=== PATIENT | female | born 1930 | race Asian ===

== ENCOUNTER 2016-09-01 16:15 | Inpatient (IN) | payer OTHER ==
[~2016-09-01] VITALS: Ht 162.6 cm; Wt 52.6 kg
[~2016-09-01 16:15] MED LIST: ADALAT10 MG ORAL; CELEBREX200 MG ORAL; COLACE100 MG ORAL; GLIPIZIDE5 MG ORAL; GLUCOTROL5 MG ORAL; LOSARTAN POTASS25 MG ORAL; LOSARTAN POTASS50 MG ORAL; LOVENOX10 M4 SUBQ; METFORMIN HCL1000 M1 ORAL; METFORMIN HCL500 M1 ORAL; METFORMIN HCL850 M1 ORAL; NIFEDIPINE ER60 M2 ORAL; NORCO 5-325 TA1 EACH ORAL
--- NOTE | 2016-09-01 16:25 | Emergency Room Report ---
History of Present Illness General Chief Complaint: Generalized Weakness Source: Patient, EMS Present Illness HPI Patient is an 86-year-old female presented after increased generalized weakness. The patient reported having increased generalized weakness gradual onset. She denied any focal pain. The patient had prior history of diabetes. She reports having normal po intake as well as normal bowel and bladder habits. She denied any fever. She had not been having any vomiting or diarrhea. The patient reports only taking medications for blood pressure and for diabetes.Per family member she been having chills earlier in the day. Allergies: Coded Allergies: No Known Allergies (Unverified , 02/09/14) Patient History Past Medical History: see triage record Reviewed Nursing Documentation: PMH: Agreed, PSxH: Agreed Nursing Documentation-PMH Past Medical History: No History, Except For Hx Cardiac Problems: Yes Hx Hypertension: Yes Hx Diabetes: Yes Hx Cancer: No Hx Gastrointestinal Problems: No Hx Neurological Problems: Yes - DEMENTIA Review of Systems All Other Systems: negative except mentioned in HPI Physical Exam Vital Signs Date Time Temp Pulse Resp B/P Pulse Ox O2 Delivery O2 Flow Rate FiO2 09/01/16 16:07 97.3 99 20 117/64 95 Room Air Sp02 EP Interpretation: reviewed, normal General Appearance: normal inspection, alert, GCS 15, mild distress Head: normocephalic, atraumatic Eyes: bilateral eye PERRL ENT: normal ENT inspection, hearing grossly normal, normal voice, dry mucus membranes Neck: normal inspection, full range of motion, supple, no bony tend Respiratory: normal inspection, lungs clear, normal breath sounds, no respiratory distress, no retraction, no wheezing Cardiovascular #1: regular rate, rhythm, no edema Gastrointestinal: normal inspection, normal bowel sounds, non tender, soft, no guarding, no hernia Genitourinary: no CVA tenderness Musculoskeletal: normal inspection, back normal, normal range of motion Neurologic: normal inspection, alert, oriented x3, responsive, psychology fellow III-XII nml as tested, motor strength/tone normal, DTRs symmetric, speech normal Psychiatric: normal inspection, judgement/insight normal, mood/affect normal Skin: normal inspection, normal color, no rash Medical Decision Making Diagnostic Impression: Primary Impression: Weakness Additional Impressions: Lactic acid acidosis Diabetes Bifascicular block ER Course Patient presented for generalized weakness. Differential diagnosis included was not limited to anemia, urinary tract infection, electrolyte abnormality, hypothyroidism, myocardial infarction, myasthenia gravis, dehydration, among others. Because of complexity of patient's case laboratory testing and imaging studies were ordered. .The patient noted to have evidence of dehydration started on IV fluids. Lactic acid levels noted to be elevated on patient laboratory testing. The patient was also noted to have slight elevation of her white blood count. Patient was noted to have unremarkable chest x-ray which showed no infiltrate. The patient was given IV antibiotics as well as IV fluids. Lactic acid was noted be slightly improved on repeat testing. Dr. Jem Mancini was contacted for inpatient management Labs Test 09/01/16 16:40 09/01/16 17:19 White Blood Count 11.7 K/UL (4.8-10.8) Red Blood Count 4.88 M/UL (4.20-5.40) Hemoglobin 17.0 G/DL (12.0-16.0) Hematocrit 49.4 % (37.0-47.0) Mean Corpuscular Volume 101 FL (80-99) Mean Corpuscular Hemoglobin 34.9 PG (27.0-31.0) Mean Corpuscular Hemoglobin Concent 34.5 G/DL (32.0-36.0) Red Cell Distribution Width 11.2 % (11.6-14.8) Platelet Count 241 K/UL (150-450) Mean Platelet Volume 9.2 FL (6.5-10.1) Neutrophils (%) (Auto) 60.3 % (45.0-75.0) Lymphocytes (%) (Auto) 32.0 % (20.0-45.0) Monocytes (%) (Auto) 5.8 % (1.0-10.0) Eosinophils (%) (Auto) 0.9 % (0.0-3.0) Basophils (%) (Auto) 1.0 % (0.0-2.0) Sodium Level 142 mEQ/L (135-145) Potassium Level 4.1 mEQ/L (3.4-4.9) Chloride Level 100 mEQ/L (98-107) Carbon Dioxide Level 23 mEQ/L (20-30) Anion Gap 19 (5-15) Blood Urea Nitrogen 15 mg/dL (7-23) Creatinine 0.7 mg/dL (0.5-0.9) Estimat Glomerular Filtration Rate mL/min (>60) Glucose Level 211 mg/dL (74-106) Calcium Level 10.3 mg/dL (8.6-10.2) Phosphorus Level 2.5 mg/dL (2.5-4.8) Magnesium Level 2.0 mg/dL (1.7-2.5) Total Bilirubin 0.3 mg/dL (0.0-1.2) Aspartate Amino Transf (AST/SGOT) 17 U/L (5-40) Alanine Aminotransferase (ALT/SGPT) 19 U/L (3-33) Alkaline Phosphatase 83 U/L (35-104) Total Creatine Kinase 22 U/L (26-140) Creatine Kinase MB < 1.5 ng/mL (< 3.8) Creatine Kinase MB Relative Index Troponin I < 0.30 ng/mL (<=0.30) Pro-B-Type Natriuretic Peptide 111 pg/mL (0-450) Total Protein 8.2 g/dL (6.6-8.7) Albumin 4.6 g/dL (3.5-5.2) Globulin 3.6 g/dL Albumin/Globulin Ratio 1.2 (1.0-2.7) Lipase 29 U/L (< 60) Urine Color Pale yellow Urine Appearance Clear Urine pH 6.5 (4.5-8.0) Urine Specific [place] 1.010 (1.005-1.035) Urine Protein Negative (NEGATIVE) Urine Glucose (UA) 3+ (NEGATIVE) Urine Ketones 1+ (NEGATIVE) Urine Occult Blood Negative (NEGATIVE) Urine Nitrite Negative (NEGATIVE) Urine Bilirubin Negative (NEGATIVE) Urine Urobilinogen Normal MG/DL (0.0-1.0) Urine Leukocyte Esterase Negative (NEGATIVE) Lactic Acid Level 4.10 mmol/L (0.66-2.22) EKG Diagnostic Results Rate: normal - 98 Rhythm: NSR ST Segments: other - bifascicular block Rhythm Strip Diag. Results EP Interpretation: yes Rhythm: NSR, no PVC's, no ectopy Last Vital Signs Date Time Temp Pulse Resp B/P Pulse Ox O2 Delivery O2 Flow Rate FiO2 09/01/16 16:07 97.3 99 20 117/64 95 Room Air Status: unchanged Disposition: XFER SHT-TRM HOSP Condition: Serious Clark Linda Sep 01, 2016 16:25
[2016-09-01 16:40] VITALS: BP 117/64
[2016-09-01 16:56] LABS: EOSINOPHILS % (AUTO) 0.9 % (0.0-3.0); MEAN CORPUSCULAR HEMOGLOBIN 34.9 PG (27.0-31.0); MEAN CORPUSCULAR HGB CONC 34.5 G/DL (32.0-36.0); MEAN CORPUSCULAR VOLUME 101 FL (80-99); MEAN PLATELET VOLUME 9.2 FL (6.5-10.1); MONOCYTES % (AUTO) 5.8 % (1.0-10.0); NEUTROPHILS % (AUTO) 60.3 % (45.0-75.0); PLATELET COUNT 241 K/UL (150-450); RED BLOOD COUNT 4.88 M/UL (4.20-5.40); RED CELL DISTRIBUTION WIDTH 11.2 % (11.6-14.8); WHITE BLOOD COUNT 11.7 K/UL (4.8-10.8)
[2016-09-01 17:02] LABS: TROPONIN I < 0.30 ng/mL (<=0.30)
[2016-09-01 17:03] LABS: ALANINE AMINOTRANSFERASE 19 U/L (3-33); ALBUMIN/GLOBULIN RATIO 1.2 (1.0-2.7); ANION GAP 19 (5-15); ASPARTATE AMINO TRANSFERASE 17 U/L (5-40); CALCIUM 10.3 mg/dL (8.6-10.2); CARBON DIOXIDE 23 mEQ/L (20-30); CHLORIDE 100 mEQ/L (98-107); CREATININE 0.7 mg/dL (0.5-0.9); HEMOLYSIS 13; LIPASE 29 U/L (< 60); PHOSPHORUS 2.5 mg/dL (2.5-4.8); POTASSIUM 4.1 mEQ/L (3.4-4.9); SODIUM 142 mEQ/L (135-145); TOTAL PROTEIN 8.2 g/dL (6.6-8.7)
[2016-09-01 17:04] LABS: REFLEX LACTIC ACID YES OR NO YES
[2016-09-01 17:14] LABS: CKMB < 1.5 ng/mL (< 3.8)
[2016-09-01] MEDS ORDERED: Ampicillin/Sulbactam Sod 3 GM in NS 110 ML IVPB ONE (17:30)
[2016-09-01 17:40] LABS: APPEARANCE,URINE CLEAR; KETONES,URINE 1+ (NEGATIVE); LEUKOCYTE ESTERASE ,URINE NEGATIVE (NEGATIVE); NITRITE,URINE NEGATIVE (NEGATIVE); PH,URINE 6.5 (4.5-8.0); PROTEIN,URINE NEGATIVE (NEGATIVE); UROBILINOGEN,URINE NORMAL MG/DL (0.0-1.0)
[2016-09-01] MEDS ORDERED: Unasyn 3gm Inj ONE (18:19)
[2016-09-01 18:27] VITALS: BP 143/64
[2016-09-01 19:26] VITALS: BP 132/69
[2016-09-01 21:05] LABS: REFLEX LACTIC ACID YES OR NO YES
[2016-09-01] MEDS ORDERED: NIFEdipine 10mg cap ORAL PRN (21:15)
[2016-09-01 21:30] VITALS: BP 142/91
[2016-09-01] MEDS ORDERED: NIFEdipine 10mg cap ORAL SCH (22:00)
[2016-09-01 22:30] VITALS: BP 135/88
[2016-09-01 22:33] VITALS: BP 138/74
[2016-09-01] MEDS: NIFEdipine 10mg cap ORAL SCH (23:21)
[2016-09-01] MEDS: Unasyn 3gm/NS 110ml IVPB SCH ×2 (23:21)
[2016-09-02] MEDS ORDERED: Unasyn 3gm Inj IV SCH
[2016-09-02 04:02] VITALS: BP 133/74
[2016-09-02] MEDS: Unasyn 3gm/NS 110ml IVPB SCH ×6 (05:28→18:07)
[2016-09-02] MEDS: NIFEdipine 10mg cap ORAL SCH ×3 (05:28→21:27)
[2016-09-02 08:07] VITALS: BP 132/71
--- NOTE | 2016-09-02 09:12 | Diagnostic Imaging Report ---
Indications: Shortness of breath Technique: Portable AP chest Findings: Comparison: 10/16/14 Inspiratory effort has improved. Despite this, elevation of the right hemidiaphragm persists. Linear densities are present in the left upper lobe, probably present previously but better demonstrated currently. Visualized portions of lungs and pleura remain otherwise clear. Heart size and pulmonary vasculature remain within normal limits. Aortic arch calcification, mild elongation unchanged. IMPRESSION: Elevation of right hemidiaphragm, nonspecific, acuity indeterminate Left upper lobe parenchymal scarring Aortosclerosis and probable chronic hypertensive change
[2016-09-02 10:16] LABS: ALANINE AMINOTRANSFERASE 14 U/L (3-33); ALBUMIN/GLOBULIN RATIO 1.3 (1.0-2.7); ANION GAP 15 (5-15); ASPARTATE AMINO TRANSFERASE 13 U/L (5-40); CALCIUM 8.6 mg/dL (8.6-10.2); CARBON DIOXIDE 22 mEQ/L (20-30); CHLORIDE 105 mEQ/L (98-107); CREATININE 0.5 mg/dL (0.5-0.9); HEMOLYSIS 6; POTASSIUM 3.5 mEQ/L (3.4-4.9); SODIUM 142 mEQ/L (135-145); TOTAL PROTEIN 6.6 g/dL (6.6-8.7)
[2016-09-02 11:23] VITALS: BP 137/72
--- NOTE | 2016-09-02 13:00 | History & Physical ---
History and Physical History & Physicial dict DM - BS 500 at home Acidosis - poss due to metformin HTN possible sepsis MAEGAN ROJAS Sep 02, 2016 13:00
[2016-09-02 13:13] LABS: BASOPHILS % (AUTO) 0.5 % (0.0-2.0); EOSINOPHILS % (AUTO) 1.2 % (0.0-3.0); LYMPHOCYTES % (AUTO) 33.4 % (20.0-45.0); MEAN CORPUSCULAR HEMOGLOBIN 34.7 PG (27.0-31.0); MEAN CORPUSCULAR HGB CONC 33.6 G/DL (32.0-36.0); MEAN CORPUSCULAR VOLUME 103 FL (80-99); MEAN PLATELET VOLUME 8.1 FL (6.5-10.1); MONOCYTES % (AUTO) 6.5 % (1.0-10.0); NEUTROPHILS % (AUTO) 58.4 % (45.0-75.0); PLATELET COUNT 204 K/UL (150-450); RED BLOOD COUNT 4.32 M/UL (4.20-5.40); RED CELL DISTRIBUTION WIDTH 11.3 % (11.6-14.8); WHITE BLOOD COUNT 10.6 K/UL (4.8-10.8)
[2016-09-02 15:30] VITALS: BP 123/63
--- NOTE | 2016-09-02 17:01 | History and Physical Report ---
DATE OF ADMISSION: 09/01/2016 HISTORY OF PRESENT ILLNESS: The patient is an 86-year-old woman, who comes to the hospital from home because of weakness. She states that her blood sugar was 500, she does not know exactly why. She does not take insulin at home, but takes oral diabetic medication. She was eating well. She had no fever, but she did have some chills. There was no cough or shortness of breath and no dysuria. She had no nausea, vomiting, or diarrhea. PAST MEDICAL HISTORY: Diabetes, hypertension, and possibly some dementia, although she seems coherent to me. MEDICATIONS: Glipizide, metformin, losartan, and nifedipine. ALLERGIES: None. REVIEW OF SYSTEMS: Otherwise unremarkable. She has had a poor appetite today. PHYSICAL EXAMINATION: GENERAL: The patient is alert and responds appropriately at this time. There is no fever. She is well-developed and well-nourished. VITAL SIGNS: The blood pressure is 137/72. Other vital signs are normal. Saturation is 93% to 99% on room air. SKIN: Warm and dry. HEENT: The head is normocephalic. NECK: No jugular venous distention. CHEST: Clear. CARDIAC: Rhythm is regular. ABDOMEN: Soft and nontender. EXTREMITIES: No clubbing, cyanosis, or edema. LABORATORY DATA: Laboratory studies show the white count was mildly elevated at 11,700. Chemistry shows blood sugar 232. Lactic acid was elevated. Creatinine 0.5. Urine, she had 1+ ketones and 3+ sugar. IMPRESSION: 1. Generalized weakness. 2. Hyperglycemia. 3. Lactic acidosis, possibly due to metformin or early sepsis. 4. Hypertension, controlled on medication. PLAN: The patient will be given empiric antibiotics until cultures return. Endocrinology consultation was requested. We will discontinue metformin as it may cause acidosis. Jem Mancini M.D. DR: COSMO JOB#: [id number] CC:
[2016-09-02] MEDS: NovoLOG Insulin Flexpen SUBQ SCH ×2 (17:14→21:00)
[2016-09-02 21:03] VITALS: BP 140/72
[2016-09-03 00:07] VITALS: BP 148/67
[2016-09-03] MEDS: Unasyn 3gm/NS 110ml IVPB SCH ×8 (00:14→18:17)
[2016-09-03 04:11] VITALS: BP 146/57
[2016-09-03] MEDS: NIFEdipine 10mg cap ORAL SCH (06:00)
[2016-09-03] MEDS: NovoLOG Insulin Flexpen SUBQ SCH ×4 (06:39→22:11)
[2016-09-03] MEDS: sitaGLIPtin 50mg tab ORAL SCH (08:23)
[2016-09-03 09:45] LABS: REFLEX LACTIC ACID YES OR NO YES
[2016-09-03] MEDS: Nateglinide 60mg tab ORAL SCH ×2 (11:10→16:18)
--- NOTE | 2016-09-03 13:44 | General Progress Note ---
Assessment/Plan Assessment/Plan 1. Generalized weakness. 2. Hyperglycemia. 3. Lactic acidosis, possibly due to metformin or early sepsis. 4. Hypertension, controlled on medication. still very weak endo called, meds adjusted still elevated lactic acid monitor labs OT/PT Subjective Constitutional: Reports: malaise, weakness Allergies: Coded Allergies: No Known Allergies (Unverified , 02/09/14) Objective Last 24 Hour Vital Signs Date Time Temp Pulse Resp B/P Pulse Ox O2 Delivery O2 Flow Rate FiO2 09/03/16 12:00 50 09/03/16 08:00 52 09/03/16 06:00 40 156/70 09/03/16 04:11 98.5 44 146/57 93 Room Air 09/03/16 04:00 42 09/03/16 00:07 98.3 49 18 148/67 94 Room Air 09/03/16 00:00 48 09/02/16 21:27 50 140/72 09/02/16 21:03 98.4 50 17 140/72 93 Room Air 09/02/16 20:00 65 09/02/16 16:00 60 09/02/16 15:30 97.9 61 18 123/63 93 Room Air Intake and Output 09/02/16 09/03/16 19:00 07:00 Intake Total 910 ml 110 ml Balance 910 ml 110 ml Intake Oral 800 ml IV Total 110 ml 110 ml # Voids 4 3 Laboratory Tests 09/03/16 09:05: Hemoglobin A1c 7.4H, Lactic Acid Level 3.90H Height (Feet): 5 Height (Inches): 4.00 Weight (Pounds): 116 General Appearance: no apparent distress, alert Cardiovascular: normal rate MAEGAN ROJAS Sep 03, 2016 13:44
--- NOTE | 2016-09-03 13:46 | Consultation ---
DATE OF CONSULTATION: 09/03/2016 REASON FOR CONSULTATION: Diabetes management. HISTORY OF PRESENT ILLNESS: The patient is an 86-year-old female with history of diabetes and hypertension, on combination of metformin and glipizide as an outpatient presented to the hospital with generalized weakness. The patient whose is known to have a lactic acidosis, metformin was discontinued, started on IV fluid and also glipizide has been held. The patient stated sthat she has been diagnosed with diabetes about a year ago, she has been compliant with medication, but the glucose at home was running very high. PAST MEDICAL HISTORY: 1. Diabetes. 2. Hypertension. 3. Questionable dementia. MEDICATIONS AN OUTPATIENT: 1. Glipizide. 2. Metformin. ALLERGIES TO MEDICATIONS: None. REVIEW OF SYSTEMS: as per HPI PHYSICAL EXAMINATION: GENERAL: She is awake and alert. VITAL SIGNS: Blood pressure is 130/80, heart rate 80, temperature 98.2 degrees, and respiratory rate of 18. HEENT: Pupils are reactive to light and accommodation. Sclerae are anicteric. NECK: No JVD. No thyromegaly. No bruit. LUNGS: Clear. HEART: Regular rate and rhythm. ABDOMEN: Positive bowel sounds. Soft. EXTREMITIES: No clubbing, cyanosis, or edema. LABORATORY DATA: Lactic acidosis up to 4.8. Sodium 142, potassium 4.1, chloride 100, bicarbonate 22, BUN 15, and creatinine 0.5, anion gap of 19, and lactic acid 4.8. Glucose 211, calcium 10.3. Lipase 29. DIAGNOSES: 1. Lactic acidosis, anion gap acidosis. 2. Diabetes, under control. 3. Hypertension. PLAN: 1. Metformin and glipizide have been discontinued which I concur with 2. Continue IV fluid. 3. Continue sliding scale with NovoLog. 4. Add Januvia 50 mg daily. 5. Add Starlix 60 mg a.c. t.i.d. 6. Check hemoglobin A1c. 7. After discharge, the patient should now go back on metformin. Thank you, Dr. Mancini for the courtesy of this consultation. Dewayne Lange M.D. DR: BREA/PM JOB#: [id number] CC: SUZAN
[2016-09-03] MEDS ORDERED: NIFEdipine 10mg cap ORAL PRN (14:00)
[2016-09-03 18:21] VITALS: BP 124/65
[2016-09-03 20:00] VITALS: BP 152/74
[2016-09-04] VITALS: BP 148/71
[2016-09-04] MEDS: Unasyn 3gm/NS 110ml IVPB SCH ×4 (00:58→05:38)
[2016-09-04 04:00] VITALS: BP 157/78
[2016-09-04] MEDS: sitaGLIPtin 50mg tab ORAL SCH (05:41)
[2016-09-04] MEDS: Nateglinide 60mg tab ORAL SCH ×3 (05:41→17:51)
[2016-09-04] MEDS: NovoLOG Insulin Flexpen SUBQ SCH ×4 (05:42→21:38)
[2016-09-04 07:41] LABS: BASOPHILS % (AUTO) 1.1 % (0.0-2.0); EOSINOPHILS % (AUTO) 4.4 % (0.0-3.0); LYMPHOCYTES % (AUTO) 42.3 % (20.0-45.0); MEAN CORPUSCULAR HEMOGLOBIN 35.2 PG (27.0-31.0); MEAN CORPUSCULAR HGB CONC 33.9 G/DL (32.0-36.0); MEAN CORPUSCULAR VOLUME 104 FL (80-99); MEAN PLATELET VOLUME 9.3 FL (6.5-10.1); NEUTROPHILS % (AUTO) 44.3 % (45.0-75.0); PLATELET COUNT 202 K/UL (150-450); RED BLOOD COUNT 4.16 M/UL (4.20-5.40); RED CELL DISTRIBUTION WIDTH 11.3 % (11.6-14.8); WHITE BLOOD COUNT 8.3 K/UL (4.8-10.8)
--- NOTE | 2016-09-04 07:47 | General Progress Note ---
Assessment/Plan Problem List: (1) Lactic acid acidosis ICD Codes: E87.2 - Acidosis SNOMED: 93219479 (2) Diabetes ICD Codes: E11.9 - Type 2 diabetes mellitus without complications SNOMED: 15746611 (3) Dizziness ICD Codes: R42 - Dizziness and giddiness SNOMED: 860405345 (4) Weakness ICD Codes: R53.1 - Weakness SNOMED: 46179267 Assessment/Plan BG values well controlled on current regimen continue Starlix 60 mg ac tid + Januvia 50 mg daily continue SSI only during stay - no need for insulin after DC do not resume Metformin or Glipizide after DC Subjective Allergies: Coded Allergies: No Known Allergies (Unverified , 02/09/14) All Systems: reviewed and negative except above Subjective events noted Objective Last 24 Hour Vital Signs Date Time Temp Pulse Resp B/P Pulse Ox O2 Delivery O2 Flow Rate FiO2 09/04/16 04:00 45 09/04/16 04:00 97.5 44 16 157/78 93 Room Air 09/04/16 00:00 46 09/04/16 00:00 97.6 48 16 148/71 94 Room Air 09/03/16 20:00 53 09/03/16 20:00 97.3 59 18 152/74 95 Room Air 09/03/16 18:21 96.8 53 17 124/65 95 58 09/03/16 16:00 47 09/03/16 12:00 50 09/03/16 08:00 52 Intake and Output 09/03/16 09/04/16 19:00 07:00 Intake Total 570 ml 290 ml Balance 570 ml 290 ml Intake Oral 350 ml 70 ml IV Total 220 ml 220 ml # Voids 3 2 Laboratory Tests 09/03/16 09:05: Hemoglobin A1c 7.4H, Lactic Acid Level 3.90H 09/04/16 06:15: Lactic Acid Level 1.30, White Blood Count [Pending], Red Blood Count [Pending], Hemoglobin [Pending], Hematocrit [Pending], Mean Corpuscular Volume [Pending], Mean Corpuscular Hemoglobin [Pending], Mean Corpuscular Hemoglobin Concent [ Pending], Red Cell Distribution Width [Pending], Platelet Count [Pending], Mean Platelet Volume [Pending], Neutrophils (%) (Auto) [Pending], Lymphocytes (%) ( Auto) [Pending], Monocytes (%) (Auto) [Pending], Eosinophils (%) (Auto) [Pending ], Basophils (%) (Auto) [Pending], Sodium Level [Pending], Potassium Level [ Pending], Chloride Level [Pending], Carbon Dioxide Level [Pending], Blood Urea Nitrogen [Pending], Creatinine [Pending], Estimat Glomerular Filtration Rate [ Pending], Glucose Level [Pending], Calcium Level [Pending], Total Bilirubin [ Pending], Aspartate Amino Transf (AST/SGOT) [Pending], Alanine Aminotransferase (ALT/SGPT) [Pending], Alkaline Phosphatase [Pending], Total Protein [Pending], Albumin [Pending], Globulin [Pending] Height (Feet): 5 Height (Inches): 4.00 Weight (Pounds): 116 General Appearance: no apparent distress Neck: normal alignment Cardiovascular: regular rhythm Respiratory/Chest: lungs clear Abdomen: normal bowel sounds Pelvis: normal external exam Edema: no edema noted Arm (L), no edema noted Arm (R), no edema noted Leg (L), no edema noted Leg (R), no edema noted Pedal (L), no edema noted Pedal (R), no edema noted Generalized Objective Current Medications Medications (Trade) Dose Ordered Sig/Sushila Route PRN Reason Start Time Stop Time Status Last Admin Dose Admin Ampicillin Sodium/ Sulbactam Sodium/ Sodium Chloride (Unasyn/Sodium Chloride) 110 ml @ 220 mls/hr Q6HR IVPB 09/02/16 00:00 09/09/16 00:00 09/04/16 05:38 Dextrose (Dextrose 50%) STAT PRN IV Hypoglycemia 09/02/16 13:00 10/02/16 12:59 Insulin Aspart (NovoLOG) BEFORE MEALS AND HS SUBQ 09/02/16 16:30 10/02/16 16:29 09/04/16 05:42 Nateglinide (Starlix) 60 mg TIAC ORAL 09/03/16 11:30 10/03/16 11:29 09/04/16 05:41 Nifedipine (Adalat) 10 mg Q8HR PRN ORAL SBP >160 09/03/16 14:00 10/03/16 13:59 Sitagliptin Phosphate (Januvia) 50 mg ACBREAKFAST ORAL 09/03/16 08:00 10/03/16 07:59 09/04/16 05:41 Item Value Date Time Bedside Blood Glucose 137 mg/dl H 09/04/16 0630 Bedside Blood Glucose 123 mg/dl H 09/03/16 2211 Bedside Blood Glucose 166 mg/dl H 09/03/16 1619 Bedside Blood Glucose 114 mg/dl 09/03/16 1109 Bedside Blood Glucose 175 mg/dl H 09/03/16 0639 REINA LEE Sep 04, 2016 07:47
[2016-09-04 07:54] LABS: ALANINE AMINOTRANSFERASE 13 U/L (3-33); ALBUMIN/GLOBULIN RATIO 1.4 (1.0-2.7); ANION GAP 13 (5-15); ASPARTATE AMINO TRANSFERASE 13 U/L (5-40); CARBON DIOXIDE 26 mEQ/L (20-30); CHLORIDE 106 mEQ/L (98-107); CREATININE 0.6 mg/dL (0.5-0.9); HEMOLYSIS 6; POTASSIUM 3.7 mEQ/L (3.4-4.9); SODIUM 145 mEQ/L (135-145); TOTAL PROTEIN 6.5 g/dL (6.6-8.7)
[2016-09-04 08:20] VITALS: BP 185/72
--- NOTE | 2016-09-04 09:15 | General Progress Note ---
Assessment/Plan Assessment/Plan 1. Generalized weakness. 2. Hyperglycemia. 3. Lactic acidosis, due to metformin. 4. Hypertension, not controlled on medication. better, lactate cleared endo notes reviewed, meds adjusted resume losartan OT/PT prob dc today no metformin or glipizide Subjective Constitutional: Reports: weakness - stronger today Respiratory: Denies: shortness of breath Gastrointestinal/Abdominal: Denies: abdominal pain Allergies: Coded Allergies: No Known Allergies (Unverified , 02/09/14) Objective Last 24 Hour Vital Signs Date Time Temp Pulse Resp B/P Pulse Ox O2 Delivery O2 Flow Rate FiO2 09/04/16 08:20 97.3 60 18 185/72 95 Room Air 09/04/16 04:00 45 09/04/16 04:00 97.5 44 16 157/78 93 Room Air 09/04/16 00:00 46 09/04/16 00:00 97.6 48 16 148/71 94 Room Air 09/03/16 20:00 53 09/03/16 20:00 97.3 59 18 152/74 95 Room Air 09/03/16 18:21 96.8 53 17 124/65 95 58 09/03/16 16:00 47 09/03/16 12:00 50 Intake and Output 09/03/16 09/04/16 19:00 07:00 Intake Total 570 ml 400 ml Balance 570 ml 400 ml Intake Oral 350 ml 70 ml IV Total 220 ml 330 ml # Voids 3 2 Laboratory Tests 09/04/16 06:15: White Blood Count 8.3, Red Blood Count 4.16L, Hemoglobin 14.7, Hematocrit 43.3, Mean Corpuscular Volume 104H, Mean Corpuscular Hemoglobin 35.2H, Mean Corpuscular Hemoglobin Concent 33.9, Red Cell Distribution Width 11.3L, Platelet Count 202, Mean Platelet Volume 9.3, Neutrophils (%) (Auto) 44.3L, Lymphocytes (%) (Auto) 42.3, Monocytes (%) (Auto) 8.0, Eosinophils (%) (Auto) 4.4H, Basophils (%) (Auto) 1.1, Sodium Level 145, Potassium Level 3.7, Chloride Level 106, Carbon Dioxide Level 26, Anion Gap 13, Blood Urea Nitrogen 12, Creatinine 0.6, Estimat Glomerular Filtration Rate , Glucose Level 149H, Lactic Acid Level 1.30, Calcium Level 9.0, Total Bilirubin 0.5, Aspartate Amino Transf (AST/SGOT) 13, Alanine Aminotransferase (ALT/SGPT) 13, Alkaline Phosphatase 67, Total Protein 6.5L, Albumin 3.8, Globulin 2.7, Albumin/Globulin Ratio 1.4 Height (Feet): 5 Height (Inches): 4.00 Weight (Pounds): 116 General Appearance: no apparent distress Cardiovascular: normal rate Respiratory/Chest: lungs clear MAEGAN ROJAS Sep 04, 2016 09:15
[2016-09-04] MEDS: Losartan 50mg tab ORAL SCH (09:57)
[2016-09-04 11:42] VITALS: BP 155/74
[2016-09-04 15:52] VITALS: BP 160/92
[2016-09-04 20:00] VITALS: BP 146/89
[2016-09-05] VITALS: BP 158/75
[2016-09-05 04:00] VITALS: BP 158/75
[2016-09-05] MEDS: NovoLOG Insulin Flexpen SUBQ SCH ×4 (06:44→21:14)
[2016-09-05] MEDS: sitaGLIPtin 50mg tab ORAL SCH (06:44)
[2016-09-05] MEDS: Nateglinide 60mg tab ORAL SCH ×3 (06:44→18:48)
[2016-09-05 08:00] VITALS: BP 156/70
[2016-09-05] MEDS: Losartan 50mg tab ORAL SCH (10:10)
[2016-09-05 12:00] VITALS: BP 141/77
--- NOTE | 2016-09-05 13:08 | General Progress Note ---
Assessment/Plan Problem List: (1) Lactic acid acidosis ICD Codes: E87.2 - Acidosis SNOMED: 53914951 (2) Diabetes ICD Codes: E11.9 - Type 2 diabetes mellitus without complications SNOMED: 77057609 (3) Dizziness ICD Codes: R42 - Dizziness and giddiness SNOMED: 888289553 (4) Weakness ICD Codes: R53.1 - Weakness SNOMED: 63969738 Assessment/Plan continue Starlix 60 mg ac tid + Januvia 50 mg daily no need for insulin after DC Subjective Allergies: Coded Allergies: No Known Allergies (Unverified , 02/09/14) All Systems: reviewed and negative except above Subjective events noted Objective Last 24 Hour Vital Signs Date Time Temp Pulse Resp B/P Pulse Ox O2 Delivery O2 Flow Rate FiO2 09/05/16 12:00 97.8 71 20 141/77 96 Room Air 09/05/16 10:10 158/82 09/05/16 08:00 97.8 46 20 156/70 95 Room Air 09/05/16 04:00 97.5 47 18 158/75 96 Room Air 09/05/16 04:00 43 09/05/16 00:00 43 09/05/16 00:00 97.5 54 18 158/75 96 Room Air 09/04/16 20:00 80 09/04/16 20:00 97.5 76 18 146/89 96 Room Air 09/04/16 16:00 60 09/04/16 15:52 97.2 70 18 160/92 96 Room Air Intake and Output 09/04/16 09/05/16 19:00 07:00 Intake Total 360 ml Output Total 350 ml Balance 10 ml Intake Oral 360 ml Output Urine Total 350 ml # Voids 2 2 Height (Feet): 5 Height (Inches): 4.00 Weight (Pounds): 116 General Appearance: no apparent distress Neck: normal alignment Cardiovascular: normal rate Pelvis: normal external exam Objective Current Medications Medications (Trade) Dose Ordered Sig/Sushila Route PRN Reason Start Time Stop Time Status Last Admin Dose Admin Dextrose (Dextrose 50%) STAT PRN IV Hypoglycemia 09/02/16 13:00 10/02/16 12:59 Insulin Aspart (NovoLOG) BEFORE MEALS AND HS SUBQ 09/02/16 16:30 10/02/16 16:29 09/05/16 12:56 Losartan Potassium (Cozaar) 100 mg DAILY ORAL 09/04/16 10:00 10/04/16 09:59 09/05/16 10:10 Nateglinide (Starlix) 60 mg TIAC ORAL 09/03/16 11:30 10/03/16 11:29 09/05/16 12:55 Nifedipine (Adalat) 10 mg Q8HR PRN ORAL SBP >160 09/03/16 14:00 10/03/16 13:59 Sitagliptin Phosphate (Januvia) 50 mg ACBREAKFAST ORAL 09/03/16 08:00 10/03/16 07:59 09/05/16 06:44 Item Value Date Time Bedside Blood Glucose 192 mg/dl H 09/05/16 1256 Bedside Blood Glucose 133 mg/dl H 09/05/16 0644 Bedside Blood Glucose 163 mg/dl H 09/04/16 2138 Bedside Blood Glucose 163 mg/dl H 09/04/16 1752 Bedside Blood Glucose 131 mg/dl H 09/04/16 1252 REINA LEE Sep 05, 2016 13:08
[2016-09-05 16:00] VITALS: BP 134/69
[2016-09-05 19:57] VITALS: BP 144/75
--- NOTE | 2016-09-05 23:40 | Consultation ---
History of Present Illness General Date patient seen: Sep 05, 2016 Chief Complaint: Generalized Weakness Present Illness HPI 86-year-old female with history of diabetes and hypertension, on combination of metformin and glipizide as an outpatient presented to the hospital with generalized weakness. The pt is a poor historian and has anxiety Allergies: Coded Allergies: No Known Allergies (Unverified , 02/09/14) Medication History Scheduled Glipizide* (Glucotrol*), 5 MG ORAL DAILY, (Reported) Losartan Potassium* (Losartan Potassium*), 50 MG ORAL QHS, (Reported) Metformin Hcl* (Metformin Hcl*), 850 MG ORAL DAILY, (Reported) Metformin Hcl* (Metformin Hcl*), Unknown Dose ORAL TWICE A DAY, (Reported) Nifedipine (Nifedipine*), Unknown Dose ORAL EVERY 6 HOURS, (Reported) Nifedipine* (Nifedipine Er*), 60 MG ORAL DAILY, (Reported) Discontinued Medications Celecoxib* (Celebrex*), 200 MG ORAL DAILY Discontinued Reason: Therapy completed Docusate Sodium* (Colace*), 100 MG ORAL THREE TIMES A DAY Discontinued Reason: Therapy completed Enoxaparin* (Lovenox*), 40 MG SUBQ DAILY Discontinued Reason: Therapy completed Hydrocodone Bit/Acetaminophen 5-325* ([place] 5-325*), 2 TAB ORAL Q6H PRN for Severe Pain (Pain Scale 7-10) Discontinued Reason: Therapy completed Patient History Limited by: medical condition History Provided By: Patient, Medical Record, PMD Healthcare decision maker N Resuscitation status Full Code Advanced Directive on File No Past Medical/Surgical History Past Medical/Surgical History: (1) Vertigo (2) Dizziness (3) Head, face & neck injury (4) Head, face & neck injury (5) Dizziness (6) Weakness Review of Systems Constitutional: Reports: weakness Psychiatric: Reports: anxiety, depressed feelings, emotional problems, prior hx Physical Exam General Appearance: alert, mild distress Neurologic: alert, responsive, disoriented, depressed affect Last 24 Hour Vital Signs Date Time Temp Pulse Resp B/P Pulse Ox O2 Delivery O2 Flow Rate FiO2 09/05/16 19:57 98.7 71 17 144/75 91 Room Air 09/05/16 16:00 97.4 51 19 134/69 94 Room Air 09/05/16 12:00 97.8 71 20 141/77 96 Room Air 09/05/16 12:00 63 7/6/17 10:10 158/82 09/05/16 08:00 97.8 46 20 156/70 95 Room Air 09/05/16 08:00 45 09/05/16 04:00 97.5 47 18 158/75 96 Room Air 09/05/16 04:00 43 09/05/16 00:00 43 09/05/16 00:00 97.5 54 18 158/75 96 Room Air Intake and Output 09/04/16 09/05/16 19:00 07:00 Intake Total 360 ml Output Total 350 ml Balance 10 ml Intake Oral 360 ml Output Urine Total 350 ml # Voids 2 2 Height (Feet): 5 Height (Inches): 4.00 Weight (Pounds): 116 Assessment/Plan Status: doing well, stable, progressing Marilee Castro M.D. Sep 05, 2016 23:40
--- NOTE | 2016-09-06 14:48 | General Progress Note ---
Assessment/Plan Status: doing well, stable, tolerating diet Subjective Date patient seen: Sep 05, 2016 Constitutional: Reports: weakness Neurologic/Psychiatric: Reports: anxiety, depressed, emotional problems Allergies: Coded Allergies: No Known Allergies (Unverified , 02/09/14) All Systems: reviewed and negative except above Objective Last 24 Hour Vital Signs Date Time Temp Pulse Resp B/P Pulse Ox O2 Delivery O2 Flow Rate FiO2 09/05/16 19:57 98.7 71 17 144/75 91 Room Air 09/05/16 16:00 97.4 51 19 134/69 94 Room Air Intake and Output 09/05/16 09/06/16 19:00 07:00 Intake Total 400 ml Balance 400 ml Intake Oral 400 ml # Voids 2 Height (Feet): 5 Height (Inches): 4.00 Weight (Pounds): 116 General Appearance: no apparent distress, alert Neurologic: alert, responsive, depressed affect Marilee Castro M.D. Sep 06, 2016 14:48
--- NOTE | 2016-09-07 12:30 | Discharge Summary 2 SIG ---
DATE OF ADMISSION: 09/01/2016 DATE OF DISCHARGE: 09/05/2016 CONSULTANTS: 1. Marilee Castro M.D. 2. Dewayne Lange M.D. BRIEF HOSPITAL COURSE: The patient is an 86-year-old female, who came to the hospital from home because of weakness and stated that her blood sugar has been high evaluation at ED, lactic acid levels were noted to be elevated and had a slight elevation on WBC. Chest x-ray showed no infiltrate. She was given IV hydration and was started on empiric antibiotics. Dr. Lange was consulted. Glipizide and metformin have been discontinued and was given Januvia and Starlix. Hemoglobin A1c was 7.4. Lactic acidosis improved. Advised not to continue metformin or glipizide. She underwent physical therapy and occupational therapy evaluation. Dr. Castro was consulted as the patient has anxiety for her. The patient was eventually discharged to [facility]. Advised to continue losartan 100 mg p.o. daily Januvia 50 milligram by mouth before breakfast. Continue with Accu-Cheks before meals and HS but no insulin, no metformin, and no glipizide. FINAL DIAGNOSES: 1. Lactic acidosis due to metformin. 2. Hypertension not controlled on medication. 3. Hyperglycemia diabetes mellitus out of control. 4. Generalized weakness starting in place takeout diabetes mellitus out of control. Just protein hyperglycemia. 5. Generalized weakness. Jem Mancini M.D. I have been assigned to dictate discharge summary on this account and I was not involved in the patient's management. Krysta Barker N.P. DR: BRENT JOB#: [id number] CC:
== END 2016-09-05 21:39 | DRG 641 ==
LOC: EDBD 16:15 → EMR 16:33 → 2E 19:45 → EDBEDREQ 20:33 → 2E 21:40
DX: E87.2 Acidosis (principal); E86.0 Dehydration; E11.65 Type 2 diabetes mellitus with hyperglycemia; I45.2 Bifascicular block; I10 Essential (primary) hypertension; Z79.84 Long term (current) use of oral hypoglycemic drugs; T38.3X5A Adverse effect of insulin and oral hypoglycemic [antidiabetic] drugs, initial encounter; Y92.89 Other specified places as the place of occurrence of the external cause
CPT/HCPCS: 36415; 71010; 80053; 81003; 82550; 82553; 82962; 83036; 83605; 83690; 83735; 83880; 84100; 84484; 85025; 87040; 93005; J1815

== ENCOUNTER 2016-12-06 14:17 | Inpatient (IN) | payer MEDICARE, OTHER ==
[~2016-12-06] VITALS: Ht 157.5 cm; Wt 63.5 kg
--- NOTE | 2016-12-06 14:34 | Emergency Room Report ---
History of Present Illness General Chief Complaint: Altered Level of Consciousness Present Illness HPI 86YOF BIBEMS from SNF with alleged "more altered than usual." EMS could not quantify what family meant by this. Patient herself has no complaints. Feels "weak." Denies chest pain, SOB, abd pain, headache, fever/chills. Glucose was >400 at home. Patient allegedly only takes Januvia at home now. On recent admission, metformin and glipizide were DCed. HbA1C was 7.4 Daughter arrived significantly after patient's arrival, states patient got ONE dose of Keflex 4 days ago at outside [facility] for UTI. Was NOT given Abx She is concerned mother is weak and "not herself." Allergies: Coded Allergies: No Known Allergies (Unverified , 02/09/14) Patient History Past Medical History: DM, dementia Past Surgical History: none Pertinent Family History: none Social History: Denies: smoking, alcohol use, drug use Now: No Immunizations: UTD Reviewed Nursing Documentation: PMH: Agreed, PSxH: Agreed Nursing Documentation-PMH Hx Cardiac Problems: Yes - HYPERLIPIDEMIA Hx Hypertension: Yes Hx Diabetes: Yes Hx Cancer: No Hx Gastrointestinal Problems: No Hx Neurological Problems: Yes Hx Cerebrovascular Accident: No Hx Transient Ischemic Attacks: No Hx Dementia: Yes Review of Systems All Other Systems: negative except mentioned in HPI Physical Exam Vital Signs Date Time Temp Pulse Resp B/P (MAP) Pulse Ox O2 Delivery O2 Flow Rate FiO2 12/06/16 14:28 98.2 86 16 165/77 95 Room Air Sp02 EP Interpretation: reviewed, normal General Appearance: normal inspection, well appearing, no apparent distress, alert, GCS 15, non-toxic Head: normocephalic, atraumatic Eyes: bilateral eye PERRL, bilateral eye EOMI ENT: normal ENT inspection, hearing grossly normal, normal voice Neck: normal inspection, full range of motion, supple, no bony tend Respiratory: normal inspection, lungs clear, normal breath sounds, no respiratory distress, no retraction, no accessory muscle use, no wheezing, speaking full sentences Cardiovascular #1: regular rate, rhythm, no edema Gastrointestinal: normal inspection, normal bowel sounds, non tender, soft, no guarding, no hernia Genitourinary: no CVA tenderness Musculoskeletal: normal inspection, back normal, normal range of motion, Farzana' s Sign negative Neurologic: normal inspection, alert, responsive, legislative advocate III-XII nml as tested, motor strength/tone normal, speech normal, other - Patien oriented to herself, location, but thinks date is June 2015 Psychiatric: normal inspection, judgement/insight normal, mood/affect normal Skin: normal inspection, normal color, no rash Medical Decision Making Diagnostic Impression: Primary Impression: Altered level of consciousness Additional Impressions: UTI (urinary tract infection) Qualified Codes: N30.00 - Acute cystitis without hematuria Hyperglycemia ER Course VSS. Afebrile No focal neuro deficits - doubt CVA No leuks. UA actually negative for infection CXR negative for infection Elevated sugar resovled with IVF NS ALONE. ABG: No acidosis. NO AG. K normal. NOT in DKA Was given IV dose of Ceftriaxone in ED Family strongly advocating for admission Dr Castrejon is PMD Endorsed for med/surg admisstion at 6pm Dr Rosario EKG Diagnostic Results Rate: normal Rhythm: NSR, other - RBBB ST Segments: no acute changes ASA given to the pt in ED: No Rhythm Strip Diag. Results EP Interpretation: yes Rate: 57 Rhythm: NSR, no PVC's, no ectopy Chest X-Ray Diagnostic Results Chest X-Ray Diagnostic Results : Chest X-Ray Ordered: Yes # of Views/Limited/Complete: 1 View Indication: Other - AMS EP Interpretation: Yes Interpretation: no consolidation, no effusion, no pneumothorax, no acute cardiopulmonary disease Impression: No acute disease Electronically Signed by: Dr Maegan Santana MD Last Vital Signs Date Time Temp Pulse Resp B/P (MAP) Pulse Ox O2 Delivery O2 Flow Rate FiO2 12/06/16 14:28 98.2 86 16 165/77 95 Room Air Status: improved Disposition: ADMITTED INPATIENT Condition: Serious MAEGAN SANTANA M.D. Dec 06, 2016 14:34
[2016-12-06 15:35] VITALS: BP 159/88
[2016-12-06 16:15] LABS: BASOPHILS % (AUTO) 1.1 % (0.0-2.0); EOSINOPHILS % (AUTO) 2.1 % (0.0-3.0); LYMPHOCYTES % (AUTO) 35.8 % (20.0-45.0); MEAN CORPUSCULAR HEMOGLOBIN 33.5 PG (27.0-31.0); MEAN CORPUSCULAR HGB CONC 31.9 G/DL (32.0-36.0); MEAN CORPUSCULAR VOLUME 105 FL (80-99); MEAN PLATELET VOLUME 9.9 FL (6.5-10.1); MONOCYTES % (AUTO) 8.7 % (1.0-10.0); NEUTROPHILS % (AUTO) 52.4 % (45.0-75.0); PLATELET COUNT 185 K/UL (150-450); RED BLOOD COUNT 4.37 M/UL (4.20-5.40); RED CELL DISTRIBUTION WIDTH 11.6 % (11.6-14.8); WHITE BLOOD COUNT 8.2 K/UL (4.8-10.8)
[2016-12-06 16:30] VITALS: BP 185/95
[2016-12-06 16:39] LABS: APPEARANCE,URINE CLEAR; KETONES,URINE NEGATIVE (NEGATIVE); LEUKOCYTE ESTERASE ,URINE NEGATIVE (NEGATIVE); NITRITE,URINE NEGATIVE (NEGATIVE); PH,URINE 6 (4.5-8.0); PROTEIN,URINE NEGATIVE (NEGATIVE); UROBILINOGEN,URINE NORMAL MG/DL (0.0-1.0)
[2016-12-06 16:39] LABS: ABG BASE EXCESS -1.1; ABG PCO2 36.2 mmHg (35.0-45.0)
[2016-12-06 16:40] LABS: ABG ALLEN TEST POSITIVE
[2016-12-06 16:51] LABS: ALANINE AMINOTRANSFERASE 16 U/L (3-33); ALBUMIN/GLOBULIN RATIO 1.1 (1.0-2.7); ANION GAP 11 (5-15); ASPARTATE AMINO TRANSFERASE 14 U/L (5-40); CALCIUM 8.8 mg/dL (8.6-10.2); CARBON DIOXIDE 27 mEQ/L (20-30); CHLORIDE 103 mEQ/L (98-107); CREATININE 0.7 mg/dL (0.5-0.9); HEMOLYSIS 11; MAGNESIUM 1.9 mg/dL (1.7-2.5); POTASSIUM 4.1 mEQ/L (3.4-4.9); SODIUM 141 mEQ/L (135-145)
[2016-12-06] MEDS ORDERED: cefTRIAXone 1 GM in NS 55 ML IVPB ONE (17:30)
[2016-12-06 17:32] VITALS: BP 168/88
[2016-12-06 18:40] VITALS: BP 174/63
[2016-12-06] MEDS ORDERED: NAMENDA5 MG ORAL (18:51)
[2016-12-06] MEDS ORDERED: PROCARDIA XL30 MG ORAL (18:51)
[2016-12-06] MEDS ORDERED: JANUVIA100 MG ORAL (18:51)
[2016-12-06] MEDS ORDERED: LIPITOR80 MG ORAL (18:51)
[2016-12-06 20:00] VITALS: BP 174/75
[2016-12-06] MEDS ORDERED: HydrALAZINE 25mg tab ORAL PRN (20:45)
[2016-12-06] MEDS: Atorvastatin 80mg tab ORAL SCH (22:14)
[2016-12-06] MEDS: NovoLOG Insulin Flexpen SUBQ SCH (22:14)
[2016-12-06] MEDS: Losartan 50mg tab ORAL SCH (22:15)
[2016-12-07] VITALS (7 sets, daily range): BP systolic 105–158; BP diastolic 63–92
--- NOTE | 2016-12-07 05:45 | Consultation ---
DATE OF CONSULTATION: 12/06/2016 CARDIOLOGY CONSULTATION REQUESTING PHYSICIAN: Vince Rosario M.D. REASON FOR CONSULTATION: Hypertensive urgency. History Of Present Illness: This is an 86-year-old [place] female. She was brought to the emergency room by family members because of altered mentation. She apparently has been increasingly withdrawn and confused and has had labile glucose levels up above 400. She recently had changes in her medication regimen according to some records and her glucose has increased. She also was seen at an outside emergency room last week and given 1 dose of Keflex for her urinary tract infection, but no subsequent therapy. She was admitted to the hospital for further evaluation and treatment and concern was also raised regarding her labile blood pressure readings up to almost 200 systolic. The patient has not complained of chest pain or shortness of breath and no witnessed episodes of loss of consciousness noted by family members. Past Medical History: Type 2 diabetes mellitus, hypertension, cerebrovascular disease with dementia, and hyperlipidemia. ALLERGIES: None. MEDICATIONS: Prior to admission, reviewed and reconciled. SOCIAL HISTORY: No record of smoking, alcohol, or substance abuse. FAMILY HISTORY: Noncontributory. Review Of Systems: From family members, no fevers or chills. No cough. No leg swelling. She recently received a single dose antibiotic treatment for urinary infection. No change in bowel habits. No history of myocardial infarction. No history of leg swelling or heart failure. PHYSICAL EXAMINATION: GENERAL: Awake, alert, and withdrawn, in no acute distress. Vital Signs: Blood pressure in the emergency room 165/77, presently up to 197/99, heart rate 88, and respiratory rate 16. HEENT: Conjunctivae pink. Arcus senilis. Oropharynx clear. Mucous membranes dry. NECK: Supple. Jugular venous pressure normal. LUNGS: Clear. Cardiac: Regular rhythm and rate. Point of maximum impulse sustained. Normal S1 and S2 with a fourth heart sound and a soft 1/6 systolic murmur at the apex. ABDOMEN: Soft and nontender with no bruits. EXTREMITIES: Good pulses. No edema. NEUROLOGIC: Reveals mild cognitive impairment and no edema. Diagnostic Data: Chest x-ray with no acute process. Ketones are negative. EKG, sinus rhythm with right bundle-branch block. IMPRESSION: 1. Toxic and metabolic encephalopathy. 2. Type 2 diabetes with uncontrolled blood glucose. 3. Hypertensive urgency. 4. Mild hypovolemia and dehydration, likely due to osmotic diuresis. 5. Macrocytic anemia. PLAN: 1. Insulin titration. 2. Optimize antihypertensive regimen. 3. Metabolic profile. 4. DVT and stress ulcer prophylaxis. 5. Check B12 and folate levels. 6. Further recommendations to follow. Benjie Quiñones M.D. DR: LYUBOV JOB#: [id number] CC:
[2016-12-07] MEDS: NovoLOG Insulin Flexpen SUBQ SCH ×4 (06:15→21:55)
[2016-12-07 07:34] LABS: HEMOGLOBIN A1C 9.1 % (< 6.0)
[2016-12-07 07:43] LABS: THYROID STIMULATING HORMONE 1.97 uIU/mL (0.300-4.500)
[2016-12-07] MEDS: GlipiZIDE 5mg tab ORAL SCH (08:46)
[2016-12-07] MEDS: Memantine 10mg tab ORAL SCH (08:47)
[2016-12-07] MEDS: cefTRIAXone 1 GM in D5W 55 ML IVPB SCH (08:48)
[2016-12-07] MEDS: Heparin 5000 units/ml inj SUBQ SCH ×2 (10:58→22:05)
--- NOTE | 2016-12-07 11:09 | Diagnostic Imaging Report ---
Indication: Chest pain Technique: XRAY CHEST 1 V Comparison: 09/22/14 Findings: The cardiomediastinal silhouette is within normal limits. There is no focal consolidation, pneumothorax or pleural effusion. Osseous structures demonstrate no acute abnormality. Impression: No acute cardiopulmonary disease.
[2016-12-07] MEDS ORDERED: NS 275ml ONE (15:47)
[2016-12-07] MEDS ORDERED: Tubing IV Secondary IV ONE (15:47)
--- NOTE | 2016-12-07 16:30 | History and Physical Report ---
DATE OF ADMISSION: 12/06/2016 Chief Complaint: Toxic metabolic encephalopathy, UTI, and diabetes out of control. History of Present Illness: The patient is a pleasant female with history of hypertension and diabetes brought in by family members with complaints of altered mental status. According to family, she had been more confused on the day of admission. She was recently diagnosed with urinary tract infection. She received a dose of antibiotics, but none since then. She also is noted to have high sugars. On evaluation in the emergency room, the blood sugar was nearly 400. CT scan of the head, rest of the laboratories were unremarkable. She was still markedly hypertensive with systolic blood pressure in the 190s. The patient has been started on antibiotic therapy and IV hydration. She is now admitted for further evaluation and care. PAST MEDICAL HISTORY: As above. PAST SURGICAL HISTORY: Includes right leg surgery. CURRENT MEDICATIONS: Reconciled and reviewed. ALLERGIES: None. FAMILY HISTORY: None. SOCIAL HISTORY: Negative for tobacco, ethanol, or drugs. Review Of Systems: General: No fever or chills. HEENT: No headaches or visual changes. Cardiopulmonary: No chest pain or shortness of breath. Gastrointestinal: No nausea or vomiting. Genitourinary: No urgency or frequency. Positive history of recurrent urine tract infection. Musculoskeletal: No joint pain or swelling. Neurologic: No evidence of seizures. PHYSICAL EXAMINATION: Vital Signs: Temperature 98, initial blood pressure 191/74, pulse of 55, and respirations 20. General: The patient is well-developed female, in no apparent distress. HEART: Regular rate and rhythm. LUNGS: Clear. ABDOMEN: Soft, nontender, and nondistended. EXTREMITIES: Without clubbing, cyanosis, or edema. Laboratory Data: Labs, ABG was normal. White count 8, hemoglobin 14. Sodium 141. Glucose of 342. Urine was clear. Assessment: This is a pleasant female admitted with complaints of toxic metabolic encephalopathy likely multifactorial secondary to urine tract infection and diabetes out of control. PLAN: 1. IV hydration. 2. We will titrate diabetic regimen. 3. Followup p.r.n. culture results. 4. Empiric antibiotic therapy. 5. Cardiology consultation (blood pressure management). Vince Rosario M.D. DR: DALLAS JOB#: [id number] CC:
[2016-12-07] MEDS: Losartan 50mg tab ORAL SCH (21:00)
[2016-12-07] MEDS: Atorvastatin 80mg tab ORAL SCH (21:54)
[2016-12-08 00:08] VITALS: BP 128/67
[2016-12-08 03:45] VITALS: BP 121/60
[2016-12-08] MEDS: NovoLOG Insulin Flexpen SUBQ SCH ×4 (06:24→20:46)
[2016-12-08 08:00] VITALS: BP 143/56
[2016-12-08] MEDS: GlipiZIDE 5mg tab ORAL SCH (08:11)
[2016-12-08] MEDS: cefTRIAXone 1 GM in D5W 55 ML IVPB SCH (08:11)
[2016-12-08] MEDS: Memantine 10mg tab ORAL SCH (08:12)
[2016-12-08] MEDS: Heparin 5000 units/ml inj SUBQ SCH ×2 (08:48→20:45)
--- NOTE | 2016-12-08 08:48 | General Progress Note ---
Assessment/Plan Problem List: (1) Hypertensive urgency ICD Codes: I16.0 - Hypertensive urgency SNOMED: 886893128 (2) Toxic metabolic encephalopathy ICD Codes: G92 - Toxic encephalopathy SNOMED: 058389891 (3) Dizziness ICD Codes: R42 - Dizziness and giddiness SNOMED: 634139326 (4) Dizziness ICD Codes: R42 - Dizziness and giddiness SNOMED: 416046604 (5) Vertigo ICD Codes: R42 - Dizziness and giddiness SNOMED: 896962413 (6) Hyperglycemia ICD Codes: R73.9 - Hyperglycemia, unspecified SNOMED: 09165527 (7) UTI (urinary tract infection) ICD Codes: N39.0 - Urinary tract infection, site not specified SNOMED: 85976359 Qualifiers: Qualified Codes: N30.00 - Acute cystitis without hematuria (8) Altered level of consciousness ICD Codes: R40.4 - Transient alteration of awareness SNOMED: 6347128 Status: stable, progressing Assessment/Plan cont current rx abx pt/ot bp rx monitor bs Subjective ROS Limited/Unobtainable: No Constitutional: Reports: malaise, weakness HEENT: Reports: no symptoms Cardiovascular: Reports: no symptoms Respiratory: Reports: no symptoms Gastrointestinal/Abdominal: Reports: no symptoms Genitourinary: Reports: no symptoms Neurologic/Psychiatric: Reports: pre-existing deficit Endocrine: Reports: no symptoms Hematologic/Lymphatic: Reports: no symptoms Allergies: Coded Allergies: No Known Allergies (Unverified , 02/09/14) All Systems: reviewed and negative except above Subjective no complaints. no fever or chills. alert. follows simple commands. BP well controlled. Objective Last 24 Hour Vital Signs Date Time Temp Pulse Resp B/P (MAP) Pulse Ox O2 Delivery O2 Flow Rate FiO2 12/08/16 08:13 89 121/60 12/08/16 08:00 97.9 61 20 143/56 94 Room Air 12/08/16 03:45 97.7 89 20 121/60 Room Air 12/08/16 00:08 97.6 88 20 128/67 96 Room Air 12/07/16 21:00 101/62 12/07/16 19:02 97.3 103 20 105/65 94 Room Air 12/07/16 16:00 97.5 98 20 137/80 93 Room Air 12/07/16 14:00 97.5 98 20 137/80 93 Room Air 12/07/16 12:00 98.2 68 20 151/71 96 Room Air 12/07/16 08:47 66 143/92 Height (Feet): 5 Height (Inches): 2.00 Weight (Pounds): 140 General Appearance: WD/WN, alert Neck: supple Cardiovascular: regular rhythm Respiratory/Chest: chest wall non-tender, lungs clear, normal breath sounds, no respiratory distress, no accessory muscle use Abdomen: normal bowel sounds, non tender, soft, no organomegaly Edema: no edema noted Arm (L), no edema noted Arm (R), no edema noted Leg (L), no edema noted Leg (R), no edema noted Pedal (L), no edema noted Pedal (R), no edema noted Generalized SUSSY BALDERAS Dec 08, 2016 08:48
[2016-12-08 11:39] LABS: EOSINOPHILS % (AUTO) 1.1 % (0.0-3.0); LYMPHOCYTES % (AUTO) 39.4 % (20.0-45.0); MEAN CORPUSCULAR HEMOGLOBIN 33.7 PG (27.0-31.0); MEAN CORPUSCULAR HGB CONC 33.1 G/DL (32.0-36.0); MEAN CORPUSCULAR VOLUME 102 FL (80-99); MEAN PLATELET VOLUME 10.2 FL (6.5-10.1); MONOCYTES % (AUTO) 6.3 % (1.0-10.0); NEUTROPHILS % (AUTO) 52.2 % (45.0-75.0); PLATELET COUNT 201 K/UL (150-450); RED BLOOD COUNT 4.67 M/UL (4.20-5.40); RED CELL DISTRIBUTION WIDTH 11.2 % (11.6-14.8); WHITE BLOOD COUNT 8.1 K/UL (4.8-10.8)
[2016-12-08 12:00] VITALS: BP 141/76
[2016-12-08 12:07] LABS: ALANINE AMINOTRANSFERASE 18 U/L (12-78); ALBUMIN/GLOBULIN RATIO 0.8 (1.0-2.7); ANION GAP 9 (5-15); ASPARTATE AMINO TRANSFERASE 15 U/L (15-37); CALCIUM 9.2 MG/DL (8.5-10.1); CARBON DIOXIDE 26 MMOL/L (21-32); CHLORIDE 105 MMOL/L (98-107); CREATININE 0.7 MG/DL (0.55-1.00); SODIUM 140 MMOL/L (136-145); TOTAL PROTEIN 7.5 G/DL (6.4-8.2)
[2016-12-08 16:00] VITALS: BP 132/68
[2016-12-08 20:00] VITALS: BP 131/72
[2016-12-08] MEDS: Atorvastatin 80mg tab ORAL SCH (20:43)
[2016-12-08] MEDS: Losartan 50mg tab ORAL SCH (20:44)
[2016-12-09] VITALS: BP 116/59
[2016-12-09 04:00] VITALS: BP 116/67
[2016-12-09] MEDS: NovoLOG Insulin Flexpen SUBQ SCH ×4 (06:16→20:28)
--- NOTE | 2016-12-09 07:00 | Progress Note ---
DATE: 12/08/2016 CARDIOLOGY PROGRESS NOTE SUBJECTIVE: The patient's blood pressure control has improved. She is more alert. Blood glucose levels are improving as well. OBJECTIVE: VITAL SIGNS: Blood pressure was 121/60 earlier and now 141/76, heart rate 74, respiratory rate 20, and afebrile. NECK: Supple. LUNGS: Clear. CARDIAC: Regular rhythm and rate. Normal S1 and S2 with a fourth heart sound. ABDOMEN: Soft and nontender. EXTREMITIES: No edema. LABORATORY AND DIAGNOSTIC DATA: Echocardiogram reveals normal ejection fraction with concentric hypertrophy and no hemodynamically significant valve disease. Glucose 219, sodium 140, potassium 4, bicarbonate 26, BUN 13, and creatinine 0.7. White count is 8.1 and hemoglobin 15.7. IMPRESSION: 1. Hypertensive urgency, resolved. 2. Hypertensive heart disease now with improved blood pressure control. 3. Toxic and metabolic encephalopathies due to sepsis and acute infection, recovering. 4. Urinary tract infection with possible sepsis, improved. 5. Insulin-requiring diabetes mellitus with hyperglycemia, improving. 6. Hypovolemia and dehydration, corrected. PLAN: 1. Encourage oral intake. 2. Titrate antihypertensives. 3. Continue anti-lipid therapy and add anti-platelet therapy. 4. Titrate oral hypoglycemics. 5. Mobilize empiric antibiotics. 6. Follow up culture results. 7. Maintain adequate oral hydration. Benjie Quiñones M.D. DR: Ruben JOB#: [id number] CC:
--- NOTE | 2016-12-09 07:00 | Progress Note ---
DATE: 12/07/2016 CARDIOLOGY PROGRESS NOTE SUBJECTIVE: The patient is more alert. Still confused at night. Blood pressure remains quite labile. The patient is on IV fluids and antimicrobials. OBJECTIVE: VITAL SIGNS: Blood pressure last night 191/76, presently 151/71, heart rate 68, respiratory rate 20, afebrile, and room air oxygen saturation 96%. NECK: Supple. LUNGS: Clear. CARDIAC: Regular. Normal S1 and S2. ABDOMEN: Soft. EXTREMITIES: No edema. LABORATORY DATA: Vitamin B12 level is normal. Hemoglobin A1c 9.1. TSH is 1.9. IMPRESSION: 1. Hypertensive urgency, improving. 2. Toxic and metabolic encephalopathy. 3. Urinary tract infection with possible sepsis. 4. Insulin-requiring diabetes mellitus, out of control. 5. Hypovolemia and dehydration. PLAN: 1. Titrate antihypertensives. 2. Hydrate with IV fluids and monitor cardiorenal parameters and volume status closely. 3. Insulin titration. 4. Empiric antibiotics. Benjie Quiñones M.D. DR: Ruben JOB#: [id number] CC:
[2016-12-09 08:00] VITALS: BP 130/71
[2016-12-09] MEDS: Memantine 10mg tab ORAL SCH (08:07)
[2016-12-09] MEDS: GlipiZIDE 5mg tab ORAL SCH (08:08)
[2016-12-09] MEDS: Aspirin Baby 81mg ORAL SCH (08:08)
--- NOTE | 2016-12-09 08:08 | Cardiology Report ---
APPROVED REPORT EXAM: Two-dimensional and M-mode echocardiogram with Doppler and color Doppler. INDICATION Hypertensive Heart disease M-Mode DIMENSIONS Left Atrium (MM)3.7 (1.6-4.0cm) Aortic Root2.8 (2.0-3.7cm) Aortic Cusp Exc.1.7 (1.5-2.0cm) Normal left ventricular chamber size, systolic function and wall motion. M-mode measurements not obtainable due to cardiac structure. Left ventricular ejection fraction estimated to be 60-65%. No evidence of left ventricular hypertrophy. No evidence of pericardial or pleural effusion. All other cardiac chamber sizes are within normal limits. Focal aortic valve sclerosis with adequate cusp excursion. Normal mitral valve leaflets with normal excursion. Normal mitral annulus and aortic root. Pulmonic valve not well visualized. Normal tricuspid valve structure. IVC is not obtainable. A color flow and spectral Doppler study was performed and revealed: No aortic regurgitation. No mitral regurgitation. Mitral diastolic velocities suggest reduced left ventricular relaxation c/w diastolic dysfunction grade 1. No tricuspid regurgitation.
[2016-12-09] MEDS: Heparin 5000 units/ml inj SUBQ SCH ×2 (08:10→20:29)
[2016-12-09 09:21] LABS: ALANINE AMINOTRANSFERASE 19 U/L (12-78); ALBUMIN/GLOBULIN RATIO 0.8 (1.0-2.7); ANION GAP 11 (5-15); ASPARTATE AMINO TRANSFERASE 19 U/L (15-37); CALCIUM 9.1 MG/DL (8.5-10.1); CARBON DIOXIDE 24 MMOL/L (21-32); CHLORIDE 103 MMOL/L (98-107); CHOLESTEROL 201 MG/DL (< 200); CHOLESTEROL/HDL RATIO 4.7 (3.3-4.4); CREATININE 0.6 MG/DL (0.55-1.30); POTASSIUM 3.4 MMOL/L (3.5-5.1); SODIUM 138 MMOL/L (136-145); TOTAL PROTEIN 6.8 G/DL (6.4-8.2)
[2016-12-09 09:29] LABS: LDL CHOLESTEROL CALC 151 mg/dL (< 100)
[2016-12-09] MEDS: cefTRIAXone 1 GM in D5W 55 ML IVPB SCH (10:06)
[2016-12-09 12:00] VITALS: BP 127/69
[2016-12-09 16:15] VITALS: BP 124/83
[2016-12-09 20:00] VITALS: BP 109/65
[2016-12-09] MEDS: Atorvastatin 80mg tab ORAL SCH (20:26)
[2016-12-09] MEDS ORDERED: Losartan 50mg tab ORAL SCH (21:00)
[2016-12-10] VITALS: BP 114/63
--- NOTE | 2016-12-10 02:45 | Discharge Summary ---
DATE OF ADMISSION: 12/06/2016 DATE OF DISCHARGE: 12/09/2016 ADMISSION DIAGNOSES: 1. Generalized weakness. 2. Dehydration. 3. Syncope. 4. Hypertensive urgency. 5. Urinary tract infection. 6. Toxic metabolic encephalopathy. DISCHARGE DIAGNOSES: 1. Generalized weakness. 2. Dehydration. 3. Syncope. 4. Hypertensive urgency. 5. Urinary tract infection. 6. Toxic metabolic encephalopathy. HOSPITAL COURSE: The patient is a pleasant female, who presented with complaints of generalized weakness and multiple falls versus syncope. She was admitted. She was diagnosed with a possible urinary tract infection. She was treated with antibiotics. She had previously received antibiotics while also at home. She was continued on her current cardiac regimen and was adjusted for her out of control blood pressure. The remainder of the patient's workup was unremarkable. On discharge, she was stable. Family requested that she go to a jail facility. DISCHARGE MEDICATIONS: Please see discharge medications list for discharge medications. DIET: Cardiac diabetic diet. ACTIVITY: Ad-jarrell. FOLLOWUP: The patient will be followed by a different PMD at the jail facility. Vince Rosario M.D. DR: ADLLAS JOB#: [id number] CC:
[2016-12-10 04:00] VITALS: BP 121/62
[2016-12-10] MEDS: NovoLOG Insulin Flexpen SUBQ SCH ×2 (06:01→12:32)
--- NOTE | 2016-12-10 07:00 | Progress Note ---
DATE: 12/09/2016 CARDIOLOGY PROGRESS NOTE SUBJECTIVE: No chest pain or shortness of breath. Blood pressure parameters continue to stabilize. OBJECTIVE: VITAL SIGNS: Blood pressure 109/65, pulse 81, and respirations 20. LUNGS: Clear. CARDIAC: Regular. ABDOMEN: Soft. EXTREMITIES: No edema. LABORATORY DATA: Potassium 3.4, BUN 16, and creatinine 0.6. LDL cholesterol 151. IMPRESSION: 1. Hypertensive urgency, resolved. 2. Toxic and metabolic encephalopathies, improved. 3. Urinary tract infection, on antibiotics. 4. Sepsis, resolved. 5. Mild hypokalemia. PLAN: 1. Potassium replacement. 2. Continue current antihypertensives. 3. Continue antimicrobials. 4. Mobilize discharge plan. Benjie Quiñones M.D. DR: CHRISTAL JOB#: [id number] CC:
[2016-12-10 07:28] LABS: ANION GAP 10 (5-15); CALCIUM 9.1 MG/DL (8.5-10.1); CARBON DIOXIDE 24 MMOL/L (21-32); CHLORIDE 107 MMOL/L (98-107); CREATININE 0.6 MG/DL (0.55-1.30); MAGNESIUM 1.8 MG/DL (1.8-2.4); POTASSIUM 4.7 MMOL/L (3.5-5.1); SODIUM 141 MMOL/L (136-145)
[2016-12-10 08:00] VITALS: BP 117/67
[2016-12-10] MEDS: cefTRIAXone 1 GM in D5W 55 ML IVPB SCH (08:53)
[2016-12-10] MEDS: GlipiZIDE 5mg tab ORAL SCH (08:54)
[2016-12-10] MEDS: Aspirin Baby 81mg ORAL SCH (08:54)
[2016-12-10] MEDS: Memantine 10mg tab ORAL SCH (08:55)
[2016-12-10] MEDS: Heparin 5000 units/ml inj SUBQ SCH (08:59)
--- NOTE | 2016-12-10 09:13 | General Progress Note ---
Assessment/Plan Problem List: (1) Hypertensive urgency ICD Codes: I16.0 - Hypertensive urgency SNOMED: 313569751 (2) Toxic metabolic encephalopathy ICD Codes: G92 - Toxic encephalopathy SNOMED: 800668354 (3) Dizziness ICD Codes: R42 - Dizziness and giddiness SNOMED: 137670746 (4) Dizziness ICD Codes: R42 - Dizziness and giddiness SNOMED: 234175747 (5) Vertigo ICD Codes: R42 - Dizziness and giddiness SNOMED: 094641080 (6) Hyperglycemia ICD Codes: R73.9 - Hyperglycemia, unspecified SNOMED: 60193573 (7) UTI (urinary tract infection) ICD Codes: N39.0 - Urinary tract infection, site not specified SNOMED: 35962734 Qualifiers: Qualified Codes: N30.00 - Acute cystitis without hematuria (8) Altered level of consciousness ICD Codes: R40.4 - Transient alteration of awareness SNOMED: 0458569 Status: stable, progressing Assessment/Plan dc to snf Subjective ROS Limited/Unobtainable: No Constitutional: Reports: malaise, weakness HEENT: Reports: no symptoms Cardiovascular: Reports: no symptoms Respiratory: Reports: no symptoms Gastrointestinal/Abdominal: Reports: no symptoms Genitourinary: Reports: no symptoms Neurologic/Psychiatric: Reports: no symptoms Endocrine: Reports: no symptoms Hematologic/Lymphatic: Reports: no symptoms Allergies: Coded Allergies: No Known Allergies (Unverified , 02/09/14) All Systems: reviewed and negative except above Subjective no complaints. no fever or chills. alert. follows simple commands. BP well controlled. no bed at [facility] yesterday but bed now secured at [facility] Objective Last 24 Hour Vital Signs Date Time Temp Pulse Resp B/P (MAP) Pulse Ox O2 Delivery O2 Flow Rate FiO2 12/10/16 08:55 67 124/76 12/10/16 04:00 97.7 73 20 121/62 93 Room Air 12/10/16 00:00 97.5 69 20 114/63 92 Room Air 12/09/16 20:32 124/83 12/09/16 20:00 97.5 81 20 109/65 93 Room Air 81 12/09/16 16:15 97.3 88 21 124/83 97 Room Air 12/09/16 12:00 73 18 127/69 96 Room Air Laboratory Tests 12/10/16 06:30: Sodium Level 141, Potassium Level 4.7, Chloride Level 107, Carbon Dioxide Level 24, Anion Gap 10, Blood Urea Nitrogen 15, Creatinine 0.6, Estimat Glomerular Filtration Rate , Glucose Level 165H, Calcium Level 9.1, Magnesium Level 1.8 Height (Feet): 5 Height (Inches): 2.00 Weight (Pounds): 140 SUSSY BALDERAS Dec 10, 2016 09:13
[2016-12-10 12:00] VITALS: BP 108/72
--- NOTE | 2016-12-12 01:46 | Progress Note ---
DATE: 12/10/2016 CARDIOLOGY PROGRESS NOTE Late entry for 12/10/2016 SUBJECTIVE: The patient was seen and evaluated. Case was reviewed with Dr. Rosario. Discharge plan was discussed and discharge medication regimen reviewed. OBJECTIVE: VITAL SIGNS: Blood pressure 124/76, pulse 67, respiratory rate 20, and afebrile. NECK: Supple. LUNGS: Clear. CARDIAC: Regular. Normal S1 and S2 with a fourth heart sound. ABDOMEN: Soft. No edema. IMPRESSION: 1. Hypertensive urgency, now resolved with good blood pressure control. 2. Toxic encephalopathy, recovered. Risk of orthostasis noted, we will hold parameters antihypertensive. 3. Kkx-nidikzo-tqvniflus diabetes with hyperglycemia, improving. 4. Urinary tract infection with recovered sepsis, now completing antibiotic regimen. 5. Diastolic dysfunction with no signs of acute congestive heart failure. PLAN: Plan of care in place for discharge to [facility] facility and medication regimen reviewed and updated. Benjie Quiñones M.D. DR: MICHELLE JOB#: [id number] CC:
--- NOTE | 2016-12-12 23:12 | Cardiology Report ---
APPROVED REPORT EKG Measurement Heart [id number] WI 180P33 [id number] [id number] Normal sinus rhythm Right bundle branch block Inferior infarct, age undetermined Abnormal ECG
== END 2016-12-10 15:59 | DRG 637 ==
LOC: EDBD 14:17 → EMR 15:01 → 4E 17:28 → EDBEDREQ 18:43 → 4E 12-09 14:47
DX: E11.65 Type 2 diabetes mellitus with hyperglycemia (principal); G92 Toxic encephalopathy; N39.0 Urinary tract infection, site not specified; I11.9 Hypertensive heart disease without heart failure; F01.50 Vascular dementia, unspecified severity, without behavioral disturbance, psychotic disturbance, mood disturbance, and anxiety; E86.0 Dehydration; I16.0 Hypertensive urgency; E86.1 Hypovolemia; R53.1 Weakness; R55 Syncope and collapse; E78.5 Hyperlipidemia, unspecified; D53.9 Nutritional anemia, unspecified; R42 Dizziness and giddiness; Z79.4 Long term (current) use of insulin
CPT/HCPCS: 36415; 36600; 71010; 80048; 80053; 80061; 81003; 82009; 82607; 82746; 82803; 82962; 83036; 83735; 83880; 84443; 85025; 93005; 93306; 99285; J1815; J2405; J8499

== ENCOUNTER 2017-01-02 14:10 | Inpatient (IN) | payer MEDICARE ==
[~2017-01-02] VITALS: Ht 165.1 cm; Wt 45.4 kg
[~2017-01-02 14:10] MED LIST changes: +JANUVIA100 MG ORAL; +LIPITOR80 MG ORAL; +NAMENDA5 MG ORAL; +PROCARDIA XL30 MG ORAL
[2017-01-02 14:56] VITALS: BP 116/47
[2017-01-02 14:59] LABS: BASOPHILS % (AUTO) 0.7 % (0.0-2.0); EOSINOPHILS % (AUTO) 1.5 % (0.0-3.0); LYMPHOCYTES % (AUTO) 22.8 % (20.0-45.0); MEAN CORPUSCULAR HEMOGLOBIN 33.5 PG (27.0-31.0); MEAN CORPUSCULAR VOLUME 102 FL (80-99); MEAN PLATELET VOLUME 7.7 FL (6.5-10.1); MONOCYTES % (AUTO) 7.6 % (1.0-10.0); NEUTROPHILS % (AUTO) 67.5 % (45.0-75.0); PLATELET COUNT 285 K/UL (150-450); RED BLOOD COUNT 4.72 M/UL (4.20-5.40); RED CELL DISTRIBUTION WIDTH 11.6 % (11.6-14.8); WHITE BLOOD COUNT 13.4 K/UL (4.8-10.8)
[2017-01-02 15:08] LABS: PROTHROMBIN TIME 10.2 SEC (9.30-11.50)
[2017-01-02 15:14] LABS: ANION GAP 5 mmol/L (5-15); CALCIUM 8.3 MG/DL (8.5-10.1); CARBON DIOXIDE 30 MMOL/L (21-32); CHLORIDE 106 MMOL/L (98-107); CREATININE 0.8 MG/DL (0.55-1.30); POTASSIUM 3.4 MMOL/L (3.5-5.1); SODIUM 140 MMOL/L (136-145)
[2017-01-02 15:27] LABS: ALANINE AMINOTRANSFERASE 19 U/L (12-78); ALBUMIN/GLOBULIN RATIO 0.8 (1.0-2.7); ASPARTATE AMINO TRANSFERASE 15 U/L (15-37); CKMB 79.2 NG/ML (0.0-3.6); LIPASE 253 U/L (73-393); TOTAL PROTEIN 5.4 G/DL (6.4-8.2)
[2017-01-02] MEDS ORDERED: LISINOPRIL10 MG ORAL (15:31)
[2017-01-02] MEDS ORDERED: ASPIR 8181 MG ORAL (15:31)
[2017-01-02] MEDS ORDERED: VITAMIN D250000 UNI1 ORAL (15:32)
[2017-01-02] MEDS ORDERED: MILK OF MA400 MG/51 ORAL (15:34)
[2017-01-02] MEDS ORDERED: FLEET ENEMA133 ML RECTAL (15:34)
[2017-01-02] MEDS ORDERED: ACETAMINOPHEN325 M1 ORAL (15:34)
[2017-01-02] MEDS ORDERED: BISACODYL5 MG ORAL (15:34)
--- NOTE | 2017-01-02 16:15 | Emergency Room Report ---
History of Present Illness General Chief Complaint: Gastrointestinal Bleed Source: Medical Record, EMS Present Illness HPI Patient was recently admitted for UTI and discharged from rehabilitation. Patient develop acute onset abdominal pain associate with nausea and diarrhea today. The diarrhea is described as dark tarry. No history of blood. Patient is here with her daughter. Patient does have fever. Patient has decreased oral intake. Symptoms noted to be moderate to severe.No other modifying factors. No other associated signs and symptoms. No other complaints were noted. Allergies: Coded Allergies: No Known Allergies (Unverified , 02/09/14) Patient History Past Medical History: DM, HTN, CAD, dementia Past Surgical History: none Pertinent Family History: none Social History: Denies: smoking, alcohol use, drug use Social History Narrative patient's daughter is involved in health care Last Menstrual Period: na Reviewed Nursing Documentation: PMH: Agreed, PSxH: Agreed Nursing Documentation-PMH Past Medical History: No History, Except For Hx Cardiac Problems: Yes - HYPERLIPIDEMIA Hx Hypertension: Yes Hx Diabetes: Yes Hx Cancer: No Hx Gastrointestinal Problems: No Hx Neurological Problems: Yes Hx Cerebrovascular Accident: No Hx Transient Ischemic Attacks: No Hx Dementia: Yes Review of Systems All Other Systems: limited - patient appears weak and not very cooperative with history Physical Exam Vital Signs Date Time Temp Pulse Resp B/P (MAP) Pulse Ox O2 Delivery O2 Flow Rate FiO2 01/02/17 14:00 70 18 131/57 98 Room Air Sp02 EP Interpretation: reviewed, normal General Appearance: alert, moderate distress, thin, Chronically Ill Head: normocephalic, atraumatic Eyes: bilateral eye normal inspection ENT: normal ENT inspection, hearing grossly normal, normal voice Neck: normal inspection, full range of motion, supple, no bony tend Respiratory: normal inspection, lungs clear, normal breath sounds, no respiratory distress, no retraction, no wheezing Cardiovascular #1: regular rate, rhythm, no edema Gastrointestinal: normal inspection, no guarding, other - diffusely tender to palpation Genitourinary: no CVA tenderness Musculoskeletal: normal inspection, back normal, normal range of motion Neurologic: normal inspection, alert, responsive Psychiatric: normal inspection, depressed affect Skin: normal inspection, normal color, no rash Procedures Critical Care Time Critical Care Time Patient had a critical medical condition which untreated could potentially result in life or limb threatening injury. Total critical care time excluding procedures was approximately 45 minutes. Medical Decision Making Diagnostic Impression: Primary Impression: Abdominal pain Additional Impressions: Hypotension Colitis ER Course Patient presents to the emergency department today complaining of abdominal pain. Differential considerations include acute pancreatitis, cholecystitis, gastritis, hepatitis, appendicitis just to name a few. Given the severity of the patient's presentation I felt this is a highly complex patient. This patient required extensive workup. Patient laboratory workup shows elevated white blood cell count. Patient was initially hypotensive require fluid boluses. Because of the abnormal vital signs I felt was a critical patient. Patient was given IV antibiotics because patient CAT scan shows evidence of colitis. Patient was given Flagyl and Levaquin. Case was discussed with Dr. Vince Rosario knows patient well. Patient will be admitted to his service for further treatment. Labs Test 01/02/17 14:30 01/02/17 16:20 White Blood Count 13.4 K/UL (4.8-10.8) Red Blood Count 4.72 M/UL (4.20-5.40) Hemoglobin 15.8 G/DL (12.0-16.0) Hematocrit 48.0 % (37.0-47.0) Mean Corpuscular Volume 102 FL (80-99) Mean Corpuscular Hemoglobin 33.5 PG (27.0-31.0) Mean Corpuscular Hemoglobin Concent 33.0 G/DL (32.0-36.0) Red Cell Distribution Width 11.6 % (11.6-14.8) Platelet Count 285 K/UL (150-450) Mean Platelet Volume 7.7 FL (6.5-10.1) Neutrophils (%) (Auto) 67.5 % (45.0-75.0) Lymphocytes (%) (Auto) 22.8 % (20.0-45.0) Monocytes (%) (Auto) 7.6 % (1.0-10.0) Eosinophils (%) (Auto) 1.5 % (0.0-3.0) Basophils (%) (Auto) 0.7 % (0.0-2.0) Prothrombin Time 10.2 SEC (9.30-11.50) Prothromb Time International Ratio 1.0 (0.9-1.1) Activated Partial Thromboplast Time 25 SEC (23-33) Sodium Level 140 MMOL/L (136-145) Potassium Level 3.4 MMOL/L (3.5-5.1) Chloride Level 106 MMOL/L (98-107) Carbon Dioxide Level 30 MMOL/L (21-32) Anion Gap 5 mmol/L (5-15) Blood Urea Nitrogen 12 mg/dL (7-18) Creatinine 0.8 MG/DL (0.55-1.30) Estimat Glomerular Filtration Rate mL/min (>60) Glucose Level 163 MG/DL (74-106) Calcium Level 8.3 MG/DL (8.5-10.1) Total Bilirubin 0.4 MG/DL (0.2-1.0) Aspartate Amino Transf (AST/SGOT) 15 U/L (15-37) Alanine Aminotransferase (ALT/SGPT) 19 U/L (12-78) Alkaline Phosphatase 56 U/L (46-116) Total Creatine Kinase 20 U/L (26-308) Creatine Kinase MB 79.2 NG/ML (0.0-3.6) Creatine Kinase MB Relative Index 396.0 Troponin I 0.009 ng/mL (0.000-0.056) Total Protein 5.4 G/DL (6.4-8.2) Albumin 2.4 G/DL (3.4-5.0) Globulin 3.0 g/dL Albumin/Globulin Ratio 0.8 (1.0-2.7) Lipase 253 U/L (73-393) Urine Color Yellow Urine Appearance Clear Urine pH 6.5 (4.5-8.0) Urine Specific Erwin 1.010 (1.005-1.035) Urine Protein Negative (NEGATIVE) Urine Glucose (UA) Negative (NEGATIVE) Urine Ketones Negative (NEGATIVE) Urine Occult Blood Negative (NEGATIVE) Urine Nitrite Negative (NEGATIVE) Urine Bilirubin Negative (NEGATIVE) Urine Urobilinogen Normal MG/DL (0.0-1.0) Urine Leukocyte Esterase 2+ (NEGATIVE) Urine RBC 0-2 /HPF (0 - 2) Urine WBC 2-4 /HPF (0 - 2) Urine Squamous Epithelial Cells Few /LPF (NONE/OCC) Urine Calcium Oxalate Crystals Few /LPF (NONE) Urine Amorphous Sediment Few /LPF (NONE) Urine Bacteria Few /HPF (NONE) EKG Diagnostic Results Rate: normal Rhythm: NSR ST Segments: no acute changes Other Impression rbbb Rhythm Strip Diag. Results EP Interpretation: yes Rate: 70s Rhythm: NSR, no PVC's, no ectopy CT/MRI/US Diagnostic Results CT/MRI/US Diagnostic Results : Imaging Test Ordered: ct abd/pel + colitis Last Vital Signs Date Time Temp Pulse Resp B/P (MAP) Pulse Ox O2 Delivery O2 Flow Rate FiO2 01/02/17 14:56 96 19 116/47 96 Room Air Status: improved Disposition: ADMITTED INPATIENT Condition: Serious Referrals: NOT CHOSEN IPA/,REFERRING (PCP) ROSAURA DAY M.D. Jan 02, 2017 16:15
--- NOTE | 2017-01-02 16:30 | Diagnostic Imaging Report ---
Clinical Indication: PAIN Technique: No oral contrast utilized, per emergency room physician request IV administration nonionic contrast. Venous phase spiral acquisition obtained through the abdomen and pelvis. Multiplanar reconstructions were generated. Total dose length product 585 mGycm. CTDIvol(s) 11 mGy. Dose reduction achieved using automated exposure control Comparison: None Findings: The appendix is normal. There is wall thickening/edema of the ascending and proximal transverse colon, equivocally segmental wall thickening of the midtransverse colon. Is also suggestion of wall thickening of the distal sigmoid and rectum. There is considerable infiltration of the perirectal fat. No definite evidence of diverticulosis. No evidence of diverticulitis. No small bowel distention. No free or loculated intraperitoneal air or fluid is evident. A small amount of ingested contrast is seen in the distal ileum and proximal ascending colon, although the technical note states no contrast was ingested for this exam. There is equivocal mild wall thickening of the distal esophagus. Stomach and duodenum are unremarkable. The liver is diffusely mildly hypoattenuating, consistent with diffuse fatty change. There is a calcification in the tip of the right hepatic lobe. Subcentimeter low-attenuation foci are seen scattered throughout the liver. The gallbladder, bile ducts, are unremarkable. A 10 mm cyst is seen projecting off of the uncinate process of the pancreas. The pancreas is otherwise unremarkable. The spleen, adrenals, kidneys are unremarkable. No retroperitoneal or mesenteric mass or adenopathy. No pelvic mass or adenopathy. Calcifications are seen in the uterus, which is somewhat prominent The heart is mildly enlarged. Groundglass opacities are seen at both lung bases, as well as mild interstitial septal thickening. The bones demonstrate degenerative spondylosis changes and right hip surgical hardware. Impression: Wall thickening and edema of the distal sigmoid and rectum, with considerable inflammation of the perirectal fat. Wall thickening of the ascending and proximal transverse colon as well. Findings are consistent with proctitis/colitis, nonspecific as regards etiology Equivocal mild wall thickening of the distal esophagus, could indicate esophagitis Fatty liver Subcentimeter low-attenuation liver lesions, too small to characterize, most likely benign simple cysts or bile hamartomas. No further followup necessary 10 mm cyst in the uncinate process of the pancreas. Differential considerations include pseudocyst, cystic neoplasm. Consider pancreatic protocol MRI for further I. ration if clinically indicated Cardiomegaly Bilateral basilar groundglass opacities and interstitial septal thickening may indicate pulmonary edema Other findings as noted, including degenerative spondylosis, evidence of prior right femoral neck fracture repair, calcified old degenerated uterine fibroids, granulomatous calcific and within the liver The CT scanner at [facility] is accredited by the [employer] and the scans are performed using protocols designed to limit radiation exposure to as low as reasonably achievable to attain images of sufficient resolution adequate for diagnostic evaluation.
[2017-01-02 16:35] LABS: APPEARANCE,URINE CLEAR; KETONES,URINE NEGATIVE (NEGATIVE); LEUKOCYTE ESTERASE ,URINE 2+ (NEGATIVE); NITRITE,URINE NEGATIVE (NEGATIVE); PH,URINE 6.5 (4.5-8.0); PROTEIN,URINE NEGATIVE (NEGATIVE); UROBILINOGEN,URINE NORMAL MG/DL (0.0-1.0)
[2017-01-02 16:47] LABS: AMORPHOUS SEDIMENT,UR FEW /LPF; BACTERIA,URINE FEW /HPF; CALCIUM OXALATE CRYSTALS,UR FEW /LPF; RBC,URINE 0-2 /HPF (0 - 2); SQUAMOUS EPITHELIAL CELL,UR FEW /LPF (NONE/OCC)
[2017-01-02 17:13] VITALS: BP 109/49
[2017-01-02 18:24] VITALS: BP 137/61
[2017-01-02] MEDS ORDERED: Bisacodyl EC 5mg tab ORAL PRN (18:30)
[2017-01-02] MEDS ORDERED: metroNIDAZOLE 500mg tab ORAL SCH (19:30)
[2017-01-02] MEDS ORDERED: Vitamin D 50,000 units cap ORAL SCH (19:30)
[2017-01-02 20:00] VITALS: BP 134/60
[2017-01-02] MEDS: Atorvastatin 80mg tab ORAL SCH (20:40)
[2017-01-02] MEDS ORDERED: Heparin 5000 units/ml inj SUBQ SCH (21:00)
[2017-01-03] VITALS: BP 155/80
[2017-01-03 04:00] VITALS: BP 140/60
[2017-01-03] MEDS: metroNIDAZOLE 500mg tab ORAL SCH ×4 (06:00→21:21)
[2017-01-03 08:00] VITALS: BP 144/63
[2017-01-03 08:30] LABS: BASOPHILS % (AUTO) 0.9 % (0.0-2.0); EOSINOPHILS % (AUTO) 1.2 % (0.0-3.0); LYMPHOCYTES % (AUTO) 25.8 % (20.0-45.0); MEAN CORPUSCULAR HEMOGLOBIN 34.2 PG (27.0-31.0); MEAN CORPUSCULAR HGB CONC 33.5 G/DL (32.0-36.0); MEAN CORPUSCULAR VOLUME 102 FL (80-99); MEAN PLATELET VOLUME 8.4 FL (6.5-10.1); MONOCYTES % (AUTO) 8.7 % (1.0-10.0); NEUTROPHILS % (AUTO) 63.4 % (45.0-75.0); PLATELET COUNT 234 K/UL (150-450); RED BLOOD COUNT 4.23 M/UL (4.20-5.40); RED CELL DISTRIBUTION WIDTH 11.5 % (11.6-14.8); WHITE BLOOD COUNT 12.4 K/UL (4.8-10.8)
[2017-01-03 08:39] LABS: ANION GAP 5 mmol/L (5-15); CALCIUM 7.9 MG/DL (8.5-10.1); CARBON DIOXIDE 28 MMOL/L (21-32); CHLORIDE 109 MMOL/L (98-107); CREATININE 0.5 MG/DL (0.55-1.30); POTASSIUM 3.4 MMOL/L (3.5-5.1); SODIUM 142 MMOL/L (136-145)
[2017-01-03 08:44] LABS: ALANINE AMINOTRANSFERASE 17 U/L (12-78); ALBUMIN/GLOBULIN RATIO 0.8 (1.0-2.7); ASPARTATE AMINO TRANSFERASE 16 U/L (15-37); TOTAL PROTEIN 5.3 G/DL (6.4-8.2)
[2017-01-03] MEDS ORDERED: KCl 10% 40mEq/30ml liquid NG ONE (09:00)
[2017-01-03] MEDS ORDERED: Aspirin EC 81mg tab ORAL SCH (09:00)
[2017-01-03] MEDS: Memantine 10mg tab ORAL SCH (09:29)
[2017-01-03] MEDS: Aspirin Baby 81mg ORAL SCH (09:33)
[2017-01-03 11:49] VITALS: BP 106/49
--- NOTE | 2017-01-03 12:26 | Diagnostic Imaging Report ---
APPROVED REPORT CPT Code: 08695 Present Symptoms Lower Extremity Pain: Bilateral BILATERAL: Imaging reveals a patent deep venous system bilaterally. There is no evidence of thrombus within the femoral, popliteal or tibial segments. The greater saphenous veins are also within normal limits. Doppler indicates normal spontaneous flow within these segments.
[2017-01-03 16:00] VITALS: BP 127/69
[2017-01-03 20:00] VITALS: BP 120/63
--- NOTE | 2017-01-03 21:00 | History and Physical Report ---
DATE OF ADMISSION: 01/02/2017 CHIEF COMPLAINT: Diarrhea, nausea and vomiting, and abdominal pain. HISTORY OF PRESENT ILLNESS: The patient is an 86-year-old female, well known to me. She has a history of diabetes, hypertension, and dementia. She has a history of recurrent urinary tract infection. She was admitted a month ago with complaints of UTI and altered mental status and was discharged to a shelter facility. Apparently there, she was doing well, but on the day of admission, developed acute abdominal pain and tarry stool. On evaluation in the emergency room, the patient's hemoglobin was stable. A CT scan of the abdomen though showed diffuse colitis involving the distal sigmoid and rectum. The patient is now admitted for further evaluation and care. No reports of any hematemesis. PAST MEDICAL HISTORY: As above. PAST SURGICAL HISTORY: None. CURRENT MEDICATIONS: Reconciled and reviewed. ALLERGIES: None. FAMILY HISTORY: None. SOCIAL HISTORY: Negative for tobacco, ethanol, or drugs. REVIEW OF SYSTEMS: Unobtainable as the patient is confused. PHYSICAL EXAMINATION: GENERAL: The patient is well-developed female in apparent distress. She is awake and alert. VITAL SIGNS: Temperature is 97 degrees, blood pressure 134/60, pulse 59, and respirations 20. HEENT: Pupils are equal, round, and reactive to light. Sclerae anicteric. Oropharynx clear. NECK: Supple. HEART: Regular rate and rhythm. LUNGS: Lungs are clear. ABDOMEN: Soft, nontender and nondistended. There is no rebound or guarding. EXTREMITIES: No clubbing, cyanosis, or edema. LABORATORY DATA: White count 13,000, hemoglobin 15, and platelet count 285. Sodium 140, potassium 3.4, chloride 106, BUN 12, and creatinine was 0.8. LFTs were unremarkable. Troponin was negative. ASSESSMENT: This is a pleasant female admitted with complaints of abdominal pain and colitis: 1. Colitis, rule out Clostridium difficile. 2. Hypertension. 3. History of diabetes. PLAN: Check stool for C. difficile. Hold antiplatelet therapy. Check stool cultures. Antibiotics. Continue diabetes treatment. Gentle hydration. Continue current blood pressure regimen. Cardiology and Gastrointestinal consultation will be obtained. Vince Rosario M.D. DR: MARY JOB#: [id number] CC:
[2017-01-03] MEDS: Atorvastatin 80mg tab ORAL SCH (21:21)
[2017-01-04] VITALS: BP 126/65
--- NOTE | 2017-01-04 03:45 | Progress Note ---
DATE: 01/03/2017 CARDIOLOGY PROGRESS NOTE SUBJECTIVE: The patient patient has less abdominal pain. No vomiting. She still has nausea and a poor appetite. The patient is on IV antibiotics and is being hydrated. OBJECTIVE: VITAL SIGNS: Blood pressure of 120/63, pulse 62, respirations 20, and afebrile. NECK: Supple. LUNGS: Clear. CARDIAC: Regular. Normal S1, S2. ABDOMEN: Soft. No focal tenderness, guarding, or rebound. EXTREMITIES: Without edema. LABORATORY DATA: Potassium is 3.4. Bicarbonate and lactic acid are normal. IMPRESSION: 1. Acute recurring colitis. 2. Hypertensive heart disease with controlled blood pressure. 3. Type 2 diabetes mellitus. 4. Hypovolemia and dehydration. 5. Hypokalemia. PLAN: 1. Continue antibiotics. 2. Continue hydration. 3. Potassium replacement. 4. Follow up cultures. 5. Additional antihypertensive therapy as needed only as adequate control is presently achieved. Benjie Quiñones M.D. DR: BRIJESH JOB#: [id number] CC:
[2017-01-04 04:00] VITALS: BP 124/62
[2017-01-04] MEDS: metroNIDAZOLE 500mg tab ORAL SCH ×3 (06:21→21:59)
[2017-01-04 07:30] VITALS: BP 121/51
[2017-01-04 07:48] LABS: EOSINOPHILS % (AUTO) 2.4 % (0.0-3.0); LYMPHOCYTES % (AUTO) 28.4 % (20.0-45.0); MEAN CORPUSCULAR HEMOGLOBIN 34.9 PG (27.0-31.0); MEAN CORPUSCULAR HGB CONC 34.2 G/DL (32.0-36.0); MEAN CORPUSCULAR VOLUME 102 FL (80-99); MEAN PLATELET VOLUME 8.5 FL (6.5-10.1); MONOCYTES % (AUTO) 7.8 % (1.0-10.0); NEUTROPHILS % (AUTO) 60.4 % (45.0-75.0); PLATELET COUNT 253 K/UL (150-450); RED BLOOD COUNT 4.18 M/UL (4.20-5.40); RED CELL DISTRIBUTION WIDTH 11.5 % (11.6-14.8); WHITE BLOOD COUNT 10.8 K/UL (4.8-10.8)
[2017-01-04 07:51] LABS: ALANINE AMINOTRANSFERASE 14 U/L (12-78); ALBUMIN/GLOBULIN RATIO 0.7 (1.0-2.7); ANION GAP 7 mmol/L (5-15); ASPARTATE AMINO TRANSFERASE 17 U/L (15-37); CALCIUM 8.2 MG/DL (8.5-10.1); CARBON DIOXIDE 24 MMOL/L (21-32); CHLORIDE 108 MMOL/L (98-107); CREATININE 0.5 MG/DL (0.55-1.30); POTASSIUM 3.7 MMOL/L (3.5-5.1); SODIUM 139 MMOL/L (136-145); TOTAL PROTEIN 5.6 G/DL (6.4-8.2)
[2017-01-04] MEDS: Memantine 10mg tab ORAL SCH (09:50)
[2017-01-04] MEDS: Aspirin Baby 81mg ORAL SCH (09:50)
[2017-01-04 11:56] VITALS: BP 141/59
--- NOTE | 2017-01-04 12:17 | General Progress Note ---
Assessment/Plan Problem List: (1) Hypertensive urgency ICD Codes: I16.0 - Hypertensive urgency SNOMED: 890288477 (2) Toxic metabolic encephalopathy ICD Codes: G92 - Toxic encephalopathy SNOMED: 177958128 (3) Colitis ICD Codes: K52.9 - Noninfective gastroenteritis and colitis, unspecified SNOMED: 74415126 (4) Hypotension ICD Codes: I95.9 - Hypotension, unspecified SNOMED: 55830233 (5) Abdominal pain ICD Codes: R10.9 - Unspecified abdominal pain SNOMED: 85320322 Status: stable, progressing Assessment/Plan await cdiff monitor for diarrhea gi eval abx ivf Subjective ROS Limited/Unobtainable: Yes Constitutional: Reports: malaise, weakness HEENT: Reports: no symptoms Cardiovascular: Reports: no symptoms Respiratory: Reports: no symptoms Gastrointestinal/Abdominal: Reports: diarrhea Genitourinary: Reports: no symptoms Neurologic/Psychiatric: Reports: emotional problems Endocrine: Reports: no symptoms Hematologic/Lymphatic: Reports: no symptoms Allergies: Coded Allergies: No Known Allergies (Unverified , 02/09/14) All Systems: reviewed and negative except above Subjective no melena or diarrhea noted. w/o complaints. denies chest pain or sob. no fever or chills. Objective Last 24 Hour Vital Signs Date Time Temp Pulse Resp B/P (MAP) Pulse Ox O2 Delivery O2 Flow Rate FiO2 01/04/17 11:56 97.2 51 18 141/59 94 Room Air 01/04/17 07:30 97.2 52 18 121/51 94 Room Air 01/04/17 04:00 97.7 61 20 124/62 91 Room Air 01/04/17 04:00 73 01/04/17 00:00 97.2 63 20 126/65 90 Room Air 01/04/17 00:00 55 01/03/17 20:00 97.3 62 20 120/63 92 Room Air 01/03/17 20:00 48 01/03/17 16:00 73 01/03/17 16:00 97.9 76 18 127/69 92 Room Air Intake and Output 01/04/17 01/05/17 19:00 07:00 Intake Total 120 ml Balance 120 ml Intake Oral 120 ml # Voids 1 # Bowel Movements 1 Laboratory Tests 01/04/17 05:40: White Blood Count 10.8, Red Blood Count 4.18L, Hemoglobin 14.6, Hematocrit 42.6 , Mean Corpuscular Volume 102H, Mean Corpuscular Hemoglobin 34.9H, Mean Corpuscular Hemoglobin Concent 34.2, Red Cell Distribution Width 11.5L, Platelet Count 253, Mean Platelet Volume 8.5, Neutrophils (%) (Auto) 60.4, Lymphocytes (%) (Auto) 28.4, Monocytes (%) (Auto) 7.8, Eosinophils (%) (Auto) 2.4, Basophils (%) (Auto) 1.0, Sodium Level 139, Potassium Level 3.7, Chloride Level 108H, Carbon Dioxide Level 24, Anion Gap 7, Blood Urea Nitrogen 2L, Creatinine 0.5L, Estimat Glomerular Filtration Rate , Glucose Level 144H, Calcium Level 8.2L, Total Bilirubin 0.5, Aspartate Amino Transf (AST/SGOT) 17, Alanine Aminotransferase (ALT/SGPT) 14, Alkaline Phosphatase 56, Total Protein 5.6L, Albumin 2.3L, Globulin 3.3, Albumin/Globulin Ratio 0.7L Height (Feet): 5 Height (Inches): 2.00 Weight (Pounds): 100 General Appearance: WD/WN, alert, confused Neck: supple Cardiovascular: normal peripheral pulses, normal rate, regular rhythm Respiratory/Chest: chest wall non-tender, lungs clear, normal breath sounds Abdomen: normal bowel sounds, non tender, soft, no organomegaly Extremities: normal range of motion Neurologic: multimedia artist II-XII grossly normal, alert, responsive Skin: normal pigmentation SUSSY BALDERAS Jan 04, 2017 12:17
--- NOTE | 2017-01-04 14:49 | Cardiology Report ---
APPROVED REPORT EKG Measurement Heart [id number] Normal sinus rhythm Right bundle branch block Inferior infarct, age undetermined Anterolateral infarct, age undetermined Abnormal ECG
--- NOTE | 2017-01-04 15:33 | General Progress Note ---
Assessment/Plan Assessment/Plan Assessment - abdominal pain, improved - Distal colitis, r/o C Diff - DM - HTN - OBS Recommendations - Agree with Flagyl - Await C Diff - If C Diff negative, will need endoscopic evaluation - IVF Subjective Allergies: Coded Allergies: No Known Allergies (Unverified , 02/09/14) Objective Last 24 Hour Vital Signs Date Time Temp Pulse Resp B/P (MAP) Pulse Ox O2 Delivery O2 Flow Rate FiO2 01/04/17 12:00 47 01/04/17 11:56 97.2 51 18 141/59 94 Room Air 01/04/17 09:44 40 01/04/17 08:00 50 01/04/17 07:30 97.2 52 18 121/51 94 Room Air 01/04/17 04:00 97.7 61 20 124/62 91 Room Air 01/04/17 04:00 73 01/04/17 00:00 97.2 63 20 126/65 90 Room Air 01/04/17 00:00 55 01/03/17 20:00 97.3 62 20 120/63 92 Room Air 01/03/17 20:00 48 01/03/17 16:00 73 01/03/17 16:00 97.9 76 18 127/69 92 Room Air Intake and Output 01/04/17 01/05/17 19:00 07:00 Intake Total 240 ml Balance 240 ml Intake Oral 240 ml # Voids 1 # Bowel Movements 1 Laboratory Tests 01/04/17 05:40: White Blood Count 10.8, Red Blood Count 4.18L, Hemoglobin 14.6, Hematocrit 42.6 , Mean Corpuscular Volume 102H, Mean Corpuscular Hemoglobin 34.9H, Mean Corpuscular Hemoglobin Concent 34.2, Red Cell Distribution Width 11.5L, Platelet Count 253, Mean Platelet Volume 8.5, Neutrophils (%) (Auto) 60.4, Lymphocytes (%) (Auto) 28.4, Monocytes (%) (Auto) 7.8, Eosinophils (%) (Auto) 2.4, Basophils (%) (Auto) 1.0, Sodium Level 139, Potassium Level 3.7, Chloride Level 108H, Carbon Dioxide Level 24, Anion Gap 7, Blood Urea Nitrogen 2L, Creatinine 0.5L, Estimat Glomerular Filtration Rate , Glucose Level 144H, Calcium Level 8.2L, Magnesium Level 1.9, Total Bilirubin 0.5, Aspartate Amino Transf (AST/SGOT) 17, Alanine Aminotransferase (ALT/SGPT) 14, Alkaline Phosphatase 56, Total Protein 5.6L, Albumin 2.3L, Globulin 3.3, Albumin/ Globulin Ratio 0.7L Height (Feet): 5 Height (Inches): 2.00 Weight (Pounds): 100 KATIE CASTILLO Jan 04, 2017 15:33
[2017-01-04 16:00] VITALS: BP 141/76
[2017-01-04 20:00] VITALS: BP 120/72
[2017-01-04] MEDS: Atorvastatin 80mg tab ORAL SCH (22:00)
--- NOTE | 2017-01-04 22:15 | Consultation ---
DATE OF CONSULTATION: 01/04/2017 GASTROLOGY CONSULTATION CHIEF COMPLAINT: I was asked to see this patient by Dr. Vince Rosario and Dr. Benjie Quiñones for evaluation of some abdominal issues. HISTORY OF PRESENT ILLNESS: The patient is an 86-year-old [place] woman, who is not a good historian, who was brought into the hospital after having nausea. At the time of my evaluation, the patient is weak, but does not converse much complaints. She does not have much to offer in terms of history. The patient was admitted and underwent a CT scan of the abdomen and pelvis showing distal sigmoid and rectum inflammatory changes and thickening consistent with distal colitis. The patient will therefore be admitted for further evaluation and care. She has been placed on Flagyl and stools for Clostridium difficile are pending. PAST MEDICAL HISTORY: History of diabetes, history of hypertension, dementia, and recurrent urinary tract infection. ALLERGIES: None. SOCIAL HISTORY: The patient does not smoke or drink alcohol. She resides in a [facility]. FAMILY HISTORY: Noncontributory. REVIEW OF SYSTEMS: Otherwise negative. PHYSICAL EXAMINATION: GENERAL: The patient is a debilitated woman, seen in her room. HEENT: Normocephalic and atraumatic. Sclerae anicteric. Oropharynx clear. NECK: Supple. CHEST: Clear to auscultation. CARDIOVASCULAR: Regular rhythm and rate. ABDOMEN: Soft. Flat. Good bowel sounds. There is a mild degree of left lower quadrant abdominal tenderness without guarding or rebound. EXTREMITIES: Revealed no edema. LABORATORY AND DIAGNOSTIC DATA: Laboratory data was noted. CBC was noted. ASSESSMENT: This patient presents with vague abdominal complaints consistent with abdominal pain, which may be resolved. There was also a report of a dark stool, but this has not been reported. A CT scan shows some evidence of distal colitis which will have to be further investigated. The white count has declined showing improvement with the treatment. I would wait for the Clostridium difficile, and if negative, then further evaluation with respect to colonoscopy can be considered. In the meantime, an oral diet can be encouraged and the patient should be hydrated as needed. RECOMMENDATIONS: Per above discussion and per orders written in the chart. Thank you for asking me to participate in the care of this patient. Leanne Gomes M.D. DR: KIMMIE JOB#: [id number] CC:
[2017-01-05] VITALS (7 sets, daily range): BP systolic 134–154; BP diastolic 52–83
--- NOTE | 2017-01-05 03:31 | Consultation ---
DATE OF CONSULTATION: 01/02/2017 CARDIOLOGY CONSULTATION CONSULTING PHYSICIAN: Benjie Quiñones M.D. REQUESTING PHYSICIAN: Vince Rosario M.D. REASON FOR CONSULTATION: Bradycardia. HISTORY OF PRESENT ILLNESS: This elderly female, residing at a half-way facility, developed abdominal pain, nausea, and diarrhea today. She was sent to the emergency room. The patient has also been febrile with lethargy and decreased oral intake. She was admitted to the hospital for further diagnostic workup and is on IV fluids as well as empiric antibiotics. Consent has been raised over a low range heart rates prompting this consultation. The patient has not had any loss of consciousness noted or complaints of palpitation, chest pain, or dizziness. PAST MEDICAL HISTORY: Notable for hypertension, coronary atherosclerosis, cerebrovascular disease with dementia, type 2 diabetes mellitus, and osteoarthritis. MEDICATIONS: Prior to admission are reviewed and reconciled. ALLERGIES: None. SOCIAL HISTORY: Negative for smoking, alcohol, or substance abuse. FAMILY HISTORY: Noncontributory. REVIEW OF SYSTEMS: Limited and not obtainable from the patient due to her underlying dementia and current lethargy. Records from prior hospitalization here about a month ago are reviewed in detail as is her [facility] chart. Pertinent details of data had been outlined above. PHYSICAL EXAMINATION: VITAL SIGNS: Afebrile, blood pressure 137/61, pulse 49, respirations 18, and oxygen saturation on room air 96%. HEENT: Temporal wasting. Pale conjunctivae. Dry mucous membranes. NECK: Supple. No adenopathy. LUNGS: Clear. No breast masses. No chest wall tenderness. CARDIAC: Regular rhythm. Slow rate. Normal S1 and S2 with a fourth heart sound. ABDOMEN: Soft and tender in the lower quadrants. No guarding or rebound. EXTREMITIES: Without edema. Decreased capillary refill. NEUROLOGIC: Reveals lethargy and moderate cognitive impairments. LABORATORY DATA: Troponin is 0.009. Albumin 3.4. Glucose 163, potassium 3.4, BUN 12, and creatinine 0.8, and sodium 140. White count 13.4 and hemoglobin 15.8. EKG reveals sinus rhythm, 76 beats per minute, right bundle-branch block, poor R-wave progression, and possible inferior infarction of indeterminate age. IMPRESSION: 1. Severe sepsis. 2. Abdominal pain. 3. Dehydration. 4. Hypovolemia. 5. Conduction system disease of the heart. 6. Bradyarrhythmia. 7. Increased vagal tone due to abdominal pain possibly aggravating bradyarrhythmias. 8. Ischemic cardiomyopathy with stable angina. 9. Hypertensive heart disease with controlled blood pressure. 10. Type 2 diabetes mellitus with mild hyperglycemia. PLAN: 1. Cardiac monitoring. 2. IV fluid hydration. 3. Empiric antibiotics. 4. Hold parameters for antihypertensives. 5. Insulin titration by sliding scale. 6. Avoid beta-blockers and diltiazem at this time as well as clonidine. 7. We will follow with you during this hospital course. Benjie Quiñones M.D. DR: DALE JOB#: [id number] CC:
[2017-01-05] MEDS: metroNIDAZOLE 500mg tab ORAL SCH ×3 (06:00→21:56)
[2017-01-05] MEDS: NovoLOG Insulin Flexpen SUBQ SCH ×4 (06:30→21:00)
--- NOTE | 2017-01-05 08:55 | General Progress Note ---
Assessment/Plan Problem List: (1) Hypertensive urgency ICD Codes: I16.0 - Hypertensive urgency SNOMED: 875154482 (2) Toxic metabolic encephalopathy ICD Codes: G92 - Toxic encephalopathy SNOMED: 814095348 (3) Colitis ICD Codes: K52.9 - Noninfective gastroenteritis and colitis, unspecified SNOMED: 69590621 (4) Hypotension ICD Codes: I95.9 - Hypotension, unspecified SNOMED: 75104551 (5) Abdominal pain ICD Codes: R10.9 - Unspecified abdominal pain SNOMED: 30363718 Status: stable, progressing Assessment/Plan await cdiff on laxatives now monitor for diarrhea gi eval appreciated abx ivf message left to family to call me for update Subjective ROS Limited/Unobtainable: No Constitutional: Reports: malaise, weakness HEENT: Reports: no symptoms Cardiovascular: Reports: no symptoms Respiratory: Reports: no symptoms Gastrointestinal/Abdominal: Reports: constipated, diarrhea Genitourinary: Reports: no symptoms Neurologic/Psychiatric: Reports: no symptoms Endocrine: Reports: no symptoms Hematologic/Lymphatic: Reports: no symptoms Allergies: Coded Allergies: No Known Allergies (Unverified , 02/09/14) All Systems: reviewed and negative except above Subjective no melena or diarrhea noted. w/o complaints. denies chest pain or sob. no fever or chills. still unable to collect cdiff- no bms since admit Objective Last 24 Hour Vital Signs Date Time Temp Pulse Resp B/P (MAP) Pulse Ox O2 Delivery O2 Flow Rate FiO2 01/05/17 08:45 97.3 50 20 136/66 95 Room Air 01/05/17 05:00 97.0 52 16 134/60 94 Room Air 01/05/17 04:00 51 01/05/17 04:00 97.0 47 16 154/58 93 Room Air 01/05/17 00:00 55 01/05/17 00:00 97.3 58 16 145/52 93 Room Air 01/04/17 20:00 97.2 56 16 120/72 93 Room Air 01/04/17 20:00 53 01/04/17 16:00 97.0 58 20 141/76 95 Room Air 01/04/17 16:00 85 01/04/17 12:00 47 01/04/17 11:56 97.2 51 18 141/59 94 Room Air 01/04/17 09:44 40 Height (Feet): 5 Height (Inches): 2.00 Weight (Pounds): 100 Objective General Appearance: WD/WN, alert, confused Neck: supple Cardiovascular: normal peripheral pulses, normal rate, regular rhythm Respiratory/Chest: chest wall non-tender, lungs clear, normal breath sounds Abdomen: normal bowel sounds, non tender, soft, no organomegaly Extremities: normal range of motion 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
[2017-01-05] MEDS: Docusate 250mg cap ORAL SCH ×2 (09:06→17:41)
[2017-01-05] MEDS: Memantine 10mg tab ORAL SCH (09:06)
[2017-01-05] MEDS: Aspirin Baby 81mg ORAL SCH (09:06)
--- NOTE | 2017-01-05 10:30 | Progress Note ---
DATE: 01/04/2017 CARDIOLOGY PROGRESS NOTE SUBJECTIVE: The patient's abdominal pain has decreased. She is on empiric antibiotics. OBJECTIVE: VITAL SIGNS: Blood pressure 121/51 to 141/59, heart rate 40 to 73, respiratory rate 18, and afebrile. NECK: Supple. LUNGS: Clear. CARDIAC: Regular. Slow S1 and S2. No murmur. ABDOMEN: Soft and slightly tender in the lower quadrant. No guarding or rebound. EXTREMITIES: Without edema. LABORATORY DATA: Albumin 2.3. BUN 2, creatinine 0.5, and potassium 3.7. Monitor sinus bradycardia. No pauses. Oxygen saturation 93% to 95%. IMPRESSION: 1. Colitis. 2. Hypertension. 3. Bradycardia with increased vagal tone due to abdominal discomfort, likely exacerbating sinus node disease and bradycardia. PLAN: 1. Empiric antibiotics. 2. Follow up stool studies. 3. Continue cardiac monitoring. 4. No role for pacemaker. 5. Check thyroid function if not recently done. 6. Avoid tight blood pressure control in this clinical setting. 7. Insulin coverage by sliding scale. 8. Hold oral hypoglycemics until dietary intake normalizes. Benjie Quiñones M.D. DR: DALE JOB#: [id number] CC:
--- NOTE | 2017-01-05 16:40 | General Progress Note ---
Assessment/Plan Assessment/Plan Assessment - abdominal pain, improved - Distal colitis, r/o C Diff - DM - HTN - OBS Recommendations - Agree with Flagyl - Await C Diff - still pending - If C Diff negative, will need endoscopic evaluation - IVF Subjective Allergies: Coded Allergies: No Known Allergies (Unverified , 02/09/14) Subjective Above noted resting comfortably no complaints Objective Last 24 Hour Vital Signs Date Time Temp Pulse Resp B/P (MAP) Pulse Ox O2 Delivery O2 Flow Rate FiO2 01/05/17 15:33 97.7 80 18 148/83 96 Room Air 01/05/17 12:00 42 01/05/17 11:45 97.5 46 20 154/67 95 Room Air 01/05/17 09:08 50 136/66 01/05/17 08:45 97.3 50 20 136/66 95 Room Air 01/05/17 08:00 47 01/05/17 05:00 97.0 52 16 134/60 94 Room Air 01/05/17 04:00 51 01/05/17 04:00 97.0 47 16 154/58 93 Room Air 01/05/17 00:00 55 01/05/17 00:00 97.3 58 16 145/52 93 Room Air 01/04/17 20:00 97.2 56 16 120/72 93 Room Air 01/04/17 20:00 53 Intake and Output 01/05/17 01/06/17 19:00 07:00 Intake Total 240 ml Balance 240 ml Intake Oral 240 ml # Voids 2 # Bowel Movements 1 Height (Feet): 5 Height (Inches): 2.00 Weight (Pounds): 100 Objective WDWN NCAT supple CTA RR abd soft ND NT no edema KATIE CASTILLO Jan 05, 2017 16:40
[2017-01-05] MEDS ORDERED: Miralax 17gm pkt ORAL SCH (21:00)
[2017-01-05] MEDS: Atorvastatin 80mg tab ORAL SCH (21:00)
--- NOTE | 2017-01-05 22:15 | Progress Note ---
DATE: 01/05/2017 CARDIOLOGY PROGRESS NOTE SUBJECTIVE: The patient is without GI symptoms at this time. No chest pain or shortness of breath. C. difficile is pending since no bowel movement recently. OBJECTIVE: VITAL SIGNS: Blood pressure 136/66, pulse 50, and respirations 20, and afebrile. NECK: Supple. LUNGS: Clear. CARDIAC: Regular rhythm. Slow rate. Normal S1 and S2. ABDOMEN: Soft. EXTREMITIES: No edema. IMPRESSION: 1. Colitis, improving. 2. Abdominal pain, resolved. 3. Diabetes mellitus, controlled. 4. Hypertension, controlled. 5. Sinus bradycardia persists but asymptomatic. PLAN: 1. Continue hydration. 2. Protein supplement. 3. Empiric antibiotics. 4. No current indication for pacemaker. 5. Avoid all drugs with negative chronotropic potential. Benjie Quiñones M.D. DR: LYUBOV JOB#: [id number] CC:
[2017-01-06] VITALS (7 sets, daily range): BP systolic 131–156; BP diastolic 70–85
[2017-01-06] MEDS: metroNIDAZOLE 500mg tab ORAL SCH ×3 (06:28→21:26)
[2017-01-06] MEDS: NovoLOG Insulin Flexpen SUBQ SCH ×4 (06:29→21:00)
--- NOTE | 2017-01-06 07:53 | General Progress Note ---
Assessment/Plan Problem List: (1) Hypertensive urgency ICD Codes: I16.0 - Hypertensive urgency SNOMED: 176751430 (2) Toxic metabolic encephalopathy ICD Codes: G92 - Toxic encephalopathy SNOMED: 530592693 (3) Colitis ICD Codes: K52.9 - Noninfective gastroenteritis and colitis, unspecified SNOMED: 69382345 (4) Hypotension ICD Codes: I95.9 - Hypotension, unspecified SNOMED: 46347537 (5) Abdominal pain ICD Codes: R10.9 - Unspecified abdominal pain SNOMED: 08291627 Status: stable, progressing Assessment/Plan await cdiff amd stool ob on laxatives now monitor for diarrhea gi eval appreciated abx ivf family updated may need endoscopy Subjective ROS Limited/Unobtainable: No Constitutional: Reports: malaise, weakness HEENT: Reports: no symptoms Cardiovascular: Reports: no symptoms Respiratory: Reports: no symptoms Gastrointestinal/Abdominal: Reports: constipated, diarrhea, rectal bleeding Genitourinary: Reports: no symptoms Neurologic/Psychiatric: Reports: pre-existing deficit Endocrine: Reports: no symptoms Hematologic/Lymphatic: Reports: anemia Allergies: Coded Allergies: No Known Allergies (Unverified , 02/09/14) All Systems: reviewed and negative except above Subjective no melena or diarrhea noted. w/o complaints. denies chest pain or sob. no fever or chills. had large BM- nonbloody. per family pt had bloody mucous stool. Objective Last 24 Hour Vital Signs Date Time Temp Pulse Resp B/P (MAP) Pulse Ox O2 Delivery O2 Flow Rate FiO2 01/06/17 04:00 97.7 67 19 156/85 92 Room Air 01/06/17 04:00 69 01/06/17 00:54 97.9 60 19 140/80 94 Room Air 01/06/17 00:00 60 01/05/17 20:43 98.0 55 18 147/65 93 Room Air 01/05/17 20:34 72 01/05/17 16:00 74 01/05/17 15:33 97.7 80 18 148/83 96 Room Air 01/05/17 12:00 42 01/05/17 11:45 97.5 46 20 154/67 95 Room Air 01/05/17 09:08 50 136/66 01/05/17 08:45 97.3 50 20 136/66 95 Room Air 01/05/17 08:00 47 Height (Feet): 5 Height (Inches): 2.00 Weight (Pounds): 100 Objective General Appearance: WD/WN, alert, confused Neck: supple Cardiovascular: normal peripheral pulses, normal rate, regular rhythm Respiratory/Chest: chest wall non-tender, lungs clear, normal breath sounds Abdomen: normal bowel sounds, non tender, soft, no organomegaly Extremities: normal range of motion 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
[2017-01-06] MEDS: Docusate 250mg cap ORAL SCH ×2 (09:24→18:00)
[2017-01-06] MEDS: Aspirin Baby 81mg ORAL SCH (09:24)
[2017-01-06] MEDS: Memantine 10mg tab ORAL SCH (09:24)
[2017-01-06 10:11] LABS: BASOPHILS % (AUTO) 0.8 % (0.0-2.0); EOSINOPHILS % (AUTO) 1.5 % (0.0-3.0); MEAN CORPUSCULAR HEMOGLOBIN 33.8 PG (27.0-31.0); MEAN CORPUSCULAR HGB CONC 32.8 G/DL (32.0-36.0); MEAN CORPUSCULAR VOLUME 103 FL (80-99); MONOCYTES % (AUTO) 7.4 % (1.0-10.0); NEUTROPHILS % (AUTO) 52.3 % (45.0-75.0); PLATELET COUNT 275 K/UL (150-450); RED BLOOD COUNT 4.31 M/UL (4.20-5.40); RED CELL DISTRIBUTION WIDTH 12.1 % (11.6-14.8); WHITE BLOOD COUNT 9.1 K/UL (4.8-10.8)
--- NOTE | 2017-01-06 10:23 | General Progress Note ---
Assessment/Plan Assessment/Plan Assessment - abdominal pain, improved - Distal colitis, r/o C Diff - DM - HTN - OBS Recommendations - Agree with Flagyl - Await C Diff - still pending - If C Diff negative, will need endoscopic evaluation - IVF Subjective Allergies: Coded Allergies: No Known Allergies (Unverified , 02/09/14) Subjective Above noted resting comfortably no complaints (+) Loose BM x 2 today so far - sent to lab Objective Last 24 Hour Vital Signs Date Time Temp Pulse Resp B/P (MAP) Pulse Ox O2 Delivery O2 Flow Rate FiO2 01/06/17 09:27 60 144/73 01/06/17 08:21 98.6 60 19 144/73 Room Air 01/06/17 04:00 97.7 67 19 156/85 92 Room Air 01/06/17 04:00 69 01/06/17 00:54 97.9 60 19 140/80 94 Room Air 01/06/17 00:00 60 01/05/17 20:43 98.0 55 18 147/65 93 Room Air 01/05/17 20:34 72 01/05/17 16:00 74 01/05/17 15:33 97.7 80 18 148/83 96 Room Air 01/05/17 12:00 42 01/05/17 11:45 97.5 46 20 154/67 95 Room Air Laboratory Tests 01/06/17 09:45: White Blood Count 9.1, Red Blood Count 4.31, Hemoglobin 14.6, Hematocrit 44.5, Mean Corpuscular Volume 103H, Mean Corpuscular Hemoglobin 33.8H, Mean Corpuscular Hemoglobin Concent 32.8, Red Cell Distribution Width 12.1, Platelet Count 275, Mean Platelet Volume 8.0, Neutrophils (%) (Auto) 52.3, Lymphocytes (% ) (Auto) 38.0, Monocytes (%) (Auto) 7.4, Eosinophils (%) (Auto) 1.5, Basophils ( %) (Auto) 0.8, Sodium Level [Pending], Potassium Level [Pending], Chloride Level [Pending], Carbon Dioxide Level [Pending], Blood Urea Nitrogen [Pending], Creatinine [Pending], Estimat Glomerular Filtration Rate [Pending], Glucose Level [Pending], Calcium Level [Pending], Total Bilirubin [Pending], Aspartate Amino Transf (AST/SGOT) [Pending], Alanine Aminotransferase (ALT/SGPT) [Pending] , Alkaline Phosphatase [Pending], Total Protein [Pending], Albumin [Pending], Globulin [Pending] Height (Feet): 5 Height (Inches): 2.00 Weight (Pounds): 100 Objective WDWN NCAT supple CTA RR abd soft ND NT no edema KATIE CASTILLO Jan 06, 2017 10:23
[2017-01-06 10:52] LABS: ALANINE AMINOTRANSFERASE 17 U/L (12-78); ALBUMIN/GLOBULIN RATIO 0.8 (1.0-2.7); ANION GAP 9 mmol/L (5-15); ASPARTATE AMINO TRANSFERASE 21 U/L (15-37); CALCIUM 8.1 MG/DL (8.5-10.1); CARBON DIOXIDE 26 MMOL/L (21-32); CHLORIDE 109 MMOL/L (98-107); CREATININE 0.6 MG/DL (0.55-1.30); SODIUM 144 MMOL/L (136-145); TOTAL PROTEIN 5.8 G/DL (6.4-8.2)
[2017-01-06] MEDS: Miralax 17gm pkt ORAL SCH (21:00)
[2017-01-06] MEDS: Atorvastatin 80mg tab ORAL SCH (21:26)
[2017-01-07 04:13] VITALS: BP 145/73
[2017-01-07] MEDS: metroNIDAZOLE 500mg tab ORAL SCH ×3 (06:12→21:09)
[2017-01-07] MEDS: NovoLOG Insulin Flexpen SUBQ SCH ×4 (06:13→21:00)
[2017-01-07] MEDS: Memantine 10mg tab ORAL SCH (08:17)
[2017-01-07] MEDS: Docusate 250mg cap ORAL SCH ×2 (08:18→17:21)
[2017-01-07] MEDS: Aspirin Baby 81mg ORAL SCH (08:18)
[2017-01-07 08:31] VITALS: BP 136/71
[2017-01-07] MEDS ORDERED: Bisacodyl EC 5mg tab ORAL PRN (09:00)
--- NOTE | 2017-01-07 09:53 | General Progress Note ---
Assessment/Plan Problem List: (1) Hypertensive urgency ICD Codes: I16.0 - Hypertensive urgency SNOMED: 247389349 (2) Toxic metabolic encephalopathy ICD Codes: G92 - Toxic encephalopathy SNOMED: 238326101 (3) Colitis ICD Codes: K52.9 - Noninfective gastroenteritis and colitis, unspecified SNOMED: 79597368 (4) Hypotension ICD Codes: I95.9 - Hypotension, unspecified SNOMED: 12028257 (5) Abdominal pain ICD Codes: R10.9 - Unspecified abdominal pain SNOMED: 75475095 Status: stable, progressing Assessment/Plan await cdiff and stool ob monitor for diarrhea gi eval appreciated abx ivf family updated may need endoscopy poc per GI Subjective ROS Limited/Unobtainable: No Constitutional: Reports: malaise, weakness HEENT: Reports: no symptoms Cardiovascular: Reports: no symptoms Respiratory: Reports: no symptoms Gastrointestinal/Abdominal: Reports: diarrhea Genitourinary: Reports: no symptoms Neurologic/Psychiatric: Reports: pre-existing deficit Endocrine: Reports: no symptoms Hematologic/Lymphatic: Reports: anemia Allergies: Coded Allergies: No Known Allergies (Unverified , 02/09/14) All Systems: reviewed and negative except above Subjective having diarrhea again. nonbloody. denies abd pain. no fever or chills. cdiff sent. no results back yet Objective Last 24 Hour Vital Signs Date Time Temp Pulse Resp B/P (MAP) Pulse Ox O2 Delivery O2 Flow Rate FiO2 01/07/17 08:31 97.9 61 19 136/71 94 Room Air 01/07/17 08:17 61 137/71 01/07/17 04:13 97.6 58 19 145/73 93 Room Air 01/06/17 23:48 97.4 69 18 131/70 94 Room Air 01/06/17 20:00 97.5 74 18 137/74 93 Room Air 01/06/17 16:00 96.6 81 19 135/79 Room Air 01/06/17 12:35 97.7 49 19 154/75 Room Air Intake and Output 01/07/17 01/08/17 19:00 07:00 Intake Total 240 ml Balance 240 ml Intake Oral 240 ml # Voids 1 Height (Feet): 5 Height (Inches): 2.00 Weight (Pounds): 100 Objective General Appearance: WD/WN, alert, confused Neck: supple Cardiovascular: normal peripheral pulses, normal rate, regular rhythm Respiratory/Chest: chest wall non-tender, lungs clear, normal breath sounds Abdomen: normal bowel sounds, non tender, soft, no organomegaly Extremities: normal range of motion 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
[2017-01-07 11:50] VITALS: BP 131/72
[2017-01-07] MEDS ORDERED: Magnesium Citrate Liq Btl ORAL ONE (12:00)
--- NOTE | 2017-01-07 12:10 | General Progress Note ---
Assessment/Plan Assessment/Plan Assessment - abdominal pain, improved - Distal colitis - culture and C Diff (-) - DM - HTN - OBS Recommendations - GI preparation today - Colonoscopy in am - IVF - check and replace lytes Subjective Allergies: Coded Allergies: No Known Allergies (Unverified , 02/09/14) Subjective Above noted resting comfortably no complaints d/w RN - still mucoid stools Stool culture and C Diff negative above all d/w DTR --> Agreed to colonoscopy Objective Last 24 Hour Vital Signs Date Time Temp Pulse Resp B/P (MAP) Pulse Ox O2 Delivery O2 Flow Rate FiO2 01/07/17 11:50 97.6 68 18 131/72 94 Room Air 01/07/17 08:31 97.9 61 19 136/71 94 Room Air 01/07/17 08:17 61 137/71 01/07/17 04:13 97.6 58 19 145/73 93 Room Air 01/06/17 23:48 97.4 69 18 131/70 94 Room Air 01/06/17 20:00 97.5 74 18 137/74 93 Room Air 01/06/17 16:00 96.6 81 19 135/79 Room Air 01/06/17 12:35 97.7 49 19 154/75 Room Air Intake and Output 01/07/17 01/08/17 19:00 07:00 Intake Total 240 ml Balance 240 ml Intake Oral 240 ml # Voids 1 Height (Feet): 5 Height (Inches): 2.00 Weight (Pounds): 100 Objective WDWN NCAT supple CTA RR abd soft ND NT no edema KATIE CASTILLO Jan 07, 2017 12:10
[2017-01-07 12:47] LABS: ANION GAP 7 mmol/L (5-15); CALCIUM 8.9 MG/DL (8.5-10.1); CARBON DIOXIDE 28 MMOL/L (21-32); CHLORIDE 109 MMOL/L (98-107); CREATININE 0.6 MG/DL (0.55-1.30); MAGNESIUM 1.8 MG/DL (1.8-2.4); POTASSIUM 3.2 MMOL/L (3.5-5.1); SODIUM 144 MMOL/L (136-145)
[2017-01-07 16:01] VITALS: BP 138/77
[2017-01-07 20:00] VITALS: BP 122/68
[2017-01-07] MEDS: Atorvastatin 80mg tab ORAL SCH (21:09)
[2017-01-07] MEDS: Miralax 17gm pkt ORAL SCH (21:10)
[2017-01-08] VITALS (10 sets, daily range): BP systolic 97–151; BP diastolic 59–84
[2017-01-08] MEDS: D5NS 1,000 ML IV SCH ×2 (00:54→12:50)
--- NOTE | 2017-01-08 04:45 | Progress Note ---
DATE: 01/06/2017 CARDIOLOGY PROGRESS NOTE Late entry for 01/06/2017. SUBJECTIVE: The patient's blood pressure trend has increased again. She continues to deny chest pain or shortness of breath. She had a bowel movement with no signs of bleeding. In the past, she has had bloody stool noted by family members. OBJECTIVE: VITAL SIGNS: Blood pressure 156/85, pulse 67, respirations 19, and afebrile. NECK: Supple. LUNGS: Clear. CARDIAC: Regular. Normal S1 and S2 with a fourth heart sound. ABDOMEN: Soft. No focal tenderness. EXTREMITIES: Without edema. LABORATORY DATA: White count 9.1 and hemoglobin 14.6. Potassium 3, BUN 4, and creatinine 0.6. Albumin 2.5. IMPRESSION: 1. Hypokalemia. 2. Possible gastrointestinal bleeding. 3. Malignant hypertension, now resolved with hypertensive heart disease. 4. Macrocytosis. PLAN: 1. Check B12 level. 2. Await stool occult blood test. 3. Replace potassium. 4. Check magnesium. 5. Titrate antihypertensives with close observation for orthostatic symptoms. Benjie Quiñones M.D. DR: DALE JOB#: [id number] CC:
--- NOTE | 2017-01-08 04:45 | Progress Note ---
DATE: 01/07/2017 CARDIOLOGY PROGRESS NOTE SUBJECTIVE: Abdominal pain has improved. Mucoid stools persist. Hemoglobin remained stable. Colonoscopy is planned tomorrow. OBJECTIVE: VITAL SIGNS: Blood pressure 131/70, pulse 68, respirations 18. Overall blood pressure control remains adequate. NECK: Supple. LUNGS: Clear. CARDIAC: Regular. Normal S1, S2 with a fourth heart sound. ABDOMEN: Soft. No focal tenderness. EXTREMITIES: Without edema. LABORATORY DATA: Sodium 144, potassium 3.2, BUN 6, and creatinine 0.6. Albumin 2.5 yesterday. Magnesium 1.8. IMPRESSION: 1. Gastrointestinal bleeding. 2. Colitis. 3. Hypokalemia. 4. Hypertensive urgency, resolved. 5. Hypertensive heart disease with controlled blood pressure. 6. Dehydration and hypovolemia, recovered. PLAN: 1. NPO for colonoscopy. 2. Stable from cardiovascular standpoint without anticipated increased risk. 3. Continue IV fluids. 4. Replace potassium. 5. Further recommendations following diagnostic studies. 6. While NPO clonidine sublingual can be given for blood pressure spikes. Benjie Quiñones M.D. DR: BRIJESH JOB#: [id number] CC:
[2017-01-08] MEDS: metroNIDAZOLE 500mg tab ORAL SCH ×3 (06:22→21:00)
[2017-01-08] MEDS: NovoLOG Insulin Flexpen SUBQ SCH ×4 (06:30→21:04)
[2017-01-08] MEDS ORDERED: NS 500ML IV ONE (06:50)
[2017-01-08 06:53] LABS: ALANINE AMINOTRANSFERASE 24 U/L (12-78); ALBUMIN/GLOBULIN RATIO 0.8 (1.0-2.7); ANION GAP 11 mmol/L (5-15); ASPARTATE AMINO TRANSFERASE 35 U/L (15-37); CALCIUM 8.8 MG/DL (8.5-10.1); CARBON DIOXIDE 26 MMOL/L (21-32); CHLORIDE 107 MMOL/L (98-107); CREATININE 0.6 MG/DL (0.55-1.30); POTASSIUM 3.3 MMOL/L (3.5-5.1); SODIUM 144 MMOL/L (136-145); TOTAL PROTEIN 6.5 G/DL (6.4-8.2)
[2017-01-08] MEDS ORDERED: fentaNYL 100 mcg/2 mL IV ONE (06:57)
[2017-01-08] MEDS ORDERED: Propofol 200mg/20ml IV ONE (06:57)
[2017-01-08] MEDS ORDERED: Midazolam 2mg/2ml Inj ONE (06:57)
--- NOTE | 2017-01-08 07:00 | Pre-Procedure Note/Attestation ---
Pre-Procedure Note/Attestation Complete Prior to Procedure Planned Procedure: not applicable Procedure Narrative: colonosopy Indications for Procedure Pre-Operative Diagnosis: colitis Attestation I attest that I discussed the nature of the procedure; its benefits; risks and complications; and alternatives (and the risks and benefits of such alternatives ), prior to the procedure, with the patient (or the patient's legal bottling equipment sales representative). I attest that, if there was a reasonable possibility of needing a blood transfusion, the patient (or the patient's legal bottling equipment sales representative) was given the [facility] standardized written summary, pursuant to the Lawrence Lilibeth Blood Safety Act ([place] Health and Safety Code # 1645, as amended). I attest that I re-evaluated the patient just prior to the surgery and that there has been no change in the patient's H&P, except as documented below: KATIE CASTILLO Jan 08, 2017 07:00
--- NOTE | 2017-01-08 07:17 | Anethesia Preoperative Eval ---
Anesthesia Pre-op PMH/ROS General Date of Evaluation: Jan 08, 2017 Time of Evaluation: 06:58 Anesthesiologist: Alberto ASA Score: ASA 3 Mallampati Score Class I : Soft palate, uvula, fauces, pillars visible Class II: Soft palate, uvula, fauces visible Class III: Soft palate, base of uvula visible Class IV: Only hard plate visible Mallampati Classification: Class II Surgeon: Chioma Diagnosis: Abdominal pain Surgical Procedure: Colonoscopy Anesthesia History: none Family History: no anesthesia problems Allergies: Coded Allergies: No Known Allergies (Unverified , 02/09/14) Medications: see eMAR Past Medical History Cardiovascular: Reports: HTN, Denies: CAD, LA, valve dz, arrhythmia, other Pulmonary: Denies: asthma, COPD, TYLER, other Gastrointestinal/Genitourinary: Reports: GERD, Denies: CRI, ESRD, other Neurologic/Psychiatric: Reports: dementia, Denies: CVA, depression/anxiety, TIA, other Endocrine: Reports: DM, Denies: hypothyroidism, steroids, other HEENT: Denies: cataract (L), cataract (R), glaucoma, MODOC (L), MODOC (R), other Hematology/Immune: Denies: anemia, DVT, bleeding disorder, other Musculoskeletal/Integumentary: Reports: DJD Other: other PMH Narrative: admitted with acute abdominal pain PSxH Narrative: see H&P Anesthesia Pre-op Phys. Exam Physician Exam Last Vital Signs Date Time Temp Pulse Resp B/P (MAP) Pulse Ox O2 Delivery O2 Flow Rate FiO2 01/08/17 04:00 98.6 76 16 130/75 96 Room Air Constitutional: NAD Neurologic: other - unable to obtaine Cardiovascular: RRR, no M/R/G Respiratory: CTA Gastrointestinal: other - slightly tender on palpation Airway Exam Mallampati Score: Class II MO: limited Neck: stiff ROM: limited Teeth: missing Dentures: no upper, no lower Anesthesia Pre-op A/P Labs Chemistry Test 01/07/17 12:00 01/08/17 05:20 Sodium Level 144 MMOL/L (136-145) 144 MMOL/L (136-145) Potassium Level 3.2 MMOL/L (3.5-5.1) L 3.3 MMOL/L (3.5-5.1) L Chloride Level 109 MMOL/L (98-107) H 107 MMOL/L (98-107) Carbon Dioxide Level 28 MMOL/L (21-32) 26 MMOL/L (21-32) Anion Gap 7 mmol/L (5-15) 11 mmol/L (5-15) Blood Urea Nitrogen 6 mg/dL (7-18) L 6 mg/dL (7-18) L Creatinine 0.6 MG/DL (0.55-1.30) 0.6 MG/DL (0.55-1.30) Estimat Glomerular Filtration Rate mL/min (>60) mL/min (>60) Glucose Level 122 MG/DL (74-106) H 155 MG/DL (74-106) H Calcium Level 8.9 MG/DL (8.5-10.1) 8.8 MG/DL (8.5-10.1) Magnesium Level 1.8 MG/DL (1.8-2.4) Total Bilirubin 0.7 MG/DL (0.2-1.0) Aspartate Amino Transf (AST/SGOT) 35 U/L (15-37) Alanine Aminotransferase (ALT/SGPT) 24 U/L (12-78) Alkaline Phosphatase 55 U/L (46-116) Total Protein 6.5 G/DL (6.4-8.2) Albumin 2.9 G/DL (3.4-5.0) L Globulin 3.6 g/dL Albumin/Globulin Ratio 0.8 (1.0-2.7) L Vitamin B12 Level Pending Studies Pre-op Studies: EKG - SR Risk Assessment & Plan Assessment: ASA 3 Plan: MAC Status Change Before Surgery: No Pre-Antibiotics Drug: none COLLEEN GUERIN M.D. Jan 08, 2017 07:17
--- NOTE | 2017-01-08 08:03 | General Progress Note ---
Assessment/Plan Assessment/Plan Assessment - abdominal pain, improved - Distal colitis - culture and C Diff (-) - elevated MCV - DM - HTN - hypokalemia - OBS Recommendations -check B 12 and folate - Colonoscopy - IVF - check and replace lytes Subjective Allergies: Coded Allergies: No Known Allergies (Unverified , 02/09/14) Subjective Above noted resting comfortably NPO for colonoscopy Elevated MCV noted Objective Last 24 Hour Vital Signs Date Time Temp Pulse Resp B/P (MAP) Pulse Ox O2 Delivery O2 Flow Rate FiO2 01/08/17 04:00 98.6 76 16 130/75 96 Room Air 01/08/17 00:19 98.1 72 16 151/84 94 Room Air 01/07/17 20:00 97.4 63 18 122/68 94 Room Air 01/07/17 16:01 98.3 67 19 138/77 96 Room Air 01/07/17 11:50 97.6 68 18 131/72 94 Room Air 01/07/17 08:31 97.9 61 19 136/71 94 Room Air 01/07/17 08:17 61 137/71 Laboratory Tests 01/07/17 12:00: Sodium Level 144, Potassium Level 3.2L, Chloride Level 109H, Carbon Dioxide Level 28, Anion Gap 7, Blood Urea Nitrogen 6L, Creatinine 0.6, Estimat Glomerular Filtration Rate , Glucose Level 122H, Calcium Level 8.9, Magnesium Level 1.8 01/08/17 05:20: Sodium Level 144, Potassium Level 3.3L, Chloride Level 107, Carbon Dioxide Level 26, Anion Gap 11, Blood Urea Nitrogen 6L, Creatinine 0.6, Estimat Glomerular Filtration Rate , Glucose Level 155H, Calcium Level 8.8, Total Bilirubin 0.7, Aspartate Amino Transf (AST/SGOT) 35, Alanine Aminotransferase ( ALT/SGPT) 24, Alkaline Phosphatase 55, Total Protein 6.5, Albumin 2.9L, Globulin 3.6, Albumin/Globulin Ratio 0.8L, Vitamin B12 Level 1361H 01/08/17 06:50: Folate [Pending] Height (Feet): 5 Height (Inches): 5.00 Weight (Pounds): 100 Objective WDWN NCAT supple CTA RR abd soft ND NT no edema KATIE CASTILLO Jan 08, 2017 08:03
--- NOTE | 2017-01-08 08:06 | Endoscopy Procedure Note ---
Endoscopy Procedure Note Indication for Procedure: colitis Procedures Performed: colonoscopy Operative Findings/Diagnosis: distal colitis, multiple polyps Specimen: yes Pt Tolerated Procedure Well: Yes Estimated Blood Loss: none Anesthesiologist: see report Anesthesia: MAC Medication Given: see anesthesia record Implant(s) used?: No 50 yrs or older w/o bx or poly: Not Applicable 10yrs. F/U not recommended: Not Applicable If not recommended, why?: KATIE CASTILLO Jan 08, 2017 08:06
--- NOTE | 2017-01-08 08:08 | Brief Operative Note ---
Immediate Post Operative Note Operative Note Chief Complaint: distal colitis Pre-op Diagnosis: colitis Procedure: colon , bx , polypectomy Post-op Diagnosis: distal colitis, multiple polyps Surgeon: dajuan Anesthesiologist: see report Anesthesia: moderate sedation Specimen: yes Complications: none Condition: stable Fluids: see report Estimated Blood Loss: none Drains: none Implant(s) used?: No KATIE CASTILLO Jan 08, 2017 08:08
--- NOTE | 2017-01-08 08:09 | Immediate Post-Op Evaluation ---
Immediate Post-Op Evalulation Immediate Post-Op Evalulation Procedure: Colonoscopy polipectomy Date of Evaluation: Jan 08, 2017 Time of Evaluation: 08:07 IV Fluids: 500 Blood Products: none Estimated Blood Loss: min Urinary Output: none Blood Pressure Systolic: 108 Blood Pressure Diastolic: 64 Pulse Rate: 72 Respiratory Rate: 20 O2 Sat by Pulse Oximetry: 99 Temperature (Fahrenheit): 97.6 Pain Score (1-10): 1 Nausea: No Vomiting: No Complications none Patient Status: awake, patent, none Hydration Status: adequate COLLEEN GUERIN M.D. Jan 08, 2017 08:09
[2017-01-08] MEDS ORDERED: KCl 10% 40mEq/30ml liquid NG ONE (08:15)
--- NOTE | 2017-01-08 08:47 | General Progress Note ---
Assessment/Plan Problem List: (1) Hypertensive urgency ICD Codes: I16.0 - Hypertensive urgency SNOMED: 902542646 (2) Toxic metabolic encephalopathy ICD Codes: G92 - Toxic encephalopathy SNOMED: 919486525 (3) Colitis ICD Codes: K52.9 - Noninfective gastroenteritis and colitis, unspecified SNOMED: 45861138 (4) Hypotension ICD Codes: I95.9 - Hypotension, unspecified SNOMED: 47396884 (5) Abdominal pain ICD Codes: R10.9 - Unspecified abdominal pain SNOMED: 00270102 Status: stable Assessment/Plan await biopsy results monitor for diarrhea gi eval appreciated abx ivf pain rx monitor for bleeding Subjective ROS Limited/Unobtainable: No Constitutional: Reports: malaise, weakness HEENT: Reports: no symptoms Cardiovascular: Reports: no symptoms Respiratory: Reports: no symptoms Gastrointestinal/Abdominal: Reports: diarrhea, rectal bleeding Genitourinary: Reports: no symptoms Neurologic/Psychiatric: Reports: no symptoms Endocrine: Reports: no symptoms Hematologic/Lymphatic: Reports: anemia Allergies: Coded Allergies: No Known Allergies (Unverified , 02/09/14) All Systems: reviewed and negative except above Subjective s/p colonoscopy. multiple polyps and colitis noted. no active bleeding. Objective Last 24 Hour Vital Signs Date Time Temp Pulse Resp B/P (MAP) Pulse Ox O2 Delivery O2 Flow Rate FiO2 01/08/17 08:25 98.8 60 16 117/62 98 Nasal Cannula 3.0 01/08/17 08:09 66 14 115/61 98 Nasal Cannula 3.0 01/08/17 08:09 72 20 99 01/08/17 08:04 72 17 108/64 98 Nasal Cannula 3.0 01/08/17 07:59 98.7 75 16 109/59 98 Nasal Cannula 3.0 01/08/17 04:00 98.6 76 16 130/75 96 Room Air 01/08/17 00:19 98.1 72 16 151/84 94 Room Air 01/07/17 20:00 97.4 63 18 122/68 94 Room Air 01/07/17 16:01 98.3 67 19 138/77 96 Room Air 01/07/17 11:50 97.6 68 18 131/72 94 Room Air Intake and Output 01/08/17 01/09/17 19:00 07:00 Intake Total 500 ml Balance 500 ml IV Total 500 ml Laboratory Tests 01/07/17 12:00: Sodium Level 144, Potassium Level 3.2L, Chloride Level 109H, Carbon Dioxide Level 28, Anion Gap 7, Blood Urea Nitrogen 6L, Creatinine 0.6, Estimat Glomerular Filtration Rate , Glucose Level 122H, Calcium Level 8.9, Magnesium Level 1.8 01/08/17 05:20: Sodium Level 144, Potassium Level 3.3L, Chloride Level 107, Carbon Dioxide Level 26, Anion Gap 11, Blood Urea Nitrogen 6L, Creatinine 0.6, Estimat Glomerular Filtration Rate , Glucose Level 155H, Calcium Level 8.8, Total Bilirubin 0.7, Aspartate Amino Transf (AST/SGOT) 35, Alanine Aminotransferase ( ALT/SGPT) 24, Alkaline Phosphatase 55, Total Protein 6.5, Albumin 2.9L, Globulin 3.6, Albumin/Globulin Ratio 0.8L, Vitamin B12 Level 1361H 01/08/17 06:50: Folate [Pending] Height (Feet): 5 Height (Inches): 5.00 Weight (Pounds): 100 Objective General Appearance: WD/WN, alert, confused Neck: supple Cardiovascular: normal peripheral pulses, normal rate, regular rhythm Respiratory/Chest: chest wall non-tender, lungs clear, normal breath sounds Abdomen: normal bowel sounds, non tender, soft, no organomegaly Extremities: normal range of motion 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
--- NOTE | 2017-01-08 09:15 | 48 Hour Post Anesthesia Eval ---
Post Anesthesia Evaluation Procedure: Colonoscopy polipectomy Date of Evaluation: Jan 08, 2017 Time of Evaluation: 09:13 Blood Pressure Systolic: 136 0: 72 Pulse Rate: 74 Respiratory Rate: 20 Temperature (Fahrenheit): 97.6 O2 Sat by Pulse Oximetry: 98 Airway: patent Nausea: No Vomiting: No Pain Intensity: 1 Hydration Status: adequate Cardiopulmonary Status: stable Mental Status/LOC: patient returned to baseline Follow-up Care/Observations: n/a Post-Anesthesia Complications: none Follow-up care needed: N/A COLLEEN GUERIN M.D. Jan 08, 2017 09:15
[2017-01-08] MEDS: Aspirin Baby 81mg ORAL SCH (09:26)
[2017-01-08] MEDS: Memantine 10mg tab ORAL SCH (09:26)
[2017-01-08] MEDS: Docusate 250mg cap ORAL SCH ×2 (09:26→18:00)
[2017-01-08] MEDS ORDERED: D5NS 1000ml IV ONE (10:56)
--- NOTE | 2017-01-08 16:30 | Procedure Note ---
DATE OF PROCEDURE: 01/08/2017 GASTROENTEROLOGY PROCEDURE REPORT SURGEON: Leanne Gomes M.D. PROCEDURE: Colonoscopy with biopsy and polypectomy. ANESTHESIA: Please see the separate anesthesiologist notes for details. PRE-ENDOSCOPIC DIAGNOSES: Distal colitis and diarrhea. POST-ENDOSCOPIC DIAGNOSES: 1. Normal terminal ileum. 2. No evidence of colitis by visual inspection of the right colon. 3. Patchy colitis in the descending and sigmoid colon as well as the rectosigmoid area. 4. Status post random biopsy of the right colon, left colon, sigmoid colon, and rectum. 5. Multiple polyps were found throughout the colon, some of which were removed by snare polypectomy and multiple removed by biopsy forceps. The number of polyps totaled approximately 10. Two of the polyps were approximately 1 cm and pedunculated and removed with hot snare polypectomy and one was removed with a cold snare polypectomy. The retroflexed view of the rectum revealed a thickened fold in the mid to distal rectum, which was biopsied as well. 6. Thickened fold in the mid rectum, status post biopsy. DESCRIPTION OF PROCEDURE: The procedure, its risks, indications, alternatives, and possible complications including, but not limited to, bleeding, infection, perforation, , and anesthesia complications were explained to the patient's family and informed consent was obtained. The patient was then sedated in the left lateral decubitus position and a diagnostic colonoscope was introduced into the rectum and advanced to the terminal ileum without difficulty. The colonoscope was then gradually withdrawn and mucosa examined carefully. Examination of colonic mucosa as well as procedures performed were outlined above. The colonoscope was removed. The patient was sent to recovery in good condition. COMPLICATIONS: None. ASSESSMENT: This examination was notable for distal colitis starting perhaps in the mid to distal descending colon and extending down to the rectal area. The colitis was seen as erythematous changes with loss of colon mucosal vasculature markings. The biopsy will be evaluated to rule out inflammatory bowel disease or other forms of colitis. In addition, multiple polyps were identified and removed throughout this examination. Given the number and the size, I would suggest repeating colonoscopy in two years to re-evaluate for colonic polyps. RECOMMENDATIONS: 1. Resume oral diet. 2. Follow up biopsy results. 3. Repeat colonoscopy in two years. Thank you for asking me to participate in the care of this patient. Leanne Gomes M.D. DR: KYLEE JOB#: [id number] CC:
[2017-01-08] MEDS: Miralax 17gm pkt ORAL SCH (20:58)
[2017-01-08] MEDS: Atorvastatin 80mg tab ORAL SCH (20:58)
--- NOTE | 2017-01-08 23:15 | Progress Note ---
DATE: 01/08/2017 CARDIOLOGY PROGRESS NOTE SUBJECTIVE: The patient had an endoscopy today. Distal colitis and multiple polyps were noted. OBJECTIVE: VITAL SIGNS: The blood pressure control has been quite adequate and stable during the procedure. The patient is afebrile. Monitored rhythm sinus. Blood pressure 117/62, pulse 60, respiratory rate 16. NECK: Supple. LUNGS: Clear. CARDIAC: Regular. Normal S1 and S2 with a fourth heart sound. ABDOMEN: Soft. No focal tenderness. Mildly distended. No edema. LABORATORY AND DIAGNOSTIC DATA: B12 and folate levels were normal. Potassium 3.3. Albumin 2.9. IMPRESSION: 1. Colitis. 2. Hypertensive urgency, resolved. 3. Hypertensive heart disease. 4. Hypokalemia. 5. Moderate protein calorie malnutrition. PLAN: 1. Antibiotics. 2. Replace potassium. 3. Recheck magnesium. 4. Protein supplements. 5. Maintain current antihypertensive. 6. DVT prophylaxis while immobilized. Benjie Quiñones M.D. DR: MICHELLE JOB#: [id number] CC:
[2017-01-09] VITALS: BP 169/74
[2017-01-09] MEDS: D5NS 1,000 ML IV SCH ×2 (02:28→13:48)
[2017-01-09 04:00] VITALS: BP 150/68
[2017-01-09] MEDS: metroNIDAZOLE 500mg tab ORAL SCH ×3 (06:20→22:24)
[2017-01-09] MEDS: NovoLOG Insulin Flexpen SUBQ SCH ×4 (06:25→20:28)
[2017-01-09 07:13] LABS: BASOPHILS % (AUTO) 0.9 % (0.0-2.0); EOSINOPHILS % (AUTO) 0.9 % (0.0-3.0); LYMPHOCYTES % (AUTO) 37.2 % (20.0-45.0); MEAN CORPUSCULAR HEMOGLOBIN 32.1 PG (27.0-31.0); MEAN CORPUSCULAR HGB CONC 30.1 G/DL (32.0-36.0); MEAN CORPUSCULAR VOLUME 107 FL (80-99); MEAN PLATELET VOLUME 7.6 FL (6.5-10.1); MONOCYTES % (AUTO) 7.5 % (1.0-10.0); NEUTROPHILS % (AUTO) 53.5 % (45.0-75.0); PLATELET COUNT 239 K/UL (150-450); RED BLOOD COUNT 4.58 M/UL (4.20-5.40); RED CELL DISTRIBUTION WIDTH 12.8 % (11.6-14.8); WHITE BLOOD COUNT 8.8 K/UL (4.8-10.8)
[2017-01-09 07:50] LABS: ALANINE AMINOTRANSFERASE 23 U/L (12-78); ALBUMIN/GLOBULIN RATIO 0.8 (1.0-2.7); ANION GAP 10 mmol/L (5-15); ASPARTATE AMINO TRANSFERASE 31 U/L (15-37); CARBON DIOXIDE 25 MMOL/L (21-32); CHLORIDE 110 MMOL/L (98-107); CREATININE 0.7 MG/DL (0.55-1.30); POTASSIUM 4.4 MMOL/L (3.5-5.1); SODIUM 145 MMOL/L (136-145); TOTAL PROTEIN 6.5 G/DL (6.4-8.2)
[2017-01-09 08:00] VITALS: BP 141/94
[2017-01-09] MEDS: Docusate 250mg cap ORAL SCH ×2 (09:29→17:27)
[2017-01-09] MEDS: Aspirin Baby 81mg ORAL SCH (09:30)
[2017-01-09] MEDS: Memantine 10mg tab ORAL SCH (09:30)
--- NOTE | 2017-01-09 11:45 | General Progress Note ---
Assessment/Plan Assessment/Plan Assessment - abdominal pain, resolved - Distal colitis - culture and C Diff (-), also pathology negative - multiple adenomatous polyps - elevated MCV with normal B12 and folate --> ? MDS - DM - HTN - hypokalemia - OBS Recommendations - po diet - follow symptoms - IVF - d/c planning per PMD Subjective Allergies: Coded Allergies: No Known Allergies (Unverified , 02/09/14) Subjective Above noted resting comfortably d/w pathology re prelim results no evidence of colitis, some polyps noted Objective Last 24 Hour Vital Signs Date Time Temp Pulse Resp B/P (MAP) Pulse Ox O2 Delivery O2 Flow Rate FiO2 01/09/17 09:30 53 141/94 01/09/17 08:00 97.0 53 16 141/94 95 Room Air 01/09/17 04:00 97.7 50 17 150/68 94 Room Air 01/09/17 00:00 97.6 53 18 169/74 96 Room Air 01/08/17 20:00 97.3 66 18 127/75 95 Room Air 01/08/17 16:00 98.2 85 18 119/64 93 Room Air 01/08/17 12:00 97.0 68 20 149/84 95 Room Air Intake and Output 01/09/17 01/10/17 19:00 07:00 Intake Total 250 ml Balance 250 ml Intake Oral 250 ml # Voids 1 Laboratory Tests 01/09/17 06:05: White Blood Count 8.8, Red Blood Count 4.58, Hemoglobin 14.7, Hematocrit 49.0H, Mean Corpuscular Volume 107H, Mean Corpuscular Hemoglobin 32.1H, Mean Corpuscular Hemoglobin Concent 30.1L, Red Cell Distribution Width 12.8, Platelet Count 239, Mean Platelet Volume 7.6, Neutrophils (%) (Auto) 53.5, Lymphocytes (%) (Auto) 37.2, Monocytes (%) (Auto) 7.5, Eosinophils (%) (Auto) 0.9, Basophils (%) (Auto) 0.9, Sodium Level 145, Potassium Level 4.4, Chloride Level 110H, Carbon Dioxide Level 25, Anion Gap 10, Blood Urea Nitrogen 11, Creatinine 0.7, Estimat Glomerular Filtration Rate , Glucose Level 153H, Calcium Level 9.0, Magnesium Level 2.2, Total Bilirubin 0.6, Aspartate Amino Transf (AST/SGOT) 31, Alanine Aminotransferase (ALT/SGPT) 23, Alkaline Phosphatase 55, Total Protein 6.5, Albumin 2.9L, Globulin 3.6, Albumin/Globulin Ratio 0.8L Height (Feet): 5 Height (Inches): 5.00 Weight (Pounds): 100 Objective WDWN NCAT supple CTA RR abd soft ND NT no edema KATIE CASTILLO Jan 09, 2017 11:45
[2017-01-09 12:00] VITALS: BP 153/81
--- NOTE | 2017-01-09 12:46 | General Progress Note ---
Assessment/Plan Problem List: (1) Hypertensive urgency ICD Codes: I16.0 - Hypertensive urgency SNOMED: 982871110 (2) Toxic metabolic encephalopathy ICD Codes: G92 - Toxic encephalopathy SNOMED: 695698847 (3) Colitis ICD Codes: K52.9 - Noninfective gastroenteritis and colitis, unspecified SNOMED: 29016085 (4) Hypotension ICD Codes: I95.9 - Hypotension, unspecified SNOMED: 97034624 (5) Abdominal pain ICD Codes: R10.9 - Unspecified abdominal pain SNOMED: 46832706 Status: stable, progressing Assessment/Plan await biopsy results monitor for diarrhea gi eval appreciated abx ivf pain rx monitor for bleeding family requesting snf dc planning tomorrow Subjective ROS Limited/Unobtainable: No Constitutional: Reports: weakness HEENT: Reports: no symptoms Cardiovascular: Reports: no symptoms Respiratory: Reports: no symptoms Gastrointestinal/Abdominal: Reports: black stools, blood in stool, diarrhea Genitourinary: Reports: no symptoms Neurologic/Psychiatric: Reports: no symptoms Endocrine: Reports: no symptoms Hematologic/Lymphatic: Reports: no symptoms Allergies: Coded Allergies: No Known Allergies (Unverified , 02/09/14) All Systems: reviewed and negative except above Subjective s/p colonoscopy. multiple polyps and colitis noted. no active bleeding. fair pos. Objective Last 24 Hour Vital Signs Date Time Temp Pulse Resp B/P (MAP) Pulse Ox O2 Delivery O2 Flow Rate FiO2 01/09/17 12:00 98.0 50 20 153/81 95 Room Air 01/09/17 09:30 53 141/94 01/09/17 08:00 97.0 53 16 141/94 95 Room Air 01/09/17 04:00 97.7 50 17 150/68 94 Room Air 01/09/17 00:00 97.6 53 18 169/74 96 Room Air 01/08/17 20:00 97.3 66 18 127/75 95 Room Air 01/08/17 16:00 98.2 85 18 119/64 93 Room Air Intake and Output 01/09/17 01/10/17 19:00 07:00 Intake Total 250 ml Balance 250 ml Intake Oral 250 ml # Voids 1 Laboratory Tests 01/09/17 06:05: White Blood Count 8.8, Red Blood Count 4.58, Hemoglobin 14.7, Hematocrit 49.0H, Mean Corpuscular Volume 107H, Mean Corpuscular Hemoglobin 32.1H, Mean Corpuscular Hemoglobin Concent 30.1L, Red Cell Distribution Width 12.8, Platelet Count 239, Mean Platelet Volume 7.6, Neutrophils (%) (Auto) 53.5, Lymphocytes (%) (Auto) 37.2, Monocytes (%) (Auto) 7.5, Eosinophils (%) (Auto) 0.9, Basophils (%) (Auto) 0.9, Sodium Level 145, Potassium Level 4.4, Chloride Level 110H, Carbon Dioxide Level 25, Anion Gap 10, Blood Urea Nitrogen 11, Creatinine 0.7, Estimat Glomerular Filtration Rate , Glucose Level 153H, Calcium Level 9.0, Magnesium Level 2.2, Total Bilirubin 0.6, Aspartate Amino Transf (AST/SGOT) 31, Alanine Aminotransferase (ALT/SGPT) 23, Alkaline Phosphatase 55, Total Protein 6.5, Albumin 2.9L, Globulin 3.6, Albumin/Globulin Ratio 0.8L Height (Feet): 5 Height (Inches): 5.00 Weight (Pounds): 100 Objective General Appearance: WD/WN, alert, confused Neck: supple Cardiovascular: normal peripheral pulses, normal rate, regular rhythm Respiratory/Chest: chest wall non-tender, lungs clear, normal breath sounds Abdomen: normal bowel sounds, non tender, soft, no organomegaly Extremities: normal range of motion 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
[2017-01-09 16:00] VITALS: BP 143/64
[2017-01-09] MEDS ORDERED: Vitamin D 50,000 units cap ORAL SCH (18:00)
[2017-01-09 20:09] VITALS: BP 163/76
[2017-01-09] MEDS: Miralax 17gm pkt ORAL SCH (20:23)
[2017-01-09] MEDS: Atorvastatin 80mg tab ORAL SCH (20:23)
[2017-01-10] VITALS: BP 190/83
--- NOTE | 2017-01-10 | Progress Note ---
DATE: 01/09/2017 CARDIOLOGY PROGRESS NOTE SUBJECTIVE: The patient is status post colonoscopy. Results are noted. The patient is tolerating a diet. OBJECTIVE: VITAL SIGNS: Blood pressure is 153/81, pulse 60, respiratory rate 20, and afebrile. LUNGS: Clear. CARDIAC: Regular, slow S1 and S2. ABDOMEN: Slightly distended, but soft. EXTREMITIES: No edema. LABORATORY DATA: White count is 8.8 and hemoglobin 14.7. Magnesium 2.2, potassium 4.4, and albumin 2.9. IMPRESSION: 1. Duodenitis. 2. Polyposis. 3. Hypertensive urgency, resolved. 4. Hypertensive heart disease with controlled blood pressure. 5. Hyperlipidemia, on statin therapy. 6. Sinus bradycardia, asymptomatic. PLAN: 1. Medications reviewed. 2. Discontinue IV fluids. 3. Check electrocardiogram to confirm stable cardiac rhythm. 4. Discharge planning in progress. Benjie Quiñones M.D. DR: TIMBO/shyla JOB#: [id number] CC:
[2017-01-10 04:39] VITALS: BP 167/90
[2017-01-10] MEDS: NovoLOG Insulin Flexpen SUBQ SCH ×2 (06:30→12:27)
[2017-01-10 07:53] VITALS: BP 153/89
--- NOTE | 2017-01-10 08:50 | General Progress Note ---
Assessment/Plan Assessment/Plan Assessment - abdominal pain, resolved - Distal colitis - culture and C Diff (-), also pathology negative - multiple adenomatous polyps - elevated MCV with normal B12 and folate --> ? MDS - DM - HTN - hypokalemia - OBS Recommendations - po diet - follow symptoms - IVF - d/c planning per PMD Subjective Allergies: Coded Allergies: No Known Allergies (Unverified , 02/09/14) Subjective Above noted resting comfortably tolerating TF d/c planning in progress Objective Last 24 Hour Vital Signs Date Time Temp Pulse Resp B/P (MAP) Pulse Ox O2 Delivery O2 Flow Rate FiO2 01/10/17 07:53 97.3 74 18 153/89 96 Room Air 01/10/17 04:39 97.4 60 18 167/90 96 Room Air 01/10/17 00:00 97.3 53 17 190/83 96 Room Air 01/09/17 20:09 97.6 50 18 163/76 94 Room Air 01/09/17 16:00 97.4 54 19 143/64 96 Room Air 01/09/17 12:00 98.0 50 20 153/81 95 Room Air 01/09/17 09:30 53 141/94 Laboratory Tests 01/10/17 07:40: Sodium Level [Pending], Potassium Level [Pending], Chloride Level [Pending], Carbon Dioxide Level [Pending], Blood Urea Nitrogen [Pending], Creatinine [ Pending], Estimat Glomerular Filtration Rate [Pending], Glucose Level [Pending] , Calcium Level [Pending] Height (Feet): 5 Height (Inches): 5.00 Weight (Pounds): 100 Objective WDWN NCAT supple CTA RR abd soft ND NT no edema DARRYLTOÑOMAXKATIE Jan 10, 2017 08:50
[2017-01-10] MEDS ORDERED: VITAMIN D250000 UNI1 ORAL (08:59)
[2017-01-10] MEDS ORDERED: NORVASC5 MG ORAL (08:59)
[2017-01-10] MEDS ORDERED: LIPITOR80 MG ORAL (08:59)
[2017-01-10] MEDS ORDERED: ASPIRIN81 MG ORAL (08:59)
[2017-01-10] MEDS ORDERED: NOVOLOG100 UNITS1 SUBQ (08:59)
[2017-01-10] MEDS ORDERED: NAMENDA10 MG ORAL (08:59)
[2017-01-10 09:17] LABS: ANION GAP 10 mmol/L (5-15); CALCIUM 8.5 MG/DL (8.5-10.1); CARBON DIOXIDE 22 MMOL/L (21-32); CHLORIDE 108 MMOL/L (98-107); CREATININE 0.5 MG/DL (0.55-1.30); POTASSIUM 3.7 MMOL/L (3.5-5.1); SODIUM 140 MMOL/L (136-145)
[2017-01-10] MEDS: Docusate 250mg cap ORAL SCH (10:01)
[2017-01-10] MEDS: Memantine 10mg tab ORAL SCH (10:01)
[2017-01-10] MEDS: Aspirin Baby 81mg ORAL SCH (10:01)
[2017-01-10] MEDS ORDERED: D5NS 1000ml IV ONE (11:15)
[2017-01-10 12:32] VITALS: BP 124/84
--- NOTE | 2017-01-10 15:11 | Diagnostic Imaging Report ---
Indication:Abdominal and flank pain Technique: Grayscale and duplex Doppler imaging of the kidneys performed. Comparison: None Findings: The size, contour, and echogenicity of both kidneys are within normal limits. There is no hydronephrosis. The IVC and urinary bladder are unremarkable. The liver is echogenic consistent with fatty infiltration. The kidneys measure about 11 cm in length. Impression: Negative ultrasound of the kidneys Fatty liver
[2017-01-10 16:00] VITALS: BP 126/74
--- NOTE | 2017-01-10 23:15 | Progress Note ---
DATE: 01/10/2017 SUBJECTIVE: The patient without distress. Blood pressure parameters are still labile but overall trend is better. OBJECTIVE: VITAL SIGNS: Blood pressure 153/89, pulse 74, respiratory rate 18, and afebrile. NECK: Supple. LUNGS: Clear. CARDIAC: Regular. Normal S1, S2. ABDOMEN: Soft. EXTREMITIES: No edema. IMPRESSION: 1. Colitis. 2. Hypertensive urgency, improved. 3. Hypokalemia, resolved. 4. Type 2 diabetes mellitus. 5. Hypertensive heart disease with labile blood pressure. PLAN: Continue current GI regimen. Discharge to fdc facility for completion of recovery. Cardiovascular regimen reviewed. Can up-titrate medications at the fdc facility if persistent upward trend in blood pressure parameters. There are no signs of acute congestive heart failure or ischemia. Benjie Quiñones M.D. DR: Ruben JOB#: [id number] CC:
--- NOTE | 2017-01-11 02:45 | Discharge Summary ---
DATE OF ADMISSION: 01/02/2017 DATE OF DISCHARGE: 01/10/2017 ADMISSION DIAGNOSES: 1. Altered mental status. 2. Sepsis. 3. Diarrhea. 4. Possible gastrointestinal bleed. 5. Possible colitis. 6. History of hypertension. DISCHARGE DIAGNOSES: 1. Altered mental status. 2. Sepsis. 3. Diarrhea. 4. Possible gastrointestinal bleed. 5. Possible colitis. 6. History of hypertension. HOSPITAL COURSE: The patient is a pleasant female, admitted with complaints of diarrhea, generalized weakness, malaise, and altered mentation. She was diagnosed with possible GI bleed as well as possible urinary tract infection. She received IV antibiotic therapy. She had serial CBCs every eight hours. Stool C. difficile returned negative after several days. The patient underwent an endoscopy because of CT findings of diffuse colitis. Biopsies were still pending upon discharge. The patient will be discharged to senior care facility. DISCHARGE MEDICATIONS: Please see discharge medication list for discharge medications. DIET: Diabetic diet. ACTIVITY: Ad-jarrell. FOLLOWUP: The patient will follow up in one to two days in the senior care facility. Vince Rosario M.D. DR: Yoly JOB#: [id number] CC:
--- NOTE | 2017-01-19 16:13 | Cardiology Report ---
APPROVED REPORT EKG Measurement Heart [id number] MI [id number] Sinus bradycardia Otherwise normal ECG
== END 2017-01-10 17:45 | DRG 871 ==
LOC: EDBD 14:10 → EMR 14:35 → 2E 14:42 → EDBEDREQSVC 16:11 → EDBEDREQ 16:15 → 3E 01-06 09:50
PROC: 0DBN8ZX Excision of Sigmoid Colon, Via Natural or Artificial Opening Endoscopic, Diagnostic (ICD-10-PCS; principal; 2017-01-08 07:04)
PROC: 0DBF8ZX Excision of Right Large Intestine, Via Natural or Artificial Opening Endoscopic, Diagnostic (ICD-10-PCS; principal; 2017-01-08 07:04)
PROC: 0DBP8ZX Excision of Rectum, Via Natural or Artificial Opening Endoscopic, Diagnostic (ICD-10-PCS; principal; 2017-01-08 07:04)
PROC: 0DBE8ZZ Excision of Large Intestine, Via Natural or Artificial Opening Endoscopic (ICD-10-PCS; principal; 2017-01-08 07:04)
PROC: 0DBG8ZX Excision of Left Large Intestine, Via Natural or Artificial Opening Endoscopic, Diagnostic (ICD-10-PCS; principal; 2017-01-08 07:04)
DX: A41.9 Sepsis, unspecified organism (principal); G92 Toxic encephalopathy; E44.0 Moderate protein-calorie malnutrition; E11.65 Type 2 diabetes mellitus with hyperglycemia; I11.9 Hypertensive heart disease without heart failure; K92.2 Gastrointestinal hemorrhage, unspecified; N39.0 Urinary tract infection, site not specified; R00.1 Bradycardia, unspecified; K52.9 Noninfective gastroenteritis and colitis, unspecified; R10.9 Unspecified abdominal pain; F01.50 Vascular dementia, unspecified severity, without behavioral disturbance, psychotic disturbance, mood disturbance, and anxiety; M19.90 Unspecified osteoarthritis, unspecified site; R65.20 Severe sepsis without septic shock; I25.118 Atherosclerotic heart disease of native coronary artery with other forms of angina pectoris; E86.0 Dehydration; E87.6 Hypokalemia; I16.0 Hypertensive urgency; D75.89 Other specified diseases of blood and blood-forming organs; K29.80 Duodenitis without bleeding; D12.6 Benign neoplasm of colon, unspecified; E78.5 Hyperlipidemia, unspecified
CPT/HCPCS: 36415; 74177; 76775; 80048; 80053; 81003; 82550; 82553; 82607; 82746; 82962; 83690; 83735; 84443; 84484; 85025; 85610; 85730; 87045; 87324; 93005; 93970; 94003; 94150; J1815; J2250; J2405; J8499

== ENCOUNTER 2017-07-23 11:01 | Inpatient (IN) | payer MEDICARE ==
[~2017-07-23] VITALS: Ht 162.6 cm; Wt 55.9 kg
[~2017-07-23 11:01] MED LIST changes: +ACETAMINOPHEN325 M1 ORAL; +ASPIR 8181 MG ORAL; +ASPIRIN81 MG ORAL; +BISACODYL5 MG ORAL; +FLEET ENEMA133 ML RECTAL; +LISINOPRIL10 MG ORAL; +MILK OF MA400 MG/51 ORAL; +NAMENDA10 MG ORAL; +NORVASC5 MG ORAL; +NOVOLOG100 UNITS1 SUBQ; +VITAMIN D250000 UNI1 ORAL
[2017-07-23] MEDS ORDERED: METFORMIN HCL500 M1 ORAL (11:04)
[2017-07-23 11:16] VITALS: BP 140/90
--- NOTE | 2017-07-23 11:59 | Diagnostic Imaging Report ---
Indication: Dyspnea Comparison: 12/06/2016 A single view chest radiograph was obtained. Findings: Aorta is enlarged. The heart is enlarged. There is a questionable infiltrate in the right upper lobe. Lung volumes are low. Bones are osteopenic. IMPRESSION: Suspected infiltrate in the right upper lobe. Correlate clinically for pneumonia
[2017-07-23 12:00] LABS: BASOPHILS % (AUTO) 0.9 % (0.0-2.0); EOSINOPHILS % (AUTO) 0.9 % (0.0-3.0); HEMATOCRIT 48.3 % (37.0-47.0); LYMPHOCYTES % (AUTO) 43.4 % (20.0-45.0); MEAN CORPUSCULAR VOLUME 101 FL (80-99); MONOCYTES % (AUTO) 6.4 % (1.0-10.0); NEUTROPHILS % (AUTO) 48.5 % (45.0-75.0); PLATELET COUNT 219 K/UL (150-450); RED BLOOD COUNT 4.79 M/UL (4.20-5.40); RED CELL DISTRIBUTION WIDTH 11.2 % (11.6-14.8); WHITE BLOOD COUNT 9.4 K/UL (4.8-10.8)
[2017-07-23 12:19] LABS: ANION GAP 10 mmol/L (5-15); BLOOD UREA NITROGEN 14 mg/dL (7-18); CALCIUM 9.5 MG/DL (8.5-10.1); CARBON DIOXIDE 29 MMOL/L (21-32); CHLORIDE 107 MMOL/L (98-107); CREATININE 0.7 MG/DL (0.55-1.30); POTASSIUM 4.2 MMOL/L (3.5-5.1); SODIUM 146 MMOL/L (136-145)
[2017-07-23 12:30] LABS: ALANINE AMINOTRANSFERASE 23 U/L (12-78); ALBUMIN 3.9 G/DL (3.4-5.0); ALBUMIN/GLOBULIN RATIO 0.8 (1.0-2.7); ALKALINE PHOSPHATASE 85 U/L (46-116); ASPARTATE AMINO TRANSFERASE 14 U/L (15-37); BILIRUBIN,TOTAL 0.6 MG/DL (0.2-1.0); CREATINE KINASE 54 U/L (26-308)
[2017-07-23 12:56] LABS: APPEARANCE,URINE CLEAR; BILIRUBIN, URINE NEGATIVE (NEGATIVE); COLOR,URINE PALE YELLOW; GLUCOSE, URINE (UA) 4+ (NEGATIVE); KETONES,URINE 1+ (NEGATIVE); LEUKOCYTE ESTERASE ,URINE 1+ (NEGATIVE); NITRITE,URINE NEGATIVE (NEGATIVE); PH,URINE 6 (4.5-8.0); PROTEIN,URINE 1+ (NEGATIVE); UROBILINOGEN,URINE NORMAL MG/DL (0.0-1.0)
[2017-07-23 13:26] LABS: AMMONIA 11 umol/L (11-32)
[2017-07-23] MEDS: NovoLOG Insulin Flexpen SUBQ SCH ×2 (16:30→20:47)
[2017-07-23] MEDS: metFORMIN 500mg tab ORAL SCH (17:49)
[2017-07-23 20:00] VITALS: BP 159/81
[2017-07-23] MEDS: Heparin 5000 units/ml inj SUBQ SCH (20:46)
[2017-07-23] MEDS: Atorvastatin 80mg tab ORAL SCH (20:46)
[2017-07-24] VITALS: BP 157/73
[2017-07-24 04:00] VITALS: BP 108/76
[2017-07-24] MEDS: GlipiZIDE 5mg tab ORAL SCH (06:32)
[2017-07-24] MEDS: NovoLOG Insulin Flexpen SUBQ SCH ×4 (06:33→21:08)
[2017-07-24 08:00] VITALS: BP 176/72
[2017-07-24] MEDS: Memantine 10mg tab ORAL SCH (08:58)
[2017-07-24] MEDS: Aspirin Baby 81mg ORAL SCH (08:58)
[2017-07-24] MEDS: metFORMIN 500mg tab ORAL SCH ×2 (08:58→17:41)
[2017-07-24] MEDS: Heparin 5000 units/ml inj SUBQ SCH ×2 (09:00→21:08)
--- NOTE | 2017-07-24 09:00 | History and Physical Report ---
DATE OF ADMISSION: 07/23/2017 CHIEF COMPLAINT: Altered mental status and pneumonia. HISTORY OF PRESENT ILLNESS: The patient is an 87-year-old female, well known to me. She has a history of dementia, hypertension, and hypertensive heart disease. She has a prior history of C. diff colitis and diabetes. She was transferred from home with complaints of altered mental status. On evaluation in the emergency room, the patient's blood sugar was normal. Her laboratories showed some mild dehydration and hyponatremia. She had an x-ray of the chest that showed a possible right upper lobe infiltrate. The patient has been started on antibiotic therapy, is now admitted. She is arousable, but appears weak. She does follow some simple commands. PAST MEDICAL HISTORY: As above. PAST SURGICAL HISTORY: None. CURRENT MEDICATIONS: Reconciled and reviewed. ALLERGIES: None. FAMILY HISTORY: None. SOCIAL HISTORY: Negative for tobacco, ethanol, or drugs. REVIEW OF SYSTEMS: GENERAL: Positive malaise and weakness. HEENT: No headaches or visual changes. CARDIOPULMONARY: No chest pain or shortness of breath. GASTROINTESTINAL: No nausea or vomiting. GENITOURINARY: No urgency or frequency. MUSCULOSKELETAL: No joint pain or swelling. NEUROLOGIC: No evidence of seizures. PHYSICAL EXAMINATION: VITAL SIGNS: Temperature 98, pulse 53, respirations 20, and blood pressure 157/73. GENERAL: The patient is a well-developed female, in no apparent distress. She is arousable. NECK: Supple. There is no carotid bruits. HEART: Regular rate and rhythm. LUNGS: Clear. ABDOMEN: Soft, nontender, and nondistended. EXTREMITIES: Without clubbing, cyanosis, or edema. PERTINENT DATA: Chest x-ray showed a right upper lobe infiltrate. Sodium was 146. White count was 10. ASSESSMENT: This is a pleasant female, admitted with complaints of altered mental status suspect secondary to pneumonia and sepsis. 1. Sepsis. 2. Pneumonia. 3. Toxic metabolic encephalopathy. 4. Diabetes. 5. Hypertension. PLAN: 1. IV antibiotics. 2. Monitor chest x-ray. 3. Check swallow evaluation. 4. Continue outpatient cardiac and diabetic regimen. Vince Rosario M.D. DR: LISBETH JOB#: [id number] CC:
[2017-07-24] MEDS ORDERED: Piperacillin/Tazobactam 3.375 GM in D5W 110 ML IVPB SCH (10:00)
[2017-07-24] MEDS: Vancomycin 750mg/NS 250ml IVPB SCH (10:39)
[2017-07-24 11:58] VITALS: BP 177/81
[2017-07-24] MEDS: HydrALAZINE 25mg tab ORAL PRN (12:11)
[2017-07-24 16:00] VITALS: BP 117/73
[2017-07-24 20:00] VITALS: BP 145/84
[2017-07-24] MEDS: Piperacillin/Tazobactam 3.375 GM in D5W 110 ML IVPB SCH (21:06)
[2017-07-24] MEDS: Atorvastatin 80mg tab ORAL SCH (21:06)
--- NOTE | 2017-07-24 22:30 | Progress Note ---
DATE: 07/24/2017 CARDIOLOGY PROGRESS NOTE SUBJECTIVE: The patient has not had any loss of consciousness. She is somewhat more alert. She remains on hydration with IV fluids and antimicrobials. Cardiac monitoring reviewed, sinus bradycardia, sinus bradyarrhythmia, and now sinus tachycardia, no pauses. PHYSICAL EXAMINATION: VITAL SIGNS: Blood pressure 176/72, pulse 45, respiratory rate 18, and afebrile. NECK: Supple. LUNGS: With few rhonchi. CARDIAC: Regular rhythm. Slow rate. Normal S1, S2. ABDOMEN: Soft, nontender. EXTREMITIES: Without edema. LABORATORY DATA: Troponin 0.07. IMPRESSION: 1. Community-acquired pneumonia. 2. Paroxysmal sinus bradycardia. 3. Sinus node disease. 4. Dehydration. 5. Hypernatremia. 6. Hypovolemia. 7. Type 2 diabetes mellitus with hyperglycemia. 8. Hypertensive heart disease with labile blood pressure. 9. Metabolic encephalopathy. PLAN: 1. Echocardiogram is pending. 2. No indication for permanent pacemaker at this time. Clearly, the patient has chronotropic competence and has not had any symptomatic bradyarrhythmias noted. 3. Transition from isotonic to hypotonic IV fluids. 4. Antimicrobials. 5. Respiratory hygiene. 6. DVT prophylaxis. 7. Continue cardiac monitoring. 8. Check orthostatics. 9. Follow up metabolic profile. Benjie Quiñones M.D. DR: Chong JOB#: [id number] CC:
[2017-07-25] VITALS: BP 128/73
--- NOTE | 2017-07-25 00:15 | Consultation ---
DATE OF CONSULTATION: 07/23/2017 CARDIOLOGY CONSULTATION CONSULTING PHYSICIAN: Benjie Quiñones M.D. REQUESTING PHYSICIAN: Vince Rosario M.D. REASON FOR CONSULTATION: Bradycardia. HISTORY OF PRESENT ILLNESS: This is a 87-year-old female who has a history of dementia and hypertensive cardiomyopathy who was noted to be withdrawn and altered at home and transferred to this emergency room. She was noted to have signs of pneumonia and dehydration, and admitted to the hospital for further management. Concern has been raised over her admission electrocardiogram and cardiac rhythm revealing bradyarrhythmia. The patient has not had any loss of consciousness or syncope noted, however, she is withdrawn and weak. PAST MEDICAL HISTORY: Hypertension, cerebrovascular disease, dementia, type 2 diabetes mellitus, and history of C. difficile colitis. MEDICATIONS: Prior to admission, reviewed and reconciled. ALLERGIES: None. FAMILY HISTORY: Noncontributory. SOCIAL HISTORY: Negative for smoking, alcohol, or substance abuse. REVIEW OF SYSTEMS: She has been weak and withdrawn. She has not had any loss of vision or hearing. She denies headache. She has not complained of dizziness, chest pain, or shortness of breath. She has not had any cough. No nausea, vomiting, or diarrhea. No dysuria. No history of thyroid disorder. Diabetes is managed with oral drugs and diet. She does have dementia. There is no history of seizures. She has had prior stroke. PHYSICAL EXAMINATION: VITAL SIGNS: Afebrile, blood pressure 157/73, pulse 53, and respiratory rate 20. HEENT: Normocephalic and atraumatic. HEENT: Temporal wasting. Conjunctivae pink. Oropharynx clear. Mucous membranes dry. NECK: Supple. Jugular venous pressure normal. Carotid upstrokes without delay. LUNGS: Clear. CARDIAC: Regular rhythm. Slow rate. Normal S1 and S2 with a fourth heart sound. ABDOMEN: Soft and nontender. No guarding or rebound. EXTREMITIES: No clubbing, cyanosis, or edema. NEUROLOGIC: No focal deficits. LABORATORY AND DIAGNOSTIC DATA: Chest x-ray, right upper lobe infiltrate. EKG sinus bradycardia, incomplete right bundle-branch block. Sodium 146, potassium 4.2, bicarbonate 29, BUN 14, creatinine 0.7, and glucose 245. Liver function normal. TSH 1.49. Troponin negative. White count 9.4 and hemoglobin 16. IMPRESSION: 1. Metabolic encephalopathy and asymptomatic bradyarrhythmia. 2. Secondary polycythemia. 3. Hypovolemia and dehydration. 4. Diabetes mellitus with hyperglycemia. 5. Community-acquired pneumonia. 6. Dehydration. 7. Hypernatremia. PLAN: 1. Isotonic IV fluid hydration. Once euvolemic, switch to hypotonic hydration. 2. Antibiotics per primary care physician. 3. Respiratory hygiene. 4. Cardiac monitoring. 5. Orthostatic precautions. 6. DVT and stress ulcer prophylaxis. 7. Echocardiogram. 8. Metabolic profile. 9. Avoid beta-blockers. 10. Check full lipid panel and reassess need for high-dose statin. 11. Insulin coverage by sliding scale. Benjie Quiñones M.D. DR: MICHELLE JOB#: [id number] CC:
[2017-07-25 04:00] VITALS: BP 118/61
[2017-07-25] MEDS: Piperacillin/Tazobactam 3.375 GM in D5W 110 ML IVPB SCH ×3 (04:28→20:19)
[2017-07-25] MEDS: GlipiZIDE 5mg tab ORAL SCH (06:35)
[2017-07-25] MEDS: NovoLOG Insulin Flexpen SUBQ SCH ×4 (06:36→20:21)
[2017-07-25 08:00] VITALS: BP 146/68
[2017-07-25 08:53] LABS: EOSINOPHILS % (AUTO) 2.6 % (0.0-3.0); HEMATOCRIT 39.8 % (37.0-47.0); HEMOGLOBIN 13.8 G/DL (12.0-16.0); LYMPHOCYTES % (AUTO) 47.9 % (20.0-45.0); MEAN CORPUSCULAR VOLUME 99 FL (80-99); MONOCYTES % (AUTO) 5.6 % (1.0-10.0); NEUTROPHILS % (AUTO) 42.9 % (45.0-75.0); PLATELET COUNT 191 K/UL (150-450); WHITE BLOOD COUNT 6.8 K/UL (4.8-10.8)
--- NOTE | 2017-07-25 09:04 | General Progress Note ---
Assessment/Plan Problem List: (1) Weakness ICD Codes: R53.1 - Weakness SNOMED: 72998626 (2) Altered mental status ICD Codes: R41.82 - Altered mental status, unspecified SNOMED: 373998076 (3) Abdominal pain ICD Codes: R10.9 - Unspecified abdominal pain SNOMED: 63510953 (4) Toxic metabolic encephalopathy ICD Codes: G92 - Toxic encephalopathy SNOMED: 797077112 (5) Tachy-sandra syndrome ICD Codes: I49.5 - Sick sinus syndrome SNOMED: 67352383 Status: stable, not improved Assessment/Plan cont iv hydration tele cards follow up iv abx monitor cxr Subjective ROS Limited/Unobtainable: No Constitutional: Reports: malaise, weakness HEENT: Reports: no symptoms Cardiovascular: Reports: no symptoms Respiratory: Reports: no symptoms Gastrointestinal/Abdominal: Reports: no symptoms Genitourinary: Reports: no symptoms Neurologic/Psychiatric: Reports: no symptoms Endocrine: Reports: no symptoms Hematologic/Lymphatic: Reports: no symptoms Allergies: Coded Allergies: No Known Allergies (Unverified , 02/09/14) All Systems: reviewed and negative except above Subjective tachy and then sandra. 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 remains on ivf. +weakness. Objective Last 24 Hour Vital Signs Date Time Temp Pulse Resp B/P (MAP) Pulse Ox O2 Delivery O2 Flow Rate FiO2 07/25/17 04:00 98.3 64 20 118/61 96 Room Air 98.3 07/25/17 04:00 70 07/25/17 00:00 76 07/25/17 00:00 97.4 78 19 128/73 95 Room Air 97.4 07/24/17 20:00 82 07/24/17 20:00 97.3 77 19 145/84 95 Room Air 97.3 07/24/17 16:00 98.0 105 20 117/73 95 Room Air 98.0 07/24/17 16:00 101 07/24/17 12:11 177/81 07/24/17 12:00 45 07/24/17 11:58 97.0 46 20 177/81 96 Room Air 97.0 Intake and Output 07/24/17 07/25/17 19:00 07:00 Intake Total 1153.334 ml 205.0 ml Balance 1153.334 ml 205.0 ml Intake Oral 50 ml 75 ml IV Total 1103.334 ml 130.0 ml # Voids 3 3 Laboratory Tests 07/24/17 12:20: Troponin I 0.007 07/25/17 07:30: Troponin I [Pending], White Blood Count [Pending], Red Blood Count [Pending], Hemoglobin [Pending], Hematocrit [Pending], Mean Corpuscular Volume [Pending], Mean Corpuscular Hemoglobin [Pending], Mean Corpuscular Hemoglobin Concent [ Pending], Red Cell Distribution Width [Pending], Platelet Count [Pending], Mean Platelet Volume [Pending], Neutrophils (%) (Auto) [Pending], Lymphocytes (%) ( Auto) [Pending], Monocytes (%) (Auto) [Pending], Eosinophils (%) (Auto) [Pending ], Basophils (%) (Auto) [Pending], Sodium Level [Pending], Potassium Level [ Pending], Chloride Level [Pending], Carbon Dioxide Level [Pending], Blood Urea Nitrogen [Pending], Creatinine [Pending], Estimat Glomerular Filtration Rate [ Pending], Glucose Level [Pending], Calcium Level [Pending], Magnesium Level [ Pending], Total Bilirubin [Pending], Aspartate Amino Transf (AST/SGOT) [Pending] , Alanine Aminotransferase (ALT/SGPT) [Pending], Alkaline Phosphatase [Pending] , Total Protein [Pending], Albumin [Pending], Globulin [Pending], Triglycerides Level [Pending], Cholesterol Level [Pending], LDL Cholesterol [Pending], HDL Cholesterol [Pending], Cholesterol/HDL Ratio [Pending], Vitamin B12 Level [ Pending], Folate [Pending] Height (Feet): 5 Height (Inches): 4.00 Weight (Pounds): 110 General Appearance: WD/WN, alert Neck: supple Cardiovascular: normal peripheral pulses, normal rate, regular rhythm Respiratory/Chest: chest wall non-tender, lungs clear, normal breath sounds, no respiratory distress Edema: no edema noted Arm (L), no edema noted Arm (R), no edema noted Leg (L), no edema noted Leg (R), no edema noted Pedal (L), no edema noted Pedal (R), no edema noted Generalized SUSSY BALDERAS July 25, 2017 09:04
[2017-07-25 09:29] LABS: ALANINE AMINOTRANSFERASE 17 U/L (12-78); ALBUMIN 3.2 G/DL (3.4-5.0); ALBUMIN/GLOBULIN RATIO 0.9 (1.0-2.7); ALKALINE PHOSPHATASE 65 U/L (46-116); ANION GAP 8 mmol/L (5-15); ASPARTATE AMINO TRANSFERASE 12 U/L (15-37); BILIRUBIN,TOTAL 1.1 MG/DL (0.2-1.0); BLOOD UREA NITROGEN 13 mg/dL (7-18); CARBON DIOXIDE 27 MMOL/L (21-32); CHLORIDE 107 MMOL/L (98-107); CHOLESTEROL 165 MG/DL (< 200); CREATININE 0.7 MG/DL (0.55-1.30); HDL CHOLESTEROL 39 MG/DL (40-60); POTASSIUM 3.3 MMOL/L (3.5-5.1); SODIUM 142 MMOL/L (136-145); TRIGLYCERIDES 147 MG/DL (30-150)
[2017-07-25 09:39] LABS: BILIRUBIN,DIRECT 0.2 MG/DL (0.0-0.3)
[2017-07-25] MEDS: metFORMIN 500mg tab ORAL SCH ×2 (09:54→18:03)
[2017-07-25] MEDS: Aspirin Baby 81mg ORAL SCH (09:54)
[2017-07-25] MEDS: Memantine 10mg tab ORAL SCH (09:58)
[2017-07-25] MEDS: Heparin 5000 units/ml inj SUBQ SCH ×2 (10:10→20:20)
--- NOTE | 2017-07-25 10:45 | Consultation ---
DATE OF CONSULTATION: 07/25/2017 PULMONARY CONSULTATION CONSULTING PHYSICIAN: Salomón Prince M.D. REASON FOR CONSULTATION: Pneumonia. HISTORY: This is an 87-year-old female with history of dementia and hypertension. The patient was sent to the emergency room and noted to have dehydration, hyponatremia, and chest x-ray with right-sided infiltrate. The patient was started on antibiotics and I was called to assist and evaluate. The patient is of advanced age. She is weak, able to follow commands, but poor historian. Chart reviewed. Care discussed. PAST MEDICAL HISTORY: Notable for dementia, hypertension, hypertensive heart disease, history of C. difficile colitis, diabetes. MEDICATIONS: Reviewed. ALLERGIES: Reviewed. SOCIAL HISTORY: Nonsmoker, nondrinker at present. The patient is retired. FAMILY HISTORY: Difficult to fully obtain. REVIEW OF SYSTEMS: Difficult to fully obtain. PHYSICAL EXAMINATION: GENERAL: A well-developed female with advanced age. VITAL SIGNS: Stable. Blood pressure 119/61, pulse 70, respiratory rate 20, saturations 96%, temperature 98.3. HEENT: Negative. NECK: Supple. Extraocular movements are grossly intact. Neck is otherwise without jugular venous distention. LUNGS: Moderate breath sounds. Minimal rhonchi. CARDIAC: S1, S2. Regular rate and rhythm without murmurs, rubs, or gallops. ABDOMEN: Soft, nontender, and nondistended. EXTREMITIES: No cyanosis, clubbing, or edema. NEUROLOGIC: Grossly nonfocal. LABORATORY DATA: Reviewed. CBC essentially normal. Chemistries notable for sodium 146, total protein 8.8. The x-rays with a vague infiltrate in the right upper lobe. IMPRESSION: Pneumonia, possible aspiration in nature, minimal congestion, possible sepsis, hypernatremia, toxic metabolic encephalopathy, dementia, diabetes, hypertension. RECOMMENDATION: Supportive care. Respiratory care as needed. IV antibiotics and monitor x-rays for clearing. DVT prophylaxis. IV hydration with hypotonic fluids, and we will monitor clinically for further changes, interventions, and assist with disposition. Salomón Prince M.D. DR: Woody JOB#: [id number] CC:
[2017-07-25] MEDS: Vancomycin 750mg/NS 250ml IVPB SCH (11:37)
[2017-07-25 12:00] VITALS: BP 164/66
[2017-07-25 16:00] VITALS: BP 153/87
--- NOTE | 2017-07-25 18:59 | Emergency Room Report ---
History of Present Illness General Chief Complaint: Generalized Weakness Source: Patient, Medical Record Present Illness HPI Patient sent from home with change in mentation. She has a h/o dementia. However, she denies any problems. She denies pain. No NVD. No dysuria. She states she has been eating well and is not thirsty. No head trauma. No cough, dyspnea, fevers/chills, rashes. She has a h/o colitis. H/O osteoarthritis and HTN. Diabetic on insulin. 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 Nursing Documentation: PMH: Agreed; PSxH: Agreed Nursing Documentation-PMH Past Medical History: No History, Except For Hx Cardiac Problems: Yes - HYPERLIPIDEMIA Hx Hypertension: Yes Hx Diabetes: Yes Hx Cancer: No Hx Gastrointestinal Problems: No Hx Neurological Problems: Yes Hx Cerebrovascular Accident: No Hx Transient Ischemic Attacks: No Hx Dementia: Yes Review of Systems All Other Systems: negative except mentioned in HPI Physical Exam Vital Signs Date Time Temp Pulse Resp B/P (MAP) Pulse Ox O2 Delivery O2 Flow Rate FiO2 07/23/17 10:59 98.6 106 18 140/90 97 Room Air 98.6 Sp02 EP Interpretation: reviewed, normal General Appearance: no apparent distress, alert, thin, other - GCS 14 Head: normocephalic, atraumatic Eyes: bilateral eye normal inspection, bilateral eye PERRL ENT: moist mucus membranes Neck: supple Respiratory: lungs clear, normal breath sounds Cardiovascular #1: regular rate, rhythm Cardiovascular #2: 2+ radial (R) Gastrointestinal: normal inspection, normal bowel sounds, non tender, no mass, non-distended Musculoskeletal: back normal, gait/station normal, normal range of motion Neurologic: alert, responsive, 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 DDX: electrolyte abnormality, occult infection, worsened dementia, thyroid abnormality, occult cardiac disease amongst others. Evaluation with EKG, CXR, CT head and labs. Treatment with gentle hydration. Patient declines pain. Although h/o colitis, abdomen is not tender and no h/o diarrhea or vomiting. Slightly tachycardic. EKG without injury however, NSSTTW changes and tachycardia. CXR negative (per my reading). Labs with normal WBC, H/H. Sodium slightly elevated. Troponin negative. Improved with gentle hydration. Patient admitted for further evaluation and treatment to Dr. Rosario. Laboratory Tests Test 07/24/17 12:20 07/25/17 07:30 Troponin I 0.007 ng/mL (0.000-0.056) 0.008 ng/mL (0.000-0.056) White Blood Count 6.8 K/UL (4.8-10.8) Red Blood Count 4.00 M/UL (4.20-5.40) L Hemoglobin 13.8 G/DL (12.0-16.0) Hematocrit 39.8 % (37.0-47.0) Mean Corpuscular Volume 99 FL (80-99) Mean Corpuscular Hemoglobin 34.4 PG (27.0-31.0) H Mean Corpuscular Hemoglobin Concent 34.6 G/DL (32.0-36.0) Red Cell Distribution Width 11.0 % (11.6-14.8) L Platelet Count 191 K/UL (150-450) Mean Platelet Volume 8.9 FL (6.5-10.1) Neutrophils (%) (Auto) 42.9 % (45.0-75.0) L Lymphocytes (%) (Auto) 47.9 % (20.0-45.0) H Monocytes (%) (Auto) 5.6 % (1.0-10.0) Eosinophils (%) (Auto) 2.6 % (0.0-3.0) Basophils (%) (Auto) 1.0 % (0.0-2.0) Sodium Level 142 MMOL/L (136-145) Potassium Level 3.3 MMOL/L (3.5-5.1) L Chloride Level 107 MMOL/L (98-107) Carbon Dioxide Level 27 MMOL/L (21-32) Anion Gap 8 mmol/L (5-15) Blood Urea Nitrogen 13 mg/dL (7-18) Creatinine 0.7 MG/DL (0.55-1.30) Estimate Glomerular Filtration Rate mL/min (>60) Glucose Level 137 MG/DL (74-106) H Calcium Level 9.0 MG/DL (8.5-10.1) Magnesium Level 1.8 MG/DL (1.8-2.4) Total Bilirubin 1.1 MG/DL (0.2-1.0) H Direct Bilirubin 0.2 MG/DL (0.0-0.3) Aspartate Amino Transferase (AST) 12 U/L (15-37) L Alanine Aminotransferase (ALT) 17 U/L (12-78) Alkaline Phosphatase 65 U/L (46-116) Total Protein 6.9 G/DL (6.4-8.2) Albumin 3.2 G/DL (3.4-5.0) L Globulin 3.7 g/dL Albumin/Globulin Ratio 0.9 (1.0-2.7) L Triglycerides Level 147 MG/DL (30-150) Cholesterol Level 165 MG/DL (< 200) LDL Cholesterol 118 mg/dL (<100) H HDL Cholesterol 39 MG/DL (40-60) L Cholesterol/HDL Ratio 4.2 (3.3-4.4) Vitamin B12 Level 1071 PG/ML (193-986) H Folate 48.9 NG/ML (8.6-58.9) EKG Diagnostic Results Rate: tachycardiac Rhythm: other ST Segments: no acute changes - RBBB LAE NSSTTW changes Rhythm Strip Diag. Results EP Interpretation: yes Rhythm: no PVC's, no ectopy, other - ST Chest X-Ray Diagnostic Results Chest X-Ray Diagnostic Results : Chest X-Ray Ordered: Yes # of Views/Limited/Complete: 1 View Indication: Other EP Interpretation: Yes Interpretation: no consolidation, no effusion, no pneumothorax Impression: No acute disease Electronically Signed by: Benjie Abbott MD Last Vital Signs Date Time Temp Pulse Resp B/P (MAP) Pulse Ox O2 Delivery O2 Flow Rate FiO2 07/25/17 16:00 83 07/25/17 16:00 98.2 18 153/87 95 Room Air 98.2 Status: improved Disposition: ADMITTED INPATIENT Condition: Serious Referrals: NOT CHOSEN STEPH/,REFERRING (PCP) Benjie Abbott M.D. July 25, 2017 18:59
[2017-07-25 20:00] VITALS: BP 148/91
[2017-07-25] MEDS: Atorvastatin 80mg tab ORAL SCH (20:19)
--- NOTE | 2017-07-25 22:30 | Cardiology Report ---
APPROVED REPORT EKG Measurement Heart [id number] [id number] Sinus tachycardia Possible Left atrial enlargement Right bundle branch block Inferior infarct, age undetermined Anterolateral infarct, age undetermined Abnormal ECG
--- NOTE | 2017-07-25 22:35 | Cardiology Report ---
APPROVED REPORT EKG Measurement Heart [id number] [place] 190P30 [id number] Marked sinus bradycardia Abnormal ECG
--- NOTE | 2017-07-25 23:45 | Progress Note ---
DATE: 07/25/2017 CARDIOLOGY PROGRESS NOTE SUBJECTIVE: The patient is with some congestion and cough. She remains weak and on IV fluid hydration due to poor intake. Monitor reveals sinus sandra and sinus tachycardia with overall stable heart rate during the day. No arrhythmias, however, all rhythms are sinus. OBJECTIVE: VITAL SIGNS: Blood pressure 118/61 to 164/66, heart rate 58 to 91, and respiratory 18 to 20. The patient is afebrile. Room air oxygen 95% to 99%. NECK: Supple. LUNGS: Few rhonchi. CARDIAC: Regular rhythm and rate. Normal S1, S2 with a fourth heart sound. ABDOMEN: Soft. EXTREMITIES: No edema. LABORATORY DATA: White count 6.8 and hemoglobin 13.8. Potassium 3.3. Troponin negative. Magnesium 1.8. LDL cholesterol 118 and HDL 39. B12, folate, and thyroid within normal limits. IMPRESSION: 1. Community-acquired pneumonia. 2. Hypokalemia. 3. Sinus node disease. 4. Sinus bradycardia. 5. Sinus tachycardia. 6. Toxic and metabolic encephalopathies. 7. Dehydration and hypernatremia, resolved. 8. Hypertensive heart disease. PLAN: 1. Antimicrobials. 2. Respiratory hygiene. 3. DVT prophylaxis. 4. Continue hydration. 5. Replace potassium. 6. No role for antiarrhythmics at this time. 7. Assess for symptomatic hemodynamically significant arrhythmias. Benjie Quiñones M.D. DR: DALE JOB#: [id number] CC:
[2017-07-26] VITALS: BP 139/82
[2017-07-26 04:00] VITALS: BP 133/74
[2017-07-26] MEDS: Piperacillin/Tazobactam 3.375 GM in D5W 110 ML IVPB SCH ×3 (04:00→20:19)
[2017-07-26] MEDS: GlipiZIDE 5mg tab ORAL SCH (06:12)
[2017-07-26] MEDS: NovoLOG Insulin Flexpen SUBQ SCH ×4 (06:12→20:35)
[2017-07-26 08:00] VITALS: BP 147/89
[2017-07-26 08:34] LABS: ANION GAP 10 mmol/L (5-15); BLOOD UREA NITROGEN 8 mg/dL (7-18); CALCIUM 9.4 MG/DL (8.5-10.1); CARBON DIOXIDE 27 MMOL/L (21-32); CHLORIDE 106 MMOL/L (98-107); CREATININE 0.6 MG/DL (0.55-1.30); POTASSIUM 3.5 MMOL/L (3.5-5.1); SODIUM 143 MMOL/L (136-145)
[2017-07-26] MEDS: Aspirin Baby 81mg ORAL SCH (08:55)
[2017-07-26] MEDS: Memantine 10mg tab ORAL SCH (08:55)
[2017-07-26] MEDS: metFORMIN 500mg tab ORAL SCH ×2 (08:55→17:15)
[2017-07-26] MEDS: Heparin 5000 units/ml inj SUBQ SCH ×2 (08:57→20:37)
--- NOTE | 2017-07-26 08:59 | General Progress Note ---
Assessment/Plan Problem List: (1) Weakness ICD Codes: R53.1 - Weakness SNOMED: 61073238 (2) Altered mental status ICD Codes: R41.82 - Altered mental status, unspecified SNOMED: 084920789 Qualifiers: Qualified Codes: R40.4 - Transient alteration of awareness (3) Abdominal pain ICD Codes: R10.9 - Unspecified abdominal pain SNOMED: 92689276 (4) Toxic metabolic encephalopathy ICD Codes: G92 - Toxic encephalopathy SNOMED: 044792422 (5) Tachy-sanrda syndrome ICD Codes: I49.5 - Sick sinus syndrome SNOMED: 71764273 Status: stable, progressing Assessment/Plan cont iv hydration tele cards follow up iv abx monitor cxr Subjective ROS Limited/Unobtainable: No Constitutional: Reports: malaise, weakness HEENT: Reports: no symptoms Cardiovascular: Reports: no symptoms Respiratory: Reports: cough Gastrointestinal/Abdominal: Reports: no symptoms Genitourinary: Reports: no symptoms Neurologic/Psychiatric: Reports: no symptoms Endocrine: Reports: no symptoms Hematologic/Lymphatic: Reports: no symptoms Allergies: Coded Allergies: No Known Allergies (Unverified , 02/09/14) All Systems: reviewed and negative except above Subjective hr better. no fever or chills. no cough. more alert. Objective Last 24 Hour Vital Signs Date Time Temp Pulse Resp B/P (MAP) Pulse Ox O2 Delivery O2 Flow Rate FiO2 07/26/17 04:00 56 07/26/17 04:00 97.6 78 18 133/74 97 Room Air 97.6 07/26/17 00:00 64 07/26/17 00:00 98.0 64 19 139/82 96 Room Air 98.0 07/25/17 20:00 71 07/25/17 20:00 97.5 70 18 148/91 95 Room Air 97.5 07/25/17 16:00 83 07/25/17 16:00 98.2 86 18 153/87 95 Room Air 98.2 07/25/17 12:00 61 07/25/17 12:00 98.0 58 18 164/66 97 Room Air 98.0 07/25/17 09:55 91 146/68 Intake and Output 07/25/17 07/26/17 19:00 07:00 Intake Total 480 ml Balance 480 ml Intake Oral 480 ml # Voids 3 # Bowel Movements 1 Laboratory Tests 07/26/17 07:30: Sodium Level 143, Potassium Level 3.5, Chloride Level 106, Carbon Dioxide Level 27, Anion Gap 10, Blood Urea Nitrogen 8, Creatinine 0.6, Estimat Glomerular Filtration Rate , Glucose Level 136H, Calcium Level 9.4 Height (Feet): 5 Height (Inches): 4.00 Weight (Pounds): 110 General Appearance: WD/WN, alert Neck: supple Cardiovascular: normal rate, regular rhythm Respiratory/Chest: chest wall non-tender, lungs clear, normal breath sounds Abdomen: normal bowel sounds, non tender, soft, no mass Edema: no edema noted Arm (L), no edema noted Arm (R), no edema noted Leg (L), no edema noted Leg (R), no edema noted Pedal (L), no edema noted Pedal (R), no edema noted Generalized SUSSY BALDERAS July 26, 2017 08:59
[2017-07-26] MEDS ORDERED: Tubing IV Secondary IV ONE (11:05)
[2017-07-26] MEDS ORDERED: 1/2 NS 1000ml IV ONE (11:05)
[2017-07-26 12:00] VITALS: BP 166/92
--- NOTE | 2017-07-26 12:42 | Diagnostic Imaging Report ---
EXAM: XR Chest, 2 Views CLINICAL HISTORY: ABN CHST TECHNIQUE: Frontal and lateral views of the chest. COMPARISON: Chest x-ray dated 07/23/17. FINDINGS: Lungs: There has been interval improved aeration in bilateral lungs, including the right upper lobe. No focal confluent opacities are seen. Mildly increased interstitial markings may be related to chronic senescent changes versus mild interstitial pneumonitis. Pleural space: Unremarkable. The costophrenic angle are sharp. No visible pneumothorax. Heart: Unremarkable. No cardiomegaly. Mediastinum: Unremarkable. Bones/joints: Mild degenerative changes in bilateral shoulders and throughout the spine. Vasculature: Curvilinear atherosclerotic calcific isn't in the aortic arch. The aorta appears mildly tortuous. Tubes, lines and devices: EKG leads overlie the thorax. IMPRESSION: 1. There has been interval improved aeration in bilateral lungs, including the right upper lobe. No focal confluent opacities are seen. 2. Mildly increased interstitial markings may be related to chronic senescent changes versus mild interstitial pneumonitis.
--- NOTE | 2017-07-26 15:34 | Pulmonology Progress Note ---
Assessment/Plan Assessment/Plan IMPRESSION: Pneumonia, possible aspiration, minimal congestion, possible sepsis, hypernatremia, toxic metabolic encephalopathy, dementia, diabetes, hypertension. PLAN care noted antibiotics imaging improved oxygen respiratory care maintain meds impression, plan, and exam edited and reviewed in detail care discussed with RN Subjective ROS Limited/Unobtainable: Yes Allergies: Coded Allergies: No Known Allergies (Unverified , 02/09/14) Subjective care noted no distress minimal congestion Objective Last 24 Hour Vital Signs Date Time Temp Pulse Resp B/P (MAP) Pulse Ox O2 Delivery O2 Flow Rate FiO2 07/26/17 12:00 98.1 86 18 166/92 97 Room Air 98.1 07/26/17 12:00 95 07/26/17 08:55 86 147/89 07/26/17 08:00 97.4 87 18 147/89 97 Room Air 97.4 07/26/17 08:00 78 07/26/17 04:00 56 07/26/17 04:00 97.6 78 18 133/74 97 Room Air 97.6 07/26/17 00:00 64 07/26/17 00:00 98.0 64 19 139/82 96 Room Air 98.0 07/25/17 20:00 71 07/25/17 20:00 97.5 70 18 148/91 95 Room Air 97.5 07/25/17 16:00 83 07/25/17 16:00 98.2 86 18 153/87 95 Room Air 98.2 Intake and Output 07/25/17 07/26/17 19:00 07:00 Intake Total 480 ml Balance 480 ml Intake Oral 480 ml # Voids 3 # Bowel Movements 1 Objective HEENT: Negative. NECK: Supple. Extraocular movements are grossly intact. Neck is otherwise without jugular venous distention. LUNGS: Moderate breath sounds. reduced rhonchi. no wheeze CARDIAC: S1, S2. Regular rate and rhythm without murmurs, rubs, or gallops. ABDOMEN: Soft, nontender, and nondistended. no HSM EXTREMITIES: No cyanosis, clubbing, or edema. NEUROLOGIC: Grossly nonfocal. Laboratory Tests 07/26/17 07:30: Sodium Level 143, Potassium Level 3.5, Chloride Level 106, Carbon Dioxide Level 27, Anion Gap 10, Blood Urea Nitrogen 8, Creatinine 0.6, Estimat Glomerular Filtration Rate , Glucose Level 136H, Calcium Level 9.4 07/26/17 09:30: Vancomycin Level Trough 4.8L Current Medications Medications (Trade) Dose Ordered Sig/Sushila Route PRN Reason Start Time Stop Time Status Last Admin Dose Admin Amlodipine Besylate (Norvasc) 5 mg DAILY ORAL 07/24/17 09:00 08/23/17 08:59 07/26/17 08:55 Aspirin (ASA) 81 mg DAILY ORAL 07/24/17 09:00 08/23/17 08:59 07/26/17 08:55 Atorvastatin Calcium (Lipitor) 80 mg BEDTIME ORAL 07/23/17 21:00 08/22/17 20:59 07/25/17 20:19 Dextrose (Dextrose 50%) 25 ml STAT PRN IV Hypoglycemia 07/23/17 15:30 08/22/17 15:29 Dextrose (Dextrose 50%) 50 ml STAT PRN IV Hypoglycemia 07/23/17 15:30 08/22/17 15:29 Glipizide (Glucotrol) 5 mg ACBREAKFAST ORAL 07/24/17 06:30 08/23/17 06:29 07/26/17 06:12 Heparin Sodium (Porcine) (Heparin 5000 units/ml) 5,000 units EVERY 12 HOURS SUBQ 07/23/17 21:00 08/22/17 20:59 07/26/17 08:57 Hydralazine HCl (Apresoline) 25 mg Q4H PRN ORAL SBP >160 07/24/17 11:45 08/23/17 11:44 07/24/17 12:11 Insulin Aspart (NovoLOG) BEFORE MEALS AND HS SUBQ 07/23/17 16:30 08/22/17 16:29 07/26/17 12:11 Memantine (Namenda) 5 mg DAILY ORAL 07/24/17 09:00 08/23/17 08:59 07/26/17 08:55 Metformin HCl (Glucophage) 500 mg BID ORAL 07/23/17 18:00 08/22/17 17:59 07/26/17 08:55 Piperacillin Sod/ Tazobactam Sod 3.375 gm/Dextrose 110 ml @ 27.5 mls/hr Q8H IVPB 07/24/17 20:00 07/31/17 11:59 07/26/17 12:10 Sodium Chloride 1,000 ml @ 50 mls/hr Q20H IV 07/26/17 10:00 08/25/17 09:59 07/26/17 10:51 Vancomycin HCl (Vanco rx to dose) 1 ea DAILY PRN MISC Per rx protocol 07/24/17 08:00 08/23/17 07:59 Vancomycin HCl/ Dextrose 250 ml @ 166.667 mls/hr Q24H IVPB 07/26/17 16:00 07/31/17 15:59 Salomón Prince MD July 26, 2017 15:34
[2017-07-26 16:00] VITALS: BP 150/88
[2017-07-26] MEDS: Vancomycin 1250mg/D5W 250ml IVPB SCH (16:47)
[2017-07-26 20:00] VITALS: BP 137/81
[2017-07-26] MEDS: Atorvastatin 80mg tab ORAL SCH (20:34)
[2017-07-27] VITALS: BP 155/73
[2017-07-27 04:00] VITALS: BP 169/67
[2017-07-27] MEDS: Piperacillin/Tazobactam 3.375 GM in D5W 110 ML IVPB SCH ×3 (04:12→22:26)
[2017-07-27] MEDS: GlipiZIDE 5mg tab ORAL SCH (06:12)
[2017-07-27] MEDS: NovoLOG Insulin Flexpen SUBQ SCH ×4 (06:14→21:00)
[2017-07-27] MEDS: HydrALAZINE 25mg tab ORAL PRN (06:19)
--- NOTE | 2017-07-27 06:40 | Pulmonology Progress Note ---
Assessment/Plan Assessment/Plan IMPRESSION: Pneumonia, possible aspiration, pulmonary congestion, toxic metabolic encephalopathy, dementia, diabetes, hypertension. PLAN care noted antibiotics as is imaging improved and will follow up oxygen stable respiratory care- no changes needed maintain meds impression, plan, and exam edited and reviewed in detail care discussed with RN Subjective ROS Limited/Unobtainable: Yes Allergies: Coded Allergies: No Known Allergies (Unverified , 02/09/14) Subjective care noted no distress overnight minimal congestion noted Objective Last 24 Hour Vital Signs Date Time Temp Pulse Resp B/P (MAP) Pulse Ox O2 Delivery O2 Flow Rate FiO2 07/27/17 06:19 171/72 07/27/17 04:00 97.0 48 20 169/67 95 Room Air 97.0 07/27/17 04:00 49 07/27/17 00:00 58 07/27/17 00:00 97.9 70 20 155/73 95 Room Air 97.9 07/26/17 20:00 97.7 80 20 137/81 95 Room Air 97.7 07/26/17 20:00 82 07/26/17 16:00 98.1 95 18 150/88 97 Room Air 98.1 07/26/17 16:00 96 07/26/17 12:00 98.1 86 18 166/92 97 Room Air 98.1 07/26/17 12:00 95 07/26/17 08:55 86 147/89 07/26/17 08:00 97.4 87 18 147/89 97 Room Air 97.4 07/26/17 08:00 78 Intake and Output 07/26/17 07/27/17 19:00 07:00 Intake Total 450 ml 351.3 ml Output Total 4 ml Balance 446 ml 351.3 ml Intake Oral 400 ml IV Total 50 ml 351.3 ml Output Urine Total 3 ml Stool Total 1 ml Objective HEENT: Negative. NECK: Supple. LUNGS: Moderate breath sounds. reduced rhonchi. no wheeze or change CARDIAC: S1, S2. Regular rate and rhythm without murmurs, rubs, or gallops. ABDOMEN: Soft, nontender, and nondistended. no HSM EXTREMITIES: No cyanosis, clubbing, or edema. NEUROLOGIC: Grossly nonfocal. weak reviewed Laboratory Tests 07/26/17 07:30: Sodium Level 143, Potassium Level 3.5, Chloride Level 106, Carbon Dioxide Level 27, Anion Gap 10, Blood Urea Nitrogen 8, Creatinine 0.6, Estimat Glomerular Filtration Rate , Glucose Level 136H, Calcium Level 9.4 07/26/17 09:30: Vancomycin Level Trough 4.8L Current Medications Medications (Trade) Dose Ordered Sig/Sushila Route PRN Reason Start Time Stop Time Status Last Admin Dose Admin Amlodipine Besylate (Norvasc) 5 mg DAILY ORAL 07/24/17 09:00 08/23/17 08:59 07/26/17 08:55 Aspirin (ASA) 81 mg DAILY ORAL 07/24/17 09:00 08/23/17 08:59 07/26/17 08:55 Atorvastatin Calcium (Lipitor) 80 mg BEDTIME ORAL 07/23/17 21:00 08/22/17 20:59 07/26/17 20:34 Dextrose (Dextrose 50%) 25 ml STAT PRN IV Hypoglycemia 07/23/17 15:30 08/22/17 15:29 Dextrose (Dextrose 50%) 50 ml STAT PRN IV Hypoglycemia 07/23/17 15:30 08/22/17 15:29 Glipizide (Glucotrol) 5 mg ACBREAKFAST ORAL 07/24/17 06:30 08/23/17 06:29 07/27/17 06:12 Heparin Sodium (Porcine) (Heparin 5000 units/ml) 5,000 units EVERY 12 HOURS SUBQ 07/23/17 21:00 08/22/17 20:59 07/26/17 20:37 Hydralazine HCl (Apresoline) 25 mg Q4H PRN ORAL SBP >160 07/24/17 11:45 08/23/17 11:44 07/27/17 06:19 Insulin Aspart (NovoLOG) BEFORE MEALS AND HS SUBQ 07/23/17 16:30 08/22/17 16:29 07/27/17 06:14 Memantine (Namenda) 5 mg DAILY ORAL 07/24/17 09:00 08/23/17 08:59 07/26/17 08:55 Metformin HCl (Glucophage) 500 mg BID ORAL 07/23/17 18:00 08/22/17 17:59 07/26/17 17:15 Piperacillin Sod/ Tazobactam Sod 3.375 gm/Dextrose 110 ml @ 27.5 mls/hr Q8H IVPB 07/24/17 20:00 07/31/17 11:59 07/27/17 04:12 Sodium Chloride 1,000 ml @ 50 mls/hr Q20H IV 07/26/17 10:00 08/25/17 09:59 07/27/17 06:13 Vancomycin HCl (Vanco rx to dose) 1 ea DAILY PRN MISC Per rx protocol 07/24/17 08:00 08/23/17 07:59 Vancomycin HCl/ Dextrose 250 ml @ 166.667 mls/hr Q24H IVPB 07/26/17 16:00 07/31/17 15:59 07/26/17 16:47 Salomón Prince MD July 27, 2017 06:40
[2017-07-27 08:00] VITALS: BP 151/53
--- NOTE | 2017-07-27 08:24 | General Progress Note ---
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 - Sick sinus syndrome SNOMED: 27977716 Status: stable, progressing Assessment/Plan cont iv hydration tele cards follow up iv abx monitor cxr Subjective ROS Limited/Unobtainable: No Constitutional: Reports: malaise, weakness HEENT: Reports: no symptoms Cardiovascular: Reports: no symptoms Respiratory: Reports: no symptoms Gastrointestinal/Abdominal: Reports: no symptoms Genitourinary: Reports: no symptoms Neurologic/Psychiatric: Reports: no symptoms Endocrine: Reports: no symptoms Hematologic/Lymphatic: Reports: no symptoms Allergies: Coded Allergies: No Known Allergies (Unverified , 02/09/14) All Systems: reviewed and negative except above Subjective still having intermittent episodes of bradycardia. no fever or chills. no cough. more alert. Objective Last 24 Hour Vital Signs Date Time Temp Pulse Resp B/P (MAP) Pulse Ox O2 Delivery O2 Flow Rate FiO2 07/27/17 06:19 171/72 07/27/17 04:00 97.0 48 20 169/67 95 Room Air 97.0 07/27/17 04:00 49 07/27/17 00:00 58 07/27/17 00:00 97.9 70 20 155/73 95 Room Air 97.9 07/26/17 20:00 97.7 80 20 137/81 95 Room Air 97.7 07/26/17 20:00 82 07/26/17 16:00 98.1 95 18 150/88 97 Room Air 98.1 07/26/17 16:00 96 07/26/17 12:00 98.1 86 18 166/92 97 Room Air 98.1 07/26/17 12:00 95 07/26/17 08:55 86 147/89 Intake and Output 07/26/17 07/27/17 19:00 07:00 Intake Total 450 ml 528.3 ml Output Total 4 ml Balance 446 ml 528.3 ml Intake Oral 400 ml 100 ml IV Total 50 ml 428.3 ml Output Urine Total 3 ml Stool Total 1 ml # Voids 2 Laboratory Tests 07/26/17 09:30: Vancomycin Level Trough 4.8L Height (Feet): 5 Height (Inches): 4.00 Weight (Pounds): 110 Objective General Appearance: WD/WN, alert Neck: supple Cardiovascular: normal rate, regular rhythm Respiratory/Chest: chest wall non-tender, lungs clear, normal breath sounds Abdomen: normal bowel sounds, non tender, soft, no mass Edema: no edema noted Arm (L), no edema noted Arm (R), no edema noted Leg (L), no edema noted Leg (R), no edema noted Pedal (L), no edema noted Pedal (R), no edema noted Generalized SUSSY BALDERAS July 27, 2017 08:24
[2017-07-27] MEDS: metFORMIN 500mg tab ORAL SCH ×2 (08:35→17:22)
[2017-07-27] MEDS: Aspirin Baby 81mg ORAL SCH (08:37)
[2017-07-27] MEDS: Memantine 10mg tab ORAL SCH (08:37)
[2017-07-27] MEDS: Heparin 5000 units/ml inj SUBQ SCH ×2 (08:39→21:09)
[2017-07-27 12:00] VITALS: BP 146/64
[2017-07-27] MEDS: Vancomycin 1250mg/D5W 250ml IVPB SCH (15:43)
[2017-07-27 16:00] VITALS: BP 123/58
[2017-07-27 20:00] VITALS: BP 112/69
[2017-07-27] MEDS: Atorvastatin 80mg tab ORAL SCH (21:08)
[2017-07-28] VITALS: BP 128/67
[2017-07-28 04:00] VITALS: BP 145/61
[2017-07-28] MEDS: Piperacillin/Tazobactam 3.375 GM in D5W 110 ML IVPB SCH ×3 (05:23→21:57)
[2017-07-28] MEDS: GlipiZIDE 5mg tab ORAL SCH (05:54)
[2017-07-28] MEDS: NovoLOG Insulin Flexpen SUBQ SCH ×4 (06:30→23:11)
[2017-07-28 08:00] VITALS: BP 122/66
--- NOTE | 2017-07-28 08:03 | Pulmonology Progress Note ---
Assessment/Plan Assessment/Plan IMPRESSION: Pneumonia, possible aspiration, pulmonary congestion, toxic metabolic encephalopathy, dementia, diabetes, hypertension. PLAN care noted antibiotics as is imaging improved -will obtain further views in am oxygen stable respiratory care- no changes needed maintain meds as is elevate head impression, plan, and exam edited and reviewed in detail care discussed with RN Subjective ROS Limited/Unobtainable: Yes Allergies: Coded Allergies: No Known Allergies (Unverified , 02/09/14) Subjective care noted no distress overnight minimal congestion noted resting Objective Last 24 Hour Vital Signs Date Time Temp Pulse Resp B/P (MAP) Pulse Ox O2 Delivery O2 Flow Rate FiO2 07/28/17 04:00 97.7 72 20 145/61 93 Room Air 97.7 07/28/17 03:42 64 07/28/17 00:00 97.8 74 20 128/67 94 Room Air 97.8 07/28/17 00:00 70 07/27/17 20:00 97.7 60 20 112/69 95 Room Air 97.7 07/27/17 19:52 58 07/27/17 16:00 97.8 60 20 123/58 95 Room Air 97.8 07/27/17 16:00 60 07/27/17 12:00 53 07/27/17 12:00 98.0 56 20 146/64 95 Room Air 98.0 07/27/17 08:39 49 151/53 Intake and Output 07/27/17 07/28/17 19:00 07:00 Intake Total 450 ml Output Total 400 ml 300 ml Balance 50 ml -300 ml Intake Oral 450 ml Output Urine Total 400 ml 300 ml # Voids 3 # Bowel Movements 1 2 Objective HEENT: Negative. NECK: Supple. LUNGS: Moderate breath sounds. occasional rhonchi. no wheeze or change CARDIAC: S1, S2. Regular rate and rhythm without murmurs, rubs, or gallops. ABDOMEN: Soft, nontender, and nondistended. no HSM EXTREMITIES: No cyanosis, clubbing, or edema. NEUROLOGIC: Grossly nonfocal. weak reviewed Current Medications Medications (Trade) Dose Ordered Sig/Sushila Route PRN Reason Start Time Stop Time Status Last Admin Dose Admin Amlodipine Besylate (Norvasc) 5 mg DAILY ORAL 07/24/17 09:00 08/23/17 08:59 07/26/17 08:55 Aspirin (ASA) 81 mg DAILY ORAL 07/24/17 09:00 08/23/17 08:59 07/27/17 08:37 Atorvastatin Calcium (Lipitor) 80 mg BEDTIME ORAL 07/23/17 21:00 08/22/17 20:59 07/27/17 21:08 Dextrose (Dextrose 50%) 25 ml STAT PRN IV Hypoglycemia 07/23/17 15:30 08/22/17 15:29 Dextrose (Dextrose 50%) 50 ml STAT PRN IV Hypoglycemia 07/23/17 15:30 08/22/17 15:29 Glipizide (Glucotrol) 5 mg ACBREAKFAST ORAL 07/24/17 06:30 08/23/17 06:29 07/28/17 05:54 Heparin Sodium (Porcine) (Heparin 5000 units/ml) 5,000 units EVERY 12 HOURS SUBQ 07/23/17 21:00 08/22/17 20:59 07/27/17 21:09 Hydralazine HCl (Apresoline) 25 mg Q4H PRN ORAL SBP >160 07/24/17 11:45 08/23/17 11:44 07/27/17 06:19 Insulin Aspart (NovoLOG) BEFORE MEALS AND HS SUBQ 07/23/17 16:30 08/22/17 16:29 07/27/17 17:24 Memantine (Namenda) 5 mg DAILY ORAL 07/24/17 09:00 08/23/17 08:59 07/27/17 08:37 Metformin HCl (Glucophage) 500 mg BID ORAL 07/23/17 18:00 08/22/17 17:59 07/27/17 17:22 Piperacillin Sod/ Tazobactam Sod 3.375 gm/Dextrose 110 ml @ 27.5 mls/hr Q8H IVPB 07/27/17 22:00 07/31/17 23:59 07/28/17 05:23 Sodium Chloride 1,000 ml @ 50 mls/hr Q20H IV 07/26/17 10:00 08/25/17 09:59 07/28/17 02:20 Vancomycin HCl (Vanco rx to dose) 1 ea DAILY PRN MISC Per rx protocol 07/24/17 08:00 08/23/17 07:59 Vancomycin HCl/ Dextrose 250 ml @ 166.667 mls/hr Q24H IVPB 07/26/17 16:00 07/31/17 15:59 07/27/17 15:43 Salomón Prince MD July 28, 2017 08:03
--- NOTE | 2017-07-28 08:04 | General Progress Note ---
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 - Sick sinus syndrome SNOMED: 96179027 Status: stable, progressing Assessment/Plan cont iv hydration tele cards follow up iv abx monitor cxr pt/ot Subjective ROS Limited/Unobtainable: No Constitutional: Reports: malaise, weakness HEENT: Reports: no symptoms Cardiovascular: Reports: no symptoms Respiratory: Reports: no symptoms Gastrointestinal/Abdominal: Reports: no symptoms Genitourinary: Reports: no symptoms Neurologic/Psychiatric: Reports: pre-existing deficit Endocrine: Reports: no symptoms Hematologic/Lymphatic: Reports: no symptoms Allergies: Coded Allergies: No Known Allergies (Unverified , 02/09/14) All Systems: reviewed and negative except above Subjective still having intermittent episodes of bradycardia. overall trend is better. no fever or chills. no cough. more alert. Objective Last 24 Hour Vital Signs Date Time Temp Pulse Resp B/P (MAP) Pulse Ox O2 Delivery O2 Flow Rate FiO2 07/28/17 04:00 97.7 72 20 145/61 93 Room Air 97.7 07/28/17 03:42 64 07/28/17 00:00 97.8 74 20 128/67 94 Room Air 97.8 07/28/17 00:00 70 07/27/17 20:00 97.7 60 20 112/69 95 Room Air 97.7 07/27/17 19:52 58 07/27/17 16:00 97.8 60 20 123/58 95 Room Air 97.8 07/27/17 16:00 60 07/27/17 12:00 53 07/27/17 12:00 98.0 56 20 146/64 95 Room Air 98.0 07/27/17 08:39 49 151/53 Intake and Output 07/27/17 07/28/17 19:00 07:00 Intake Total 450 ml Output Total 400 ml 300 ml Balance 50 ml -300 ml Intake Oral 450 ml Output Urine Total 400 ml 300 ml # Voids 3 # Bowel Movements 1 2 Height (Feet): 5 Height (Inches): 4.00 Weight (Pounds): 110 Objective General Appearance: WD/WN, alert Neck: supple Cardiovascular: normal rate, regular rhythm Respiratory/Chest: chest wall non-tender, lungs clear, normal breath sounds Abdomen: normal bowel sounds, non tender, soft, no mass Edema: no edema noted Arm (L), no edema noted Arm (R), no edema noted Leg (L), no edema noted Leg (R), no edema noted Pedal (L), no edema noted Pedal (R), no edema noted Generalized SUSSY BALDERAS July 28, 2017 08:04
[2017-07-28] MEDS: Aspirin Baby 81mg ORAL SCH (08:42)
[2017-07-28] MEDS: Memantine 10mg tab ORAL SCH ×2 (08:42→09:00)
[2017-07-28] MEDS: metFORMIN 500mg tab ORAL SCH ×2 (08:42→17:52)
[2017-07-28] MEDS: Heparin 5000 units/ml inj SUBQ SCH ×2 (08:45→22:08)
[2017-07-28 09:32] LABS: BASOPHILS % (AUTO) 1.1 % (0.0-2.0); EOSINOPHILS % (AUTO) 3.4 % (0.0-3.0); HEMATOCRIT 39.6 % (37.0-47.0); HEMOGLOBIN 13.7 G/DL (12.0-16.0); LYMPHOCYTES % (AUTO) 41.1 % (20.0-45.0); MEAN CORPUSCULAR VOLUME 99 FL (80-99); MONOCYTES % (AUTO) 6.5 % (1.0-10.0); PLATELET COUNT 196 K/UL (150-450); RED BLOOD COUNT 3.99 M/UL (4.20-5.40); RED CELL DISTRIBUTION WIDTH 11.4 % (11.6-14.8); WHITE BLOOD COUNT 7.7 K/UL (4.8-10.8)
[2017-07-28 09:47] LABS: ALANINE AMINOTRANSFERASE 36 U/L (12-78); ALBUMIN 3.1 G/DL (3.4-5.0); ALBUMIN/GLOBULIN RATIO 0.9 (1.0-2.7); ALKALINE PHOSPHATASE 60 U/L (46-116); ANION GAP 12 mmol/L (5-15); ASPARTATE AMINO TRANSFERASE 37 U/L (15-37); BILIRUBIN,TOTAL 0.7 MG/DL (0.2-1.0); BLOOD UREA NITROGEN 10 mg/dL (7-18); CALCIUM 9.3 MG/DL (8.5-10.1); CARBON DIOXIDE 25 MMOL/L (21-32); CHLORIDE 106 MMOL/L (98-107); CREATININE 0.6 MG/DL (0.55-1.30); POTASSIUM 3.1 MMOL/L (3.5-5.1); SODIUM 143 MMOL/L (136-145)
[2017-07-28 12:00] VITALS: BP 119/74
[2017-07-28 16:00] VITALS: BP 123/69
[2017-07-28] MEDS ORDERED: 1/2 NS 1000ml IV ONE (16:28)
[2017-07-28] MEDS: Vancomycin 1250mg/D5W 250ml IVPB SCH (17:52)
[2017-07-28 20:00] VITALS: BP 144/71
[2017-07-28] MEDS: Atorvastatin 80mg tab ORAL SCH (21:57)
[2017-07-29] VITALS: BP 143/79
[2017-07-29 04:00] VITALS: BP 147/74
--- NOTE | 2017-07-29 04:30 | Progress Note ---
DATE: 07/26/2017 CARDIOLOGY PROGRESS NOTE This is a late entry for 07/26/2017. SUBJECTIVE: The patient has heart rate controlled, no symptomatic bradycardias, no tachyarrhythmia. OBJECTIVE: VITAL SIGNS: Afebrile, blood pressure 133/74, heart rate 56 to 78, respiratory rate 18, and room air oxygen saturation 97%. LUNGS: Clear. CARDIAC: Regular. Normal S1 and S2. ABDOMEN: Soft. EXTREMITIES: No edema. LABORATORY DATA: Sodium 143, potassium 3.5, bicarbonate 27, BUN 8, and creatinine 0.6. Chest x-ray today revealed improved aeration of both lungs with interstitial markings that appear to be chronic. IMPRESSION: 1. Pneumonia, improved. 2. Hypokalemia, corrected. 3. Sinus node disease, now asymptomatic, rehydrated, recovered. 4. Hypernatremia. 5. Stable blood pressure in the setting of hypertensive heart disease. PLAN: 1. Respiratory hygiene, antimicrobials, maintenance hydration. 2. Monitor electrolytes. No antiarrhythmics. No indication for pacemaker presently. Benjie Quiñones M.D. DR: LENNY JOB#: [id number] CC:
[2017-07-29] MEDS: NovoLOG Insulin Flexpen SUBQ SCH ×4 (04:57→22:46)
[2017-07-29] MEDS: Piperacillin/Tazobactam 3.375 GM in D5W 110 ML IVPB SCH ×2 (04:57→17:06)
[2017-07-29] MEDS: GlipiZIDE 5mg tab ORAL SCH (04:57)
[2017-07-29] MEDS ORDERED: Vancomycin 750mg/NS 250ml IVPB SCH ×2 (05:00→11:45)
--- NOTE | 2017-07-29 05:15 | Progress Note ---
DATE: 07/28/2017 CARDIOLOGY PROGRESS NOTE SUBJECTIVE: The patient has not had any loss of consciousness. Monitored rhythm sinus and sinus bradycardia. Heart rates in the high 40s at times, but asymptomatic. OBJECTIVE: VITAL SIGNS: Blood pressure 145/61, pulse 72, and respiratory rate 20. LUNGS: Clear. CARDIAC: Regular. Normal S1 and S2. ABDOMEN: Soft. EXTREMITIES: No edema. IMPRESSION: 1. Pneumonia, improved. 2. Dehydration, resolved. 3. Sinus node disease, asymptomatic. 4. Sinus bradycardia, presently not wanting permanent pacing. 5. Toxic and metabolic encephalopathies, improved. PLAN: 1. Complete antimicrobials. 2. Maintain adequate hydration. 3. Avoid any drugs with negative chronotropic potential. 4. rn long term care, may need a pacemaker, however, presently no class I indication. Benjie Quiñones M.D. DR: ALONZO JOB#: [id number] CC:
[2017-07-29 08:00] VITALS: BP 151/72
--- NOTE | 2017-07-29 08:22 | General Progress Note ---
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 will convert to oral abx on dc Subjective ROS Limited/Unobtainable: No Constitutional: Reports: malaise, weakness HEENT: Reports: no symptoms Cardiovascular: Reports: no symptoms Respiratory: Reports: no symptoms Gastrointestinal/Abdominal: Reports: no symptoms Genitourinary: Reports: no symptoms Neurologic/Psychiatric: Reports: no symptoms Endocrine: Reports: no symptoms Hematologic/Lymphatic: Reports: no symptoms Allergies: Coded Allergies: No Known Allergies (Unverified , 02/09/14) All Systems: reviewed and negative except above Subjective no more episodes of bradycardia. overall trend is better. no fever or chills. no cough. more alert. Objective Last 24 Hour Vital Signs Date Time Temp Pulse Resp B/P (MAP) Pulse Ox O2 Delivery O2 Flow Rate FiO2 07/29/17 04:00 97.7 75 19 147/74 95 Room Air 97.7 07/29/17 04:00 79 07/29/17 00:00 80 07/29/17 00:00 97.6 84 19 143/79 95 Room Air 97.6 07/28/17 20:00 73 07/28/17 20:00 97.7 82 19 144/71 95 Room Air 97.7 07/28/17 16:00 97.6 82 18 123/69 93 Room Air 97.6 07/28/17 16:00 84 07/28/17 12:00 97 07/28/17 12:00 97.4 89 16 119/74 93 Room Air 97.4 07/28/17 08:44 77 122/76 Intake and Output 07/28/17 07/29/17 19:00 07:00 Intake Total 300 ml 983.32 ml Balance 300 ml 983.32 ml Intake Oral 250 ml IV Total 50 ml 983.32 ml # Voids 2 # Bowel Movements 2 Laboratory Tests 07/28/17 15:01: Vancomycin Level Trough 10.0 Height (Feet): 5 Height (Inches): 4.00 Weight (Pounds): 110 Objective General Appearance: WD/WN, alert Neck: supple Cardiovascular: normal rate, regular rhythm Respiratory/Chest: chest wall non-tender, lungs clear, normal breath sounds Abdomen: normal bowel sounds, non tender, soft, no mass Edema: no edema noted Arm (L), no edema noted Arm (R), no edema noted Leg (L), no edema noted Leg (R), no edema noted Pedal (L), no edema noted Pedal (R), no edema noted Generalized SUSSY BALDERAS July 29, 2017 08:22
[2017-07-29] MEDS: Aspirin Baby 81mg ORAL SCH (08:38)
[2017-07-29] MEDS: Memantine 10mg tab ORAL SCH (08:38)
[2017-07-29] MEDS: metFORMIN 500mg tab ORAL SCH ×2 (08:38→17:05)
[2017-07-29] MEDS: Heparin 5000 units/ml inj SUBQ SCH ×2 (08:39→22:42)
[2017-07-29 09:50] LABS: BASOPHILS % (AUTO) 0.8 % (0.0-2.0); EOSINOPHILS % (AUTO) 1.3 % (0.0-3.0); HEMATOCRIT 44.5 % (37.0-47.0); HEMOGLOBIN 15.2 G/DL (12.0-16.0); LYMPHOCYTES % (AUTO) 21.6 % (20.0-45.0); MEAN CORPUSCULAR VOLUME 100 FL (80-99); NEUTROPHILS % (AUTO) 70.3 % (45.0-75.0); PLATELET COUNT 202 K/UL (150-450); RED BLOOD COUNT 4.45 M/UL (4.20-5.40); RED CELL DISTRIBUTION WIDTH 11.6 % (11.6-14.8); WHITE BLOOD COUNT 10.4 K/UL (4.8-10.8)
[2017-07-29 10:09] LABS: ALANINE AMINOTRANSFERASE 47 U/L (12-78); ALBUMIN 3.7 G/DL (3.4-5.0); ALBUMIN/GLOBULIN RATIO 0.9 (1.0-2.7); ALKALINE PHOSPHATASE 72 U/L (46-116); ANION GAP 11 mmol/L (5-15); ASPARTATE AMINO TRANSFERASE 40 U/L (15-37); BILIRUBIN,TOTAL 0.9 MG/DL (0.2-1.0); BLOOD UREA NITROGEN 8 mg/dL (7-18); CALCIUM 9.8 MG/DL (8.5-10.1); CARBON DIOXIDE 28 MMOL/L (21-32); CHLORIDE 105 MMOL/L (98-107); CREATININE 1.2 MG/DL (0.55-1.30); SODIUM 144 MMOL/L (136-145)
--- NOTE | 2017-07-29 10:16 | Cardiology Report ---
APPROVED REPORT EXAM: Two-dimensional and M-mode echocardiogram with Doppler and color Doppler. INDICATION Arrhythmia Technically difficult and limited study due to poor acoustic windows and patient resistance. Study quality precludes accurate assessment of regional wall motion. M-mode measurements of left ventricle not obtainable due to cardiac position (angle) Normal left ventricular chamber size, systolic function and wall motion to extent visualized. Left ventricular ejection fraction estimated to be grossly normal. There appears to be no evidence of pericardial effusion. All other cardiac chamber sizes are within normal limits. Mild focal aortic valve sclerosis with adequate cusp excursion. Mildly thickened mitral valve leaflets with normal excursion. Mild mitral annulus and aortic root calcification. Pulmonic valve not visualized. Normal tricuspid valve structure. Subcostal views not obtained. A color flow and spectral Doppler study was performed and revealed: No aortic insufficiency. No mitral regurgitation. Mitral inflow velocities indicates possible pseudo normalization pattern implying significant left ventricular diastolic dysfunction (Grade II). Trace tricuspid regurgitation. RVSP could not be estimated.
--- NOTE | 2017-07-29 11:38 | Pulmonology Progress Note ---
Assessment/Plan Assessment/Plan IMPRESSION: Pneumonia, possible aspiration, pulmonary congestion, toxic metabolic encephalopathy, dementia, diabetes, hypertension. PLAN care noted antibiotics as is imaging improved -will obtain further views in am oxygen stable respiratory care- no changes needed maintain meds as is elevate head impression, plan, and exam edited and reviewed in detail care discussed with RN Subjective ROS Limited/Unobtainable: Yes Allergies: Coded Allergies: No Known Allergies (Unverified , 02/09/14) Subjective care noted no distress overnight slight congestion noted resting Objective Last 24 Hour Vital Signs Date Time Temp Pulse Resp B/P (MAP) Pulse Ox O2 Delivery O2 Flow Rate FiO2 07/29/17 08:38 85 151/72 07/29/17 08:00 98.1 89 20 151/72 95 Room Air 98.1 07/29/17 04:00 97.7 75 19 147/74 95 Room Air 97.7 07/29/17 04:00 79 07/29/17 00:00 80 07/29/17 00:00 97.6 84 19 143/79 95 Room Air 97.6 07/28/17 20:00 73 07/28/17 20:00 97.7 82 19 144/71 95 Room Air 97.7 07/28/17 16:00 97.6 82 18 123/69 93 Room Air 97.6 07/28/17 16:00 84 07/28/17 12:00 97 07/28/17 12:00 97.4 89 16 119/74 93 Room Air 97.4 Intake and Output 07/28/17 07/29/17 19:00 07:00 Intake Total 300 ml 983.32 ml Balance 300 ml 983.32 ml Intake Oral 250 ml IV Total 50 ml 983.32 ml # Voids 2 # Bowel Movements 2 Objective HEENT: Negative. NECK: Supple. LUNGS: Moderate breath sounds. occasional rhonchi. no wheeze or change CARDIAC: S1, S2. Regular rate and rhythm without murmurs, rubs, or gallops. ABDOMEN: Soft, nontender, and nondistended. no HSM EXTREMITIES: No cyanosis, clubbing, or edema. NEUROLOGIC: Grossly nonfocal. weak reviewed Laboratory Tests 07/28/17 15:01: Vancomycin Level Trough 10.0 07/29/17 09:35: White Blood Count 10.4, Red Blood Count 4.45, Hemoglobin 15.2, Hematocrit 44.5, Mean Corpuscular Volume 100H, Mean Corpuscular Hemoglobin 34.1H, Mean Corpuscular Hemoglobin Concent 34.1, Red Cell Distribution Width 11.6, Platelet Count 202, Mean Platelet Volume 8.6, Neutrophils (%) (Auto) 70.3, Lymphocytes (% ) (Auto) 21.6, Monocytes (%) (Auto) 6.0, Eosinophils (%) (Auto) 1.3, Basophils ( %) (Auto) 0.8, Sodium Level 144, Potassium Level 4.0, Chloride Level 105, Carbon Dioxide Level 28, Anion Gap 11, Blood Urea Nitrogen 8, Creatinine 1.2#, Estimat Glomerular Filtration Rate , Glucose Level 132H, Calcium Level 9.8, Total Bilirubin 0.9, Aspartate Amino Transf (AST/SGOT) 40H, Alanine Aminotransferase (ALT/SGPT) 47, Alkaline Phosphatase 72, Total Protein 8.0, Albumin 3.7, Globulin 4.3, Albumin/Globulin Ratio 0.9L Current Medications Medications (Trade) Dose Ordered Sig/Sushila Route PRN Reason Start Time Stop Time Status Last Admin Dose Admin Amlodipine Besylate (Norvasc) 5 mg DAILY ORAL 07/24/17 09:00 08/23/17 08:59 07/29/17 08:38 Aspirin (ASA) 81 mg DAILY ORAL 07/24/17 09:00 08/23/17 08:59 07/29/17 08:38 Atorvastatin Calcium (Lipitor) 80 mg BEDTIME ORAL 07/23/17 21:00 08/22/17 20:59 07/28/17 21:57 Dextrose (Dextrose 50%) 25 ml STAT PRN IV Hypoglycemia 07/23/17 15:30 08/22/17 15:29 Dextrose (Dextrose 50%) 50 ml STAT PRN IV Hypoglycemia 07/23/17 15:30 08/22/17 15:29 Glipizide (Glucotrol) 5 mg ACBREAKFAST ORAL 07/24/17 06:30 08/23/17 06:29 07/29/17 04:57 Heparin Sodium (Porcine) (Heparin 5000 units/ml) 5,000 units EVERY 12 HOURS SUBQ 07/23/17 21:00 08/22/17 20:59 07/29/17 08:39 Hydralazine HCl (Apresoline) 25 mg Q4H PRN ORAL SBP >160 07/24/17 11:45 08/23/17 11:44 07/27/17 06:19 Insulin Aspart (NovoLOG) BEFORE MEALS AND HS SUBQ 07/23/17 16:30 08/22/17 16:29 07/28/17 23:11 Memantine (Namenda) 5 mg DAILY ORAL 07/24/17 09:00 08/23/17 08:59 07/29/17 08:38 Metformin HCl (Glucophage) 500 mg BID ORAL 07/23/17 18:00 08/22/17 17:59 07/29/17 08:38 Piperacillin Sod/ Tazobactam Sod 3.375 gm/Dextrose 110 ml @ 27.5 mls/hr Q8H IVPB 07/27/17 22:00 07/31/17 23:59 07/29/17 04:57 Sodium Chloride 1,000 ml @ 50 mls/hr Q20H IV 07/26/17 10:00 08/25/17 09:59 07/29/17 05:03 Vancomycin HCl (Vanco rx to dose) 1 ea DAILY PRN MISC Per rx protocol 07/24/17 08:00 08/23/17 07:59 Vancomycin/Sodium Chloride 250 ml @ 166.667 mls/hr Q12HR@0500,1700 IVPB 07/29/17 05:00 08/03/17 04:59 07/29/17 04:56 Salomón Prince MD July 29, 2017 11:38
[2017-07-29 12:00] VITALS: BP 161/75
[2017-07-29] MEDS ORDERED: 1/2 NS 1000ml IV ONE (15:15)
[2017-07-29 16:00] VITALS: BP 144/99
[2017-07-29 20:00] VITALS: BP 157/91
[2017-07-29] MEDS: Atorvastatin 80mg tab ORAL SCH (22:41)
[2017-07-30] VITALS: BP 154/94
[2017-07-30 04:00] VITALS: BP 153/70
[2017-07-30] MEDS ORDERED: Vancomycin 750mg/NS 250ml IVPB SCH (05:00)
[2017-07-30] MEDS: NovoLOG Insulin Flexpen SUBQ SCH ×4 (06:30→21:00)
[2017-07-30] MEDS: Piperacillin/Tazobactam 3.375 GM in D5W 110 ML IVPB SCH ×2 (06:36→18:17)
[2017-07-30] MEDS: GlipiZIDE 5mg tab ORAL SCH (06:46)
[2017-07-30 08:00] VITALS: BP 160/65
--- NOTE | 2017-07-30 08:12 | General Progress Note ---
Assessment/Plan Problem List: (1) Weakness ICD Codes: R53.1 - Weakness SNOMED: 78586193 (2) Altered mental status ICD Codes: R41.82 - Altered mental status, unspecified SNOMED: 327629817 Qualifiers: Qualified Codes: R40.4 - Transient alteration of awareness (3) Abdominal pain ICD Codes: R10.9 - Unspecified abdominal pain SNOMED: 73834782 (4) Toxic metabolic encephalopathy ICD Codes: G92 - Toxic encephalopathy SNOMED: 694252411 (5) Tachy-sandra syndrome ICD Codes: I49.5 - Sick sinus syndrome SNOMED: 80203069 Status: stable, progressing Assessment/Plan pt/ot eval noted d/w niece- pt is too wean to return home tele cards follow up iv abx monitor cxr dc planning snf or aru? family deciding Subjective ROS Limited/Unobtainable: No Constitutional: Reports: malaise, weakness HEENT: Reports: no symptoms Cardiovascular: Reports: no symptoms Respiratory: Reports: cough Gastrointestinal/Abdominal: Reports: no symptoms Genitourinary: Reports: no symptoms Neurologic/Psychiatric: Reports: pre-existing deficit Endocrine: Reports: no symptoms Hematologic/Lymphatic: Reports: no symptoms Allergies: Coded Allergies: No Known Allergies (Unverified , 02/09/14) All Systems: reviewed and negative except above Subjective no more episodes of bradycardia. overall trend is better. no fever or chills. no cough. more alert. BP a little high. Objective Last 24 Hour Vital Signs Date Time Temp Pulse Resp B/P (MAP) Pulse Ox O2 Delivery O2 Flow Rate FiO2 07/30/17 04:00 71 07/30/17 04:00 97.8 67 20 153/70 96 Room Air 97.8 07/30/17 00:00 97.9 76 20 154/94 96 Room Air 97.9 07/30/17 00:00 79 07/29/17 20:00 96 07/29/17 20:00 98.2 96 20 157/91 96 Room Air 98.2 07/29/17 16:00 97.6 96 18 144/99 96 Room Air 97.6 07/29/17 16:00 95 07/29/17 12:00 97.5 70 18 161/75 95 Room Air 97.5 07/29/17 12:00 76 07/29/17 08:38 85 151/72 Intake and Output 07/29/17 07/30/17 19:00 07:00 Intake Total 410 ml 400 ml Output Total 1100 ml Balance -690 ml 400 ml Intake Oral 360 ml IV Total 50 ml 400 ml Output Urine Total 1100 ml # Voids 5 Laboratory Tests 07/29/17 09:35: White Blood Count 10.4, Red Blood Count 4.45, Hemoglobin 15.2, Hematocrit 44.5, Mean Corpuscular Volume 100H, Mean Corpuscular Hemoglobin 34.1H, Mean Corpuscular Hemoglobin Concent 34.1, Red Cell Distribution Width 11.6, Platelet Count 202, Mean Platelet Volume 8.6, Neutrophils (%) (Auto) 70.3, Lymphocytes (% ) (Auto) 21.6, Monocytes (%) (Auto) 6.0, Eosinophils (%) (Auto) 1.3, Basophils ( %) (Auto) 0.8, Sodium Level 144, Potassium Level 4.0, Chloride Level 105, Carbon Dioxide Level 28, Anion Gap 11, Blood Urea Nitrogen 8, Creatinine 1.2#, Estimat Glomerular Filtration Rate , Glucose Level 132H, Calcium Level 9.8, Total Bilirubin 0.9, Aspartate Amino Transf (AST/SGOT) 40H, Alanine Aminotransferase (ALT/SGPT) 47, Alkaline Phosphatase 72, Total Protein 8.0, Albumin 3.7, Globulin 4.3, Albumin/Globulin Ratio 0.9L 07/30/17 04:15: Vancomycin Level Trough 16.7H Height (Feet): 5 Height (Inches): 4.00 Weight (Pounds): 110 Objective General Appearance: WD/WN, alert Neck: supple Cardiovascular: normal rate, regular rhythm Respiratory/Chest: chest wall non-tender, lungs clear, normal breath sounds Abdomen: normal bowel sounds, non tender, soft, no mass Edema: no edema noted Arm (L), no edema noted Arm (R), no edema noted Leg (L), no edema noted Leg (R), no edema noted Pedal (L), no edema noted Pedal (R), no edema noted Generalized SUSSY BALDERAS July 30, 2017 08:12
--- NOTE | 2017-07-30 09:11 | Pulmonology Progress Note ---
Assessment/Plan Assessment/Plan IMPRESSION: Pneumonia, possible aspiration, pulmonary congestion, toxic metabolic encephalopathy, dementia, diabetes, hypertension. PLAN care noted antibiotics noted imaging noted; repeat oxygen stable respiratory care- no changes needed maintain meds as is elevate head dc planning impression, plan, and exam edited and reviewed in detail care discussed with RN Subjective ROS Limited/Unobtainable: Yes Allergies: Coded Allergies: No Known Allergies (Unverified , 02/09/14) Subjective care noted no distress overnight slight congestion noted weak plans for snf dc Objective Last 24 Hour Vital Signs Date Time Temp Pulse Resp B/P (MAP) Pulse Ox O2 Delivery O2 Flow Rate FiO2 07/30/17 04:00 71 07/30/17 04:00 97.8 67 20 153/70 96 Room Air 97.8 07/30/17 00:00 97.9 76 20 154/94 96 Room Air 97.9 07/30/17 00:00 79 07/29/17 20:00 96 07/29/17 20:00 98.2 96 20 157/91 96 Room Air 98.2 07/29/17 16:00 97.6 96 18 144/99 96 Room Air 97.6 07/29/17 16:00 95 07/29/17 12:00 97.5 70 18 161/75 95 Room Air 97.5 07/29/17 12:00 76 Intake and Output 07/29/17 07/30/17 19:00 07:00 Intake Total 410 ml 400 ml Output Total 1100 ml Balance -690 ml 400 ml Intake Oral 360 ml IV Total 50 ml 400 ml Output Urine Total 1100 ml # Voids 5 Objective HEENT: Negative. NECK: Supple. LUNGS: Moderate breath sounds. occasional rhonchi. no wheeze or change CARDIAC: S1, S2. Regular rate and rhythm without murmurs, rubs, or gallops. ABDOMEN: Soft, nontender, and nondistended. no HSM EXTREMITIES: No cyanosis, clubbing, or edema. NEUROLOGIC: Grossly nonfocal. weak reviewed Laboratory Tests 07/29/17 09:35: White Blood Count 10.4, Red Blood Count 4.45, Hemoglobin 15.2, Hematocrit 44.5, Mean Corpuscular Volume 100H, Mean Corpuscular Hemoglobin 34.1H, Mean Corpuscular Hemoglobin Concent 34.1, Red Cell Distribution Width 11.6, Platelet Count 202, Mean Platelet Volume 8.6, Neutrophils (%) (Auto) 70.3, Lymphocytes (% ) (Auto) 21.6, Monocytes (%) (Auto) 6.0, Eosinophils (%) (Auto) 1.3, Basophils ( %) (Auto) 0.8, Sodium Level 144, Potassium Level 4.0, Chloride Level 105, Carbon Dioxide Level 28, Anion Gap 11, Blood Urea Nitrogen 8, Creatinine 1.2#, Estimat Glomerular Filtration Rate , Glucose Level 132H, Calcium Level 9.8, Total Bilirubin 0.9, Aspartate Amino Transf (AST/SGOT) 40H, Alanine Aminotransferase (ALT/SGPT) 47, Alkaline Phosphatase 72, Total Protein 8.0, Albumin 3.7, Globulin 4.3, Albumin/Globulin Ratio 0.9L 07/30/17 04:15: Vancomycin Level Trough 16.7H Current Medications Medications (Trade) Dose Ordered Sig/Sushila Route PRN Reason Start Time Stop Time Status Last Admin Dose Admin Amlodipine Besylate (Norvasc) 5 mg DAILY ORAL 07/24/17 09:00 08/23/17 08:59 07/29/17 08:38 Aspirin (ASA) 81 mg DAILY ORAL 07/24/17 09:00 08/23/17 08:59 07/29/17 08:38 Atorvastatin Calcium (Lipitor) 80 mg BEDTIME ORAL 07/23/17 21:00 08/22/17 20:59 07/29/17 22:41 Dextrose (Dextrose 50%) 25 ml STAT PRN IV Hypoglycemia 07/23/17 15:30 08/22/17 15:29 Dextrose (Dextrose 50%) 50 ml STAT PRN IV Hypoglycemia 07/23/17 15:30 08/22/17 15:29 Glipizide (Glucotrol) 5 mg ACBREAKFAST ORAL 07/24/17 06:30 08/23/17 06:29 07/30/17 06:46 Heparin Sodium (Porcine) (Heparin 5000 units/ml) 5,000 units EVERY 12 HOURS SUBQ 07/23/17 21:00 08/22/17 20:59 07/29/17 22:42 Hydralazine HCl (Apresoline) 25 mg Q4H PRN ORAL SBP >160 07/24/17 11:45 08/23/17 11:44 07/27/17 06:19 Insulin Aspart (NovoLOG) BEFORE MEALS AND HS SUBQ 07/23/17 16:30 08/22/17 16:29 07/29/17 22:46 Memantine (Namenda) 5 mg DAILY ORAL 07/24/17 09:00 08/23/17 08:59 07/29/17 08:38 Metformin HCl (Glucophage) 500 mg BID ORAL 07/23/17 18:00 08/22/17 17:59 07/29/17 17:05 Piperacillin Sod/ Tazobactam Sod 3.375 gm/Dextrose 110 ml @ 27.5 mls/hr Q12HR@0600,1800 IVPB 07/29/17 18:00 08/05/17 17:59 07/30/17 06:36 Sodium Chloride 1,000 ml @ 50 mls/hr Q20H IV 07/26/17 10:00 08/25/17 09:59 07/30/17 06:47 Vancomycin HCl (Vanco rx to dose) 1 ea DAILY PRN MISC Per rx protocol 07/24/17 08:00 08/23/17 07:59 Vancomycin/Sodium Chloride 250 ml @ 166.667 mls/hr Q24H IVPB 07/30/17 05:00 08/04/17 04:59 07/30/17 05:00 Salomón Prince MD July 30, 2017 09:11
[2017-07-30] MEDS: metFORMIN 500mg tab ORAL SCH ×3 (09:17→18:16)
[2017-07-30] MEDS: Aspirin Baby 81mg ORAL SCH (09:17)
[2017-07-30] MEDS: Memantine 10mg tab ORAL SCH (09:17)
[2017-07-30] MEDS: Heparin 5000 units/ml inj SUBQ SCH ×2 (09:19→21:11)
--- NOTE | 2017-07-30 10:30 | Progress Note ---
DATE: 07/29/2017 CARDIOLOGY PROGRESS NOTE SUBJECTIVE: Monitored rhythm sinus. No significant bradyarrhythmia was noted. The patient is alert with no chest pain, no shortness of breath. Tolerating diet. OBJECTIVE: VITAL SIGNS: Blood pressure 147/74, pulse 75, and respiratory rate 19. LUNGS: Few rhonchi. HEART: Regular rhythm and rate. Normal S1 and S2 with a fourth heart sound. ABDOMEN: Soft. EXTREMITIES: No edema. LABORATORY DATA: White count 10 and hemoglobin 15. Sodium 144, potassium 4, BUN 8, and creatinine 1.2. Albumin 3.7. IMPRESSION: 1. Pneumonia, improved. 2. Sinus bradycardia, resolving. 3. Sinus node disease, asymptomatic. 4. Hypertensive heart disease with controlled blood pressure. PLAN: 1. Plan of care in place. 2. Anticipate discharge on oral therapy. 3. We will review final care plan with primary care physician. 4. Presently, no indication for permanent pacemaker or additional antiarrhythmics. Benjie Quiñones M.D. DR: ALONZO JOB#: [id number] CC:
[2017-07-30 12:00] VITALS: BP 166/74
[2017-07-30 14:58] LABS: CREATININE 1.1 MG/DL (0.55-1.30)
[2017-07-30 16:00] VITALS: BP 160/77
[2017-07-30] MEDS: HydrALAZINE 25mg tab ORAL PRN (18:17)
[2017-07-30] MEDS ORDERED: 1/2 NS 1000ml IV ONE (19:55)
[2017-07-30] MEDS ORDERED: NS 275ml ONE (19:55)
[2017-07-30 20:00] VITALS: BP 135/67
[2017-07-30] MEDS: Atorvastatin 80mg tab ORAL SCH ×2 (21:00→21:09)
[2017-07-31] VITALS: BP 149/89
--- NOTE | 2017-07-31 02:00 | Progress Note ---
DATE: 07/30/2017 CARDIOLOGY PROGRESS NOTE SUBJECTIVE: No chest pain. No shortness of breath. Monitored rhythm sinus and sinus bradycardia. No pauses. Heart rate now stabilized. She is refusing meds at times and has a poor appetite. OBJECTIVE: LUNGS: Clear with rare rhonchi. CARDIAC: Regular rhythm and rate. Normal S1, S2 with a fourth heart sound. ABDOMEN: Soft and nontender. EXTREMITIES: With no edema. NEUROLOGIC: Muscle strength is diminished. LABORATORY DATA: Labs from 07/29/2017 were reviewed. Creatinine is 1.1 today. IMPRESSION: 1. Sinus node disease with no signs of hemodynamically significant bradycardia. 2. Hypertensive heart disease with controlled blood pressure. 3. Pneumonia, improved. 4. Functional decline with poor appetite. 5. Hypertensive heart disease with controlled blood pressure. PLAN: 1. Stable for rehabilitation on current medication regimen. No indication for pacemaker. 2. Discharge medication regimen reviewed and reconciled. 3. Outpatient follow up discussed. 4. Once more stable, may consider exercise stress test to further evaluate chronotropic competence. 5. Consider swallow eval; CT abdomen/pelvis pending. Benjie Quiñones M.D. DR: DALE JOB#: [id number] CC: SUZAN
[2017-07-31 04:00] VITALS: BP 149/60
[2017-07-31] MEDS ORDERED: Vancomycin 750mg/NS 250ml 250 ML IVPB SCH (05:00)
[2017-07-31] MEDS: NovoLOG Insulin Flexpen SUBQ SCH ×2 (06:14→11:30)
[2017-07-31] MEDS ORDERED: GlipiZIDE 5mg tab ORAL SCH (06:30)
[2017-07-31] MEDS: Piperacillin/Tazobactam 3.375 GM in D5W 110 ML IVPB SCH (06:34)
[2017-07-31 08:00] VITALS: BP 160/70
--- NOTE | 2017-07-31 08:18 | General Progress Note ---
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 - Sick sinus syndrome SNOMED: 60224519 Status: stable Assessment/Plan pt/ot eval noted d/w niece- pt is too wean to return home tele cards follow up iv abx CT abd dc if ct negative Subjective ROS Limited/Unobtainable: No Constitutional: Reports: malaise, weakness HEENT: Reports: no symptoms Cardiovascular: Reports: no symptoms Respiratory: Reports: no symptoms Gastrointestinal/Abdominal: Reports: poor appetite Genitourinary: Reports: no symptoms Neurologic/Psychiatric: Reports: no symptoms Endocrine: Reports: no symptoms Hematologic/Lymphatic: Reports: no symptoms Allergies: Coded Allergies: No Known Allergies (Unverified , 02/09/14) All Systems: reviewed and negative except above Subjective no events. dc held because of family concern about poor po intake and abd pain. per pt just "doesnt like the food." Objective Last 24 Hour Vital Signs Date Time Temp Pulse Resp B/P (MAP) Pulse Ox O2 Delivery O2 Flow Rate FiO2 07/31/17 04:00 98.1 54 19 149/60 93 Room Air 98.1 07/31/17 00:00 97.4 72 19 149/89 94 Room Air 97.4 07/30/17 20:00 98.0 69 19 135/67 95 Room Air 98.0 07/30/17 18:17 168/76 07/30/17 16:00 97.8 54 16 160/77 96 Room Air 97.8 07/30/17 12:00 52 07/30/17 12:00 97.3 52 16 166/74 96 Room Air 97.3 07/30/17 09:18 56 160/65 Intake and Output 07/30/17 07/31/17 19:00 07:00 Intake Total 170 ml 610.000 ml Output Total 700 ml Balance -530 ml 610.000 ml Intake Oral 120 ml IV Total 50 ml 610.000 ml Output Urine Total 700 ml # Voids 2 Height (Feet): 5 Height (Inches): 4.00 Weight (Pounds): 123 Objective General Appearance: WD/WN, alert Neck: supple Cardiovascular: normal rate, regular rhythm Respiratory/Chest: chest wall non-tender, lungs clear, normal breath sounds Abdomen: normal bowel sounds, non tender, soft, no mass Edema: no edema noted Arm (L), no edema noted Arm (R), no edema noted Leg (L), no edema noted Leg (R), no edema noted Pedal (L), no edema noted Pedal (R), no edema noted Generalized SUSSY BALDERAS July 31, 2017 08:18
--- NOTE | 2017-07-31 08:42 | Pulmonology Progress Note ---
Assessment/Plan Assessment/Plan IMPRESSION: Pneumonia, possible aspiration, pulmonary congestion, toxic metabolic encephalopathy, dementia, diabetes, hypertension. PLAN await CT abdomen care noted antibiotics per ID imaging noted; monitor for clearing oxygen stable respiratory care- no changes needed maintain meds as is elevate head dc planning to SNF for short term rehab impression, plan, and exam edited and reviewed in detail care discussed with RN Subjective ROS Limited/Unobtainable: Yes Allergies: Coded Allergies: No Known Allergies (Unverified , 02/09/14) Subjective care noted no distress overnight awaiting CT Objective Last 24 Hour Vital Signs Date Time Temp Pulse Resp B/P (MAP) Pulse Ox O2 Delivery O2 Flow Rate FiO2 07/31/17 04:00 98.1 54 19 149/60 93 Room Air 98.1 07/31/17 00:00 97.4 72 19 149/89 94 Room Air 97.4 07/30/17 20:00 98.0 69 19 135/67 95 Room Air 98.0 07/30/17 18:17 168/76 07/30/17 16:00 97.8 54 16 160/77 96 Room Air 97.8 07/30/17 12:00 52 07/30/17 12:00 97.3 52 16 166/74 96 Room Air 97.3 07/30/17 09:18 56 160/65 Intake and Output 07/30/17 07/31/17 19:00 07:00 Intake Total 170 ml 610.000 ml Output Total 700 ml Balance -530 ml 610.000 ml Intake Oral 120 ml IV Total 50 ml 610.000 ml Output Urine Total 700 ml # Voids 2 Objective HEENT: Negative. NECK: Supple. LUNGS: Moderate breath sounds. minimal rhonchi. no wheeze or change CARDIAC: S1, S2. Regular rate and rhythm without murmurs, rubs, or gallops. ABDOMEN: Soft, nontender, and nondistended. no HSM EXTREMITIES: No cyanosis, clubbing, or edema. NEUROLOGIC: Grossly nonfocal. weak reviewed Current Medications Medications (Trade) Dose Ordered Sig/Sushila Route PRN Reason Start Time Stop Time Status Last Admin Dose Admin Amlodipine Besylate (Norvasc) 5 mg DAILY ORAL 07/31/17 09:00 08/23/17 08:59 Aspirin (ASA) 81 mg DAILY ORAL 07/31/17 09:00 08/23/17 08:59 Atorvastatin Calcium (Lipitor) 80 mg BEDTIME ORAL 07/30/17 21:00 08/22/17 20:59 Dextrose (Dextrose 50%) 25 ml STAT PRN IV Hypoglycemia 07/30/17 15:30 08/22/17 15:29 Dextrose (Dextrose 50%) 50 ml STAT PRN IV Hypoglycemia 07/30/17 15:30 08/22/17 15:29 Glipizide (Glucotrol) 5 mg ACBREAKFAST ORAL 07/31/17 06:30 08/23/17 06:29 Heparin Sodium (Porcine) (Heparin 5000 units/ml) 5,000 units EVERY 12 HOURS SUBQ 07/30/17 21:00 08/22/17 20:59 07/30/17 21:11 Hydralazine HCl (Apresoline) 25 mg Q4H PRN ORAL SBP >160 07/30/17 15:45 08/23/17 11:44 07/30/17 18:17 Insulin Aspart (NovoLOG) BEFORE MEALS AND HS SUBQ 07/30/17 16:30 08/22/17 16:29 Memantine (Namenda) 5 mg DAILY ORAL 07/31/17 09:00 08/23/17 08:59 Metformin HCl (Glucophage) 500 mg BID ORAL 07/30/17 18:00 08/22/17 17:59 Piperacillin Sod/ Tazobactam Sod 3.375 gm/Dextrose 110 ml @ 27.5 mls/hr Q12HR@0600,1800 IVPB 07/30/17 18:00 08/05/17 17:59 07/31/17 06:34 Sodium Chloride 1,000 ml @ 50 mls/hr Q20H IV 07/30/17 15:30 08/25/17 09:59 07/30/17 17:21 Vancomycin HCl (Vanco rx to dose) 1 ea DAILY PRN MISC Per rx protocol 07/31/17 09:00 08/23/17 07:59 Vancomycin/Sodium Chloride 250 ml @ 166.667 mls/hr Q24H IVPB 07/31/17 05:00 08/04/17 04:59 07/31/17 04:23 Salomón Prince MD July 31, 2017 08:42
[2017-07-31] MEDS: Heparin 5000 units/ml inj SUBQ SCH (08:51)
[2017-07-31] MEDS: metFORMIN 500mg tab ORAL SCH (08:51)
[2017-07-31] MEDS ORDERED: Aspirin Baby 81mg ORAL SCH (09:00)
[2017-07-31] MEDS ORDERED: Memantine 5 MG TAB ORAL SCH (09:00)
--- NOTE | 2017-07-31 11:17 | Diagnostic Imaging Report ---
Indication: Abdominal pain Technique: Continuous helical transaxial imaging of the abdomen and pelvis was obtained from the lung bases to the pubic symphysis. No intravenous contrast was administered. Coronal 2-D reformats were also obtained. Automatic Exposure Control was utilized. Total Dose length Product (DLP): 558.[address] Dose Index Volume (CTDIvol): 10.48 mGy Comparison: January 02, 2017 Findings: Generalized cardiomegaly noted. The coronary and calcification of aorta demonstrated. Mild basal atelectasis is present. The current study is limited by the absence of intravenous contrast. A cystic lesion previously seen in the pancreas is not readily appreciated. The kidneys show no evidence of nephrolithiasis or hydronephrosis. The appendix appears normal. There is no evidence of bowel obstruction. There are calcified uterine fibroids. Pins noted in the right hip. There is no free fluid. The bladder is mostly nondistended. Degenerative changes of the lumbar spine are demonstrated. Small hiatal hernia noted. IMPRESSION: Limited study due to the lack of intravenous contrast material and insufficient oral contrast material. Atherosclerotic disease Basilar atelectasis Normal appendix Multiple other incidental findings as above The CT scanner at [facility] is accredited by the [employer] and the scans are performed using dose optimization techniques as appropriate to a performed exam including Automatic Exposure control.
[2017-07-31 12:00] VITALS: BP 165/71
[2017-07-31] MEDS: HydrALAZINE 25mg tab ORAL PRN (12:20)
[2017-07-31 15:55] VITALS: BP 152/77
[2017-07-31] MEDS ORDERED: VANCOCIN250 MG IVPB (16:18)
[2017-07-31] MEDS ORDERED: ZOSYN 3.373.375 GM/1 IVPB ×2 (16:19→16:24)
[2017-07-31] MEDS ORDERED: VANCOMYCIN1 GM/200 M IVPB (16:23)
--- NOTE | 2017-07-31 23:15 | Progress Note ---
DATE: 07/31/2017 CARDIOLOGY PROGRESS NOTE SUBJECTIVE: The patient has no new complaints. LABORATORY AND DIAGNOSTIC DATA: CAT scan of the abdomen revealed no acute findings. The patient is back on a diet. She is being considered for appetite stimulant. PHYSICAL EXAMINATION: VITAL SIGNS: Blood pressure 152/77, pulse 58, and respirations 18. Monitor, sinus bradycardia. Oxygen saturation on room air 93% to 95%. LUNGS: Clear. CARDIAC: Regular. Slow S1 and S2. No new murmur. ABDOMEN: Soft. No focal tenderness. Slightly distended. EXTREMITIES: Without edema. IMPRESSION: 1. Sinus node disease. 2. Asymptomatic sinus bradycardia. 3. Toxic and metabolic encephalopathies, resolving. 4. Community-acquired pneumonia. 5. Aspiration risk. 6. Acute on chronic diastolic congestive heart failure, compensated. PLAN: 1. Nutritional support. 2. Rehabilitation plan noted at [facility]. 3. No indication for pacemaker at this time. 4. Continue current cardiovascular regimen without change. Benjie Quiñones M.D. DR: DALE JOB#: [id number] CC:
--- NOTE | 2017-08-02 14:16 | Discharge Summary ---
Discharge Summary Discharge Summary _ DATE OF ADMISSION: 07/23/2017 DATE OF DISCHARGE: 07/31/2017 CONSULTANTS: Dr. Benjie Prince BRIEF HOSPITAL COURSE: Patient is an 87-year-old female, with history of dementia, hypertension and hypertensive heart disease. She had a prior history of C. difficile colitis and diabetes. She was transferred from home with complaints of altered mental status. On evaluation at ED, blood sugar was normal. Blood work showed mild dehydration and hyponatremia. She had a chest x-ray that showed possible right upper lobe infiltrate. She was then admitted for sepsis, pneumonia and encephalopathy. She was given respiratory care and was placed on prn. She was given Zosyn and IV vancomycin. Repeat chest x-ray showed improvement in aeration in bilateral lungs. Patient was bradycardic. EKGs showed sinus bradycardia with right bundle branch block. She was symptomatic. TSH was normal. Troponin was negative. She was given IV fluid hydration. She was given potassium replacements. Blood pressure was stable on amlodipine 5 mg daily. She was also given Lipitor 80 mg daily at bedtime. She was cleared for discharge on 07/30/17, however, DC was held as patient complained of abdominal pain and did not tolerate diet. Abdominal CT of the abdomen revealed no acute findings. She was resumed on diet and was eventually cleared for discharge. FINAL DIAGNOSES: Toxic metabolic encephalopathy Pneumonia, possible aspiration Acute and diastolic congestive heart failure, compensated Sinus node disease Asymptomatic bradycardia Dementia Pulmonary congestion Hypertension DISPOSITION: Patient was discharged to [facility] acute rehabilitation unit. DISCHARGE MEDICATIONS: Refer to Discharge Medication List. I have been assigned to dictate discharge summary on this account, and I was not involved in the patient's management. Krysta Barker NP Aug 02, 2017 14:16
== END 2017-07-31 17:54 | DRG 193 ==
LOC: EDBD 11:01 → EMR 11:24 → 2E 11:35 → EDBEDREQ 11:58 → 2E 07-24 17:45 → 4E 07-30 15:10
DX: J18.9 Pneumonia, unspecified organism (principal); G93.41 Metabolic encephalopathy; I50.33 Acute on chronic diastolic (congestive) heart failure; E87.0 Hyperosmolality and hypernatremia; E86.0 Dehydration; I49.5 Sick sinus syndrome; F01.50 Vascular dementia, unspecified severity, without behavioral disturbance, psychotic disturbance, mood disturbance, and anxiety; Z86.73 Personal history of transient ischemic attack (TIA), and cerebral infarction without residual deficits; E11.65 Type 2 diabetes mellitus with hyperglycemia; D75.1 Secondary polycythemia; I11.0 Hypertensive heart disease with heart failure; E87.6 Hypokalemia; E78.5 Hyperlipidemia, unspecified; R00.1 Bradycardia, unspecified
CPT/HCPCS: 36415; 71045; 74176; 74230; 80048; 80053; 80061; 80202; 80307; 80329; 81003; 82140; 82248; 82550; 82565; 82607; 82746; 82962; 83735; 84443; 84484; 85025; 93005; 93306; 99285; J1815; J8499

== ENCOUNTER 2018-03-06 17:26 | Emergency (ER) | payer MEDICARE ==
[~2018-03-06] VITALS: Ht 160 cm; Wt 54.4 kg
[~2018-03-06 17:26] MED LIST changes: +VANCOCIN250 MG IVPB; +VANCOMYCIN1 GM/200 M IVPB; +ZOSYN 3.373.375 GM/1 IVPB
[2018-03-06] MEDS: Acetaminophen 500mg (ES) tab ORAL ONE (18:09)
[2018-03-06 18:37] LABS: EOSINOPHILS % (AUTO) 2.1 % (0.0-3.0); HEMATOCRIT 47.2 % (37.0-47.0); HEMOGLOBIN 15.8 G/DL (12.0-16.0); LYMPHOCYTES % (AUTO) 32.1 % (20.0-45.0); MEAN CORPUSCULAR VOLUME 101 FL (80-99); MONOCYTES % (AUTO) 7.6 % (1.0-10.0); NEUTROPHILS % (AUTO) 57.2 % (45.0-75.0); PLATELET COUNT 204 K/UL (150-450); RED BLOOD COUNT 4.67 M/UL (4.20-5.40); RED CELL DISTRIBUTION WIDTH 11.6 % (11.6-14.8); WHITE BLOOD COUNT 11.4 K/UL (4.8-10.8)
[2018-03-06 18:45] LABS: ANION GAP 10 mmol/L (5-15); BLOOD UREA NITROGEN 23 mg/dL (7-18); CALCIUM 10.2 MG/DL (8.5-10.1); CARBON DIOXIDE 26 MMOL/L (21-32); CHLORIDE 104 MMOL/L (98-107); CREATININE 0.8 MG/DL (0.55-1.30); POTASSIUM 4.8 MMOL/L (3.5-5.1); SODIUM 140 MMOL/L (136-145)
[2018-03-06 19:00] LABS: ALANINE AMINOTRANSFERASE 22 U/L (12-78); ALBUMIN 3.8 G/DL (3.4-5.0); ALBUMIN/GLOBULIN RATIO 0.9 (1.0-2.7); ALKALINE PHOSPHATASE 83 U/L (46-116); ASPARTATE AMINO TRANSFERASE 20 U/L (15-37); BILIRUBIN,TOTAL 0.6 MG/DL (0.2-1.0); CKMB 64.2 NG/ML (0.0-3.6); CREATINE KINASE 39 U/L (26-308)
[2018-03-06 19:21] VITALS: BP 156/73
[2018-03-06 20:32] LABS: APPEARANCE,URINE CLOUDY; BILIRUBIN, URINE NEGATIVE (NEGATIVE); GLUCOSE, URINE (UA) NEGATIVE (NEGATIVE); KETONES,URINE 1+ (NEGATIVE); LEUKOCYTE ESTERASE ,URINE 1+ (NEGATIVE); NITRITE,URINE POSITIVE (NEGATIVE); PH,URINE 6.5 (4.5-8.0); PROTEIN,URINE 1+ (NEGATIVE); UROBILINOGEN,URINE NORMAL MG/DL (0.0-1.0)
[2018-03-06 20:33] LABS: COLOR,URINE YELLOW
[2018-03-06] MEDS: Cephalexin 500mg cap ORAL ONE (21:01)
[2018-03-06] MEDS ORDERED: CEPHALEXIN500 MG ORAL (21:05)
[2018-03-06] MEDS ORDERED: LOSARTAN POTAS100 MG ORAL (21:06)
[2018-03-06 21:10] VITALS: BP 156/73
--- NOTE | 2018-03-06 21:58 | Emergency Room Report ---
History of Present Illness General Chief Complaint: General Complaint Source: Family Member, Medical Record Present Illness HPI 87-year-old female presents ED for evaluation. Brought in by EMS from home. Complaining of "pain" 1 day. Initially told EMS that she's having right-sided hip pain. Denies any recent fall or injury. Denies chest pain or shortness of breath. Denies fevers or chills. BP also high as per EMS. Given BP meds prior to arrival . No other aggravating relieving factors. Denies any other associated symptoms Allergies: Coded Allergies: No Known Allergies (Unverified , 02/09/14) Patient History Past Medical History: DM, HTN, dementia Past Surgical History: none Pertinent Family History: none Social History: Denies: smoking, alcohol use, drug use Now: No Immunizations: UTD Reviewed Nursing Documentation: PMH: Agreed; PSxH: Agreed Nursing Documentation-PMH Hx Cardiac Problems: Yes - HYPERLIPIDEMIA Hx Hypertension: Yes Hx Diabetes: Yes Hx Cancer: No Hx Gastrointestinal Problems: No Hx Neurological Problems: Yes Hx Cerebrovascular Accident: No Hx Transient Ischemic Attacks: No Hx Dementia: Yes Review of Systems All Other Systems: negative except mentioned in HPI Physical Exam Vital Signs Date Time Temp Pulse Resp B/P (MAP) Pulse Ox O2 Delivery O2 Flow Rate FiO2 03/06/18 17:24 98.2 79 16 107/86 96 Room Air Sp02 EP Interpretation: reviewed, normal General Appearance: no apparent distress, alert, GCS 15, non-toxic Head: normocephalic, atraumatic Eyes: bilateral eye normal inspection, bilateral eye PERRL ENT: hearing grossly normal, normal pharynx, no angioedema, normal voice Neck: full range of motion, supple/symm/no masses Respiratory: chest non-tender, lungs clear, normal breath sounds, speaking full sentences Cardiovascular #1: regular rate, rhythm, no edema Cardiovascular #2: 2+ carotid (R), 2+ carotid (L), 2+ radial (R), 2+ radial (L) , 2+ dorsalis pedis (R), 2+ dorsalis pedis (L) Gastrointestinal: normal bowel sounds, non tender, soft, non-distended, no guarding, no rebound Rectal: deferred Genitourinary: normal inspection, no CVA tenderness Musculoskeletal: back normal, gait/station normal, tender - R hip Neurologic: alert, oriented x3, responsive, motor strength/tone normal, sensory intact, speech normal Psychiatric: judgement/insight normal, memory normal, mood/affect normal, no suicidal/homicidal ideation Reflexes: 3+ bicep (R), 3+ bicep (L), 3+ tricep (R), 3+ tricep (L), 3+ knee (R) , 3+ knee (L) Skin: normal color, no rash, warm/dry, well hydrated Lymphatic: no adenopathy Medical Decision Making Diagnostic Impression: Primary Impression: UTI (urinary tract infection) Qualified Codes: N39.0 - Urinary tract infection, site not specified Additional Impressions: Hip pain Qualified Codes: M25.551 - Pain in right hip Hypertension ER Course Hospital Course 87 yo F presents to EX c/o R hip pain. also c/o hig BP Differential diagnoses include: arrythmia, dehydration, intracranial bleed, seizure Clinical course Patient placed on stretcher. on site monitor. After initial history and physical I ordered labs, EKG, chest Xray, CT head and CT Pelvis labs reviewed- minimal leukocytosis, Hb/Hct stable, electrolytes ok, UA + bacteria CT Brain - unremarkable Chest x-ray- no acute process EKG - NSR no acute ischemic changes interpreted by me CT Pelvis - s/p R femur neck fixation Given Keflex in ED. On reassessment blood pressure improved. Discussed findings with daughter who is at bedside. Patient is refill of her losartan. PMD is Dr. Rosario; they'll follow-up as outpatient I. I feel this is a highly complex case requiring extensive working including EKG/Rhythm strip, Xray/CT/US, Blood/urine lab work, repeat exams while in ED, and administration of strong opiates/narcotics for pain control, admission to hospital or close patient follow up. Diagnosis - UTI, hip pain, hypertension Stable and discharged to home with Rx Keflex, Losartan. Followup with PMD. Return to ED if symptoms recur or worsen Labs Test 03/06/18 18:15 03/06/18 20:00 White Blood Count 11.4 K/UL (4.8-10.8) Red Blood Count 4.67 M/UL (4.20-5.40) Hemoglobin 15.8 G/DL (12.0-16.0) Hematocrit 47.2 % (37.0-47.0) Mean Corpuscular Volume 101 FL (80-99) Mean Corpuscular Hemoglobin 33.8 PG (27.0-31.0) Mean Corpuscular Hemoglobin Concent 33.4 G/DL (32.0-36.0) Red Cell Distribution Width 11.6 % (11.6-14.8) Platelet Count 204 K/UL (150-450) Mean Platelet Volume 9.4 FL (6.5-10.1) Neutrophils (%) (Auto) 57.2 % (45.0-75.0) Lymphocytes (%) (Auto) 32.1 % (20.0-45.0) Monocytes (%) (Auto) 7.6 % (1.0-10.0) Eosinophils (%) (Auto) 2.1 % (0.0-3.0) Basophils (%) (Auto) 1.0 % (0.0-2.0) Sodium Level 140 MMOL/L (136-145) Potassium Level 4.8 MMOL/L (3.5-5.1) Chloride Level 104 MMOL/L (98-107) Carbon Dioxide Level 26 MMOL/L (21-32) Anion Gap 10 mmol/L (5-15) Blood Urea Nitrogen 23 mg/dL (7-18) Creatinine 0.8 MG/DL (0.55-1.30) Estimat Glomerular Filtration Rate mL/min (>60) Glucose Level 131 MG/DL (74-106) Calcium Level 10.2 MG/DL (8.5-10.1) Total Bilirubin 0.6 MG/DL (0.2-1.0) Aspartate Amino Transf (AST/SGOT) 20 U/L (15-37) Alanine Aminotransferase (ALT/SGPT) 22 U/L (12-78) Alkaline Phosphatase 83 U/L (46-116) Total Creatine Kinase 39 U/L (26-308) Creatine Kinase MB 64.2 NG/ML (0.0-3.6) Creatine Kinase MB Relative Index 164.6 Troponin I 0.000 ng/mL (0.000-0.056) Total Protein 8.2 G/DL (6.4-8.2) Albumin 3.8 G/DL (3.4-5.0) Globulin 4.4 g/dL Albumin/Globulin Ratio 0.9 (1.0-2.7) Urine Color Yellow Urine Appearance Cloudy Urine pH 6.5 (4.5-8.0) Urine Specific [place] 1.015 (1.005-1.035) Urine Protein 1+ (NEGATIVE) Urine Glucose (UA) Negative (NEGATIVE) Urine Ketones 1+ (NEGATIVE) Urine Blood 1+ (NEGATIVE) Urine Nitrite Positive (NEGATIVE) Urine Bilirubin Negative (NEGATIVE) Urine Urobilinogen Normal MG/DL (0.0-1.0) Urine Leukocyte Esterase 1+ (NEGATIVE) Urine RBC 2-4 /HPF (0 - 2) Urine WBC 10-15 /HPF (0 - 2) Urine Squamous Epithelial Cells Occasional /LPF Urine Bacteria Many /HPF (NONE) EKG Diagnostic Results Rate: normal Rhythm: NSR ST Segments: no acute changes ASA given to the pt in ED: No Rhythm Strip Diag. Results EP Interpretation: yes Rhythm: NSR, no PVC's, no ectopy Chest X-Ray Diagnostic Results Chest X-Ray Diagnostic Results : Chest X-Ray Ordered: Yes # of Views/Limited/Complete: 1 View Indication: Chest Pain EP Interpretation: Yes Interpretation: no effusion, no pneumothorax, no acute cardiopulmonary disease Impression: No acute disease Electronically Signed by: Electronically signed by Tristin Sim MD CT/MRI/US Diagnostic Results CT/MRI/US Diagnostic Results #1: Imaging Test Ordered: CT Head Impression no acute process CT/MRI/US Diagnostic Results #2: Imaging Test Ordered: CT Pelvis Impression no acute fx. s/p R femur surgical neck fixation Last Vital Signs Date Time Temp Pulse Resp B/P (MAP) Pulse Ox O2 Delivery O2 Flow Rate FiO2 03/06/18 19:22 72 16 Room Air 03/06/18 19:21 98.2 156/73 96 Status: improved Disposition: HOME, SELF-CARE Condition: Stable Scripts Losartan Potassium (LOSARTAN POTASSIUM) 100 Mg Tablet 100 MG ORAL DAILY for 30 Days, TAB Prov: Tristin Sim MD 03/06/18 Cephalexin* (KEFLEX*) 500 Mg Capsule 500 MG ORAL EVERY 6 HOURS for 7 Days, CAP Prov: Tristin Sim MD 03/06/18 Patient Instructions: Dysuria Tristin Sim MD Mar 06, 2018 21:58
--- NOTE | 2018-03-07 15:51 | Diagnostic Imaging Report ---
EXAM: CT Head Without Intravenous Contrast CLINICAL HISTORY: PAIN TECHNIQUE: Axial computed tomography images of the head/brain without intravenous contrast. CTDI is 70 mGy and DLP is 1456 mGy-cm. One or more of the following dose reduction techniques were used: automated exposure control, adjustment of the mA and/or kV according to patient size, use of iterative reconstruction technique. COMPARISON: 10/16/2014. FINDINGS: Brain: No acute intracranial hemorrhage or cortical ischemia. Chronic small vessel ischemic changes. 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 Ventricles: Unremarkable. No ventriculomegaly. Bones/joints: Unremarkable. No acute fracture. Soft tissues: Unremarkable. Sinuses: Right ethmoid sinus polyp or retention cyst. Mastoid air cells: Unremarkable as visualized. IMPRESSION: No acute intracranial hemorrhage or cortical ischemia. Chronic small vessel ischemic changes.
--- NOTE | 2018-03-07 15:51 | Diagnostic Imaging Report ---
EXAM: XR Chest, 1 View CLINICAL HISTORY: WEAK TECHNIQUE: Frontal view of the chest. COMPARISON: 07/26/2017. FINDINGS: Limitations: Limited due to hypoventilation. Lungs: Possible mild pulmonary vascular congestion, versus hypoventilation. Pleural space: Unremarkable. No pneumothorax. Heart: Cardiomegaly. Mediastinum: Unremarkable. Bones/joints: Unremarkable. IMPRESSION: Possible mild pulmonary vascular congestion, versus hypoventilation.
--- NOTE | 2018-03-07 15:52 | Diagnostic Imaging Report ---
EXAM: CT Pelvis Without Intravenous Contrast CLINICAL HISTORY: PAIN TECHNIQUE: Axial computed tomography images of the pelvis without intravenous contrast. CTDI is 9 mGy and DLP is 280 mGy-cm. One or more of the following dose reduction techniques were used: automated exposure control, adjustment of the mA and/or kV according to patient size, use of iterative reconstruction technique. COMPARISON: 07/31/2017. FINDINGS: Bowel: Moderate rectal stool. Appendix: No findings to suggest acute appendicitis. Intraperitoneal space: Unremarkable as visualized. Bladder: Unremarkable. Reproductive: Uterine fibroids. Bones/joints: No acute fracture or dislocation. Right femoral head/neck surgical fixation. Soft tissues: Unremarkable. Vasculature: Atherosclerosis. Lymph nodes: Unremarkable. No enlarged lymph nodes. IMPRESSION: No acute fracture or dislocation. Right femoral head/neck surgical fixation.
== END 2018-03-06 21:10 | disposition home or self-care (01) ==
LOC: EDBD 17:26 → EMR 18:53
DX: N39.0 Urinary tract infection, site not specified (principal); M25.551 Pain in right hip; I10 Essential (primary) hypertension; E11.9 Type 2 diabetes mellitus without complications; F03.90 Unspecified dementia, unspecified severity, without behavioral disturbance, psychotic disturbance, mood disturbance, and anxiety; E78.5 Hyperlipidemia, unspecified
CPT/HCPCS: 36415; 70450; 71045; 72192; 80053; 81003; 82550; 82553; 84484; 85025; 87086; 93005; 99284

== ENCOUNTER 2018-10-31 20:44 | Inpatient (IN) | payer MEDICARE ==
[~2018-10-31] VITALS: Ht 160 cm; Wt 53.3 kg
[~2018-10-31 20:44] MED LIST changes: +CEPHALEXIN500 MG ORAL; +LOSARTAN POTAS100 MG ORAL
[2018-10-31 20:45] VITALS: BP 155/82
--- NOTE | 2018-10-31 20:45 | NUR ---
ED Nurse Note: pt YAIMA PARADA via gurney for bloody stool x2 in the last 2 hours per family member. pt is alert, verbally responsive. VSS.
[2018-10-31 21:14] LABS: EOSINOPHILS % (AUTO) 2.1 % (0.0-3.0); HEMATOCRIT 45.1 % (37.0-47.0); HEMOGLOBIN 16.5 G/DL (12.0-16.0); LYMPHOCYTES % (AUTO) 40.2 % (20.0-45.0); MEAN CORPUSCULAR VOLUME 94 FL (80-99); MONOCYTES % (AUTO) 9.8 % (1.0-10.0); NEUTROPHILS % (AUTO) 46.9 % (45.0-75.0); PLATELET COUNT 255 K/UL (150-450); RED BLOOD COUNT 4.78 M/UL (4.20-5.40); RED CELL DISTRIBUTION WIDTH 10.7 % (11.6-14.8); WHITE BLOOD COUNT 9.8 K/UL (4.8-10.8)
--- NOTE | 2018-10-31 21:14 | Emergency Room Report ---
History of Present Illness General Chief Complaint: General Complaint Source: EMS Present Illness HPI Disclaimer: Please note that this report is being documented using [employer] technology. This can lead to erroneous entry secondary to incorrect interpretation by the dictating instrument. HPI: 88-year-old female history of dementia, hypertension, hyperlipidemia, diabetes presents for evaluation of failure to thrive from home. No significant information can be obtained from the patient but she states she is in no distress and in no pain at this time. She was reportedly brought in at the request of family for decreased intake and weakness. The patient does report weakness but denies any chest pain, shortness of breath, cough, diarrhea or abdominal pain at this time. She has been admitted for C. difficile colitis and her [place] tract infections in the past. And has a known right bundle branch block. Will obtain more information when family arrives. PMH: Diabetes, hypertension, hyperlipidemia, dementia PSH: See chart Allergies: None listed Social Hx: Could not obtain Allergies: Coded Allergies: No Known Allergies (Unverified , 02/09/14) Nursing Documentation-PMH Past Medical History: No History, Except For Hx Cardiac Problems: Yes - HYPERLIPIDEMIA Hx Hypertension: Yes Hx Diabetes: Yes Hx Cancer: No Hx Gastrointestinal Problems: No Hx Cerebrovascular Accident: No Hx Transient Ischemic Attacks: No Hx Dementia: Yes Review of Systems All Other Systems: limited - Due to dementia Physical Exam Vital Signs Date Time Temp Pulse Resp B/P (MAP) Pulse Ox O2 Delivery O2 Flow Rate FiO2 10/31/18 20:41 98.4 103 18 155/89 (111) 86 General: Awake and alert, pleasant, demented HEENT: NC/AT. EOMI. PERRLA. Anicteric sclera. Dry mucous membranes Cardiovascular: Cardiac. S1 and S2 normal. No murmur appreciated Resp: Normal work of breathing. No cough, wheezing or crackles appreciated Abdomen: Abdomen is soft, nondistended. Nontender. No melena. FOBT is negative Skin: Intact. No abrasions, laceration or rash over the exposed skin MSK: Thin and frail. Moving all extremities. No obvious deformity. Neuro: Awake and alert. Mentating appropriately. Medical Decision Making Diagnostic Impression: Primary Impression: Episode of generalized weakness Additional Impressions: Failure to thrive in adult UTI (urinary tract infection) ER Course 88-year-old female history of dementia brought in from home for evaluation of failure to thrive and weakness. We will start a broad metabolic, infectious and cardiac work-up. Will obtain more information when family arrives. Patient likely require admission. Laboratory Tests Test 10/31/18 20:56 10/31/18 21:00 10/31/18 22:23 White Blood Count 9.8 K/UL (4.8-10.8) Red Blood Count 4.78 M/UL (4.20-5.40) Hemoglobin 16.5 G/DL (12.0-16.0) H Hematocrit 45.1 % (37.0-47.0) Mean Corpuscular Volume 94 FL (80-99) Mean Corpuscular Hemoglobin 34.5 PG (27.0-31.0) H Mean Corpuscular Hemoglobin Concent 36.6 G/DL (32.0-36.0) H Red Cell Distribution Width 10.7 % (11.6-14.8) L Platelet Count 255 K/UL (150-450) Mean Platelet Volume 7.8 FL (6.5-10.1) Neutrophils (%) (Auto) 46.9 % (45.0-75.0) Lymphocytes (%) (Auto) 40.2 % (20.0-45.0) Monocytes (%) (Auto) 9.8 % (1.0-10.0) Eosinophils (%) (Auto) 2.1 % (0.0-3.0) Basophils (%) (Auto) 1.0 % (0.0-2.0) Prothrombin Time 9.7 SEC (9.30-11.50) Prothrombin Time INR 0.9 (0.9-1.1) PTT 24 SEC (23-33) Urine Color Pale yellow Urine Appearance Clear Urine pH 8 (4.5-8.0) Urine Specific [place] 1.010 (1.005-1.035) Urine Protein Negative (NEGATIVE) Urine Glucose (UA) 1+ (NEGATIVE) H Urine Ketones Negative (NEGATIVE) Urine Blood 2+ (NEGATIVE) H Urine Nitrite Negative (NEGATIVE) Urine Bilirubin Negative (NEGATIVE) Urine Urobilinogen Normal MG/DL (0.0-1.0) Urine Leukocyte Esterase 2+ (NEGATIVE) H Urine RBC 0-2 /HPF (0 - 2) Urine WBC 5-10 /HPF (0 - 2) H Urine Squamous Epithelial Cells Occasional /LPF Urine Bacteria Moderate /HPF (NONE) H Sodium Level 139 MMOL/L (136-145) Potassium Level 4.3 MMOL/L (3.5-5.1) Chloride Level 102 MMOL/L (98-107) Carbon Dioxide Level 27 MMOL/L (21-32) Anion Gap 10 mmol/L (5-15) Blood Urea Nitrogen 15 mg/dL (7-18) Creatinine 0.8 MG/DL (0.55-1.30) Estimate Glomerular Filtration Rate mL/min (>60) Glucose Level 212 MG/DL (74-106) H Calcium Level 9.7 MG/DL (8.5-10.1) Phosphorus Level 3.7 MG/DL (2.5-4.9) Magnesium Level 2.3 MG/DL (1.8-2.4) Total Bilirubin 0.4 MG/DL (0.2-1.0) Aspartate Amino Transferase (AST) 18 U/L (15-37) Alanine Aminotransferase (ALT) 15 U/L (12-78) Alkaline Phosphatase 88 U/L (46-116) Total Creatine Kinase 29 U/L (26-308) Creatine Kinase MB 211.6 NG/ML (0.0-3.6) H Creatine Kinase MB Relative Index 729.6 Troponin I 0.000 ng/mL (0.000-0.056) Total Protein 8.3 G/DL (6.4-8.2) H Albumin 3.7 G/DL (3.4-5.0) Globulin 4.6 g/dL Albumin/Globulin Ratio 0.8 (1.0-2.7) L Lactic Acid Level 2.20 mmol/L (0.4-2.0) H 1.80 mmol/L (0.66-2.22) EKG Diagnostic Results EKG Time: 21:29 Rate: normal Rhythm: NSR ST Segments: other - Nonspecific ST segment changes. No ST elevation Other Impression Sinus rhythm, normal axis, wide QRS at 142 ms and prolonged QTC at 5.5 ms. Right bundle branch block pattern. Rhythm Strip Diag. Results Rhythm Strip Time: 21:29 EP Interpretation: yes Rate: 90s Rhythm: NSR, no PVC's, no ectopy Reevaluation Time: 00:02 Last Vital Signs Date Time Temp Pulse Resp B/P (MAP) Pulse Ox O2 Delivery O2 Flow Rate FiO2 10/31/18 20:41 98.4 103 18 155/89 (111) 86 Reevaluation Impression FOBT is negative. The patient has what appears to be a acute urinary tract infection. Will treat with ceftriaxone and admit to the hospital. Other lab work is unremarkable. Lactate was initially elevated 2.2 however is now improved after IV fluids. Disposition: ADMITTED INPATIENT Condition: Serious Florin Henao MD Oct 31, 2018 21:14
[2018-10-31 21:20] LABS: INR 0.9 (0.9-1.1)
[2018-10-31 21:25] LABS: ANION GAP 10 mmol/L (5-15); BLOOD UREA NITROGEN 15 mg/dL (7-18); CALCIUM 9.7 MG/DL (8.5-10.1); CARBON DIOXIDE 27 MMOL/L (21-32); CHLORIDE 102 MMOL/L (98-107); CREATININE 0.8 MG/DL (0.55-1.30); POTASSIUM 4.3 MMOL/L (3.5-5.1); SODIUM 139 MMOL/L (136-145)
[2018-10-31 21:37] LABS: ALANINE AMINOTRANSFERASE 15 U/L (12-78); ALBUMIN 3.7 G/DL (3.4-5.0); ALBUMIN/GLOBULIN RATIO 0.8 (1.0-2.7); ALKALINE PHOSPHATASE 88 U/L (46-116); ASPARTATE AMINO TRANSFERASE 18 U/L (15-37); BILIRUBIN,TOTAL 0.4 MG/DL (0.2-1.0); CKMB 211.6 NG/ML (0.0-3.6); CREATINE KINASE 29 U/L (26-308); PHOSPHORUS 3.7 MG/DL (2.5-4.9)
[2018-10-31 23:19] LABS: APPEARANCE,URINE CLEAR; BILIRUBIN, URINE NEGATIVE (NEGATIVE); COLOR,URINE PALE YELLOW; GLUCOSE, URINE (UA) 1+ (NEGATIVE); KETONES,URINE NEGATIVE (NEGATIVE); LEUKOCYTE ESTERASE ,URINE 2+ (NEGATIVE); NITRITE,URINE NEGATIVE (NEGATIVE); PH,URINE 8 (4.5-8.0); PROTEIN,URINE NEGATIVE (NEGATIVE); UROBILINOGEN,URINE NORMAL MG/DL (0.0-1.0)
[2018-11-01] MEDS ORDERED: cefTRIAXone 1 GM in NS 55 ML IVPB ONE ×2
--- NOTE | 2018-11-01 00:31 | NUR ---
Dr.Kattan torres(covering for [facility])
--- NOTE | 2018-11-01 00:50 | NUR ---
ER DISCHARGE NOTE: Pt was brought up to M/S rm 411 via gurney in stable condition. VSS. Report given to BREA Merino. belonging list signed.
--- NOTE | 2018-11-01 00:55 | NUR ---
NURSE NOTES: Pt received alert & oriented X 2, VSS 156/103 93HR 97.5T 95%, skin intact, no c/o pain or signs of distress, will contact MD for orders.
--- NOTE | 2018-11-01 01:15 | NUR ---
NURSE NOTES: Dr Quiñones gave orders and will input them in the system.
[2018-11-01 04:00] VITALS: BP 150/88
[2018-11-01] MEDS: Piperacillin/Tazobactam 3.375 GM in NS 110 ML IVPB SCH ×3 (06:06→21:22)
[2018-11-01] MEDS: NovoLOG Insulin Flexpen SUBQ SCH ×4 (06:28→20:11)
--- NOTE | 2018-11-01 07:15 | NUR ---
NURSE NOTES: Report received from Angelique GUIDRY, rounds made. Patient resting in semi-fowlers position in bed. Alert oriented x2, calm. No distress on RA. IVF (NS) infusing at 125 ml/hr to RFA, site wrapped with kerlix. RAC heplock intact. Denies pain, NV. Poor appetite. Pure wick in place, y/cl urine noted in suction canister. Skin intact. Call light in reach, bed in lowest position, will continue to monitor.
--- NOTE | 2018-11-01 07:21 | NUR ---
HAND-OFF: Report given to BREA Fox.
[2018-11-01 08:00] VITALS: BP 119/75
[2018-11-01] MEDS: Heparin 5000 units/ml inj SUBQ SCH ×2 (08:55→20:05)
[2018-11-01 09:09] LABS: BASOPHILS % (AUTO) 0.6 % (0.0-2.0); EOSINOPHILS % (AUTO) 1.1 % (0.0-3.0); HEMATOCRIT 44.3 % (37.0-47.0); HEMOGLOBIN 15.3 G/DL (12.0-16.0); LYMPHOCYTES % (AUTO) 23.8 % (20.0-45.0); MEAN CORPUSCULAR VOLUME 101 FL (80-99); MONOCYTES % (AUTO) 5.7 % (1.0-10.0); NEUTROPHILS % (AUTO) 68.7 % (45.0-75.0); PLATELET COUNT 241 K/UL (150-450); RED BLOOD COUNT 4.38 M/UL (4.20-5.40); RED CELL DISTRIBUTION WIDTH 11.4 % (11.6-14.8)
[2018-11-01 09:33] LABS: ALANINE AMINOTRANSFERASE 14 U/L (12-78); ALBUMIN 3.5 G/DL (3.4-5.0); ALBUMIN/GLOBULIN RATIO 0.9 (1.0-2.7); ALKALINE PHOSPHATASE 78 U/L (46-116); ANION GAP 14 mmol/L (5-15); ASPARTATE AMINO TRANSFERASE 19 U/L (15-37); BILIRUBIN,TOTAL 0.4 MG/DL (0.2-1.0); BLOOD UREA NITROGEN 11 mg/dL (7-18); CALCIUM 9.2 MG/DL (8.5-10.1); CARBON DIOXIDE 23 MMOL/L (21-32); CHLORIDE 107 MMOL/L (98-107); CREATININE 0.7 MG/DL (0.55-1.30); POTASSIUM 3.8 MMOL/L (3.5-5.1); SODIUM 144 MMOL/L (136-145)
[2018-11-01 12:00] VITALS: BP 141/87
--- NOTE | 2018-11-01 12:16 | NUR ---
NURSE NOTES: Dr. Quiñones notified of Lactic Acid results 2.4 and that it was 1.8. No further orders received.
[2018-11-01 16:00] VITALS: BP 153/72
--- NOTE | 2018-11-01 16:15 | History and Physical Report ---
DATE OF ADMISSION: 10/31/2018 CHIEF COMPLAINT: Sepsis, failure to thrive. HISTORY OF PRESENT ILLNESS: The patient is a pleasant 88-year-old female well known to me. She has a history of hypertension, dementia, chronic kidney disease, and diabetes. She was brought in by family members because of failure to thrive. The patient is a poor historian and unable to provide any history. She has apparently been losing weight, not eating well. In the emergency room, she was diagnosed with urinary tract infection, failure to thrive, generalized malaise, and weakness. She is now admitted for further evaluation and care. PAST MEDICAL HISTORY: As above. PAST SURGICAL HISTORY: None. CURRENT MEDICATIONS: Reconciled and reviewed. ALLERGIES: None. FAMILY HISTORY: None. SOCIAL HISTORY: Negative for tobacco, ethanol, or drugs. REVIEW OF SYSTEMS: GENERAL: No fever or chills. Positive malaise and weakness. HEENT: No headaches or visual changes. CARDIOPULMONARY: No chest pain or shortness of breath. GASTROINTESTINAL: No nausea or vomiting. GENITOURINARY: No urgency or frequency. MUSCULOSKELETAL: No joint pain or swelling. NEUROLOGIC: No evidence of seizures. PHYSICAL EXAMINATION: VITAL SIGNS: Temperature 96, pulse 92, respirations 18, and blood pressure 119/75. GENERAL: The patient is a chronically ill-appearing thin female, in no apparent distress. She is awake and alert, answers simple questions. Follows simple commands. HEENT: Her pupils are equal, round, and reactive to light . Oropharynx is clear. NECK: Supple. HEART: Regular rate and rhythm. LUNGS: Lungs are clear. ABDOMEN: Soft, nontender, and nondistended. EXTREMITIES: Without clubbing, cyanosis, or edema. LABORATORY DATA: UA showed 5 to 10 wbc's. Chest x-ray is clear. Lactic acid was 2.4. White count 13,000, hemoglobin 15. Creatinine was 0.7. ASSESSMENT: This is an 88-year-old female with history of hypertension, diabetes, chronic kidney disease, and dementia, admitted with complaints of sepsis secondary to urinary tract infection. PROBLEM LIST: 1. Sepsis from urinary tract infection. 2. History of hypertension and diabetes. 3. History of chronic kidney disease. 4. History of C. difficile. PLAN: 1. IV hydration. 2. Broad spectrum antibiotics. 3. Follow up cultures. 4. Encourage p.o.'s 5. PT and OT evaluations to be obtained. 6. Plan of care has been discussed with the patient's niece. Vince Rosario M.D. DR: CHITO JOB#: [id number] CC:
--- NOTE | 2018-11-01 18:00 | NUR ---
NURSE NOTES: Daniella-care provided. Skin remains intact. No redness noted. Repositioned throughout shift. Pure wick and suction canister changed.
--- NOTE | 2018-11-01 19:25 | NUR ---
HAND-OFF: Report given to Venus GUIDRY.
--- NOTE | 2018-11-01 19:30 | NUR ---
NURSE NOTES: Patient awake in bed, no complaints of pain, alert and oriented x3 with episode of forgetfulness. Instructed the use of call light. Bed in lowest position, lock engaged and alarm on. Will continue to monitor.
[2018-11-01 20:00] VITALS: BP 159/68
[2018-11-01 23:52] VITALS: BP 141/71
[2018-11-02 04:00] VITALS: BP 142/71
[2018-11-02] MEDS: Piperacillin/Tazobactam 3.375 GM in NS 110 ML IVPB SCH ×2 (05:30→15:46)
[2018-11-02] MEDS: NovoLOG Insulin Flexpen SUBQ SCH ×4 (05:36→21:53)
--- NOTE | 2018-11-02 07:28 | NUR ---
HAND-OFF: Report given to BREA Murrieta.
--- NOTE | 2018-11-02 07:37 | General Progress Note ---
Assessment/Plan Problem List: (1) UTI (urinary tract infection) ICD Codes: N39.0 - Urinary tract infection, site not specified SNOMED: 95875382 (2) Failure to thrive in adult ICD Codes: R62.7 - Failure to thrive in adult SNOMED: 377059786 (3) Episode of generalized weakness ICD Codes: R53.1 - Weakness SNOMED: 17727800 (4) Vertigo ICD Codes: R42 - Dizziness and giddiness SNOMED: 314547905 (5) Altered mental status ICD Codes: R41.82 - Altered mental status, unspecified SNOMED: 826126409 (6) Hypertensive urgency ICD Codes: I16.0 - Hypertensive urgency SNOMED: 572053366 Status: stable Assessment/Plan: cont current rx ivf encourage po iv abx follow up cultures pt/ot message left with dtr. await call back. Subjective ROS Limited/Unobtainable: No Constitutional: Reports: malaise, weakness HEENT: Reports: no symptoms Cardiovascular: Reports: no symptoms Respiratory: Reports: cough Gastrointestinal/Abdominal: Reports: poor appetite Genitourinary: Reports: no symptoms Neurologic/Psychiatric: Reports: no symptoms Endocrine: Reports: no symptoms Hematologic/Lymphatic: Reports: anemia Allergies: Coded Allergies: No Known Allergies (Unverified , 02/09/14) All Systems: reviewed and negative except above Subjective no events. more alert. po intake remains poor. on iv abx. am labs not back. Ucx results pending. Objective Last 24 Hour Vital Signs Date Time Temp Pulse Resp B/P (MAP) Pulse Ox O2 Delivery O2 Flow Rate FiO2 11/02/18 04:00 97.0 66 16 142/71 (94) 95 11/01/18 23:52 97.4 60 19 141/71 (94) 93 11/01/18 21:00 Room Air 11/01/18 20:00 97.9 53 18 159/68 (98) 95 11/01/18 16:00 97.1 72 16 153/72 (99) 95 11/01/18 12:00 98.9 92 16 141/87 (105) 94 11/01/18 09:00 Room Air 11/01/18 08:00 97.9 94 20 119/75 (90) 97 Intake and Output 11/01/18 11/02/18 19:00 07:00 Intake Total 1120 ml 885.0 ml Output Total 900 ml Balance 220 ml 885.0 ml Intake Oral 495 ml 150 ml IV Total 625 ml 735.0 ml Output Urine Total 900 ml # Voids 4 # Bowel Movements 1 Laboratory Tests 11/01/18 16:20: Lactic Acid Level 1.50 Height (Feet): 5 Height (Inches): 4.00 Weight (Pounds): 100 General Appearance: WD/WN, alert Neck: supple Cardiovascular: normal rate, regular rhythm Respiratory/Chest: chest wall non-tender, lungs clear, normal breath sounds, no respiratory distress Abdomen: normal bowel sounds, non tender, soft, no organomegaly Edema: no edema noted Arm (L), no edema noted Arm (R), no edema noted Leg (L), no edema noted Leg (R), no edema noted Pedal (L), no edema noted Pedal (R), no edema noted Generalized Vince Rosario MD Nov 02, 2018 07:37
--- NOTE | 2018-11-02 07:46 | NUR ---
NURSE NOTES: Pt resting in bed. awake, A/o x 2-3, calm. denies pain. no SOB. Voiding. bed in low position, call light within reach. fall precaution maintained. will continue to monitor.
[2018-11-02] MEDS: Heparin 5000 units/ml inj SUBQ SCH ×2 (08:08→21:55)
[2018-11-02 08:10] VITALS: BP 134/73
[2018-11-02 09:49] LABS: BASOPHILS % (AUTO) 1.1 % (0.0-2.0); EOSINOPHILS % (AUTO) 2.8 % (0.0-3.0); HEMATOCRIT 41.9 % (37.0-47.0); HEMOGLOBIN 14.4 G/DL (12.0-16.0); LYMPHOCYTES % (AUTO) 31.8 % (20.0-45.0); MEAN CORPUSCULAR VOLUME 100 FL (80-99); MONOCYTES % (AUTO) 6.8 % (1.0-10.0); NEUTROPHILS % (AUTO) 57.5 % (45.0-75.0); PLATELET COUNT 201 K/UL (150-450); RED BLOOD COUNT 4.17 M/UL (4.20-5.40); RED CELL DISTRIBUTION WIDTH 11.1 % (11.6-14.8); WHITE BLOOD COUNT 7.8 K/UL (4.8-10.8)
[2018-11-02 12:00] VITALS: BP 168/60
--- NOTE | 2018-11-02 12:40 | NUR ---
NURSE NOTES: Pt BP 168/60, HR 43, 98% RA , denies pain. no SOB noted. pts on IVF @ 125cc/hr. left message to MD, waiting for call back.
[2018-11-02 13:00] LABS: ALANINE AMINOTRANSFERASE 11 U/L (12-78); ALBUMIN 3.1 G/DL (3.4-5.0); ALBUMIN/GLOBULIN RATIO 0.8 (1.0-2.7); ALKALINE PHOSPHATASE 66 U/L (46-116); ANION GAP 14 mmol/L (5-15); ASPARTATE AMINO TRANSFERASE 15 U/L (15-37); BLOOD UREA NITROGEN 9 mg/dL (7-18); CALCIUM 8.9 MG/DL (8.5-10.1); CARBON DIOXIDE 21 MMOL/L (21-32); CHLORIDE 112 MMOL/L (98-107); CREATININE 0.6 MG/DL (0.55-1.30); POTASSIUM 3.3 MMOL/L (3.5-5.1); SODIUM 147 MMOL/L (136-145)
[2018-11-02] MEDS ORDERED: HydrALAZINE 25mg tab ORAL PRN ×2 (13:00→14:30)
--- NOTE | 2018-11-02 13:09 | NUR ---
NURSE NOTES: received order to transfer tel unit. new order received for elevated BP. Addendum: 11/02/18 at 1317 by Glenny Metz RN DC IVF per order.
--- NOTE | 2018-11-02 13:11 | NUR ---
NURSE NOTES: PTs K 3.3, notified MD, waiting for call back.
--- NOTE | 2018-11-02 13:55 | NUR ---
NURSE NOTES: Transfer pt to tel unit per order with stable condition. report given to Leonid GUIDRY. Denies pain, no SOB. DC IVf per order. belongings with pt.
--- NOTE | 2018-11-02 14:14 | NUR ---
NURSE NOTES: Patient sleeping in bed, report from Kadi Jaquez RN. Cont'd with plan of care. Addendum: 11/02/18 at 1415 by Miki Santo RN On tele is NSB 40s to 50s--monitor/ charge aide aware. Addendum: 11/02/18 at 1851 by Miki Santo RN AOX2 with calm, sleepy affect. Patient commonly bradycardic today on tele--when awake for attempts to feed or for [place] hygiene after urinary incontinence--then patient HR was noted to be in the 60s. Call brown in reach. Patient only tolerated 3 sips of soup before waving her hands and saying "No!" refusing to eat more. Attempted an hour later, and patient was sleeping but easily arousable and still refused to eat. Patient elizabeth was at bedside when she first transferred to the unit, and patient ate "a few bites of mashed potato". Bed in lowest, locked position. No sign of cardiac or respiratory distress. cont'd with plan of care.
[2018-11-02 14:36] LABS: BILIRUBIN,TOTAL 0.5 MG/DL (0.2-1.0)
[2018-11-02 16:05] VITALS: BP 153/79
[2018-11-02 20:00] VITALS: BP 159/83
--- NOTE | 2018-11-02 20:37 | NUR ---
Received patient from BREA Livingston, patient in stable condition, resting in bed, AOx2, able to make needs known to a degree, denies pain at this time, IV site on R forearm G22 and R AC G20, asymptomatic, intact, patent. Bed low&locked, side rails upx3, call light within reach, will continue to monitor and reassess.
[2018-11-02] MEDS ORDERED: Sodium Chloride for KCL Premix X 3hrs IV SCH (21:00)
[2018-11-03] VITALS: BP 148/70
--- NOTE | 2018-11-03 | NUR ---
Unable to infuse K, patient not tolerating, moaning and screaming. Right AC IV discontinued d/t infiltration. Elevated the extremity and placed ice. Dr. Rosario called for different order. Awaiting call back. Will continue to monitor and reassess the patient.
[2018-11-03] MEDS: Piperacillin/Tazobactam 3.375 GM in NS 110 ML IVPB SCH ×4 (00:26→21:40)
--- NOTE | 2018-11-03 02:30 | Progress Note ---
DATE: 11/02/2018 CARDIOLOGY PROGRESS NOTE SUBJECTIVE: More alert. Poor intake. Remains on IV fluids and antimicrobials. OBJECTIVE: VITAL SIGNS: Blood pressure 142/71, pulse 66, respiratory rate 16, and afebrile. LUNGS: Bilateral breath sounds. Oropharynx with dry mucous membranes still. HEART: Regular rhythm rate. Normal S1 and S2 with a fourth heart sound. ABDOMEN: Soft. No focal tenderness. EXTREMITIES: No edema. LABORATORY DATA: White count 7.8 and hemoglobin 14.4. Sodium 147, potassium 3.3, bicarb 21, BUN 9, creatinine 0.6, glucose 150, and albumin 3.1. IMPRESSION: 1. Dehydration. 2. Hypernatremia. 3. Hypokalemia. 4. Hypovolemia. 5. Sepsis. 6. Urinary tract infection. 7. Resolved lactic acidosis. PLAN: 1. Discontinue saline. 2. Encourage oral intake. 3. May need hypotonic fluids. 4. Antimicrobials on board. 5. Continue to hold antihypertensives. 6. DVT and stress ulcer prophylaxis. Benjie Quiñones M.D. DR: LENNY JOB#: [id number] CC:
[2018-11-03 04:00] VITALS: BP 160/82
[2018-11-03 07:14] LABS: BASOPHILS % (AUTO) 0.8 % (0.0-2.0); EOSINOPHILS % (AUTO) 2.9 % (0.0-3.0); HEMATOCRIT 41.4 % (37.0-47.0); HEMOGLOBIN 14.2 G/DL (12.0-16.0); LYMPHOCYTES % (AUTO) 32.7 % (20.0-45.0); MEAN CORPUSCULAR VOLUME 101 FL (80-99); MONOCYTES % (AUTO) 7.1 % (1.0-10.0); NEUTROPHILS % (AUTO) 56.6 % (45.0-75.0); PLATELET COUNT 220 K/UL (150-450); RED BLOOD COUNT 4.11 M/UL (4.20-5.40); WHITE BLOOD COUNT 8.4 K/UL (4.8-10.8)
[2018-11-03] MEDS: NovoLOG Insulin Flexpen SUBQ SCH ×4 (07:14→21:41)
--- NOTE | 2018-11-03 07:19 | CDS Physician Query ---
Clarification is required for compliance, coding accuracy, and to reflect severity of illness for this patient Dear Vince Figueredo MD Date: 11/03/2018 Electrical Engineering Technician/CDS Name: Jon Eldridge "Altered Mental Status / Confusion / ALOC" documented in Progress Notes Please indicate the nature and chronicity of the condition below: [] Metabolic Encephalopathy [] Toxic Encephalopathy [x] Toxic - Metabolic Encephalopathy [] Encephalopathy, Other [] Dementia with Delirium [] Hypoxic encephalopathy [] Posterior reversible encephalopathy syndrome [] Other: [] Not Applicable Present on Admission: [x] Yes [] No [] Clinically Undetermined Physician signature Date Please also document in your Progress Notes and/or Discharge Summary and indicate if the condition was present on admission. SUZAN
[2018-11-03 07:50] LABS: ALANINE AMINOTRANSFERASE 13 U/L (12-78); ALBUMIN 3.3 G/DL (3.4-5.0); ALBUMIN/GLOBULIN RATIO 0.9 (1.0-2.7); ALKALINE PHOSPHATASE 68 U/L (46-116); ANION GAP 15 mmol/L (5-15); ASPARTATE AMINO TRANSFERASE 14 U/L (15-37); BILIRUBIN,TOTAL 0.7 MG/DL (0.2-1.0); BLOOD UREA NITROGEN 10 mg/dL (7-18); CALCIUM 9.1 MG/DL (8.5-10.1); CARBON DIOXIDE 22 MMOL/L (21-32); CHLORIDE 109 MMOL/L (98-107); CREATININE 0.6 MG/DL (0.55-1.30); POTASSIUM 2.9 MMOL/L (3.5-5.1); SODIUM 146 MMOL/L (136-145)
[2018-11-03 08:00] VITALS: BP 154/83
--- NOTE | 2018-11-03 08:27 | NUR ---
HAND-OFF: Report given to BREA Choi, patient in stable condition, plan of care endorsed.
--- NOTE | 2018-11-03 08:30 | NUR ---
NURSE NOTES: Received report from BREA Lara in bed, awake and resting in bed. Pt denies any pain at this time, in no acute distress. IV line intact and patent. Bed in lowest position with bedside rails up x3, Brakes engaged for safety. Call light within reach. Will continue with the plan of care.
[2018-11-03] MEDS: Heparin 5000 units/ml inj SUBQ SCH ×2 (08:42→21:41)
--- NOTE | 2018-11-03 08:45 | Diagnostic Imaging Report ---
Indication: Cough Technique: One view of the chest Comparison: 03/06/2018 Findings: Heart is enlarged. There is torturous ectatic and calcified. The lungs and pleural spaces are clear. There is no significant interim change Impression: Randy. No acute process
--- NOTE | 2018-11-03 10:44 | General Progress Note ---
Assessment/Plan Problem List: (1) UTI (urinary tract infection) ICD Codes: N39.0 - Urinary tract infection, site not specified SNOMED: 95696350 (2) Failure to thrive in adult ICD Codes: R62.7 - Failure to thrive in adult SNOMED: 621678772 (3) Episode of generalized weakness ICD Codes: R53.1 - Weakness SNOMED: 69558024 (4) Vertigo ICD Codes: R42 - Dizziness and giddiness SNOMED: 521359089 (5) Altered mental status ICD Codes: R41.82 - Altered mental status, unspecified SNOMED: 164521792 (6) Hypertensive urgency ICD Codes: I16.0 - Hypertensive urgency SNOMED: 936203448 Status: stable Assessment/Plan: cont current rx ivf encourage po add remoeron ct abd GI eval iv abx follow up cultures pt/ot message left with dtr. await call back. Subjective ROS Limited/Unobtainable: No Constitutional: Reports: malaise, weakness HEENT: Reports: no symptoms Cardiovascular: Reports: no symptoms Respiratory: Reports: no symptoms Gastrointestinal/Abdominal: Reports: poor appetite Genitourinary: Reports: no symptoms Neurologic/Psychiatric: Reports: anxiety, depressed Endocrine: Reports: no symptoms Hematologic/Lymphatic: Reports: no symptoms Allergies: Coded Allergies: No Known Allergies (Unverified , 02/09/14) All Systems: reviewed and negative except above Subjective no events. more alert. po intake remains poor. on iv abx. labs noted. k low. Na high Objective Last 24 Hour Vital Signs Date Time Temp Pulse Resp B/P (MAP) Pulse Ox O2 Delivery O2 Flow Rate FiO2 11/03/18 09:00 Room Air 11/03/18 08:00 63 11/03/18 08:00 98.0 63 20 154/83 (106) 95 11/03/18 04:00 97.7 73 18 160/82 (108) 97 11/03/18 04:00 75 11/03/18 00:00 67 11/03/18 00:00 97.5 59 18 148/70 (96) 97 11/02/18 21:00 Room Air 11/02/18 20:00 98.5 67 18 159/83 (108) 95 11/02/18 20:00 67 9/2/19 16:05 97.3 45 20 153/79 (103) 95 11/02/18 16:00 58 11/02/18 12:00 98.3 43 16 168/60 (96) 98 11/02/18 11:50 Room Air Intake and Output 11/02/18 11/03/18 19:00 07:00 Intake Total 625 ml 100 ml Balance 625 ml 100 ml Intake Oral 100 ml IV Total 625 ml # Voids 3 2 Laboratory Tests 11/03/18 05:40: White Blood Count 8.4, Red Blood Count 4.11L, Hemoglobin 14.2, Hematocrit 41.4, Mean Corpuscular Volume 101H, Mean Corpuscular Hemoglobin 34.5H, Mean Corpuscular Hemoglobin Concent 34.2, Red Cell Distribution Width 11.0L, Platelet Count 220, Mean Platelet Volume 8.1, Neutrophils (%) (Auto) 56.6, Lymphocytes (%) (Auto) 32.7, Monocytes (%) (Auto) 7.1, Eosinophils (%) (Auto) 2.9, Basophils (%) (Auto) 0.8, Sodium Level 146H, Potassium Level 2.9L, Chloride Level 109H, Carbon Dioxide Level 22, Anion Gap 15, Blood Urea Nitrogen 10, Creatinine 0.6, Estimat Glomerular Filtration Rate , Glucose Level 130H, Calcium Level 9.1, Magnesium Level 2.1, Total Bilirubin 0.7, Aspartate Amino Transf (AST/SGOT) 14L, Alanine Aminotransferase (ALT/SGPT) 13, Alkaline Phosphatase 68, Total Protein 7.1, Albumin 3.3L, Globulin 3.8, Albumin/Globulin Ratio 0.9L, Vitamin B12 Level 1911H, Folate 49.8 Height (Feet): 5 Height (Inches): 4.00 Weight (Pounds): 100 Objective General Appearance: WD/WN, alert Neck: supple Cardiovascular: normal rate, regular rhythm Respiratory/Chest: chest wall non-tender, lungs clear, normal breath sounds, no respiratory distress Abdomen: normal bowel sounds, non tender, soft, no organomegaly Edema: no edema noted Arm (L), no edema noted Arm (R), no edema noted Leg (L), no edema noted Leg (R), no edema noted Pedal (L), no edema noted Pedal (R), no edema noted Generalized Vince Rosario MD Nov 03, 2018 10:44
--- NOTE | 2018-11-03 11:23 | Cardiology Report ---
APPROVED REPORT EXAM: Two-dimensional and M-mode echocardiogram with Doppler and color Doppler. INDICATION Bradycardia M-Mode DIMENSIONS IVSd1.1 (0.7-1.1cm)Left Atrium (MM)4.2 (1.6-4.0cm) LVDd6.4 (3.5-5.6cm)Aortic Root2.9 (2.0-3.7cm) PWd1.0 (0.7-1.1cm)Aortic Cusp Exc.1.7 (1.5-2.0cm) IVSs1.6 cm LVDs4.4 (2.5-4.0cm) PWs1.4 cm Technically difficult study due to poor acoustical windows. Normal left ventricular chamber size, systolic function and wall motion to extent visualized. Left ventricular ejection fraction estimated to be 65-70%. Study quality precludes accurate assessment of regional wall motion. Mild left ventricular hypertrophy by 2-D. No evidence of pericardial effusion. Left atrial size at upper limits of normal. Right cardiac chamber sizes are within normal limits. Focal aortic valve sclerosis with adequate cusp excursion. Thickened mitral valve leaflets with normal excursion. Mitral annulus and aortic root calcification. Pulmonic valve not visualized. Normal tricuspid valve structure. IVC and subcostal views not obtainable. A color flow and spectral Doppler study was performed and revealed: No aortic regurgitation. Mild mitral regurgitation. Mitral diastolic velocities suggest reduced left ventricular relaxation c/w mild LV diastolic dysfunction (Grade I). Trace tricuspid regurgitation. Tricuspid systolic velocities suggests peak right ventricular systolic pressure of 16mmHg.
--- NOTE | 2018-11-03 11:35 | Cardiology Report ---
APPROVED REPORT EKG Measurement Heart [id number] HI [id number] [id number] Normal sinus rhythm Right bundle branch block Inferior infarct, age undetermined Anterolateral infarct, age undetermined Abnormal ECG
[2018-11-03 11:49] VITALS: BP 157/85
--- NOTE | 2018-11-03 12:40 | NUR ---
CASE MANAGEMENT:REVIEW 88 YR OLD FEMALE BIBA FROM HOME CC; BLOOD IN STOOL AND DECREASED ORAL INTAKE SI: WEAKNESS. FTT. UTI 98.4 103 18 155/89 98% ON RA GLUCOSE+212 LACTIC ACID+2.20 IS:1L NS BOLUS URINE CULTURE : TO TELEMETRY 11/03/18 SI: E COLI UTI. FTT 97.5 59 18 148/70 97% ON RA K-2.9 IS:K-DUR PO IVF@75/HR IV ZOSYN Q8HRS HEPARIN SQ Q12 : TELEMETRY STATUS DCP: PATIENT IS FROM HOME
[2018-11-03] MEDS: D5 1/2NS w/KCl 20mEq 1,000 ML IV SCH (12:42)
--- NOTE | 2018-11-03 13:37 | NUR ---
RD ASSESSMENT & RECOMMENDATIONS SEE CARE ACTIVITY FOR COMPLETE ASSESSMENT DAILY ESTIMATED NEEDS: Needs based on DM, cardiac (Actual 52.5kg) 25-30 kcals/kg 9212-0266 total kcals 1-1.3 g protein/kg 53-68 g total protein 25-30 mL/kg 1675-8885 total fluid mLs NUTRITION DIAGNOSIS: Inadequate oral intake R/T poor appetite as evidenced by admitted w/ FTT dx, w/ poor PO intake. CURRENT DIET:CCHO MED/ soft easy chew PO DIET RECOMMENDATIONS: Liberalized REGULAR diet w/ poor PO (texture per STORE CONSULTANT) ADDITIONAL RECOMMENDATIONS: 1) Recalibrated bedscale for accurate CBW, weekly wt monitoring 2) Consider calorie count x 48 hrs 3) Add Glucerna 1 tetra kristopher TID w/ meals 4) Monitor lytes, replete as needed (low K) 5) STORE CONSULTANT eval for appropriate texture
[2018-11-03 16:00] VITALS: BP 148/82
--- NOTE | 2018-11-03 17:33 | Diagnostic Imaging Report ---
Indication: Abdominal pain Technique: Spiral acquisitions obtained through the abdomen and pelvis. Patient given oral contrast. No IV contrast utilized, per referring physician request.. Multiplanar reconstructions were generated. Total dose length product 531.94 mGycm. CTDIvol(s) 10.65 mGy. Dose reduction achieved using automated exposure control Comparison: 07/31/2017 Findings: The appendix is normal. No evidence of colonic diverticulosis or diverticulitis. There is mild infiltration of the presacral fat which is unchanged from the previous exam. No small bowel distention or small bowel wall thickening. No free or loculated intraperitoneal gas or fluid is evident. The distal esophagus demonstrates a small sliding-type hiatal hernia. The stomach and duodenum are unremarkable. The liver demonstrates a granulomatous calcification in the tip of the right lobe. The gallbladder is distended, otherwise unremarkable. No biliary ductal dilatation. The pancreas demonstrates a few calcifications in the body. Spleen is unremarkable. The adrenals are unremarkable. There is a nonobstructive punctate calculus in the left renal collecting system. No hydronephrosis, or hydroureter. No right renal calculi. No focal renal parenchymal abnormality. The bladder is unremarkable. The uterus demonstrates calcifications consistent with old fibroids. No pelvic mass or adenopathy. Surgical hardware is seen in the right hip. There are degenerative changes of the lumbar spine again noted. The included lung bases demonstrate posterior dependent atelectatic changes. 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 is accredited by the [employer] and the scans are performed using protocols designed to limit radiation exposure to as low as reasonably achievable to attain images of sufficient resolution adequate for diagnostic evaluation.
--- NOTE | 2018-11-03 19:22 | NUR ---
HAND-OFF: Report given to BREA Nelson. Endorsed plan of care.
--- NOTE | 2018-11-03 19:23 | NUR ---
NURSE NOTES: NURSE NOTES: Received patient from BREA Schmidt. Patient is awake, lying in semi nieto's; resting comfortably. A/Ox2-3. Denies pain at this time. No signs of acute cardiorespiratory distress noted. Checked IV site intact and patent. No erythema, bleeding or infiltration noted. Bed at lowest position, brakes on, siderails x3. Call light within reach. Will continue to monitor.
[2018-11-03 20:00] VITALS: BP 147/78
[2018-11-04] VITALS: BP 143/78
[2018-11-04] MEDS: D5 1/2NS w/KCl 20mEq 1,000 ML IV SCH ×2 (00:55→14:01)
--- NOTE | 2018-11-04 02:00 | Progress Note ---
DATE: 11/03/2018 CARDIOLOGY PROGRESS NOTE SUBJECTIVE: The patient remains with poor appetite and oral intake. Monitored rhythm sinus with rare ectopics. OBJECTIVE: VITAL SIGNS: Blood pressure 154/83, pulse 63, respiratory rate 20, oxygen saturation on room air 95 to 97%. HEENT: Mucous membranes are dry. NECK: Supple. LUNGS: Clear. CARDIAC: Regular. Normal S1 and S2. There is a fourth heart sound. ABDOMEN: Soft. EXTREMITIES: There is no edema. LABORATORY DATA: Urine culture is positive for E. coli. White count is 8.4 and hemoglobin 14.2. Sodium 146, potassium 2.9, bicarbonate 22, BUN 10, and creatinine 0.6. Magnesium 2.1. Albumin 3.3. B12 and folate levels are normal. IMPRESSION: 1. Urinary tract infection with sepsis. 2. Hypertensive urgency, recovered. 3. Lactic acidosis, resolved. 4. Hypokalemia. 5. Dehydration. 6. ____. 7. Mild protein calorie malnutrition. PLAN: 1. Hypotonic IV fluid hydration. 2. Potassium replacement. 3. Intravenous antimicrobials. 4. Nutritional support. 5. Appetite stimulant. 6. Maintain adequate hydration. 7. Stepwise resumption and titration of antihypertensive. Benjie Quiñones M.D. DR: LENNY JOB#: [id number] CC:
--- NOTE | 2018-11-04 03:00 | Consultation ---
DATE OF CONSULTATION: 10/31/2018 CONSULTING PHYSICIAN: Benjie Quiñones M.D. REQUESTING PHYSICIAN: Vince Rosario M.D. REASON FOR CONSULTATION: Labile hypertension and tachycardia in the setting of severe sepsis. HISTORY OF PRESENT ILLNESS: This is an 88-year-old female who lives with family members and has been declining in function over the past several days. She has been losing weight, eating poorly and has been withdrawn and lethargic. She has not had any specific complaints and family members deny abdominal pain, nausea, vomiting, diarrhea, cough, shortness of breath nor fevers. She is occasionally incontinent. A workup in the emergency room was undertaken. Hospitalization to be initiated. I have been asked to assist with further cardiovascular care. PAST MEDICAL HISTORY: Hypertension, hyperlipidemia, cerebrovascular disease with dementia, type 2 diabetes mellitus, and osteoarthritis. ALLERGIES: None. MEDICATIONS: Prior to admission, reviewed and reconciled. FAMILY HISTORY: Noncontributory. SOCIAL HISTORY: No record of smoking, alcohol, or substance abuse. REVIEW OF SYSTEMS: Otherwise cannot be reliably obtained from the patient and pertinent data from family members as outlined above. PHYSICAL EXAMINATION: VITAL SIGNS: Oxygen saturation on room air 86%, blood pressure 155/89, heart rate 103, respiratory rate 18, and temperature 98.4. HEENT: Temporal wasting. Dry mucous membranes. NECK: Supple. No jugular venous distention. LUNGS: Clear. CARDIAC: Regular rhythm and rate. Normal S1, S2 with a fourth heart sound. There is no appreciable murmur at this time. ABDOMEN: Soft and nontender with no focal tenderness, guarding, or rebound. EXTREMITIES: No clubbing, cyanosis, or edema. SKIN: Intact. Turgor is poor. NEUROLOGIC: Reveals depressed sensorium. No focality. LABORATORY DATA: Notable for white count 9.8 and hemoglobin 16.5. Urinalysis with 5 to 10 white cells and moderate bacteria. Sodium 139, potassium 4.3, bicarb 27, BUN 15, and creatinine 0.8. Lactic acid 2.2. Albumin 3.7. EKG with sinus rhythm, right bundle-branch block, nonspecific ST-T change. Chest x-ray with no acute process. IMPRESSION: 1. Urinary tract infection. 2. Probable sepsis. 3. Lactic acidosis. 4. Metabolic encephalopathy. 5. Toxic encephalopathy. 6. Cerebrovascular disease with dementia. 7. Labile hypertension. 8. Secondary sinus tachycardia and hypoxia. PLAN: 1. Panculture. 2. IV fluid hydration. 3. Broad-spectrum empiric antimicrobials. 4. DVT prophylaxis. 5. PRN antihypertensives. At this time, hold long-acting drugs in view of tenuous clinical parameters. 6. Nasal oxygen. 7. Respiratory hygiene. 8. Further recommendations will follow. Benjie Quiñones M.D. DR: ROSALBA JOB#: [id number] CC:
[2018-11-04 04:00] VITALS: BP 172/74
[2018-11-04] MEDS: Piperacillin/Tazobactam 3.375 GM in NS 110 ML IVPB SCH ×2 (06:29→14:11)
[2018-11-04] MEDS: NovoLOG Insulin Flexpen SUBQ SCH ×4 (06:31→20:50)
--- NOTE | 2018-11-04 07:10 | NUR ---
NURSE NOTES: Received report from Chago, RN's in bed, resting in bed.No s/s of pain noted at this time. Patient is not in any acute distress. IV line intact and patent. IV fluid and Zosyn running. Bed is in lowest position with bedside rails up x3, Brakes engaged for safety. Call light within reach. Will continue with the plan of care.
--- NOTE | 2018-11-04 07:25 | NUR ---
HAND-OFF: Report given to BREA Schmidt. Patient is asleep, resting comfortably in stable condition.
--- NOTE | 2018-11-04 07:56 | General Progress Note ---
Assessment/Plan Problem List: (1) UTI (urinary tract infection) ICD Codes: N39.0 - Urinary tract infection, site not specified SNOMED: 00116894 (2) Failure to thrive in adult ICD Codes: R62.7 - Failure to thrive in adult SNOMED: 239944250 (3) Episode of generalized weakness ICD Codes: R53.1 - Weakness SNOMED: 60739049 (4) Vertigo ICD Codes: R42 - Dizziness and giddiness SNOMED: 124018842 (5) Altered mental status ICD Codes: R41.82 - Altered mental status, unspecified SNOMED: 963913366 (6) Hypertensive urgency ICD Codes: I16.0 - Hypertensive urgency SNOMED: 687198318 Status: stable Assessment/Plan: cont current rx ivf follow up pending labs encourage po add remoeron ct abd GI eval iv abx follow up cultures pt/ot d/w dtr- request GT if po intake does not improve Subjective ROS Limited/Unobtainable: No Constitutional: Reports: malaise, weakness HEENT: Reports: no symptoms Cardiovascular: Reports: no symptoms Respiratory: Reports: no symptoms Gastrointestinal/Abdominal: Reports: poor appetite Genitourinary: Reports: no symptoms Neurologic/Psychiatric: Reports: anxiety, depressed Endocrine: Reports: no symptoms Hematologic/Lymphatic: Reports: anemia Allergies: Coded Allergies: No Known Allergies (Unverified , 02/09/14) All Systems: reviewed and negative except above Subjective no events. poor po intake. no cp.sob. no fever or chills. d/w dtr eric, pt has had poor po intake for 2-3 weeks. no recent changes in meds. Objective Last 24 Hour Vital Signs Date Time Temp Pulse Resp B/P (MAP) Pulse Ox O2 Delivery O2 Flow Rate FiO2 11/04/18 04:00 97.4 56 16 172/74 (106) 96 11/04/18 04:00 48 11/04/18 00:00 98.2 62 18 143/78 (99) 95 11/04/18 00:00 65 11/03/18 21:00 Room Air 11/03/18 20:00 74 11/03/18 20:00 98.4 73 18 147/78 (101) 94 11/03/18 16:00 69 9/3/19 16:00 97.0 70 20 148/82 (104) 96 11/03/18 12:00 72 11/03/18 11:49 97.6 64 18 157/85 (109) 96 11/03/18 09:00 Room Air 11/03/18 08:00 63 11/03/18 08:00 98.0 63 20 154/83 (106) 95 Intake and Output 11/03/18 11/04/18 18:59 06:59 Intake Total 240 ml 491.25 ml Balance 240 ml 491.25 ml Intake Oral 240 ml IV Total 491.25 ml # Voids 3 1 Laboratory Tests 11/04/18 05:59: Sodium Level [Pending], Potassium Level [Pending], Chloride Level [Pending], Carbon Dioxide Level [Pending], Blood Urea Nitrogen [Pending], Creatinine [ Pending], Estimat Glomerular Filtration Rate [Pending], Glucose Level [Pending] , Calcium Level [Pending], Total Bilirubin [Pending], Aspartate Amino Transf ( AST/SGOT) [Pending], Alanine Aminotransferase (ALT/SGPT) [Pending], Alkaline Phosphatase [Pending], Total Protein [Pending], Albumin [Pending], Globulin [ Pending] Height (Feet): 5 Height (Inches): 4.00 Weight (Pounds): 108 Objective General Appearance: WD/WN, alert Neck: supple Cardiovascular: normal rate, regular rhythm Respiratory/Chest: chest wall non-tender, lungs clear, normal breath sounds, no respiratory distress Abdomen: normal bowel sounds, non tender, soft, no organomegaly Edema: no edema noted Arm (L), no edema noted Arm (R), no edema noted Leg (L), no edema noted Leg (R), no edema noted Pedal (L), no edema noted Pedal (R), no edema noted Generalized Vince Rosario MD Nov 04, 2018 07:56
[2018-11-04 08:00] VITALS: BP 182/72
[2018-11-04 08:00] LABS: ALANINE AMINOTRANSFERASE 12 U/L (12-78); ALBUMIN 3.1 G/DL (3.4-5.0); ALBUMIN/GLOBULIN RATIO 0.8 (1.0-2.7); ALKALINE PHOSPHATASE 61 U/L (46-116); ANION GAP 13 mmol/L (5-15); ASPARTATE AMINO TRANSFERASE 16 U/L (15-37); BILIRUBIN,TOTAL 0.9 MG/DL (0.2-1.0); BLOOD UREA NITROGEN 11 mg/dL (7-18); CALCIUM 9.3 MG/DL (8.5-10.1); CARBON DIOXIDE 22 MMOL/L (21-32); CHLORIDE 110 MMOL/L (98-107); CREATININE 0.7 MG/DL (0.55-1.30); POTASSIUM 3.5 MMOL/L (3.5-5.1); SODIUM 145 MMOL/L (136-145)
[2018-11-04] MEDS: Lisinopril 20mg tab ORAL SCH (09:02)
[2018-11-04] MEDS: Heparin 5000 units/ml inj SUBQ SCH ×2 (09:05→20:50)
--- NOTE | 2018-11-04 11:30 | NUR ---
NURSE NOTES: HR 39. Will notify MD. bp 150/55, O2 sat 90.
[2018-11-04 12:00] VITALS: BP 140/60
--- NOTE | 2018-11-04 13:37 | NUR ---
RADIOLOGY DEPT., CHEST X-RAY DONE.-P.DYE
--- NOTE | 2018-11-04 14:42 | Diagnostic Imaging Report ---
Indication: Shortness of breath Technique: One view of the chest Comparison: November 02, 2018 Findings: No acute infiltrates, effusions, or congestion. Tortuous calcified aorta. The heart is enlarged. Upper mediastinum unremarkable. No significant change Impression: No acute process. Cardiomegaly
[2018-11-04 16:00] VITALS: BP 154/89
--- NOTE | 2018-11-04 19:34 | NUR ---
HAND-OFF: Report given to BREA Nelson.
--- NOTE | 2018-11-04 19:36 | NUR ---
NURSE NOTES: Received report from BREA Schmidt. Patient in bed asleep showing no signs of acute distress. AOx2. Respiration even and non labored on ra. No sob noted. IV noted L wrist patent and intact. Bed in lowest position, wheels locked and alarm on. Bed side rails up x2. Call button within reach. All needs attended and met. Will continue plan of care.
[2018-11-04 20:00] VITALS: BP 141/64
[2018-11-05] VITALS: BP 148/66
[2018-11-05] MEDS: Piperacillin/Tazobactam 3.375 GM in NS 110 ML IVPB SCH ×4 (00:09→21:40)
--- NOTE | 2018-11-05 03:00 | Progress Note ---
DATE: 11/04/2018 SUBJECTIVE: The patient's oral intake is poor. GI evaluation is in progress. Monitored rhythm sinus. No respiratory distress. OBJECTIVE: VITAL SIGNS: Blood pressure 141/64, pulse 49, respirations 16, afebrile. LUNGS: Clear. CARDIAC: Regular. Normal S1, S2. ABDOMEN: Soft. EXTREMITIES: No edema. DIAGNOSTIC AND LABORATORY DATA: Chest x-ray today reveals no acute process. Labs notable for sodium 145, potassium 3.5, bicarb 22, BUN 11, creatinine 0.7. Albumin 3.1. IMPRESSION: 1. UTI, sepsis. 2. Resolved shock. 3. Resolved lactic acidosis. 4. Protein-calorie malnutrition. 5. Anorexia. 6. Sinus bradycardia. PLAN: 1. Maintain adequate hydration. 2. GI evaluation. 3. CT of the abdomen. 4. Cardiac monitoring. 5. No strict criteria for permanent pacemaker at this time. Benjie Quiñones M.D. DR: ALONZO JOB#: [id number] CC:
[2018-11-05 04:00] VITALS: BP 172/72
[2018-11-05] MEDS: NovoLOG Insulin Flexpen SUBQ SCH ×4 (06:43→21:37)
[2018-11-05 07:17] LABS: ALANINE AMINOTRANSFERASE 11 U/L (12-78); ALBUMIN 2.9 G/DL (3.4-5.0); ALBUMIN/GLOBULIN RATIO 0.8 (1.0-2.7); ALKALINE PHOSPHATASE 54 U/L (46-116); ANION GAP 12 mmol/L (5-15); ASPARTATE AMINO TRANSFERASE 15 U/L (15-37); BILIRUBIN,TOTAL 0.6 MG/DL (0.2-1.0); BLOOD UREA NITROGEN 9 mg/dL (7-18); CALCIUM 9.2 MG/DL (8.5-10.1); CARBON DIOXIDE 22 MMOL/L (21-32); CHLORIDE 113 MMOL/L (98-107); CREATININE 0.7 MG/DL (0.55-1.30); POTASSIUM 3.9 MMOL/L (3.5-5.1); SODIUM 147 MMOL/L (136-145)
[2018-11-05] MEDS: D5 1/2NS w/KCl 20mEq 1,000 ML IV SCH ×3 (07:32→21:38)
--- NOTE | 2018-11-05 07:42 | NUR ---
HAND-OFF: Report given to BREA Page.
--- NOTE | 2018-11-05 07:59 | NUR ---
NURSE NOTES: Received report from Ari Nelson. Patient awake in bed. Denies pain or discomfort. Safety precautions in place. side railsX3 up for safety. call light within patients reach. Will continue to follow.
[2018-11-05 08:00] VITALS: BP 170/86
[2018-11-05] MEDS: Lisinopril 20mg tab ORAL SCH (08:42)
[2018-11-05] MEDS: Heparin 5000 units/ml inj SUBQ SCH ×2 (08:44→21:37)
--- NOTE | 2018-11-05 09:15 | NUR ---
CASE MANAGEMENT:REVIEW 11/05/18 SI: SEPSIS D/T UTI MALNUTRITION. SINUS BRADYCARDIA 97.3 45 18 172/72 96% ON RA NA+147 IS: LISINOPRIL PO QD IVF@75/HR PROTONIX PO QD HEPARIN SQ Q12 : TELEMETRY STATUS DCP: FROM HOME PLAN: CXR CONTINUOUS CARDIAC MONITORING ENCOURAGE PO'S
--- NOTE | 2018-11-05 09:43 | General Progress Note ---
Assessment/Plan Status: stable Assessment/Plan: GI Consult Full note dictated Agree with Remeron trial Will add shake supplements and order a calorie count Message left with family to discuss Thank you Leanne Gomes MD Subjective Allergies: Coded Allergies: No Known Allergies (Unverified , 02/09/14) Objective Last 24 Hour Vital Signs Date Time Temp Pulse Resp B/P (MAP) Pulse Ox O2 Delivery O2 Flow Rate FiO2 11/05/18 08:42 170/86 11/05/18 08:00 97.7 60 20 170/86 (114) 98 11/05/18 04:00 45 11/05/18 04:00 97.3 50 18 172/72 (105) 96 11/05/18 00:00 46 11/05/18 00:00 97.1 44 16 148/66 (93) 100 11/04/18 21:00 Room Air 11/04/18 20:00 47 11/04/18 20:00 98.0 49 16 141/64 (89) 96 11/04/18 16:00 97.0 58 18 154/89 (110) 96 11/04/18 16:00 58 11/04/18 12:00 40 11/04/18 12:00 98.3 40 18 140/60 (86) 98 Intake and Output 11/04/18 11/05/18 18:59 06:59 Intake Total 655 ml Balance 655 ml Intake Oral 580 ml IV Total 75 ml # Voids 2 3 Laboratory Tests 11/05/18 05:37: Sodium Level 147H, Potassium Level 3.9, Chloride Level 113H, Carbon Dioxide Level 22, Anion Gap 12, Blood Urea Nitrogen 9, Creatinine 0.7, Estimat Glomerular Filtration Rate , Glucose Level 187H, Calcium Level 9.2, Total Bilirubin 0.6, Aspartate Amino Transf (AST/SGOT) 15, Alanine Aminotransferase ( ALT/SGPT) 11L, Alkaline Phosphatase 54, Total Protein 6.5, Albumin 2.9L, Globulin 3.6, Albumin/Globulin Ratio 0.8L Height (Feet): 5 Height (Inches): 4.00 Weight (Pounds): 108 Leanne Gomes MD Nov 05, 2018 09:43
--- NOTE | 2018-11-05 11:22 | General Progress Note ---
Assessment/Plan Problem List: (1) UTI (urinary tract infection) ICD Codes: N39.0 - Urinary tract infection, site not specified SNOMED: 16619926 (2) Failure to thrive in adult ICD Codes: R62.7 - Failure to thrive in adult SNOMED: 700313474 (3) Episode of generalized weakness ICD Codes: R53.1 - Weakness SNOMED: 03915051 (4) Vertigo ICD Codes: R42 - Dizziness and giddiness SNOMED: 215153538 (5) Altered mental status ICD Codes: R41.82 - Altered mental status, unspecified SNOMED: 469995029 (6) Hypertensive urgency ICD Codes: I16.0 - Hypertensive urgency SNOMED: 168194900 Status: stable Assessment/Plan: cont current rx ivf encourage po ct abd- negative GI eval for gt cards clearance iv abx pt/ot Subjective ROS Limited/Unobtainable: No Constitutional: Reports: malaise, weakness HEENT: Reports: no symptoms Cardiovascular: Reports: irregular heart rate Respiratory: Reports: no symptoms Gastrointestinal/Abdominal: Reports: poor fluid intake Genitourinary: Reports: no symptoms Neurologic/Psychiatric: Reports: depressed Endocrine: Reports: no symptoms Hematologic/Lymphatic: Reports: no symptoms Allergies: Coded Allergies: No Known Allergies (Unverified , 02/09/14) All Systems: reviewed and negative except above Subjective no events. still with intermittent episodes of bradycardia- 40s. still with poor po intake. dtr requesting gt. Objective Last 24 Hour Vital Signs Date Time Temp Pulse Resp B/P (MAP) Pulse Ox O2 Delivery O2 Flow Rate FiO2 11/05/18 08:42 170/86 11/05/18 08:00 97.7 60 20 170/86 (114) 98 11/05/18 08:00 61 11/05/18 04:00 45 11/05/18 04:00 97.3 50 18 172/72 (105) 96 11/05/18 00:00 46 11/05/18 00:00 97.1 44 16 148/66 (93) 100 11/04/18 21:00 Room Air 11/04/18 20:00 47 11/04/18 20:00 98.0 49 16 141/64 (89) 96 11/04/18 16:00 97.0 58 18 154/89 (110) 96 11/04/18 16:00 58 11/04/18 12:00 40 11/04/18 12:00 98.3 40 18 140/60 (86) 98 Intake and Output 11/04/18 11/05/18 18:59 06:59 Intake Total 655 ml Balance 655 ml Intake Oral 580 ml IV Total 75 ml # Voids 2 3 Laboratory Tests 11/05/18 05:37: Sodium Level 147H, Potassium Level 3.9, Chloride Level 113H, Carbon Dioxide Level 22, Anion Gap 12, Blood Urea Nitrogen 9, Creatinine 0.7, Estimat Glomerular Filtration Rate , Glucose Level 187H, Calcium Level 9.2, Total Bilirubin 0.6, Aspartate Amino Transf (AST/SGOT) 15, Alanine Aminotransferase ( ALT/SGPT) 11L, Alkaline Phosphatase 54, Total Protein 6.5, Albumin 2.9L, Globulin 3.6, Albumin/Globulin Ratio 0.8L Height (Feet): 5 Height (Inches): 4.00 Weight (Pounds): 108 Objective General Appearance: WD/WN, alert Neck: supple Cardiovascular: normal rate, regular rhythm Respiratory/Chest: chest wall non-tender, lungs clear, normal breath sounds, no respiratory distress Abdomen: normal bowel sounds, non tender, soft, no organomegaly Edema: no edema noted Arm (L), no edema noted Arm (R), no edema noted Leg (L), no edema noted Leg (R), no edema noted Pedal (L), no edema noted Pedal (R), no edema noted Generalized Vince Rosario MD Nov 05, 2018 11:22
[2018-11-05 12:00] VITALS: BP 154/94
[2018-11-05 16:00] VITALS: BP 142/79
--- NOTE | 2018-11-05 16:00 | Consultation ---
DATE OF CONSULTATION: 11/05/2018 CHIEF COMPLAINT: I was asked to see this patient by Dr. Vince Rosario for evaluation of nutritional status. HISTORY OF PRESENT ILLNESS: The patient is 88-year-old [place] woman who was brought in by family due to poor oral intake and failure to thrive. The patient is alert and responsive but she is not much of a historian with respect to the details of her health. She appears to be self feeding her breakfast her but her consumption is on the low side. She denies any abdominal pain, nausea, or vomiting. Her albumin level on the laboratory parameters are mildly depressed. She has been diagnosed with urinary tract infection for this admission. PAST MEDICAL HISTORY: History of hypertension, dementia, chronic kidney disease, diabetes, recurrent urinary tract infection. PAST SURGICAL HISTORY: None. MEDICATIONS: See chart list for details. ALLERGIES: None. FAMILY HISTORY: Unavailable. SOCIAL HISTORY: The patient has no chart history of smoking or drinking. REVIEW OF SYSTEMS: Otherwise negative. PHYSICAL EXAMINATION: GENERAL: Pleasant elderly [place] woman seen in her room HEENT: Normocephalic and atraumatic. Sclerae anicteric. Dentition was fair. NECK: Supple. CHEST: Clear to auscultation. CARDIOVASCULAR: Revealed regular rate. ABDOMEN: Soft, without masses or tenderness. EXTREMITIES: Revealed no edema. LABORATORY DATA: Noted. Albumin 3.5 on admission and now it has declined to 2.9. Sugar is mildly elevated 187. ASSESSMENT: This patient presents with failure to thrive and anorexia. It appeared there is no obvious significant physical pathology that could explain her anorexia and her urinary tract infection is being treated. She likely has severe degree of dementia that is affecting her oral intake. Remeron trial would certainly be reasonable in this setting. If not successful, then other agents such as Oxandrin can be considered. I will also order a 48-hour calorie count to better evaluate her actual caloric intake. The question of gastrostomy tube has been raised and this will be discussed with the patient's family. The tube can be used for supplemental feedings as her condition may worsen over time. RECOMMENDATIONS: Per above discussion and per orders written in the chart. Thank you for asking me to participate in care this patient. Leanne Gomes M.D. DR: Lesvia JOB#: [id number] CC: SUZAN
--- NOTE | 2018-11-05 19:22 | NUR ---
HAND-OFF: Report given to Ari Berrios. Patient stable. Plan of care endorsed.
--- NOTE | 2018-11-05 19:57 | NUR ---
NURSE NOTES: RECEIVED PATIENT RESTING IN BED, NO COMPLAINTS OF PAIN AT THIS TIME. FALL AND ASPIRATION PRECAUTIONS IN PLACE: CALL LIGHT WITHIN REACH, BED IN LOW POSITION AND BED ALARM ON. WILL CONTINUE WITH PLAN OF CARE.
[2018-11-05 20:00] VITALS: BP 162/88
[2018-11-06] VITALS: BP 152/87
--- NOTE | 2018-11-06 01:15 | Progress Note ---
DATE: 11/05/2018 CARDIOLOGY PROGRESS NOTE SUBJECTIVE: The patient was seen in GI consultation for evaluation for G-tube. Intake remains poor. Monitor with sinus and sinus bradycardia, asymptomatic. OBJECTIVE: VITAL SIGNS: Blood pressure 170/86 maximal blood pressure, earlier 141/64. Heart rate 49, respiratory rate 16 . LUNGS: Clear. CARDIAC: Regular. ABDOMEN: Soft. EXTREMITIES: No edema. LABORATORY AND DIAGNOSTIC DATA: CAT scan of the abdomen was reviewed. Laboratories noted. IMPRESSION: 1. Moderate protein-calorie malnutrition. 2. Anorexia. 3. Type 2 diabetes mellitus. 4. Sinus node disease with bradycardia. 5. Dehydration. 6. Hypernatremia. 7. Hyperchloremia. PLAN: 1. Continue cardiac monitoring. 2. Free water replacement. 3. Atropine trial will be arranged to assess for chronotropic competence. 4. No current definitive indication for permanent pacemaker. 5. Medications reviewed. None have negative chronotropic effects. 6. The patient had a normal thyroid panel earlier this week. Benjie Quiñones M.D. DR: Lilly JOB#: [id number] CC:
[2018-11-06 04:00] VITALS: BP 139/70
[2018-11-06] MEDS: Piperacillin/Tazobactam 3.375 GM in NS 110 ML IVPB SCH ×3 (05:19→21:30)
[2018-11-06] MEDS: NovoLOG Insulin Flexpen SUBQ SCH ×4 (06:05→20:44)
--- NOTE | 2018-11-06 07:38 | NUR ---
HAND-OFF: Report given to Wild CARTER RN.PATIENT ASLEEP, NO SIGNS OF DISTRESS NOTED.
--- NOTE | 2018-11-06 07:38 | NUR ---
NURSE NOTES: Received pt from BREA Berrios in stable condition with no cardiopulmonary distress noted. Pt is asleep in bed on RA. No skin alterations noted at this time. Pt has a RFA 22g IV. Bed in lowest position w/alarm on, side rails up x 2, call light within reach. Will continue to monitor.
[2018-11-06 08:00] VITALS: BP 159/67
--- NOTE | 2018-11-06 08:37 | NUR ---
NURSE NOTES: Dr. Rosario came in to see pt and was informed of pt''s HR (45 bpm). No new orders. Addendum: 11/06/18 at 1956 by Nicole Aogsto RN Late entry: Dr. Rosario aware that pt has been sleeping for a prolonged period of time and is difficult to arouse.
[2018-11-06] MEDS: Heparin 5000 units/ml inj SUBQ SCH ×2 (09:37→21:08)
[2018-11-06] MEDS: Lisinopril 20mg tab ORAL SCH (09:37)
--- NOTE | 2018-11-06 11:32 | NUR ---
RD ASSESSMENT & RECOMMENDATIONS SEE CARE ACTIVITY FOR COMPLETE ASSESSMENT DAILY ESTIMATED NEEDS: Needs based on DM, cardiac (Actual 52.5kg) 25-30 kcals/kg 0583-5613 total kcals 1-1.5 g protein/kg 53-79 g total protein 25-30 mL/kg 3947-5954 total fluid mLs NUTRITION DIAGNOSIS: * Inadequate oral intake R/T poor appetite, decreased cognitive fxn as evidenced by admitted w/ FTT dx, w/ poor and variable PO intake, possible pending PEG placement. * Altered nutrition related lab values R/T diabetes as evidenced by elev BGs (187 188), POC glu (178 214 183 265). CURRENT DIET:CCHO MED/ soft easy chew + Glucerna TID w/ meals PO DIET RECOMMENDATIONS: CCHO MED/ texture per HAM CURER or as tolerated + continue Glucerna TID w/ meals ENTERAL NUTRITION RECOMMENDATIONS: Glucerna 1.2 @ 50ml/hr x 24hrs to provide 1200ml, 1440kcal, 72g prot, 966ml free water * W/ GI access, initiate Glucerna 1.2 @ 20ml/hr x 6 hrs * Advance 10ml q 4-6 hrs as tolerated to goal rate * TF @ goal will meet 100% est kcal/prot needs * HOB over 30 degrees/ water flush per MD ADDITIONAL RECOMMENDATIONS: 1) Recalibrated bedscale for accurate CBW, weekly wt monitoring 2) F/up with calorie count x 72 hrs 3) F/up w/ POC: possible PEG placement 4) Monitor lytes, replete as needed 5) HAM CURER eval for appropriate texture
[2018-11-06] MEDS: D5 1/2NS w/KCl 20mEq 1,000 ML IV SCH ×2 (11:38→21:08)
[2018-11-06 12:00] VITALS: BP 134/63
--- NOTE | 2018-11-06 15:09 | General Progress Note ---
Assessment/Plan Problem List: (1) UTI (urinary tract infection) ICD Codes: N39.0 - Urinary tract infection, site not specified SNOMED: 13895960 (2) Failure to thrive in adult ICD Codes: R62.7 - Failure to thrive in adult SNOMED: 714812608 (3) Episode of generalized weakness ICD Codes: R53.1 - Weakness SNOMED: 79775726 (4) Vertigo ICD Codes: R42 - Dizziness and giddiness SNOMED: 180518838 (5) Altered mental status ICD Codes: R41.82 - Altered mental status, unspecified SNOMED: 163303848 (6) Hypertensive urgency ICD Codes: I16.0 - Hypertensive urgency SNOMED: 506257892 Status: stable, progressing Assessment/Plan: cont current rx ivf encourage po check head ct check abg cards clearance- may need gt iv abx pt/ot Subjective ROS Limited/Unobtainable: No Constitutional: Reports: malaise, weakness HEENT: Reports: no symptoms Cardiovascular: Reports: no symptoms Respiratory: Reports: cough Gastrointestinal/Abdominal: Reports: poor fluid intake Genitourinary: Reports: no symptoms Neurologic/Psychiatric: Reports: pre-existing deficit Endocrine: Reports: no symptoms Hematologic/Lymphatic: Reports: no symptoms Allergies: Coded Allergies: No Known Allergies (Unverified , 02/09/14) All Systems: reviewed and negative except above Subjective lethargic this am. remains intermittently bradycardic as low as 40s. BP stable/ high. Objective Last 24 Hour Vital Signs Date Time Temp Pulse Resp B/P (MAP) Pulse Ox O2 Delivery O2 Flow Rate FiO2 11/06/18 12:00 97.8 47 14 134/63 (86) 98 11/06/18 12:00 41 11/06/18 09:37 159/67 11/06/18 09:00 Room Air 11/06/18 08:00 47 11/06/18 08:00 98.2 48 18 159/67 (97) 98 11/06/18 04:00 98.1 57 16 139/70 (93) 100 11/06/18 04:00 58 11/06/18 00:00 89 11/06/18 00:00 98.3 81 18 152/87 (108) 95 11/05/18 21:39 162/88 11/05/18 21:00 Room Air 11/05/18 20:00 98.3 90 18 162/88 (112) 96 11/05/18 20:00 97 11/05/18 16:00 104 11/05/18 16:00 97.0 96 20 142/79 (100) 96 Intake and Output 11/05/18 11/06/18 18:59 06:59 Intake Total 240 ml 932.5 ml Balance 240 ml 932.5 ml Intake Oral 240 ml 120 ml IV Total 812.5 ml # Voids 1 3 Height (Feet): 5 Height (Inches): 4.00 Weight (Pounds): 108 Objective General Appearance: WD/WN, sleepy/lethargic Neck: supple Cardiovascular: normal rate, regular rhythm Respiratory/Chest: chest wall non-tender, lungs clear, normal breath sounds, no respiratory distress Abdomen: normal bowel sounds, non tender, soft, no organomegaly Edema: no edema noted Arm (L), no edema noted Arm (R), no edema noted Leg (L), no edema noted Leg (R), no edema noted Pedal (L), no edema noted Pedal (R), no edema noted Generalized Vince Rosario MD Nov 06, 2018 15:09
[2018-11-06 16:00] VITALS: BP 150/60
--- NOTE | 2018-11-06 17:00 | NUR ---
NURSE NOTES: Pt taken down to CT accompanied by self and CT personeel on avionics integration engineer via hospital bed.
--- NOTE | 2018-11-06 17:20 | NUR ---
NURSE NOTES: Pt returned to tele unit in stable condition.
--- NOTE | 2018-11-06 17:37 | Diagnostic Imaging Report ---
History: AMS Exam: CT HEAD Without Contrast Technique more: CTDI is 70.38 mGy and DLP is 1425 mGy-cm. Technique more: One or more of the following dose reduction techniques were used: automated exposure control, adjustment of the mA and/or kV according to patient size, use of iterative reconstruction technique. Comparison: 03/06/2018 FINDINGS: No intracranial hemorrhage, mass effect or CT evidence of large vascular territory acute infarct. The ventricles are unchanged in size and remain midline. 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 Opacification of posterior right ethmoid air cell again noted. The mastoids are clear. The orbits appear within limits. IMPRESSION: No intracranial hemorrhage, mass effect or CT evidence of large vascular territory acute infarct. 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
--- NOTE | 2018-11-06 19:12 | General Progress Note ---
Assessment/Plan Status: stable, progressing Assessment/Plan: Assessment - OBS - FTT - Anorexia - very poor intake - Depressed albumin Recommendations - discussed with daughter re PEG - continue Remeron trial - push po / monitor intake - cardiology clearance for possible PEG - will place PEG Friday if cleared by cardiology Subjective Allergies: Coded Allergies: No Known Allergies (Unverified , 02/09/14) Subjective above noted patient minimally communicative d/w RN almost no po intake today even hard to give po meds Objective Last 24 Hour Vital Signs Date Time Temp Pulse Resp B/P (MAP) Pulse Ox O2 Delivery O2 Flow Rate FiO2 11/06/18 16:00 97.2 42 18 150/60 (90) 99 11/06/18 16:00 44 11/06/18 12:00 97.8 47 14 134/63 (86) 98 11/06/18 12:00 41 11/06/18 09:37 159/67 11/06/18 09:00 Room Air 11/06/18 08:00 47 11/06/18 08:00 98.2 48 18 159/67 (97) 98 11/06/18 04:00 98.1 57 16 139/70 (93) 100 11/06/18 04:00 58 11/06/18 00:00 89 11/06/18 00:00 98.3 81 18 152/87 (108) 95 11/05/18 21:39 162/88 11/05/18 21:00 Room Air 11/05/18 20:00 98.3 90 18 162/88 (112) 96 11/05/18 20:00 97 Intake and Output 11/05/18 11/06/18 19:00 07:00 Intake Total 240 ml 932.5 ml Balance 240 ml 932.5 ml Intake Oral 240 ml 120 ml IV Total 812.5 ml # Voids 1 3 Laboratory Tests 11/06/18 15:50: Arterial Blood pH 7.418, Arterial Blood Partial Pressure CO2 32.3L, Arterial Blood Partial Pressure O2 113.2H, Arterial Blood HCO3 20.4L, Arterial Blood Oxygen Saturation 98.2, Arterial Blood Base Excess -3.2L, Samir Test Positive Height (Feet): 5 Height (Inches): 4.00 Weight (Pounds): 108 Objective WDWN Christian woman NCAT Supple CTA RR / sandra abd soft no edema OBS Khorrami,Payman MD Nov 06, 2018 19:12
--- NOTE | 2018-11-06 19:53 | NUR ---
HAND-OFF: Report given to BREA Musa. Pt in stable condition.
--- NOTE | 2018-11-06 19:55 | NUR ---
NURSE NOTES: NURSE NOTES: Received report from Widl Agosto RN. Patient in bed asleep with no S/S of acute pain or distress at this time. Able to walk to the bathroom unassisted, IV line intact and patent. Placed on continuous cardiac monitoring per protocol. Safety precaution in place; siderails X3 up, call light within reach, bed in lowest position, brakes and alarm on at all times. Needs and wants anticipated and attended, will continue plan of care and monitor for any changes noted. EGD with possible PEG placement on 11/09/18
[2018-11-06 20:00] VITALS: BP 159/62
--- NOTE | 2018-11-06 23:00 | Progress Note ---
DATE: 11/06/2018 CARDIOLOGY PROGRESS NOTE SUBJECTIVE: The patient is lethargic. Blood pressure remains stable. Monitored rhythm reviewed sinus, sinus bradycardia, asymptomatic, mostly during sleep but occasionally during the day. Again episodes are asymptomatic with stable blood pressure. OBJECTIVE: LUNGS: Clear. CARDIAC: Regular. Normal S1, S2 with a fourth heart sound. ABDOMEN: Soft. EXTREMITIES: No edema. LABORATORY DATA: ABG - 7.41, 32, and 113. IMPRESSION: 1. Sinus node disease with asymptomatic bradycardia. Episodes of heart rates in the 90s noted confirming the patient has adequate chronotropic competence. 2. Dehydration. 3. Hyponatremia. 4. Anorexia. 5. Moderate protein-calorie malnutrition. 6. Hypertensive heart disease. 7. Euthyroid state. PLAN: 1. Stable for G-tube from cardiovascular standpoint. 2. No indication for permanent pacemaker presently. 3. Needs additional protein supplementation. 4. Continue hypotonic IV fluids. 5. Recheck lab studies. 6. No medications on board with negative chronotropic potential. Benjie Quiñones M.D. DR: SOBEIDA JOB#: [id number] CC:
[2018-11-07] VITALS: BP 145/63
[2018-11-07 00:55] LABS: BASOPHILS % (AUTO) 0.8 % (0.0-2.0); HEMATOCRIT 37.4 % (37.0-47.0); HEMOGLOBIN 12.8 G/DL (12.0-16.0); LYMPHOCYTES % (AUTO) 36.9 % (20.0-45.0); MEAN CORPUSCULAR VOLUME 101 FL (80-99); NEUTROPHILS % (AUTO) 49.3 % (45.0-75.0); PLATELET COUNT 183 K/UL (150-450); RED CELL DISTRIBUTION WIDTH 11.6 % (11.6-14.8); WHITE BLOOD COUNT 8.2 K/UL (4.8-10.8)
[2018-11-07 01:07] LABS: ALANINE AMINOTRANSFERASE 17 U/L (12-78); ALBUMIN 2.7 G/DL (3.4-5.0); ALBUMIN/GLOBULIN RATIO 0.8 (1.0-2.7); ALKALINE PHOSPHATASE 51 U/L (46-116); ANION GAP 9 mmol/L (5-15); ASPARTATE AMINO TRANSFERASE 19 U/L (15-37); BILIRUBIN,TOTAL 0.6 MG/DL (0.2-1.0); BLOOD UREA NITROGEN 8 mg/dL (7-18); CALCIUM 8.7 MG/DL (8.5-10.1); CARBON DIOXIDE 24 MMOL/L (21-32); CHLORIDE 113 MMOL/L (98-107); CREATININE 0.7 MG/DL (0.55-1.30); POTASSIUM 4.1 MMOL/L (3.5-5.1); SODIUM 146 MMOL/L (136-145)
--- NOTE | 2018-11-07 02:38 | NUR ---
NURSE NOTES: Patient in bed asleep with no S/S of distress. Will continue to monitor.
[2018-11-07 04:00] VITALS: BP 89/52
[2018-11-07] MEDS: Piperacillin/Tazobactam 3.375 GM in NS 110 ML IVPB SCH ×3 (05:30→22:55)
[2018-11-07] MEDS: NovoLOG Insulin Flexpen SUBQ SCH ×4 (05:41→21:32)
[2018-11-07] MEDS: D5 1/2NS w/KCl 20mEq 1,000 ML IV SCH ×2 (05:42→16:43)
--- NOTE | 2018-11-07 07:35 | NUR ---
HAND-OFF: Report given to Den Britt RN. Patient in bed in stable condition, endorsed plan of care.
--- NOTE | 2018-11-07 07:36 | NUR ---
NURSE NOTES: Relayed message to [place]. LAWTON regarding recent Mg lvl at 1.7. New orders received and carried out
--- NOTE | 2018-11-07 07:37 | NUR ---
NURSE NOTES: received patient report from jesenia pascal. patient is on bed awake. not in acute distress. no appetite to eat. no arrythmias reported during the night. SB per report. bed is low and locked for safety. will follow plan of care.
[2018-11-07 08:00] VITALS: BP 159/98
--- NOTE | 2018-11-07 08:06 | General Progress Note ---
Assessment/Plan Problem List: (1) UTI (urinary tract infection) ICD Codes: N39.0 - Urinary tract infection, site not specified SNOMED: 56138582 (2) Failure to thrive in adult ICD Codes: R62.7 - Failure to thrive in adult SNOMED: 411555664 (3) Episode of generalized weakness ICD Codes: R53.1 - Weakness SNOMED: 80608553 (4) Vertigo ICD Codes: R42 - Dizziness and giddiness SNOMED: 254764680 (5) Altered mental status ICD Codes: R41.82 - Altered mental status, unspecified SNOMED: 921334692 (6) Hypertensive urgency ICD Codes: I16.0 - Hypertensive urgency SNOMED: 690509416 Status: stable, progressing Assessment/Plan: cont current rx ivf encourage po possible gt placement on friday iv abx pt/ot Subjective ROS Limited/Unobtainable: No Constitutional: Reports: malaise, weakness HEENT: Reports: no symptoms Cardiovascular: Reports: no symptoms Respiratory: Reports: no symptoms Gastrointestinal/Abdominal: Reports: poor appetite Genitourinary: Reports: no symptoms Neurologic/Psychiatric: Reports: no symptoms Endocrine: Reports: no symptoms Hematologic/Lymphatic: Reports: no symptoms Allergies: Coded Allergies: No Known Allergies (Unverified , 02/09/14) All Systems: reviewed and negative except above Subjective remains bradycardic 40s. more alert. remeron dcd because of excessive sedation. po intake remains mostly poor. 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 nothing acute Objective Last 24 Hour Vital Signs Date Time Temp Pulse Resp B/P (MAP) Pulse Ox O2 Delivery O2 Flow Rate FiO2 11/07/18 04:00 97.3 43 15 89/52 (64) 98 11/07/18 04:00 42 11/07/18 00:00 99.0 44 16 145/63 (90) 96 11/07/18 00:00 51 11/06/18 21:00 Room Air 11/06/18 20:00 97.9 42 16 159/62 (94) 99 11/06/18 20:00 46 11/06/18 16:00 97.2 42 18 150/60 (90) 99 11/06/18 16:00 44 11/06/18 12:00 97.8 47 14 134/63 (86) 98 11/06/18 12:00 41 9/6/19 09:37 159/67 11/06/18 09:00 Room Air Intake and Output 11/06/18 11/07/18 19:00 07:00 Intake Total 892.5 ml 200 ml Balance 892.5 ml 200 ml Intake Oral 100 ml IV Total 892.5 ml 100 ml # Voids 1 2 # Bowel Movements 2 Laboratory Tests 11/06/18 15:50: Arterial Blood pH 7.418, Arterial Blood Partial Pressure CO2 32.3L, Arterial Blood Partial Pressure O2 113.2H, Arterial Blood HCO3 20.4L, Arterial Blood Oxygen Saturation 98.2, Arterial Blood Base Excess -3.2L, Samir Test Positive 11/07/18 00:37: White Blood Count 8.2, Red Blood Count 3.70L, Hemoglobin 12.8, Hematocrit 37.4, Mean Corpuscular Volume 101H, Mean Corpuscular Hemoglobin 34.7H, Mean Corpuscular Hemoglobin Concent 34.4, Red Cell Distribution Width 11.6, Platelet Count 183, Mean Platelet Volume 7.5, Neutrophils (%) (Auto) 49.3, Lymphocytes (% ) (Auto) 36.9, Monocytes (%) (Auto) 8.0, Eosinophils (%) (Auto) 5.0H, Basophils (%) (Auto) 0.8, Sodium Level 146H, Potassium Level 4.1, Chloride Level 113H, Carbon Dioxide Level 24, Anion Gap 9, Blood Urea Nitrogen 8, Creatinine 0.7, Estimat Glomerular Filtration Rate , Glucose Level 190H, Calcium Level 8.7, Magnesium Level 1.7L, Total Bilirubin 0.6, Aspartate Amino Transf (AST/SGOT) 19 , Alanine Aminotransferase (ALT/SGPT) 17, Alkaline Phosphatase 51, Pro-B-Type Natriuretic Peptide 266H, Total Protein 6.1L, Albumin 2.7L, Globulin 3.4, Albumin/Globulin Ratio 0.8L Height (Feet): 5 Height (Inches): 4.00 Weight (Pounds): 108 Objective General Appearance: WD/WN, sleepy/lethargic Neck: supple Cardiovascular: normal rate, regular rhythm Respiratory/Chest: chest wall non-tender, lungs clear, normal breath sounds, no respiratory distress Abdomen: normal bowel sounds, non tender, soft, no organomegaly Edema: no edema noted Arm (L), no edema noted Arm (R), no edema noted Leg (L), no edema noted Leg (R), no edema noted Pedal (L), no edema noted Pedal (R), no edema noted Generalized Vince Rosario MD Nov 07, 2018 08:06
[2018-11-07] MEDS: Lisinopril 20mg tab ORAL SCH (08:17)
[2018-11-07] MEDS: Heparin 5000 units/ml inj SUBQ SCH ×2 (08:18→21:34)
[2018-11-07 12:00] VITALS: BP 135/76
--- NOTE | 2018-11-07 14:56 | General Progress Note ---
Assessment/Plan Status: stable, progressing Assessment/Plan: Assessment - OBS - FTT - Anorexia - very poor intake - Depressed albumin Recommendations - continue Remeron trial - push po / monitor intake - cardiology clearance for possible PEG - On schedule for PEG Friday Subjective Allergies: Coded Allergies: No Known Allergies (Unverified , 02/09/14) Subjective above noted patient minimally communicative still with poor po Objective Last 24 Hour Vital Signs Date Time Temp Pulse Resp B/P (MAP) Pulse Ox O2 Delivery O2 Flow Rate FiO2 11/07/18 12:00 97.0 92 21 135/76 (95) 96 11/07/18 11:49 94 11/07/18 09:00 Room Air 11/07/18 08:17 159/89 11/07/18 08:00 48 11/07/18 08:00 97.8 92 18 159/98 (118) 96 11/07/18 04:00 97.3 43 15 89/52 (64) 98 11/07/18 04:00 42 11/07/18 00:00 99.0 44 16 145/63 (90) 96 11/07/18 00:00 51 11/06/18 21:00 Room Air 11/06/18 20:00 97.9 42 16 159/62 (94) 99 11/06/18 20:00 46 11/06/18 16:00 97.2 42 18 150/60 (90) 99 11/06/18 16:00 44 Intake and Output 11/06/18 11/07/18 18:59 06:59 Intake Total 892.5 ml 200 ml Balance 892.5 ml 200 ml Intake Oral 100 ml IV Total 892.5 ml 100 ml # Voids 1 2 # Bowel Movements 2 Laboratory Tests 11/06/18 15:50: Arterial Blood pH 7.418, Arterial Blood Partial Pressure CO2 32.3L, Arterial Blood Partial Pressure O2 113.2H, Arterial Blood HCO3 20.4L, Arterial Blood Oxygen Saturation 98.2, Arterial Blood Base Excess -3.2L, Samir Test Positive 11/07/18 00:37: White Blood Count 8.2, Red Blood Count 3.70L, Hemoglobin 12.8, Hematocrit 37.4, Mean Corpuscular Volume 101H, Mean Corpuscular Hemoglobin 34.7H, Mean Corpuscular Hemoglobin Concent 34.4, Red Cell Distribution Width 11.6, Platelet Count 183, Mean Platelet Volume 7.5, Neutrophils (%) (Auto) 49.3, Lymphocytes (% ) (Auto) 36.9, Monocytes (%) (Auto) 8.0, Eosinophils (%) (Auto) 5.0H, Basophils (%) (Auto) 0.8, Sodium Level 146H, Potassium Level 4.1, Chloride Level 113H, Carbon Dioxide Level 24, Anion Gap 9, Blood Urea Nitrogen 8, Creatinine 0.7, Estimat Glomerular Filtration Rate , Glucose Level 190H, Calcium Level 8.7, Magnesium Level 1.7L, Total Bilirubin 0.6, Aspartate Amino Transf (AST/SGOT) 19 , Alanine Aminotransferase (ALT/SGPT) 17, Alkaline Phosphatase 51, Pro-B-Type Natriuretic Peptide 266H, Total Protein 6.1L, Albumin 2.7L, Globulin 3.4, Albumin/Globulin Ratio 0.8L Height (Feet): 5 Height (Inches): 4.00 Weight (Pounds): 108 Objective WDWN Christian woman NCAT Supple CTA RR / sandra abd soft no edema OBS Leanne Gomes MD Nov 07, 2018 14:56
[2018-11-07 16:00] VITALS: BP 118/60
--- NOTE | 2018-11-07 17:49 | NUR ---
NURSE NOTES: left a message to family member to callback regarding a consent (EGD) for this patient. awaits callback from family member.
--- NOTE | 2018-11-07 19:35 | NUR ---
NURSE NOTES: Received pt and report from BREA Singleton. Observed pt resting in bed with both eyes open. Pt is A/Ox1. nurse monitoring is in placed, IV site intact, asymptomatic and patent. Bed is in the lowest position and locked. Call light within reach. No signs/symptoms of acute distress noted at this time. Will continue plan of care.
--- NOTE | 2018-11-07 19:44 | NUR ---
HAND-OFF: Report given to rosario pascal.
[2018-11-07 20:00] VITALS: BP 141/65
[2018-11-08] VITALS: BP 139/62
[2018-11-08] MEDS: D5 1/2NS w/KCl 20mEq 1,000 ML IV SCH ×2 (03:06→13:00)
--- NOTE | 2018-11-08 03:45 | Progress Note ---
DATE: 11/07/2018 CARDIOLOGY PROGRESS NOTE SUBJECTIVE: No symptomatic bradycardia. More sedated. Heart rate in the 40s at times, but asymptomatic. Blood pressure is stable. low blood pressure recorded very early this morning. PHYSICAL EXAMINATION: LUNGS: Clear. CARDIAC: Regular. Normal S1 and S2. Slow rate is noted. ABDOMEN: Soft. EXTREMITIES: No edema. LABORATORY DATA: White count 8 and hemoglobin 12.8. Sodium 146, potassium 4.1, bicarbonate 24, BUN 8, and creatinine 0.7. Albumin 2.7. Pro-natriuretic peptide 266. Magnesium 1.7. PLAN: 1. Stable for PEG. 2. This patient responds to atropine if needed. 3. Additional IV magnesium ordered. 4. Agree with discontinuation of Remeron. 5. Maintenance hydration pending G-tube placement. Benjie Quiñones M.D. DR: JORGE A JOB#: [id number] CC:
[2018-11-08 04:00] VITALS: BP 146/74
[2018-11-08] MEDS: Piperacillin/Tazobactam 3.375 GM in NS 110 ML IVPB SCH ×3 (06:19→21:46)
[2018-11-08] MEDS: NovoLOG Insulin Flexpen SUBQ SCH ×4 (06:32→21:47)
--- NOTE | 2018-11-08 07:06 | NUR ---
NURSE NOTES: Received report from My, RN. Observed patient in bed, awake, alert and verbally responsive. On room air, no resp distress noted. IV right forearm intact and patent with IV fluids infusing at prescribed rate. Safety precautions in place, bed locked, alarmed, and in lowest position, side rails up x3, and call light left within reach. Instructed to call for assistance. Will continue visual checks and plan of care.
--- NOTE | 2018-11-08 07:44 | NUR ---
HAND-OFF: Report given to BREA Lara.
[2018-11-08 08:00] VITALS: BP 132/92
[2018-11-08] MEDS: Lisinopril 20mg tab ORAL SCH (09:18)
[2018-11-08] MEDS: Heparin 5000 units/ml inj SUBQ SCH ×2 (09:23→21:00)
--- NOTE | 2018-11-08 11:16 | General Progress Note ---
Assessment/Plan Problem List: (1) UTI (urinary tract infection) ICD Codes: N39.0 - Urinary tract infection, site not specified SNOMED: 92035357 (2) Failure to thrive in adult ICD Codes: R62.7 - Failure to thrive in adult SNOMED: 152584922 (3) Episode of generalized weakness ICD Codes: R53.1 - Weakness SNOMED: 60536866 (4) Vertigo ICD Codes: R42 - Dizziness and giddiness SNOMED: 870032503 (5) Altered mental status ICD Codes: R41.82 - Altered mental status, unspecified SNOMED: 095563497 (6) Hypertensive urgency ICD Codes: I16.0 - Hypertensive urgency SNOMED: 262418625 Status: stable, progressing Assessment/Plan: cont current rx ivf encourage po possible gt placement tomorrow iv abx pt/ot d/w Subjective ROS Limited/Unobtainable: No Constitutional: Reports: malaise, weakness HEENT: Reports: no symptoms Cardiovascular: Reports: no symptoms Respiratory: Reports: no symptoms Gastrointestinal/Abdominal: Reports: difficulty swallowing, poor fluid intake Genitourinary: Reports: no symptoms Neurologic/Psychiatric: Reports: depressed Endocrine: Reports: no symptoms Hematologic/Lymphatic: Reports: anemia Allergies: Coded Allergies: No Known Allergies (Unverified , 02/09/14) All Systems: reviewed and negative except above Subjective bradycardia better. more alert. po intake remains mostly poor. Objective Last 24 Hour Vital Signs Date Time Temp Pulse Resp B/P (MAP) Pulse Ox O2 Delivery O2 Flow Rate FiO2 11/08/18 09:18 132/92 11/08/18 09:00 Room Air 11/08/18 08:00 97.5 105 20 132/92 (105) 100 11/08/18 07:42 93 11/08/18 04:00 52 11/08/18 04:00 98.1 54 18 146/74 (98) 96 11/08/18 00:00 68 11/08/18 00:00 98.1 69 18 139/62 (87) 94 11/07/18 21:00 Room Air 11/07/18 20:00 96.8 67 18 141/65 (90) 97 11/07/18 20:00 74 11/07/18 16:00 98.2 98 21 118/60 (79) 97 9/7/19 15:48 99 11/07/18 12:00 97.0 92 21 135/76 (95) 96 11/07/18 11:49 94 Intake and Output 11/07/18 11/08/18 19:00 07:00 Intake Total 1765.0 ml 418.69694 ml Output Total 700 ml Balance 1065.0 ml 418.02285 ml Intake Oral 300 ml IV Total 1465.0 ml 418.51945 ml Output Urine Total 700 ml # Voids 3 2 # Bowel Movements 2 1 Height (Feet): 5 Height (Inches): 4.00 Weight (Pounds): 108 Objective General Appearance: WD/WN, sleepy/lethargic Neck: supple Cardiovascular: normal rate, regular rhythm Respiratory/Chest: chest wall non-tender, lungs clear, normal breath sounds, no respiratory distress Abdomen: normal bowel sounds, non tender, soft, no organomegaly Edema: no edema noted Arm (L), no edema noted Arm (R), no edema noted Leg (L), no edema noted Leg (R), no edema noted Pedal (L), no edema noted Pedal (R), no edema noted Generalized Vince Rosario MD Nov 08, 2018 11:15
[2018-11-08 12:00] VITALS: BP 162/83
--- NOTE | 2018-11-08 12:59 | General Progress Note ---
Assessment/Plan Status: stable, progressing Assessment/Plan: Assessment - OBS - FTT - Anorexia - very poor intake - Depressed albumin Recommendations - continue Remeron trial - push po / monitor intake - cardiology clearance for possible PEG - On schedule for PEG Friday Subjective Allergies: Coded Allergies: No Known Allergies (Unverified , 02/09/14) Subjective above noted patient minimally communicative still with poor po d/w DTR Objective Last 24 Hour Vital Signs Date Time Temp Pulse Resp B/P (MAP) Pulse Ox O2 Delivery O2 Flow Rate FiO2 11/08/18 12:00 98.0 76 18 162/83 (109) 98 11/08/18 09:18 132/92 11/08/18 09:00 Room Air 11/08/18 08:00 97.5 105 20 132/92 (105) 100 11/08/18 07:42 93 11/08/18 04:00 52 11/08/18 04:00 98.1 54 18 146/74 (98) 96 11/08/18 00:00 68 11/08/18 00:00 98.1 69 18 139/62 (87) 94 11/07/18 21:00 Room Air 11/07/18 20:00 96.8 67 18 141/65 (90) 97 11/07/18 20:00 74 11/07/18 16:00 98.2 98 21 118/60 (79) 97 11/07/18 15:48 99 Intake and Output 11/07/18 11/08/18 19:00 07:00 Intake Total 1765.0 ml 418.25202 ml Output Total 700 ml Balance 1065.0 ml 418.05799 ml Intake Oral 300 ml IV Total 1465.0 ml 418.51667 ml Output Urine Total 700 ml # Voids 3 2 # Bowel Movements 2 1 Height (Feet): 5 Height (Inches): 4.00 Weight (Pounds): 108 Objective WDWN Christian woman NCAT Supple CTA RR / sandra abd soft no edema OBS Leanne Gomes MD Nov 08, 2018 12:59
[2018-11-08 16:00] VITALS: BP 151/63
[2018-11-08] MEDS ORDERED: NS 275ml ONE (16:46)
--- NOTE | 2018-11-08 19:36 | NUR ---
HAND-OFF: Report given to BREA Garcia. Patient in stable condition. Plan of care endorsed.
--- NOTE | 2018-11-08 19:37 | NUR ---
NURSE NOTES: Received patient awake, lying in semi nieto's; resting comfortably. A/O x 1-2. Denies pain at this time. No signs of acute cardiorespiratory distress noted. Checked IV site and flushed. No erythema, bleeding or infiltration noted. Bed at lowest position, brakes on, siderails x3. Call light within reach. Will continue to monitor.
[2018-11-08 20:00] VITALS: BP 150/79
--- NOTE | 2018-11-08 20:30 | Progress Note ---
DATE: 11/08/2018 CARDIOLOGY PROGRESS NOTE SUBJECTIVE: The patient is poorly communicative. Intake is poor. G-tube is planned. OBJECTIVE: VITAL SIGNS: Blood pressure 132/92 to 162/83, heart rate 52 to 105, respiratory rate 18 to 20, and afebrile. Monitor, sinus and asymptomatic sinus bradycardia. No pauses. LUNGS: Clear. CARDIAC: Regular rhythm and rate. Normal S1, S2 with a fourth heart sound. ABDOMEN: Soft. EXTREMITIES: Trace edema. IMPRESSION: 1. Anorexia. 2. Moderate protein-calorie malnutrition. 3. 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 4. Hypertensive heart disease. 5. Chronic diastolic congestive heart failure. PLAN: 1. Stable for G-tube from cardiovascular standpoint. The patient is atropine responsive in the event of significant bradycardia. 2. Can optimize antihypertensive regimen once G-tube is placed. 3. Continue IV fluids for the interim. 4. Monitor electrolytes and magnesium level. Benjie Quiñones M.D. DR: BRIJESH JOB#: [id number] CC:
[2018-11-09] VITALS (11 sets, daily range): BP systolic 100–194; BP diastolic 63–97
[2018-11-09] MEDS: D5 1/2NS w/KCl 20mEq 1,000 ML IV SCH ×3 (00:31→20:21)
--- NOTE | 2018-11-09 00:46 | NUR ---
NURSE NOTES: Resting throughout the night. No significant change of condition noted. Will continue to monitor.
[2018-11-09] MEDS: Piperacillin/Tazobactam 3.375 GM in NS 110 ML IVPB SCH ×3 (05:38→21:48)
[2018-11-09] MEDS: NovoLOG Insulin Flexpen SUBQ SCH ×4 (05:39→20:28)
--- NOTE | 2018-11-09 07:19 | General Progress Note ---
Assessment/Plan Problem List: (1) UTI (urinary tract infection) ICD Codes: N39.0 - Urinary tract infection, site not specified SNOMED: 13012066 (2) Failure to thrive in adult ICD Codes: R62.7 - Failure to thrive in adult SNOMED: 607884079 (3) Episode of generalized weakness ICD Codes: R53.1 - Weakness SNOMED: 39779591 (4) Vertigo ICD Codes: R42 - Dizziness and giddiness SNOMED: 200227661 (5) Altered mental status ICD Codes: R41.82 - Altered mental status, unspecified SNOMED: 444070708 (6) Hypertensive urgency ICD Codes: I16.0 - Hypertensive urgency SNOMED: 336587153 Status: stable, progressing Assessment/Plan: cont current rx ivf as needed encourage po possible gt placement iv abx pt/ot d/w Subjective ROS Limited/Unobtainable: No Constitutional: Reports: malaise, weakness HEENT: Reports: no symptoms Cardiovascular: Reports: no symptoms Respiratory: Reports: no symptoms Gastrointestinal/Abdominal: Reports: poor appetite Genitourinary: Reports: no symptoms Neurologic/Psychiatric: Reports: depressed, pre-existing deficit Endocrine: Reports: no symptoms Hematologic/Lymphatic: Reports: anemia Allergies: Coded Allergies: No Known Allergies (Unverified , 02/09/14) All Systems: reviewed and negative except above Subjective no evets. no bradycardia. alert. poor po intake. less than 50%. usually around 25% Objective Last 24 Hour Vital Signs Date Time Temp Pulse Resp B/P (MAP) Pulse Ox O2 Delivery O2 Flow Rate FiO2 11/09/18 04:00 98.2 90 20 151/92 (111) 98 11/09/18 04:00 91 11/09/18 00:00 98.4 96 20 152/94 (113) 98 11/09/18 00:00 96 11/08/18 21:00 Room Air 11/08/18 21:00 Room Air 11/08/18 20:00 97.7 100 20 150/79 (102) 95 11/08/18 20:00 98 11/08/18 16:00 98.5 60 20 151/63 (92) 99 11/08/18 15:20 61 11/08/18 12:00 98.0 76 18 162/83 (109) 98 11/08/18 11:43 93 11/08/18 09:18 132/92 11/08/18 09:00 Room Air 11/08/18 08:00 97.5 105 20 132/92 (105) 100 11/08/18 07:42 93 Intake and Output 11/08/18 11/09/18 19:00 07:00 Intake Total 1547.04768 ml 463.42 ml Output Total 300 ml 1200 ml Balance 1247.91177 ml -736.58 ml Intake Oral 240 ml IV Total 1307.93912 ml 463.42 ml Output Urine Total 300 ml 1200 ml # Bowel Movements 1 Height (Feet): 5 Height (Inches): 3.00 Weight (Pounds): 116 Objective General Appearance: WD/WN, sleepy/lethargic Neck: supple Cardiovascular: normal rate, regular rhythm Respiratory/Chest: chest wall non-tender, lungs clear, normal breath sounds, no respiratory distress Abdomen: normal bowel sounds, non tender, soft, no organomegaly Edema: no edema noted Arm (L), no edema noted Arm (R), no edema noted Leg (L), no edema noted Leg (R), no edema noted Pedal (L), no edema noted Pedal (R), no edema noted Generalized Vince Rosario MD Nov 09, 2018 07:19
--- NOTE | 2018-11-09 07:30 | NUR ---
NURSE NOTES: Received bedside report from Radha GUIDRY. Pt. in bed, sleeping but arousable. No sign of distress. No grimacing noted. IV at right FA #20g. in placed patent/intact running D5 1/2 NS with Kcl 20meq. @ 100cc/hr. Tolerating well. NPO observed prior to procedure EGD with PEG placement. Cardio cleared pt. for procedure. Will cont. to monitor.
--- NOTE | 2018-11-09 07:34 | NUR ---
HAND-OFF: Report given to BREA Leal. Plan of care endorsed.
[2018-11-09 08:07] LABS: BASOPHILS % (AUTO) 0.8 % (0.0-2.0); EOSINOPHILS % (AUTO) 3.2 % (0.0-3.0); HEMOGLOBIN 13.8 G/DL (12.0-16.0); LYMPHOCYTES % (AUTO) 30.3 % (20.0-45.0); MEAN CORPUSCULAR VOLUME 103 FL (80-99); NEUTROPHILS % (AUTO) 57.8 % (45.0-75.0); PLATELET COUNT 198 K/UL (150-450); RED CELL DISTRIBUTION WIDTH 11.8 % (11.6-14.8); WHITE BLOOD COUNT 7.5 K/UL (4.8-10.8)
[2018-11-09] MEDS: Lisinopril 20mg tab ORAL SCH (08:46)
[2018-11-09] MEDS: Heparin 5000 units/ml inj SUBQ SCH ×2 (08:46→20:31)
[2018-11-09 08:52] LABS: ALANINE AMINOTRANSFERASE 15 U/L (12-78); ALBUMIN 2.9 G/DL (3.4-5.0); ALBUMIN/GLOBULIN RATIO 0.7 (1.0-2.7); ALKALINE PHOSPHATASE 57 U/L (46-116); ANION GAP 13 mmol/L (5-15); ASPARTATE AMINO TRANSFERASE 13 U/L (15-37); BILIRUBIN,TOTAL 0.4 MG/DL (0.2-1.0); BLOOD UREA NITROGEN 9 mg/dL (7-18); CALCIUM 9.2 MG/DL (8.5-10.1); CARBON DIOXIDE 21 MMOL/L (21-32); CHLORIDE 109 MMOL/L (98-107); CREATININE 0.8 MG/DL (0.55-1.30); POTASSIUM 3.9 MMOL/L (3.5-5.1); SODIUM 143 MMOL/L (136-145)
--- NOTE | 2018-11-09 10:46 | General Progress Note ---
Assessment/Plan Status: stable, progressing Assessment/Plan: Assessment - OBS - FTT - DM - Anorexia - very poor intake - Depressed albumin Recommendations - NPO - IVF - PEG today - Elevate HOB - will need diabetic TF once started Subjective Allergies: Coded Allergies: No Known Allergies (Unverified , 02/09/14) Subjective above noted patient minimally interactive d/w DTR yesterday re PEG pt NPO Objective Last 24 Hour Vital Signs Date Time Temp Pulse Resp B/P (MAP) Pulse Ox O2 Delivery O2 Flow Rate FiO2 11/09/18 08:46 111/67 11/09/18 08:00 97.4 77 18 111/67 (82) 96 11/09/18 04:00 98.2 90 20 151/92 (111) 98 11/09/18 04:00 91 11/09/18 00:00 98.4 96 20 152/94 (113) 98 11/09/18 00:00 96 11/08/18 21:00 Room Air 11/08/18 21:00 Room Air 11/08/18 20:00 97.7 100 20 150/79 (102) 95 11/08/18 20:00 98 11/08/18 16:00 98.5 60 20 151/63 (92) 99 11/08/18 15:20 61 11/08/18 12:00 98.0 76 18 162/83 (109) 98 11/08/18 11:43 93 Intake and Output 11/08/18 11/09/18 19:00 07:00 Intake Total 1547.84598 ml 490.92 ml Output Total 300 ml 1200 ml Balance 1247.24374 ml -709.08 ml Intake Oral 240 ml IV Total 1307.10422 ml 490.92 ml Output Urine Total 300 ml 1200 ml # Bowel Movements 1 Laboratory Tests 11/09/18 06:25: White Blood Count 7.5, Red Blood Count 4.00L, Hemoglobin 13.8, Hematocrit 41.0, Mean Corpuscular Volume 103H, Mean Corpuscular Hemoglobin 34.4H, Mean Corpuscular Hemoglobin Concent 33.6, Red Cell Distribution Width 11.8, Platelet Count 198, Mean Platelet Volume 8.3, Neutrophils (%) (Auto) 57.8, Lymphocytes (% ) (Auto) 30.3, Monocytes (%) (Auto) 8.0, Eosinophils (%) (Auto) 3.2H, Basophils (%) (Auto) 0.8, Sodium Level 143, Potassium Level 3.9, Chloride Level 109H, Carbon Dioxide Level 21, Anion Gap 13, Blood Urea Nitrogen 9, Creatinine 0.8, Estimat Glomerular Filtration Rate , Glucose Level 223H, Calcium Level 9.2, Total Bilirubin 0.4, Aspartate Amino Transf (AST/SGOT) 13L, Alanine Aminotransferase (ALT/SGPT) 15, Alkaline Phosphatase 57, Total Protein 7.0, Albumin 2.9L, Globulin 4.1, Albumin/Globulin Ratio 0.7L Height (Feet): 5 Height (Inches): 3.00 Weight (Pounds): 116 Objective WDWN Christian woman NCAT Supple CTA RR / sandra abd soft no edema OBS Leanne Gomes MD Nov 09, 2018 10:46
--- NOTE | 2018-11-09 11:29 | Pre-Procedure Note/Attestation ---
Pre-Procedure Note/Attestation Complete Prior to Procedure Planned Procedure: not applicable Procedure Narrative: PEG Indications for Procedure Pre-Operative Diagnosis: dysphagia Attestation I attest that I discussed the nature of the procedure; its benefits; risks and complications; and alternatives (and the risks and benefits of such alternatives ), prior to the procedure, with the patient (or the patient's legal outbound call center representative). I attest that, if there was a reasonable possibility of needing a blood transfusion, the patient (or the patient's legal outbound call center representative) was given the [facility] standardized written summary, pursuant to the [place] Blood Safety Act ([place] Health and Safety Code # 1645, as amended). I attest that I re-evaluated the patient just prior to the surgery and that there has been no change in the patient's H&P, except as documented below: Leanne Gomes MD Nov 09, 2018 11:29
--- NOTE | 2018-11-09 11:30 | Immediate Post-Op Evaluation ---
Immediate Post-Op Evalulation Immediate Post-Op Evalulation Procedure: Colonoscopy Date of Evaluation: Nov 09, 2018 Time of Evaluation: 11:29 IV Fluids: 400 Blood Products: none Estimated Blood Loss: none Urinary Output: NONE Blood Pressure Systolic: 108 Blood Pressure Diastolic: 56 Pulse Rate: 74 Respiratory Rate: 20 O2 Sat by Pulse Oximetry: 98 Temperature (Fahrenheit): 97.6 Pain Score (1-10): 1 Nausea: No Vomiting: No Complications none Patient Status: awake, patent, none Hydration Status: adequate Yoel Dominguez MD Nov 09, 2018 11:30
--- NOTE | 2018-11-09 11:37 | NUR ---
NURSE NOTES: Pt. off the unit for EGD with PEG placement. Pt. remain stable.
[2018-11-09] MEDS ORDERED: Propofol 200mg/20ml IV ONE (11:40)
[2018-11-09] MEDS ORDERED: fentaNYL 100 mcg/2 mL IV ONE (11:40)
--- NOTE | 2018-11-09 12:00 | Anethesia Preoperative Eval ---
Anesthesia Pre-op PMH/ROS General Date of Evaluation: Nov 09, 2018 Time of Evaluation: 11:41 Anesthesiologist: Alberto ASA Score: ASA 4 Mallampati Score Class I : Soft palate, uvula, fauces, pillars visible Class II: Soft palate, uvula, fauces visible Class III: Soft palate, base of uvula visible Class IV: Only hard plate visible Mallampati Classification: Class III Surgeon: Kandi Diagnosis: Dysphagia Surgical Procedure: EGD PEG placement Anesthesia History: none Family History: no anesthesia problems Allergies: Coded Allergies: No Known Allergies (Unverified , 02/09/14) Medications: see eMAR Patient NPO?: Yes Past Medical History Cardiovascular: Reports: HTN; Denies: CAD, [place], valve dz, arrhythmia, other Pulmonary: Denies: asthma, COPD, [place], other Gastrointestinal/Genitourinary: Reports: GERD, CRI; Denies: ESRD, other Neurologic/Psychiatric: Reports: dementia; Denies: CVA, depression/anxiety, TIA, other Endocrine: Reports: DM; Denies: hypothyroidism, steroids, other HEENT: Reports: cataract (L), cataract (R); Denies: glaucoma, [place] (L), [place] (R), other Hematology/Immune: Reports: anemia - mild Musculoskeletal/Integumentary: Reports: OA Other: other - malnourished PMH Narrative: as above PSxH Narrative: See H&P Anesthesia Pre-op Phys. Exam Physician Exam Last Vital Signs Date Time Temp Pulse Resp B/P (MAP) Pulse Ox O2 Delivery O2 Flow Rate FiO2 11/09/18 11:30 74 20 98 11/09/18 09:00 Room Air 11/09/18 08:46 111/67 11/09/18 08:00 97.4 10/31/18 20:45 98 Constitutional: NAD Neurologic: other - unable to obtaine Cardiovascular: RRR, no M/R/G Respiratory: CTA Gastrointestinal: S/NT/ND Airway Exam Mallampati Score: Class III MO: limited Neck: stiff ROM: limited Teeth: missing, broken Dentures: no upper, no lower Anesthesia Pre-op A/P Labs Hematology Test 11/09/18 06:25 White Blood Count 7.5 K/UL (4.8-10.8) Red Blood Count 4.00 M/UL (4.20-5.40) L Hemoglobin 13.8 G/DL (12.0-16.0) Hematocrit 41.0 % (37.0-47.0) Mean Corpuscular Volume 103 FL (80-99) H Mean Corpuscular Hemoglobin 34.4 PG (27.0-31.0) H Mean Corpuscular Hemoglobin Concent 33.6 G/DL (32.0-36.0) Red Cell Distribution Width 11.8 % (11.6-14.8) Platelet Count 198 K/UL (150-450) Mean Platelet Volume 8.3 FL (6.5-10.1) Neutrophils (%) (Auto) 57.8 % (45.0-75.0) Lymphocytes (%) (Auto) 30.3 % (20.0-45.0) Monocytes (%) (Auto) 8.0 % (1.0-10.0) Eosinophils (%) (Auto) 3.2 % (0.0-3.0) H Basophils (%) (Auto) 0.8 % (0.0-2.0) Chemistry Test 11/09/18 06:25 Sodium Level 143 MMOL/L (136-145) Potassium Level 3.9 MMOL/L (3.5-5.1) Chloride Level 109 MMOL/L (98-107) H Carbon Dioxide Level 21 MMOL/L (21-32) Anion Gap 13 mmol/L (5-15) Blood Urea Nitrogen 9 mg/dL (7-18) Creatinine 0.8 MG/DL (0.55-1.30) Estimat Glomerular Filtration Rate mL/min (>60) Glucose Level 223 MG/DL (74-106) H Calcium Level 9.2 MG/DL (8.5-10.1) Total Bilirubin 0.4 MG/DL (0.2-1.0) Aspartate Amino Transf (AST/SGOT) 13 U/L (15-37) L Alanine Aminotransferase (ALT/SGPT) 15 U/L (12-78) Alkaline Phosphatase 57 U/L (46-116) Total Protein 7.0 G/DL (6.4-8.2) Albumin 2.9 G/DL (3.4-5.0) L Globulin 4.1 g/dL Albumin/Globulin Ratio 0.7 (1.0-2.7) L Risk Assessment & Plan Assessment: ASA 4 Plan: MAC Status Change Before Surgery: Yoel Howard MD Nov 09, 2018 12:00
--- NOTE | 2018-11-09 12:13 | Endoscopy Procedure Note ---
Endoscopy Procedure Note General Indication for Procedure: dysphagia Procedures Performed: EGD Operative Findings/Diagnosis: PEG placed Specimen: none Pt Tolerated Procedure Well: Yes Estimated Blood Loss: minimal Anesthesia Anesthesiologist: Melita Anesthesia: MAC Inserted Devices PEG: placed Implant(s) used?: No GI Core Measures 50 yrs or older w/o bx or poly: Not Applicable 10yrs. F/U recommended: Not Applicable If not recommended, why?: Leanne Gomes MD Nov 09, 2018 12:12
--- NOTE | 2018-11-09 12:13 | Brief Operative Note ---
Immediate Post Operative Note Operative Note Chief Complaint: dysphagia Pre-op Diagnosis: dysphagia Procedure: PEG Post-op Diagnosis: PEG Surgeon: dajuan Anesthesiologist: bill Anesthesia: MAC Specimen: none Complications: none Condition: stable Fluids: recorded Estimated Blood Loss: none Drains: none Implant(s) used?: No Leanne Gomes MD Nov 09, 2018 12:13
--- NOTE | 2018-11-09 12:18 | 48 Hour Post Anesthesia Eval ---
Post Anesthesia Evaluation Procedure: EGD PEG tube placement Date of Evaluation: Nov 09, 2018 Time of Evaluation: 12:17 Blood Pressure Systolic: 178 0: 86 Pulse Rate: 73 Respiratory Rate: 20 Temperature (Fahrenheit): 97.8 O2 Sat by Pulse Oximetry: 98 Airway: patent Nausea: No Vomiting: No Pain Intensity: 1 Hydration Status: adequate Cardiopulmonary Status: stable Mental Status/LOC: patient returned to baseline Follow-up Care/Observations: n/a Post-Anesthesia Complications: none Follow-up care needed: N/A Yoel Dominguez MD Nov 09, 2018 12:18
[2018-11-09] MEDS ORDERED: fentaNYL 100 mcg/2 mL IV PRN (12:30)
[2018-11-09] MEDS ORDERED: Labetalol 5mg/ml 20ml vial IV PRN (12:30)
--- NOTE | 2018-11-09 12:45 | NUR ---
NURSE NOTES: Pt. back on the unit s/p EGD with PEG placement. Dry dressing in placed. No s/sx of bleeding on the site.
--- NOTE | 2018-11-09 15:18 | NUR ---
RD ASSESSMENT & RECOMMENDATIONS SEE CARE ACTIVITY FOR COMPLETE ASSESSMENT DAILY ESTIMATED NEEDS: Needs based on DM, cardiac (Actual 52.5kg) 25-30 kcals/kg 9704-3140 total kcals 1-1.5 g protein/kg 53-79 g total protein 25-30 mL/kg 2205-8339 total fluid mLs NUTRITION DIAGNOSIS: * Inadequate oral intake R/T poor appetite, decreased cognitive fxn as evidenced by admitted w/ FTT dx, w/ poor and variable PO intake, possible pending PEG placement. * Altered nutrition related lab values R/T diabetes as evidenced by elev BGs (187 188), POC glu (178 214 183 265). CURRENT DIET: CCHO MED/ soft easy chew + Glucerna TID w/ meals ENTERAL NUTRITION RECOMMENDATIONS: Glucerna 1.2 @ 50ml/hr x 24hrs to provide 1200ml, 1440kcal, 72g prot, 966ml free water * W/ GI access, initiate Glucerna 1.2 @ 20ml/hr x 6 hrs * Advance 10ml q 4-6 hrs as tolerated to goal rate * TF @ goal will meet 100% est kcal/prot needs * HOB over 30 degrees/ water flush per MD ADDITIONAL RECOMMENDATIONS: 1) Recalibrated bedscale for accurate CBW, weekly wt monitoring 2) F/up with calorie count x 72 hrs -> incomplete/ suboptimal intake overall 3) F/up w/ POC: possible PEG placement 4) Monitor lytes, replete as needed 5) FIELD MARK[employer]ING LEAD eval for appropriate texture for oral grat
--- NOTE | 2018-11-09 19:12 | NUR ---
HAND-OFF: Report given to Radha GUIDRY. Pt.remain stable.
--- NOTE | 2018-11-09 19:13 | NUR ---
NURSE NOTES: Received patient asleep but arousable to name, lying in semi nieto's; resting comfortable. Patient is S/P EGD with PEG placement. Dressing is dry and in place. No bleeding or discharge noted. Checked IV site and flushed. No erythema, bleeding or infiltration noted. Bed at lowest position, brakes on, siderails x 3. Comfort care provided. Will continue to monitor. Addendum: 11/09/18 at 1942 by Radha Diggs RN Call light within reach.
[2018-11-10] VITALS: BP 114/62
--- NOTE | 2018-11-10 01:34 | NUR ---
NURSE NOTES: Resting throughout the night. No significant change of condition noted. Will continue to monitor.
--- NOTE | 2018-11-10 02:30 | Progress Note ---
DATE: 11/09/2018 CARDIOLOGY PROGRESS NOTE SUBJECTIVE: The patient is status post uncomplicated endoscopy and G-tube placement today. Feedings have yet to be restarted. OBJECTIVE: VITAL SIGNS: Blood pressure 100/66, pulse rate 64, respirations 18, monitored sinus and sinus bradycardia. LUNGS: Clear. CARDIAC: Regular. Normal S1 and S2 with a fourth heart sound. ABDOMEN: Slightly distended, but soft. G-tube site intact. EXTREMITIES: No edema. LABORATORY DATA: White count 7.5 and hemoglobin 13.8. BUN 9, creatinine 0.8, and albumin 2.9. IMPRESSION: 1. Status post PEG, rehydrated. 2. Diastolic congestive heart failure, compensated. 3. Moderate protein-calorie malnutrition. 4. Sinus node disease with asymptomatic bradycardia. 5. Hypertensive heart disease. PLAN: Await feeding initiation and resumption of medications, and we will titrate to optimize clinical parameters prior to discharge. Benjie Quiñones M.D. DR: VICENTA JOB#: [id number] CC:
[2018-11-10 04:00] VITALS: BP 106/64
[2018-11-10] MEDS: D5 1/2NS w/KCl 20mEq 1,000 ML IV SCH ×2 (05:12→13:34)
[2018-11-10] MEDS: Piperacillin/Tazobactam 3.375 GM in NS 110 ML IVPB SCH ×3 (05:19→21:14)
[2018-11-10] MEDS: NovoLOG Insulin Flexpen SUBQ SCH ×3 (05:43→17:23)
[2018-11-10 06:52] LABS: BASOPHILS % (AUTO) 0.9 % (0.0-2.0); EOSINOPHILS % (AUTO) 1.8 % (0.0-3.0); HEMATOCRIT 40.3 % (37.0-47.0); HEMOGLOBIN 13.8 G/DL (12.0-16.0); LYMPHOCYTES % (AUTO) 25.9 % (20.0-45.0); MEAN CORPUSCULAR VOLUME 102 FL (80-99); MONOCYTES % (AUTO) 7.9 % (1.0-10.0); NEUTROPHILS % (AUTO) 63.5 % (45.0-75.0); PLATELET COUNT 172 K/UL (150-450); RED BLOOD COUNT 3.95 M/UL (4.20-5.40); RED CELL DISTRIBUTION WIDTH 11.8 % (11.6-14.8); WHITE BLOOD COUNT 9.2 K/UL (4.8-10.8)
--- NOTE | 2018-11-10 07:13 | General Progress Note ---
Assessment/Plan Problem List: (1) UTI (urinary tract infection) ICD Codes: N39.0 - Urinary tract infection, site not specified SNOMED: 05372434 (2) Failure to thrive in adult ICD Codes: R62.7 - Failure to thrive in adult SNOMED: 766163248 (3) Episode of generalized weakness ICD Codes: R53.1 - Weakness SNOMED: 66122921 (4) Vertigo ICD Codes: R42 - Dizziness and giddiness SNOMED: 956892530 (5) Altered mental status ICD Codes: R41.82 - Altered mental status, unspecified SNOMED: 394585214 (6) Hypertensive urgency ICD Codes: I16.0 - Hypertensive urgency SNOMED: 302999862 Status: stable, progressing Assessment/Plan: cont current rx ivf as needed gt feeds when cleared by iv abx pt/ot d/w Subjective ROS Limited/Unobtainable: No Constitutional: Reports: malaise, weakness HEENT: Reports: no symptoms Cardiovascular: Reports: no symptoms Respiratory: Reports: cough Gastrointestinal/Abdominal: Reports: difficulty swallowing Genitourinary: Reports: no symptoms Neurologic/Psychiatric: Reports: pre-existing deficit Endocrine: Reports: no symptoms Hematologic/Lymphatic: Reports: no symptoms Allergies: Coded Allergies: No Known Allergies (Unverified , 02/09/14) All Systems: reviewed and negative except above Subjective s/p uncomplicated GT. on ivf. no events. no fevers or sob. Objective Last 24 Hour Vital Signs Date Time Temp Pulse Resp B/P (MAP) Pulse Ox O2 Delivery O2 Flow Rate FiO2 11/10/18 04:00 98.0 73 20 106/64 (78) 97 11/10/18 04:00 73 11/10/18 00:00 56 11/10/18 00:00 98.9 60 18 114/62 (79) 95 11/09/18 21:00 Room Air 11/09/18 20:00 64 11/09/18 20:00 98.4 64 18 100/66 (77) 98 11/09/18 16:00 98.2 69 18 138/78 (98) 98 11/09/18 15:27 66 11/09/18 13:09 57 11/09/18 12:41 98.0 60 15 152/71 100 Nasal Cannula 3 11/09/18 12:35 54 16 156/75 100 Nasal Cannula 3 11/09/18 12:25 64 18 157/75 98 Nasal Cannula 3 11/09/18 12:20 75 17 165/83 96 Nasal Cannula 3 11/09/18 12:18 73 20 98 11/09/18 12:15 97.8 76 23 194/97 96 Nasal Cannula 3 11/09/18 11:35 98.2 49 20 148/63 (91) 97 11/09/18 11:30 74 20 98 11/09/18 09:00 Room Air 11/09/18 08:46 111/67 11/09/18 08:00 97.4 77 18 111/67 (82) 96 11/09/18 07:40 78 Intake and Output 11/09/18 11/10/18 19:00 07:00 Intake Total 1050 ml 434.29 ml Output Total 150 ml 400 ml Balance 900 ml 34.29 ml IV Total 1050 ml 434.29 ml Output Urine Total 150 ml 400 ml # Bowel Movements 1 Laboratory Tests 11/10/18 05:54: White Blood Count 9.2, Red Blood Count 3.95L, Hemoglobin 13.8, Hematocrit 40.3, Mean Corpuscular Volume 102H, Mean Corpuscular Hemoglobin 34.9H, Mean Corpuscular Hemoglobin Concent 34.2, Red Cell Distribution Width 11.8, Platelet Count 172, Mean Platelet Volume 8.6, Neutrophils (%) (Auto) 63.5, Lymphocytes (% ) (Auto) 25.9, Monocytes (%) (Auto) 7.9, Eosinophils (%) (Auto) 1.8, Basophils ( %) (Auto) 0.9 Height (Feet): 5 Height (Inches): 3.00 Weight (Pounds): 116 Objective General Appearance: WD/WN, sleepy/lethargic Neck: supple Cardiovascular: normal rate, regular rhythm Respiratory/Chest: chest wall non-tender, lungs clear, normal breath sounds, no respiratory distress Abdomen: normal bowel sounds, non tender, soft, no organomegaly Edema: no edema noted Arm (L), no edema noted Arm (R), no edema noted Leg (L), no edema noted Leg (R), no edema noted Pedal (L), no edema noted Pedal (R), no edema noted Generalized Vince Rosario MD Nov 10, 2018 07:13
--- NOTE | 2018-11-10 07:27 | NUR ---
HAND-OFF: Report given to BREA Banerjee. Patient is in stable condition. Plan of care endorsed.
--- NOTE | 2018-11-10 07:33 | NUR ---
NURSE NOTES: Received report from BREA Garcia. The patient is resting on the bed without acute distress or shortness of breath. The patient's bed in the lowest position, call light in reach, and fall and aspiration precaution reinforced. IV site on R AC 20G intact and patent. The patient's saturation is within normal range in room air. The patient's G tube is intact and patent. Based on the order, the feeding has not been started but G-tube in use only for medication. Will continue plan of care.
[2018-11-10 08:00] VITALS: BP 128/71
[2018-11-10] MEDS: Lisinopril 20mg tab GT SCH (08:56)
[2018-11-10] MEDS: Heparin 5000 units/ml inj SUBQ SCH ×2 (09:01→21:13)
--- NOTE | 2018-11-10 10:09 | NUR ---
NURSE NOTES: Dr. Gomes at the bedside to assess the patient and the patient's G tube site. Dr. Gomes ordered to start tube feeding with Glucerna 1.2 with goal of 50mL/hr but start with rate of 20mL/hr with H2O flush of 100mL Q8hr. Carried out the order. Will continue plan of care.
[2018-11-10 12:00] VITALS: BP 132/71
--- NOTE | 2018-11-10 13:27 | NUR ---
CASE MANAGEMENT:REVIEW 11/10/18 SI: SEPSIS D/T UTI MALNUTRITION. SINUS BRADYCARDIA...POD #1...S/P PEG 97.3 45 18 172/72 96% ON RA NA+147 IS: LISINOPRIL GT QD IVF@75/HR PROTONIX PO QD HEPARIN SQ Q12 : TELEMETRY STATUS DCP: FROM HOME PLAN: START TUBE FEEDINGS CONTINUOUS CARDIAC MONITORING DISCHARGE PLANNING
--- NOTE | 2018-11-10 14:01 | NUR ---
NURSE NOTES: The patient is stable without acute distress or shortness of breath. Will continue plan of care.
--- NOTE | 2018-11-10 15:28 | General Progress Note ---
Assessment/Plan Status: stable, progressing Assessment/Plan: Assessment - OBS - FTT - DM - Anorexia - s/p PEG - Depressed albumin Recommendations - IVF - Begin TF - Elevate HOB Subjective Allergies: Coded Allergies: No Known Allergies (Unverified , 02/09/14) Subjective above noted POD #1 s/p PEG no events Objective Last 24 Hour Vital Signs Date Time Temp Pulse Resp B/P (MAP) Pulse Ox O2 Delivery O2 Flow Rate FiO2 11/10/18 12:00 85 11/10/18 12:00 98.2 84 20 132/71 (91) 96 11/10/18 09:00 Room Air 11/10/18 08:56 128/71 11/10/18 08:00 97.0 69 20 128/71 (90) 97 11/10/18 08:00 68 11/10/18 04:00 98.0 73 20 106/64 (78) 97 11/10/18 04:00 73 11/10/18 00:00 56 11/10/18 00:00 98.9 60 18 114/62 (79) 95 11/09/18 21:00 Room Air 11/09/18 20:00 64 11/09/18 20:00 98.4 64 18 100/66 (77) 98 11/09/18 16:00 98.2 69 18 138/78 (98) 98 11/09/18 15:27 66 Intake and Output 11/09/18 11/10/18 19:00 07:00 Intake Total 1050 ml 461.79 ml Output Total 150 ml 400 ml Balance 900 ml 61.79 ml IV Total 1050 ml 461.79 ml Output Urine Total 150 ml 400 ml # Bowel Movements 1 Laboratory Tests 11/10/18 05:54: White Blood Count 9.2, Red Blood Count 3.95L, Hemoglobin 13.8, Hematocrit 40.3, Mean Corpuscular Volume 102H, Mean Corpuscular Hemoglobin 34.9H, Mean Corpuscular Hemoglobin Concent 34.2, Red Cell Distribution Width 11.8, Platelet Count 172, Mean Platelet Volume 8.6, Neutrophils (%) (Auto) 63.5, Lymphocytes (% ) (Auto) 25.9, Monocytes (%) (Auto) 7.9, Eosinophils (%) (Auto) 1.8, Basophils ( %) (Auto) 0.9 Height (Feet): 5 Height (Inches): 3.00 Weight (Pounds): 116 Objective WDWN Christian woman NCAT Supple CTA RR / sandra abd soft, (+) GT no edema OBS Leanne Gomes MD Nov 10, 2018 15:28
[2018-11-10 16:00] VITALS: BP 116/60
--- NOTE | 2018-11-10 19:04 | NUR ---
HAND-OFF: Report given to BREA Morfin. The patient is resting on the bed without acute distress or shortness of breath. The patient's bed in the lowest position, call light in reach, and fall and aspiration precaution reinforced. G tube intact and patent and Glucerna 1.2 running 35mL/hr. IV site intact and patent. Endorsed plan of care.
--- NOTE | 2018-11-10 19:10 | NUR ---
NURSE NOTES: Received report from Beverley Emery RN. Patient in bed AAO X1-2 with no complaints of acute pain or discomfort noted. kept clean, dry, and comfortable in bed. Patient on bedrest for weakness. IV line intact and patent and placed on continuous cardiac monitoring per protocol. Purewick placed for episodes of incontinence, safety precaution in place; siderails X3 up, call light within reach, bed in lowest position, brakes and alarm on at all times. Needs and wants anticipated and attended. Will continue plan of care and monitor for any changes noted. PEG intact and patent with prescribed GTF running. Tolerating well with no A/R observed.
[2018-11-10 20:00] VITALS: BP 125/56
[2018-11-11] VITALS: BP 148/72
[2018-11-11] MEDS: NovoLOG Insulin Flexpen SUBQ SCH ×4 (00:02→17:11)
[2018-11-11] MEDS: D5 1/2NS w/KCl 20mEq 1,000 ML IV SCH (01:30)
--- NOTE | 2018-11-11 02:55 | NUR ---
NURSE NOTES: Patient in bed asleep with no S/S of distress. Will continue to monitor
[2018-11-11 04:00] VITALS: BP 112/67
[2018-11-11] MEDS: Piperacillin/Tazobactam 3.375 GM in NS 110 ML IVPB SCH (05:19)
--- NOTE | 2018-11-11 05:30 | Progress Note ---
DATE: 11/10/2018 CARDIOLOGY PROGRESS NOTE SUBJECTIVE: The patient's G-tube is functional. Feedings have been tolerated. OBJECTIVE: VITAL SIGNS: Blood pressure 106/64, pulse 73, respirations 20. Monitored rhythm sinus and sinus bradycardia. No pauses. LUNGS: Clear. CARDIAC: Regular. ABDOMEN: Soft. G-tube site intact. EXTREMITIES: No edema. LABORATORY DATA: White count 9.2, hemoglobin 13.8. IMPRESSION: 1. Improved status post G-tube. 2. Recovered sepsis . 3. Asymptomatic sinus bradycardia. 4. Hypertensive heart disease. 5. Acute on chronic diastolic congestive heart failure, now clinically compensated. PLAN: 1. Advance feeds. 2. Decrease and discontinue IV fluids. 3. Aspiration precautions. 4. No indication for pacemaker. 5. Titrate antihypertensive. 6. 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 Benjie Quiñones M.D. DR: VICENTA JOB#: [id number] CC:
--- NOTE | 2018-11-11 07:03 | General Progress Note ---
Assessment/Plan Problem List: (1) UTI (urinary tract infection) ICD Codes: N39.0 - Urinary tract infection, site not specified SNOMED: 79395155 (2) Failure to thrive in adult ICD Codes: R62.7 - Failure to thrive in adult SNOMED: 041917046 (3) Episode of generalized weakness ICD Codes: R53.1 - Weakness SNOMED: 50476750 (4) Vertigo ICD Codes: R42 - Dizziness and giddiness SNOMED: 288799352 (5) Altered mental status ICD Codes: R41.82 - Altered mental status, unspecified SNOMED: 762902541 (6) Hypertensive urgency ICD Codes: I16.0 - Hypertensive urgency SNOMED: 838877586 Status: stable, progressing Assessment/Plan: cont current rx ivf dcd titrate feeds iv abx dcd pt/ot d/w Subjective ROS Limited/Unobtainable: No Constitutional: Reports: malaise, weakness HEENT: Reports: no symptoms Cardiovascular: Reports: no symptoms Respiratory: Reports: no symptoms Gastrointestinal/Abdominal: Reports: difficulty swallowing Genitourinary: Reports: no symptoms Neurologic/Psychiatric: Reports: no symptoms Endocrine: Reports: no symptoms Hematologic/Lymphatic: Reports: no symptoms Allergies: Coded Allergies: No Known Allergies (Unverified , 02/09/14) All Systems: reviewed and negative except above Subjective s/p uncomplicated GT. on ivf. tolerating feeds. +bradycardia as low as mid 40s. no symptoms. Objective Last 24 Hour Vital Signs Date Time Temp Pulse Resp B/P (MAP) Pulse Ox O2 Delivery O2 Flow Rate FiO2 11/11/18 04:00 47 11/11/18 04:00 98.6 55 18 112/67 (82) 96 11/11/18 00:00 97.9 77 16 148/72 (97) 95 11/11/18 00:00 60 11/10/18 21:00 Room Air 11/10/18 20:00 76 11/10/18 20:00 97.2 69 18 125/56 (79) 97 11/10/18 16:00 72 11/10/18 16:00 97.9 71 20 116/60 (78) 96 11/10/18 12:00 85 11/10/18 12:00 98.2 84 20 132/71 (91) 96 11/10/18 09:00 Room Air 11/10/18 08:56 128/71 11/10/18 08:00 97.0 69 20 128/71 (90) 97 11/10/18 08:00 68 Intake and Output 11/10/18 11/11/18 19:00 07:00 Intake Total 595 ml 735 ml Balance 595 ml 735 ml Free Water 250 ml 200 ml Tube Feeding 345 ml 535 ml # Voids 1 2 # Bowel Movements 2 Height (Feet): 5 Height (Inches): 3.00 Weight (Pounds): 117 Objective General Appearance: WD/WN, sleepy/lethargic Neck: supple Cardiovascular: normal rate, regular rhythm Respiratory/Chest: chest wall non-tender, lungs clear, normal breath sounds, no respiratory distress Abdomen: normal bowel sounds, non tender, soft, no organomegaly Edema: no edema noted Arm (L), no edema noted Arm (R), no edema noted Leg (L), no edema noted Leg (R), no edema noted Pedal (L), no edema noted Pedal (R), no edema noted Generalized Vince Rosario MD Nov 11, 2018 07:03
[2018-11-11] MEDS ORDERED: NOVOLOG100 UNITS1 SUBQ (07:05)
[2018-11-11] MEDS ORDERED: PRINIVIL20 MG GT (07:05)
[2018-11-11] MEDS ORDERED: LANSOPRAZOLE30 MG GT (07:05)
--- NOTE | 2018-11-11 07:31 | NUR ---
HAND-OFF: Report given to Beverley Emery RN. Patient in bed asleep with no S/S of distress. Endorsed plan of care.
--- NOTE | 2018-11-11 07:34 | NUR ---
NURSE NOTES: Received report from BREA Morfin. The patient is resting on the bed without acute distress or shortness of breath. The patient's feeding got increased to Glucerna 1.2 40mL/hr. The patient's bed in the lowest position, call light in reach, and fall and aspiration precaution reinforced. IV site intact and patent. Will continue plan of care.
[2018-11-11 08:00] VITALS: BP 115/69
[2018-11-11 08:15] LABS: EOSINOPHILS % (AUTO) 4.2 % (0.0-3.0); HEMATOCRIT 36.9 % (37.0-47.0); HEMOGLOBIN 12.5 G/DL (12.0-16.0); LYMPHOCYTES % (AUTO) 29.1 % (20.0-45.0); MEAN CORPUSCULAR VOLUME 102 FL (80-99); MONOCYTES % (AUTO) 11.9 % (1.0-10.0); NEUTROPHILS % (AUTO) 53.8 % (45.0-75.0); PLATELET COUNT 147 K/UL (150-450); RED BLOOD COUNT 3.63 M/UL (4.20-5.40); RED CELL DISTRIBUTION WIDTH 11.7 % (11.6-14.8); WHITE BLOOD COUNT 6.9 K/UL (4.8-10.8)
[2018-11-11 08:24] LABS: ALANINE AMINOTRANSFERASE 14 U/L (12-78); ALBUMIN 2.5 G/DL (3.4-5.0); ALBUMIN/GLOBULIN RATIO 0.7 (1.0-2.7); ALKALINE PHOSPHATASE 56 U/L (46-116); ANION GAP 11 mmol/L (5-15); ASPARTATE AMINO TRANSFERASE 14 U/L (15-37); BILIRUBIN,TOTAL 0.3 MG/DL (0.2-1.0); BLOOD UREA NITROGEN 15 mg/dL (7-18); CALCIUM 8.9 MG/DL (8.5-10.1); CARBON DIOXIDE 22 MMOL/L (21-32); CHLORIDE 112 MMOL/L (98-107); CREATININE 0.9 MG/DL (0.55-1.30); POTASSIUM 3.7 MMOL/L (3.5-5.1); SODIUM 145 MMOL/L (136-145)
[2018-11-11] MEDS: Lisinopril 20mg tab GT SCH (08:35)
[2018-11-11] MEDS: Heparin 5000 units/ml inj SUBQ SCH ×2 (08:38→20:37)
--- NOTE | 2018-11-11 10:15 | NUR ---
NURSE NOTES: Dr. Gomes at the bedside assessed the patient. Notified Dr. Gomes that the patient is tolerating well the feeding but had one time of large diarrhea. Dr. Gomes ordered C. diff stool collection to rule out the condition. Carried out the order. Will continue plan of care.
--- NOTE | 2018-11-11 10:30 | NUR ---
PT EVALUATION NOTE Patient seen for initial evaluation, see complete evaluation for details. Patient presents with generalized weakness, impaired cognition, decreased safety awareness and c/o pain with movement of LEs which affects patient's ability to perform mobility tasks. Patient requires max/dependent assist of 2 people to perform supine <-> sit and to sit at the EOB. Patient will benefit from trial of skilled inpatient PT intervention to address strength, ROM, balance and safety to improve level of functional mobility. Recommend discharge to SNF once medically cleared by MD. Addendum: 11/11/18 at 1140 by ABBY LEVINE PT Amended: Links added.
--- NOTE | 2018-11-11 11:55 | NUR ---
DISCHARGE PLANNING PATIENT WAS REFERRED TO [facility]...NO BEDS AVAILABLE BEDS ARE AVAILABLE AT [facility]...MESSAGE LEFT FOR DAUGHTER/NIECE REGARDING PLACEMENT DR BALDERAS AWARE
[2018-11-11 12:00] VITALS: BP 135/59
--- NOTE | 2018-11-11 13:11 | NUR ---
DISCHARGE PLANNED PATIENT WILL DISCHARGE TO [facility] ROOM 15A SKILLED T: [phone] FOR NURSE TO NURSE REPORT [facility] HAS BEEN ARRANGED FOR 1500 EGG AND SPICE [employer]IXER SPOKE WITH CHRISS RIZVI AND SHE IS IN AGREEMENT WITH DISCHARGE PLAN
--- NOTE | 2018-11-11 13:18 | NUR ---
NURSE NOTES: Took down c. diff stool sample down to lab for diarrhea. Will continue plan of care.
--- NOTE | 2018-11-11 13:23 | NUR ---
NURSE NOTES: Notified Dr. Rosario regarding the patient's diarrhea. Dr. Rosario cancelled the discharge order. Will continue plan of care.
--- NOTE | 2018-11-11 15:43 | General Progress Note ---
Assessment/Plan Status: stable, progressing Assessment/Plan: Assessment - OBS - FTT - DM - Anorexia - s/p PEG - Depressed albumin - diarrhea Recommendations - IVF - Begin TF - Elevate HOB - check C diff Subjective Allergies: Coded Allergies: No Known Allergies (Unverified , 02/09/14) Subjective above noted POD #2 s/p PEG RN reports diarrhea Objective Last 24 Hour Vital Signs Date Time Temp Pulse Resp B/P (MAP) Pulse Ox O2 Delivery O2 Flow Rate FiO2 11/11/18 12:00 98.5 53 18 135/59 (84) 98 11/11/18 12:00 59 11/11/18 09:00 Room Air 11/11/18 08:35 115/69 11/11/18 08:00 98.5 64 18 115/69 (84) 97 11/11/18 08:00 49 11/11/18 04:00 47 11/11/18 04:00 98.6 55 18 112/67 (82) 96 11/11/18 00:00 97.9 77 16 148/72 (97) 95 11/11/18 00:00 60 11/10/18 21:00 Room Air 11/10/18 20:00 76 11/10/18 20:00 97.2 69 18 125/56 (79) 97 11/10/18 16:00 72 11/10/18 16:00 97.9 71 20 116/60 (78) 96 Intake and Output 11/10/18 11/11/18 19:00 07:00 Intake Total 595 ml 735 ml Balance 595 ml 735 ml Free Water 250 ml 200 ml Tube Feeding 345 ml 535 ml # Voids 1 2 # Bowel Movements 2 Laboratory Tests 11/11/18 07:40: White Blood Count 6.9, Red Blood Count 3.63L, Hemoglobin 12.5, Hematocrit 36.9L , Mean Corpuscular Volume 102H, Mean Corpuscular Hemoglobin 34.4H, Mean Corpuscular Hemoglobin Concent 33.8, Red Cell Distribution Width 11.7, Platelet Count 147L, Mean Platelet Volume 9.1, Neutrophils (%) (Auto) 53.8, Lymphocytes ( %) (Auto) 29.1, Monocytes (%) (Auto) 11.9H, Eosinophils (%) (Auto) 4.2H, Basophils (%) (Auto) 1.0, Sodium Level 145, Potassium Level 3.7, Chloride Level 112H, Carbon Dioxide Level 22, Anion Gap 11, Blood Urea Nitrogen 15, Creatinine 0.9, Estimat Glomerular Filtration Rate , Glucose Level 235H, Calcium Level 8.9 , Total Bilirubin 0.3, Aspartate Amino Transf (AST/SGOT) 14L, Alanine Aminotransferase (ALT/SGPT) 14, Alkaline Phosphatase 56, Total Protein 6.0L, Albumin 2.5L, Globulin 3.5, Albumin/Globulin Ratio 0.7L Height (Feet): 5 Height (Inches): 3.00 Weight (Pounds): 117 Objective WDWN Christian woman NCAT Supple CTA RR / sandra abd soft, (+) GT no edema OBS Leanne Gomes MD Nov 11, 2018 15:43
[2018-11-11 16:00] VITALS: BP 136/68
--- NOTE | 2018-11-11 18:31 | NUR ---
NURSE NOTES: The patient is stable without acute distress or shortness of breath. Will continue plan of care.
--- NOTE | 2018-11-11 19:15 | Operative Note - Dictated ---
DATE OF OPERATION: 11/09/2018 GASTROENTEROLOGY PROCEDURE REPORT PROCEDURE: Upper gastrointestinal endoscopy with gastrostomy tube placement. SURGEON: Leanne Gomes M.D. ANESTHESIA: Please see the separate anesthesiologist notes for details. PRE-ENDOSCOPIC DIAGNOSIS: Dysphagia. POST-ENDOSCOPIC DIAGNOSIS: Status post gastrostomy tube placement. DESCRIPTION OF PROCEDURE: The procedure, its risks, indications, alternatives, and possible complications were explained to the patient's daughter and informed consent was obtained. The patient was then sedated in the supine position. A diagnostic upper endoscope was introduced through the oropharynx and advanced to the duodenum. The endoscope was then gradually withdrawn and the mucosa examined carefully. Examination of the upper gastrointestinal mucosa did not reveal any pathology. The location for placement of gastrostomy tube was identified by palpation and transillumination techniques. The outside skin was sterilely prepared, anesthetized, incised, and the trocar needle was used to place the gastrostomy tube using standard pull technique. The patient was sent to recovery in good condition. COMPLICATIONS: None. RECOMMENDATIONS: 1. Observe overnight. 2. Begin tube feedings tomorrow. Leanne Gomes M.D. DR: JEFF JOB#: [id number] CC:
--- NOTE | 2018-11-11 19:20 | NUR ---
NURSE NOTES: Received report from BREA Banerjee, patient in stable condition, resting in bed, AOx2, denies pain at this time, able to make needs known to a degree, IV site on R AC G20, asymptomatic, intact, patent, bed low&locked, side rail up x3, call light within reach will continue to monitor and reassess.
--- NOTE | 2018-11-11 19:32 | NUR ---
HAND-OFF: Report given to BREA Lara. The patient is resting on the bed without acute distress or shortness of breath. The patient's bed in the lowest position, call light in reach, and fall and aspiration precaution reinforced. IV site intact and patent. G tube running Glucerna 1.2 50mL/hr. Endorsed plan of care.
[2018-11-11 20:00] VITALS: BP 132/75
[2018-11-12] VITALS: BP 143/70
[2018-11-12] MEDS: NovoLOG Insulin Flexpen SUBQ SCH ×4 (00:03→18:00)
[2018-11-12 04:00] VITALS: BP 138/56
--- NOTE | 2018-11-12 07:20 | NUR ---
NURSE NOTES: Pt. awake and was repositioned right now. Pt is on Gtube feeding set at 50ml/hr flushing good. Pt on monitoring specialist no signs of cardiac or respiratory distress. Call light is within reach. Bed is locked and in lowest position. IV is intact and patent. Awaiting results for Cdif, pt will be DC as soon as we negative result.
--- NOTE | 2018-11-12 07:33 | NUR ---
HAND-OFF: Report given to BREA Clayton, patient stable, plan of care endorsed.
[2018-11-12 08:00] VITALS: BP 134/57
--- NOTE | 2018-11-12 08:55 | General Progress Note ---
Assessment/Plan Problem List: (1) UTI (urinary tract infection) ICD Codes: N39.0 - Urinary tract infection, site not specified SNOMED: 75349060 (2) Failure to thrive in adult ICD Codes: R62.7 - Failure to thrive in adult SNOMED: 898732327 (3) Episode of generalized weakness ICD Codes: R53.1 - Weakness SNOMED: 65332275 (4) Vertigo ICD Codes: R42 - Dizziness and giddiness SNOMED: 925667442 (5) Altered mental status ICD Codes: R41.82 - Altered mental status, unspecified SNOMED: 315485226 (6) Hypertensive urgency ICD Codes: I16.0 - Hypertensive urgency SNOMED: 153641990 Status: stable, progressing Assessment/Plan: cont current rx ivf dcd titrate feeds iv abx dcd pt/ot follow up cdiff can dc later today if no further episodes of diarrhea d/w Subjective ROS Limited/Unobtainable: No Constitutional: Reports: malaise, weakness HEENT: Reports: no symptoms Cardiovascular: Reports: no symptoms Respiratory: Reports: no symptoms Gastrointestinal/Abdominal: Reports: difficulty swallowing, poor appetite, poor fluid intake Genitourinary: Reports: no symptoms Neurologic/Psychiatric: Reports: pre-existing deficit Endocrine: Reports: no symptoms Hematologic/Lymphatic: Reports: anemia Allergies: Coded Allergies: No Known Allergies (Unverified , 02/09/14) All Systems: reviewed and negative except above Subjective bp held because of diarrhea. none since yesterday. cdiff pending. tolerating feeds. no significant bradycardia Objective Last 24 Hour Vital Signs Date Time Temp Pulse Resp B/P (MAP) Pulse Ox O2 Delivery O2 Flow Rate FiO2 11/12/18 08:00 97.9 55 20 134/57 (82) 97 11/12/18 04:00 97.5 56 18 138/56 (83) 97 11/12/18 04:00 55 11/12/18 00:00 98.3 68 18 143/70 (94) 96 11/12/18 00:00 71 11/11/18 21:00 Room Air 11/11/18 20:00 65 11/11/18 20:00 98.2 67 18 132/75 (94) 95 11/11/18 16:00 98.2 61 18 136/68 (90) 96 11/11/18 16:00 61 11/11/18 12:00 98.5 53 18 135/59 (84) 98 11/11/18 12:00 59 11/11/18 09:00 Room Air Intake and Output 11/11/18 11/12/18 18:59 06:59 Intake Total 750 ml 700 ml Output Total 350 ml 1100 ml Balance 400 ml -400 ml Free Water 200 ml 100 ml Tube Feeding 550 ml 600 ml Output Urine Total 350 ml 1100 ml # Voids 1 # Bowel Movements 2 1 Height (Feet): 5 Height (Inches): 3.00 Weight (Pounds): 117 Objective General Appearance: WD/WN, sleepy/lethargic Neck: supple Cardiovascular: normal rate, regular rhythm Respiratory/Chest: chest wall non-tender, lungs clear, normal breath sounds, no respiratory distress Abdomen: normal bowel sounds, non tender, soft, no organomegaly Edema: no edema noted Arm (L), no edema noted Arm (R), no edema noted Leg (L), no edema noted Leg (R), no edema noted Pedal (L), no edema noted Pedal (R), no edema noted Generalized Vince Rosario MD Nov 12, 2018 08:55
[2018-11-12] MEDS: Heparin 5000 units/ml inj SUBQ SCH (09:00)
[2018-11-12] MEDS: Lisinopril 20mg tab GT SCH (09:39)
--- NOTE | 2018-11-12 10:27 | NUR ---
RD ASSESSMENT & RECOMMENDATIONS SEE CARE ACTIVITY FOR COMPLETE ASSESSMENT DAILY ESTIMATED NEEDS: Needs based on DM, cardiac (Actual 52.5kg) 25-30 kcals/kg 1836-4447 total kcals 1-1.5 g protein/kg 53-79 g total protein 25-30 mL/kg 4805-8190 total fluid mLs NUTRITION DIAGNOSIS: * Inadequate oral intake R/T poor appetite, decreased cognitive fxn as evidenced by admitted w/ FTT dx, w/ poor and variable PO intake, now s/p PEG placement. * Altered nutrition related lab values R/T diabetes as evidenced by elev BGs (187 188), POC glu (178 214 183 265). ENTERAL NUTRITION RECOMMENDATIONS: Glucerna 1.2 @ 50ml/hr x 24hrs to provide 1200ml, 1440kcal, 72g prot, 966ml free water * Maintain TF as tolerated to goal rate * TF @ goal will meet 100% est kcal/prot needs * HOB over 30 degrees/ water flush per MD ADDITIONAL RECOMMENDATIONS: 1) Recalibrated bedscale for accurate CBW, weekly wt monitoring 2) F/up with calorie count x 72 hrs- now s/p PEG 3) Monitor lytes, replete as needed 4) Consider long acting insulin w/ continuous TF's .
[2018-11-12 12:00] VITALS: BP 141/64
--- NOTE | 2018-11-12 15:29 | NUR ---
DISCHARGE PLANNED DISCHARGE WAS HELD YESTERDAY AND PLACED ON "WILL CALL" WILL CALL HAS BEEN ACTIVATED [facility] ROOM 13A T: [phone] FOR NURSE TO NURSE REPORT [facility] HAS BEEN ARRANGED FOR [address]
--- NOTE | 2018-11-12 15:45 | NUR ---
NURSE NOTES: pt left via ambulance. Belongings were giving to transporters. media relations associate was taken off pt. Pt left in stable condition no signs of cardiac or respiratory distress at this time. IV was discontinued. Report given to Sally from [facility] room 13A assigned. Family members were also notified about family members DC prior of pt departure.
--- NOTE | 2018-11-12 15:47 | NUR ---
NURSE NOTES:WOUND CARE NOTES:Pt's skin assessment completed with primary nurse. Non-blanchable erythema without induration sacrum.Both heels are soft but blanchable. No other skin concerns noted. Recommendations:Apply Triad Paste with Optifoam drsg to sacrum.Change every 3 days and prn. Apply Cavilon Skin Barrier to both heels. Cover each heel with Optifoam drsg. Change every 7 days and PRN. Reposition at least every 2hours or as tolerated. Off-load heels with pillow.
[2018-11-12 16:00] VITALS: BP 131/76
--- NOTE | 2018-11-12 16:20 | NUR ---
NURSE NOTES: report given to Sally from [facility]. Pt will be admitted to room 13a.
--- NOTE | 2018-11-12 20:59 | General Progress Note ---
Assessment/Plan Status: stable, progressing Assessment/Plan: Assessment - OBS - FTT - DM - Anorexia - s/p PEG - Depressed albumin - loose BM - C Diff (-) Recommendations - Continue TF - Elevate HOB - d/c planning Subjective Allergies: Coded Allergies: No Known Allergies (Unverified , 02/09/14) Subjective above noted POD #3 s/p PEG tolerating feeds NAD Objective Last 24 Hour Vital Signs Date Time Temp Pulse Resp B/P (MAP) Pulse Ox O2 Delivery O2 Flow Rate FiO2 11/12/18 16:00 97.5 82 20 131/76 (94) 97 11/12/18 15:57 84 11/12/18 12:00 98.1 55 18 141/64 (89) 100 11/12/18 12:00 61 11/12/18 09:39 134/57 11/12/18 09:00 Room Air 11/12/18 08:00 97.9 55 20 134/57 (82) 97 11/12/18 08:00 59 11/12/18 04:00 97.5 56 18 138/56 (83) 97 11/12/18 04:00 55 11/12/18 00:00 98.3 68 18 143/70 (94) 96 11/12/18 00:00 71 11/11/18 21:00 Room Air Intake and Output 11/11/18 11/12/18 19:00 07:00 Intake Total 800 ml 650 ml Output Total 350 ml 1100 ml Balance 450 ml -450 ml Free Water 200 ml 100 ml Tube Feeding 600 ml 550 ml Output Urine Total 350 ml 1100 ml # Voids 1 # Bowel Movements 2 1 Height (Feet): 5 Height (Inches): 3.00 Weight (Pounds): 117 Objective WDWN Christian woman NCAT Supple CTA RR / sandra abd soft, (+) GT no edema OBS Leanne Gomes MD Nov 12, 2018 20:59
--- NOTE | 2018-11-12 23:00 | Progress Note ---
DATE: 11/12/2018 CARDIOLOGY PROGRESS NOTE SUBJECTIVE: Diarrhea has decreased. Heart rate remains stable. Sinus bradycardia with no significant pauses. OBJECTIVE: VITAL SIGNS: With controlled blood pressure 134/56. LUNGS: Clear. CARDIAC: Regular. Normal S1, S2. Heart rate 56. ABDOMEN: Soft. EXTREMITIES: No edema. IMPRESSION: 1. Sinus node disease, which is asymptomatic and there is no indication for pacemaker. 2. Hypertensive heart disease with controlled blood pressure. 3. Status post PEG. 4. Urinary tract infection with sepsis, recovered. PLAN: 1. Discharge medications reviewed and updated. 2. Anticipate transfer to a senior living facility. Benjie Quiñones M.D. DR: BRIJESH JOB#: [id number] CC:
--- NOTE | 2018-11-13 08:04 | Discharge Summary ---
Discharge Summary Discharge Summary _ DATE OF ADMISSION: DATE OF DISCHARGE: 11/12/2018 DISCHARGED BY: Dr. Rosario REASON FOR ADMISSION: 88 years old female with past medical history of diabetes mellitus, hypertension , hyperlipidemia, dementia, presented for evaluation due to failure to thrive from home. Patient by herself was a poor historian, and unable to provide significant information. As per family report, patient had decreased oral intake and generalized weakness. Patient denied chest pain , shortness of breath , cough, diarrhea, abdominal pain. She had a prior history of C. difficile colitis and urinary tract infection. Patient with a known right bundle branch block. Upon evaluation vital signs revealed mild tachycardia , blood pressure was elevated 155/89. Laboratory work-up revealed no leukocytosis , hemoglobin 16.5 , hematocrit 45.1. Urinalysis revealed evidence of probable UTI. Electrolytes and renal parameters were stable , glucose 212. Stable LFT. Lactic acid 2.2. Troponin negative. EKG revealed sinus rhythm with right bundle branch block pattern. Chest x-ray demonstrated no acute cardiopulmonary pathology. Patient subsequently admitted to telemetry floor for further management. CONSULTANTS: lumber trimmer GI specialist dr. Gomes [facility] COURSE: Patient admitted to telemetry floor and started on IV hydration and broad- spectrum antibiotics. Urine culture revealed E. coli. Stool for C. difficile was negative. Patient completed treatment for E. coli UTI while in the hospital. Radio Host followed . Blood pressure was closely monitored and managed as per lumber trimmer recommendation. Supplemental oxygen provided as needed to keep pulse oximetry above 92%. Bronchodilator therapy provided as needed. DVT prophylaxis provided Echocardiogram revealed preserved ejection fraction of 65 to 70% with no evidence of wall motion abnormality. Mild left ventricular hypertrophy. Right ventricular systolic pressure of 16. CT of the head revealed no evidence of acute intracranial pathology. 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 GI specialist followed. Patient presented with failure to thrive and anorexia. Patient had severe degree of dementia, affecting her oral intake. Calorie count implemented to evaluate her actual caloric intake. The question of gastrostomy tube had been raised and discussed with the patient and family. Per GI specialist , the tube can be used as supplemental feeding as her condition will likely worsen over time. CT of the abdomen and pelvis demonstrated no definite acute abnormality. 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 Family consented for the PEG placement . Patient subsequently undergone on 11/09 upper endoscopy with gastrostomy tube placement. Patient was observed overnight , and tube feeding started in the morning . Strict aspiration reflux precaution maintained. Tube feeding formula provided as per clinical registered nurse recommendation to meet nutritional goals. Patient was able to tolerate tube feeding. Throughout her stay in the hospital patient stayed on telemetry floor. Per lumber trimmer patient had sinus node disease with asymptomatic bradycardia, and there was no indication for pacemaker. Blood pressure was stable with the current regimen. Blood sugar was managed with sliding scale of insulin. GI prophylaxis provided. Placement was found and secured at the care home facility. Patient was stable for transfer to the care home facility and continuation of care FINAL DIAGNOSES: Sepsis Urinary tract infection with E. coli Toxic metabolic encephalopathy Lactic acidosis Anorexia Status post EGD and PEG placement Diabetes mellitus Protein calorie malnutrition Cerebrovascular disease with dementia Hypertensive heart disease Sinus node disease with asymptomatic bradycardia Chronic diastolic congestive heart failure DISCHARGE MEDICATIONS: See Medication Reconciliation list. DISCHARGE INSTRUCTIONS: Patient was discharged to the care home facility. Follow up with medical doctor at the facility. I have been assigned to dictate discharge summary for this account. I was not involved in the patient's management. Marisol Alvarez NP Nov 13, 2018 08:04
== END 2018-11-12 17:50 | DRG 871 ==
LOC: EDBD 20:44 → EMR 21:10 → 4E 22:46 → EDBEDREQ 11-01 00:41 → 2E 11-02 13:52
PROC: 0DJ08ZZ Inspection of Upper Intestinal Tract, Via Natural or Artificial Opening Endoscopic (ICD-10-PCS; principal; 2018-11-09 11:51)
PROC: 0DH63UZ Insertion of Feeding Device into Stomach, Percutaneous Approach (ICD-10-PCS; principal; 2018-11-09 11:51)
DX: A41.9 Sepsis, unspecified organism (principal); G92 Toxic encephalopathy; I50.33 Acute on chronic diastolic (congestive) heart failure; N39.0 Urinary tract infection, site not specified; I13.0 Hypertensive heart and chronic kidney disease with heart failure and stage 1 through stage 4 chronic kidney disease, or unspecified chronic kidney disease; E44.1 Mild protein-calorie malnutrition; E87.0 Hyperosmolality and hypernatremia; R57.9 Shock, unspecified; E86.0 Dehydration; R65.20 Severe sepsis without septic shock; B96.20 Unspecified Escherichia coli [E. coli] as the cause of diseases classified elsewhere; E11.22 Type 2 diabetes mellitus with diabetic chronic kidney disease; N18.9 Chronic kidney disease, unspecified; F03.90 Unspecified dementia, unspecified severity, without behavioral disturbance, psychotic disturbance, mood disturbance, and anxiety; R09.02 Hypoxemia; R62.7 Adult failure to thrive; Z68.20 Body mass index [BMI] 20.0-20.9, adult; R13.10 Dysphagia, unspecified; R19.7 Diarrhea, unspecified; R42 Dizziness and giddiness; I16.0 Hypertensive urgency; E87.6 Hypokalemia; I49.5 Sick sinus syndrome; R00.1 Bradycardia, unspecified
CPT/HCPCS: 36415; 36600; 70450; 71045; 74176; 80053; 81003; 82550; 82553; 82607; 82746; 82803; 82962; 83605; 83735; 83880; 84100; 84443; 84484; 85025; 85610; 85730; 86850; 86900; 86901; 87086; 87181; 87324; 93005; 93306; 94003; 94150; 96360; 99285; J1815; J2405; J8499

== ENCOUNTER 2019-05-13 19:27 | Inpatient (IN) | payer MEDICARE, MEDICAID ==
[~2019-05-13] VITALS: Ht 162.6 cm; Wt 61.7 kg
[~2019-05-13 19:27] MED LIST changes: +LANSOPRAZOLE30 MG GT; +PRINIVIL20 MG GT
[2019-05-13 19:45] VITALS: BP 150/83
--- NOTE | 2019-05-13 19:52 | Emergency Room Report ---
History of Present Illness General Chief Complaint: Altered Level of Consciousness Source: Patient Present Illness HPI Patient is an 89-year-old female [facility] 2 days of increased altered mental status. Patient gradual onset of symptoms. Patient was noted to be more confused than baseline. Prior history of dementia. She was brought in by [facility] ambulance. She had decreased oral intake. This is markedly limited by patient's mental status. COVID-19 risk:Travel to affect: No Has patient experienced stroud: No Allergies: Coded Allergies: No Known Allergies (Unverified , 02/09/14) Patient History Past Medical History: see triage record Reviewed Nursing Documentation: PMH: Agreed; PSxH: Agreed Nursing Documentation-PMH Hx Cardiac Problems: Yes Hx Hypertension: Yes - hyperlipedema Hx Diabetes: Yes Hx Cancer: No Hx Gastrointestinal Problems: No History Of Psychiatric Problem: Yes - dementia Hx Neurological Problems: Yes Hx Cerebrovascular Accident: No Hx Transient Ischemic Attacks: No Hx Dementia: Yes Review of Systems All Other Systems: limited - Review of systems limited by mental status Physical Exam Vital Signs Date Time Temp Pulse Resp B/P (MAP) Pulse Ox O2 Delivery O2 Flow Rate FiO2 05/13/19 19:41 97.7 60 18 150/83 (105) 94 Room Air Sp02 EP Interpretation: reviewed, normal General Appearance: alert, Chronically Ill Head: atraumatic ENT: normal ENT inspection, hearing grossly normal, normal voice Neck: normal inspection, full range of motion, supple, no bony tend Respiratory: normal inspection, lungs clear, normal breath sounds, no respiratory distress, no retraction, no wheezing Cardiovascular #1: regular rate, rhythm, no edema Gastrointestinal: normal inspection, normal bowel sounds, non tender, soft, no guarding, no hernia Genitourinary: no CVA tenderness Musculoskeletal: normal inspection, back normal, normal range of motion, other - nonverbal Neurologic: alert, motor weakness, responsive Psychiatric: normal inspection Skin: no rash Medical Decision Making Diagnostic Impression: Primary Impression: Episode of generalized weakness Additional Impressions: Toxic metabolic encephalopathy Hypernatremia ER Course Patient presented for altered mental status. Differential diagnosis include was not limited to CVA, encephalopathy, dehydration, urinary tract infection among others. Because of complexity of patient's case laboratory tests and imaging studies were ordered. CT imaging was ordered to patient's altered mental status. CT of the head read by radiology showed atrophic changes without evidence of acute infarct or intracranial hemorrhage. Laboratory testing showed evidence of dehydration as well as elevated BUN/creatinine. Urinary studies did not show any evidence of definite urinary infection. Patient was started on IV fluids. Dr. Vince Rosario was contacted for inpatient management due to primary care physician. EKG interpreted by me showed sinus bradycardia with a right bundle branch block Labs Test 05/13/19 19:45 05/13/19 20:25 05/13/19 20:43 White Blood Count 8.2 K/UL (4.8-10.8) Red Blood Count 4.45 M/UL (4.20-5.40) Hemoglobin 15.2 G/DL (12.0-16.0) Hematocrit 47.1 % (37.0-47.0) Mean Corpuscular Volume 106 FL (80-99) Mean Corpuscular Hemoglobin 34.2 PG (27.0-31.0) Mean Corpuscular Hemoglobin Concent 32.3 G/DL (32.0-36.0) Red Cell Distribution Width 12.6 % (11.6-14.8) Platelet Count 161 K/UL (150-450) Mean Platelet Volume 12.6 FL (6.5-10.1) Neutrophils (%) (Auto) 58.4 % (45.0-75.0) Lymphocytes (%) (Auto) 29.9 % (20.0-45.0) Monocytes (%) (Auto) 8.0 % (1.0-10.0) Eosinophils (%) (Auto) 3.0 % (0.0-3.0) Basophils (%) (Auto) 0.7 % (0.0-2.0) Sodium Level 153 MMOL/L (136-145) Potassium Level 4.0 MMOL/L (3.5-5.1) Chloride Level 116 MMOL/L (98-107) Carbon Dioxide Level 26 MMOL/L (21-32) Anion Gap 11 mmol/L (5-15) Blood Urea Nitrogen 33 mg/dL (7-18) Creatinine 0.6 MG/DL (0.55-1.30) Estimat Glomerular Filtration Rate > 60 mL/min (>60) Glucose Level 181 MG/DL (74-106) Lactic Acid Level 1.00 mmol/L (0.4-2.0) Calcium Level 9.4 MG/DL (8.5-10.1) Total Bilirubin 0.8 MG/DL (0.2-1.0) Aspartate Amino Transf (AST/SGOT) 47 U/L (15-37) Alanine Aminotransferase (ALT/SGPT) 132 U/L (12-78) Alkaline Phosphatase 88 U/L (46-116) Total Creatine Kinase 41 U/L (26-308) Creatine Kinase MB 190.4 NG/ML (0.0-3.6) Creatine Kinase MB Relative Index 464.3 Troponin I 0.001 ng/mL (0.000-0.056) Total Protein 6.9 G/DL (6.4-8.2) Albumin 3.1 G/DL (3.4-5.0) Globulin 4.0 g/dL Albumin/Globulin Ratio 0.7 (1.0-2.7) Arterial Blood pH 7.374 (7.350-7.450) Arterial Blood Partial Pressure CO2 41.4 mmHg (35.0-45.0) Arterial Blood Partial Pressure O2 71.8 mmHg (75.0-100.0) Arterial Blood HCO3 23.6 mmol/L (22.0-26.0) Arterial Blood Oxygen Saturation 93.4 % (95-100) Arterial Blood Base Excess -1.5 (-2-2) Samir Test Positive EKG Diagnostic Results Rate: normal Rhythm: NSR ST Segments: no acute changes Last Vital Signs Date Time Temp Pulse Resp B/P (MAP) Pulse Ox O2 Delivery O2 Flow Rate FiO2 05/13/19 19:41 97.7 60 18 150/83 (105) 94 Room Air Status: unchanged Disposition: ADMITTED INPATIENT Condition: Stable Clark Linda MD May 13, 2019 19:52
--- NOTE | 2019-05-13 20:06 | Diagnostic Imaging Report ---
Indication: Headache Technique: Contiguous 5 mm thick transaxial imaging of the head obtained in a Siemens Sensation [address] scanner. Soft tissue and bone windows generated. Automatic Exposure Control was utilized. Total Dose length Product (DLP): 1072.2mGycm CT Dose Index Volume (CTDIvol): 53.4 mGy Comparison: 11/06/2018 Findings: There is moderate prominence of the ventricles, basal cisterns, and cerebral sulci consistent with atrophy. Moderate, nonspecific, white matter hypoattenuation is noted throughout the brain consistent with chronic small vessel disease. Small cystic foci consistent with old lacunar infarcts demonstrated within the thalami bilaterally and right basal ganglia. These are seen previously also. This There is no midline shift, edema, acute hemorrhage, mass effect, or abnormal extra-axial fluid collections. Bones are unremarkable. Impression: No acute intracranial bleed, mass effect or edema. Multiple old lacunar infarcts. Moderate atrophy of the brain. Evidence of chronic small vessel disease involving white matter tracts. [facility] has communicated the preliminary results to the Emergency Department. Their findings are largely concordant with this report. The CT scanner at [facility] is accredited by the [employer] and the scans are performed using dose optimization techniques as appropriate to a performed exam including Automatic Exposure control.
[2019-05-13 20:15] LABS: BASOPHILS % (AUTO) 0.7 % (0.0-2.0); HEMATOCRIT 47.1 % (37.0-47.0); HEMOGLOBIN 15.2 G/DL (12.0-16.0); LYMPHOCYTES % (AUTO) 29.9 % (20.0-45.0); MEAN CORPUSCULAR VOLUME 106 FL (80-99); NEUTROPHILS % (AUTO) 58.4 % (45.0-75.0); PLATELET COUNT 161 K/UL (150-450); RED BLOOD COUNT 4.45 M/UL (4.20-5.40); RED CELL DISTRIBUTION WIDTH 12.6 % (11.6-14.8); WHITE BLOOD COUNT 8.2 K/UL (4.8-10.8)
[2019-05-13 20:36] LABS: ANION GAP 11 mmol/L (5-15); BLOOD UREA NITROGEN 33 mg/dL (7-18); CALCIUM 9.4 MG/DL (8.5-10.1); CARBON DIOXIDE 26 MMOL/L (21-32); CHLORIDE 116 MMOL/L (98-107); CREATININE 0.6 MG/DL (0.55-1.30); SODIUM 153 MMOL/L (136-145)
[2019-05-13 20:43] LABS: ALANINE AMINOTRANSFERASE 132 U/L (12-78); ALBUMIN/GLOBULIN RATIO 0.7 (1.0-2.7); ALKALINE PHOSPHATASE 88 U/L (46-116); ASPARTATE AMINO TRANSFERASE 47 U/L (15-37); BILIRUBIN,TOTAL 0.8 MG/DL (0.2-1.0); CKMB 190.4 NG/ML (0.0-3.6); CREATINE KINASE 41 U/L (26-308)
[2019-05-13 20:49] LABS: ALBUMIN 3.1 G/DL (3.4-5.0)
[2019-05-13 21:00] VITALS: BP 156/71
[2019-05-13 21:01] LABS: APPEARANCE,URINE CLEAR; BILIRUBIN, URINE NEGATIVE (NEGATIVE); COLOR,URINE PALE YELLOW; GLUCOSE, URINE (UA) NEGATIVE (NEGATIVE); KETONES,URINE NEGATIVE (NEGATIVE); LEUKOCYTE ESTERASE ,URINE 1+ (NEGATIVE); NITRITE,URINE NEGATIVE (NEGATIVE); PH,URINE 8 (4.5-8.0); PROTEIN,URINE NEGATIVE (NEGATIVE); UROBILINOGEN,URINE NORMAL MG/DL (0.0-1.0)
[2019-05-13] MEDS ORDERED: D5 1/2NS 1,000 ML IV SCH (21:15)
[2019-05-13 22:37] VITALS: BP 155/57
[2019-05-14] MEDS: D5 1/2NS w/KCL 10meq 1,000 ML IV SCH ×2 (00:08→12:20)
[2019-05-14] MEDS ORDERED: DONEPEZIL HCL5 M2 GT (00:37)
[2019-05-14] MEDS ORDERED: ACETAMINOPHEN325 M1 ORAL (00:37)
[2019-05-14 06:44] LABS: BASOPHILS % (AUTO) 0.7 % (0.0-2.0); HEMATOCRIT 43.1 % (37.0-47.0); HEMOGLOBIN 14.8 G/DL (12.0-16.0); LYMPHOCYTES % (AUTO) 26.1 % (20.0-45.0); MEAN CORPUSCULAR VOLUME 101 FL (80-99); MONOCYTES % (AUTO) 7.1 % (1.0-10.0); NEUTROPHILS % (AUTO) 63.1 % (45.0-75.0); PLATELET COUNT 156 K/UL (150-450); RED BLOOD COUNT 4.26 M/UL (4.20-5.40); RED CELL DISTRIBUTION WIDTH 11.3 % (11.6-14.8); WHITE BLOOD COUNT 9.5 K/UL (4.8-10.8)
[2019-05-14 06:50] LABS: ANION GAP 9 mmol/L (5-15); BLOOD UREA NITROGEN 25 mg/dL (7-18); CALCIUM 8.5 MG/DL (8.5-10.1); CARBON DIOXIDE 27 MMOL/L (21-32); CHLORIDE 114 MMOL/L (98-107); CREATININE 0.5 MG/DL (0.55-1.30); POTASSIUM 3.6 MMOL/L (3.5-5.1); SODIUM 150 MMOL/L (136-145)
[2019-05-14 06:55] LABS: ALANINE AMINOTRANSFERASE 105 U/L (12-78); ALBUMIN 2.9 G/DL (3.4-5.0); ALBUMIN/GLOBULIN RATIO 0.9 (1.0-2.7); ALKALINE PHOSPHATASE 74 U/L (46-116); ASPARTATE AMINO TRANSFERASE 34 U/L (15-37); BILIRUBIN,TOTAL 0.8 MG/DL (0.2-1.0)
[2019-05-14 08:00] VITALS: BP 169/75
--- NOTE | 2019-05-14 08:00 | History and Physical Report ---
DATE OF ADMISSION: 05/13/2019 CHIEF COMPLAINT: Altered mental status. HISTORY OF PRESENT ILLNESS: The patient is an unfortunate 89-year-old female. She has a history of dementia, stroke, hypertension, diabetes, and dysphagia, status post G-tube placement at the halfway facility. She was noted to be poorly responsive. She was transferred to the emergency room. On evaluation there, she had a CT scan of the head that was unremarkable. Laboratory test did show significant hypernatremia and dehydration. The patient has been started on IV hydration and is now admitted for further evaluation and care. PAST MEDICAL HISTORY: As above. PAST SURGICAL HISTORY: Includes a prior history of a G-tube. CURRENT MEDICATIONS: Reconciled and reviewed. ALLERGIES: None. FAMILY HISTORY: None. SOCIAL HISTORY: There is no known history of tobacco, ethanol, or drugs. REVIEW OF SYSTEMS: From the patient is unobtainable. PHYSICAL EXAMINATION: VITAL SIGNS: Temperature 97.6, pulse 64, respirations 18, and blood pressure 155/57. GENERAL: The patient is a well-developed female, in no apparent distress. She is poorly responsive. She occasionally opens her eyes, but is nonverbal. NECK: Supple. There is no lymphadenopathy. HEART: Regular rate and rhythm. LUNGS: Clear. ABDOMEN: Soft, nontender, and nondistended. G-tube site was clean and intact. EXTREMITIES: Without clubbing, cyanosis, or edema. NEUROLOGIC: The patient is unable to cooperate with a neurologic exam. With vigorous stimulation, she does open her eyes. She does not follow any commands though. LABORATORY DATA: Sodium 153, potassium 4, chloride 116, bicarb 26, BUN 33, creatinine 0.6. White count 8, hemoglobin 15, hematocrit 47, and platelets of 161,000. UA showed 2 to [address] scan of the head was unremarkable. ASSESSMENT: This is a pleasant 89-year-old female admitted with complaints of altered mental status, suspect multifactorial due to dehydration, progression of the patient's underlying dementia, cannot rule out underlying stroke although her initial CAT scan was negative. Cannot rule out seizure disorder. She is diabetic, hypertensive and is on G-tube feeds. PLAN: 1. IV hydration with hypotonic fluids. 2. Monitor electrolytes or an EEG of the brain. 3. Cardiology evaluation to assist with blood pressure management and for evaluation of the patient's bradycardia. 4. We will check TSH. 5. Continue aggressive skin care and pulmonary toilet. 6. We will monitor Accu-Cheks. 7. Continue DVT and stress ulcer prophylaxes. Vince Rosario M.D. DR: CHITO JOB#: [id number] CC:
[2019-05-14] MEDS: Aspirin Baby 81mg GT SCH (09:14)
[2019-05-14] MEDS: Lisinopril 20mg tab GT SCH (09:14)
[2019-05-14] MEDS: Memantine 10mg tab GT SCH (09:14)
[2019-05-14] MEDS: Heparin 5000 units/ml inj SUBQ SCH ×2 (09:15→21:00)
[2019-05-14 12:00] VITALS: BP 129/68
--- NOTE | 2019-05-14 12:07 | Diagnostic Imaging Report ---
Indication: Dyspnea Comparison: 11/04/2018 A single view chest radiograph was obtained. Findings: No definite infiltrate or pulmonary vascular congestion identified. The heart is enlarged. The aorta is mildly enlarged consistent with atherosclerotic vascular disease. The bones are osteopenic. There are thoracic vertebral enthesophytes at multiple levels. Impression: No acute disease
[2019-05-14 16:00] VITALS: BP 150/67
[2019-05-14 20:00] VITALS: BP 126/73
[2019-05-14] MEDS: Atorvastatin 80mg tab GT SCH (21:06)
[2019-05-15] VITALS: BP 142/59
[2019-05-15] MEDS: D5 1/2NS w/KCL 10meq 1,000 ML IV SCH ×2 (01:59→18:11)
[2019-05-15 04:00] VITALS: BP 125/63
--- NOTE | 2019-05-15 07:26 | General Progress Note ---
Assessment/Plan Problem List: (1) Tachy-sandra syndrome ICD Codes: I49.5 - Sick sinus syndrome SNOMED: 95902146 (2) Failure to thrive in adult ICD Codes: R62.7 - Failure to thrive in adult SNOMED: 420057852 (3) Hypernatremia ICD Codes: E87.0 - Hyperosmolality and hypernatremia SNOMED: 553102175 (4) Altered level of consciousness ICD Codes: R40.4 - Transient alteration of awareness SNOMED: 3293408 (5) Episode of generalized weakness ICD Codes: R53.1 - Weakness SNOMED: 24685343 (6) Altered mental status ICD Codes: R41.82 - Altered mental status, unspecified SNOMED: 387615233 (7) Hypertensive urgency ICD Codes: I16.0 - Hypertensive urgency SNOMED: 844976616 (8) Toxic metabolic encephalopathy ICD Codes: G92 - Toxic encephalopathy SNOMED: 799773304 Status: stable, not improved Assessment/Plan: cont current rx cont hypotonic ivf await labs check eeg, ammonia and b12 level tube feeds monitor residuals Subjective ROS Limited/Unobtainable: No Constitutional: Reports: malaise, weakness HEENT: Reports: no symptoms Cardiovascular: Reports: no symptoms Respiratory: Reports: cough Gastrointestinal/Abdominal: Reports: difficulty swallowing Genitourinary: Reports: no symptoms Neurologic/Psychiatric: Reports: pre-existing deficit Endocrine: Reports: no symptoms Hematologic/Lymphatic: Reports: anemia Allergies: Coded Allergies: No Known Allergies (Unverified , 02/09/14) All Systems: reviewed and negative except above Subjective no real change. remains withdrawn. on ivf. labs pending. tolerating gt feeds. no fevers. Objective Last 24 Hour Vital Signs Date Time Temp Pulse Resp B/P (MAP) Pulse Ox O2 Delivery O2 Flow Rate FiO2 05/15/19 04:00 69 05/15/19 04:00 97.9 68 17 125/63 (83) 96 05/15/19 00:00 98.2 78 17 142/59 (86) 96 05/15/19 00:00 66 05/14/19 21:00 Room Air 05/14/19 20:00 97.5 51 17 126/73 (90) 97 05/14/19 20:00 48 05/14/19 16:00 97.0 51 16 150/67 (94) 97 05/14/19 16:00 46 05/14/19 12:00 97.3 42 16 129/68 (88) 97 05/14/19 12:00 43 05/14/19 09:15 49 169/75 05/14/19 09:14 169/75 05/14/19 09:00 Room Air 05/14/19 08:00 46 05/14/19 08:00 97.2 49 16 169/75 (106) 97 Intake and Output 05/14/19 05/15/19 19:00 07:00 Intake Total 30 ml Output Total 500 ml Balance 30 ml -500 ml Tube Feeding 30 ml Output Urine Total 500 ml # Voids 2 # Bowel Movements 2 Height (Feet): 5 Height (Inches): 4.00 Weight (Pounds): 113 General Appearance: WD/WN, alert, lethargic, confused EENT: PERRL/EOMI Neck: supple Cardiovascular: normal rate, regular rhythm Respiratory/Chest: chest wall non-tender, lungs clear, normal breath sounds, no respiratory distress, no accessory muscle use Abdomen: normal bowel sounds, non tender, soft, no organomegaly, no mass Edema: no edema noted Arm (L), no edema noted Arm (R), no edema noted Leg (L), no edema noted Leg (R), no edema noted Pedal (L), no edema noted Pedal (R), no edema noted Generalized Neurologic: disoriented Vince Rosario MD May 15, 2019 07:26
[2019-05-15 08:00] VITALS: BP 140/66
[2019-05-15 08:45] LABS: ALANINE AMINOTRANSFERASE 87 U/L (12-78); ALBUMIN 2.6 G/DL (3.4-5.0); ALBUMIN/GLOBULIN RATIO 0.8 (1.0-2.7); ALKALINE PHOSPHATASE 75 U/L (46-116); ANION GAP 7 mmol/L (5-15); ASPARTATE AMINO TRANSFERASE 37 U/L (15-37); BILIRUBIN,TOTAL 0.5 MG/DL (0.2-1.0); BLOOD UREA NITROGEN 20 mg/dL (7-18); CALCIUM 8.3 MG/DL (8.5-10.1); CARBON DIOXIDE 25 MMOL/L (21-32); CHLORIDE 112 MMOL/L (98-107); CREATININE 0.5 MG/DL (0.55-1.30); POTASSIUM 3.5 MMOL/L (3.5-5.1); SODIUM 144 MMOL/L (136-145)
[2019-05-15] MEDS: Memantine 10mg tab GT SCH (09:02)
[2019-05-15] MEDS: Aspirin Baby 81mg GT SCH (09:02)
[2019-05-15] MEDS: Lisinopril 20mg tab GT SCH (09:03)
[2019-05-15] MEDS: Heparin 5000 units/ml inj SUBQ SCH ×2 (09:04→21:00)
[2019-05-15 09:42] LABS: AMMONIA 29 umol/L (11-32)
[2019-05-15 12:00] VITALS: BP 120/55
--- NOTE | 2019-05-15 15:00 | Electroencephalogram ---
DATE OF PROCEDURE: 05/14/2019 REQUESTING PHYSICIAN: Vince Rosario M.D. READING PHYSICIAN: Lonny Belle M.D. PROCEDURE PERFORMED: Electroencephalogram. HISTORY: This EEG was performed on an 89-year-old lady with a history of multiple medical problems including hypertension, diabetes mellitus, cerebrovascular disease with prior strokes, and dementia. The patient has been having some abnormal jaw movements predominantly on the right side and thus this EEG was performed to evaluate the patient for ongoing ictal or interictal phenomena. TECHNICAL NOTE: This EEG was performed on a [employer]. Acquisition Unit with electrodes placed on the scalp according to the International 10-20 system. [id number] and [id number] montages were used. The EEG was technically satisfactory and was performed in the awake and drowsy states. OBSERVATIONS: In the best awake state, the background activity consisted of 8-8.5 Hz alpha with a moderate amount of intermixed 5-6 Hz theta activity. Drowsiness was characterized by a background predominantly in the 5-6 Hz theta range with a moderate amount of intermixed delta frequencies. Right greater than left frontocentrotemporal EMG artifact was seen throughout the tracing associated with right jaw movements. This activity was not associated with any EEG correlate. IMPRESSION: This is an abnormal EEG characterized by slowing of the background with an unusually large amount of intermixed theta activity seen in the awake state. COMMENT: This study is consistent with an encephalopathy of a moderate degree. Please note that the right jaw movements were not associated with any abnormal EEG correlate. Lonny Belle M.D., M.S.P.H. Clinical Neurophysiologist DR: TERENCE JOB#: [id number] SUZAN
[2019-05-15 16:00] VITALS: BP 134/63
[2019-05-15] MEDS ORDERED: NovoLOG Insulin Flexpen SUBQ SCH (16:30)
[2019-05-15] MEDS: NovoLOG Insulin Flexpen SUBQ SCH (18:17)
[2019-05-15 20:00] VITALS: BP 115/57
[2019-05-15] MEDS ORDERED: Vancomycin 1gm/D5W 275ml IVPB ONE ×2 (21:00)
[2019-05-15] MEDS: Atorvastatin 80mg tab GT SCH (21:00)
[2019-05-16] VITALS: BP 100/58
[2019-05-16 04:00] VITALS: BP 119/64
[2019-05-16] MEDS: D5 1/2NS w/KCL 10meq 1,000 ML IV SCH ×2 (04:20→09:17)
[2019-05-16] MEDS: NovoLOG Insulin Flexpen SUBQ SCH ×4 (06:37→17:37)
[2019-05-16 08:00] VITALS: BP 119/45
[2019-05-16 08:32] LABS: ALANINE AMINOTRANSFERASE 75 U/L (12-78); ALBUMIN 2.6 G/DL (3.4-5.0); ALBUMIN/GLOBULIN RATIO 0.8 (1.0-2.7); ALKALINE PHOSPHATASE 80 U/L (46-116); ANION GAP 9 mmol/L (5-15); ASPARTATE AMINO TRANSFERASE 30 U/L (15-37); BILIRUBIN,TOTAL 0.5 MG/DL (0.2-1.0); BLOOD UREA NITROGEN 18 mg/dL (7-18); CALCIUM 8.3 MG/DL (8.5-10.1); CARBON DIOXIDE 23 MMOL/L (21-32); CHLORIDE 109 MMOL/L (98-107); CREATININE 0.5 MG/DL (0.55-1.30); POTASSIUM 4.1 MMOL/L (3.5-5.1); SODIUM 141 MMOL/L (136-145)
[2019-05-16] MEDS: Lisinopril 20mg tab GT SCH (09:05)
[2019-05-16] MEDS: Memantine 10mg tab GT SCH (09:06)
[2019-05-16] MEDS: Aspirin Baby 81mg GT SCH (09:06)
[2019-05-16] MEDS: Heparin 5000 units/ml inj SUBQ SCH ×2 (09:08→20:29)
[2019-05-16 12:00] VITALS: BP 129/53
--- NOTE | 2019-05-16 12:33 | General Progress Note ---
Assessment/Plan Problem List: (1) Tachy-sandra syndrome ICD Codes: I49.5 - Sick sinus syndrome SNOMED: 56192956 (2) Failure to thrive in adult ICD Codes: R62.7 - Failure to thrive in adult SNOMED: 524001010 (3) Hypernatremia ICD Codes: E87.0 - Hyperosmolality and hypernatremia SNOMED: 127682628 (4) Altered level of consciousness ICD Codes: R40.4 - Transient alteration of awareness SNOMED: 0890777 (5) Episode of generalized weakness ICD Codes: R53.1 - Weakness SNOMED: 95705309 (6) Altered mental status ICD Codes: R41.82 - Altered mental status, unspecified SNOMED: 062612445 (7) Hypertensive urgency ICD Codes: I16.0 - Hypertensive urgency SNOMED: 164303492 (8) Toxic metabolic encephalopathy ICD Codes: G92 - Toxic encephalopathy SNOMED: 539940785 Status: stable, not improved Assessment/Plan: cont current rx cont hypotonic ivf await labs check eeg, ammonia and b12 level tube feeds monitor residuals thyroid replacement Subjective ROS Limited/Unobtainable: No Constitutional: Reports: malaise, weakness HEENT: Reports: no symptoms Cardiovascular: Reports: no symptoms Respiratory: Reports: cough Gastrointestinal/Abdominal: Reports: difficulty swallowing Genitourinary: Reports: no symptoms Neurologic/Psychiatric: Reports: depressed Endocrine: Reports: no symptoms Hematologic/Lymphatic: Reports: anemia Allergies: Coded Allergies: No Known Allergies (Unverified , 02/09/14) All Systems: reviewed and negative except above Subjective no real change. remains withdrawn. on ivf. labs pending. tolerating gt feeds. no fevers. +bradycardia. per staff mote alert at times. Objective Last 24 Hour Vital Signs Date Time Temp Pulse Resp B/P (MAP) Pulse Ox O2 Delivery O2 Flow Rate FiO2 05/16/19 09:06 43 119/45 05/16/19 09:05 119/45 05/16/19 09:00 Room Air 05/16/19 08:00 96.4 43 18 119/45 (69) 98 05/16/19 08:00 48 05/16/19 04:00 98.1 56 16 119/64 (82) 97 05/16/19 04:00 87 05/16/19 00:00 97.8 58 20 100/58 (72) 95 05/16/19 00:00 47 05/15/19 21:00 Room Air 05/15/19 20:00 69 05/15/19 20:00 97.2 65 18 115/57 (76) 95 05/15/19 16:00 97.3 54 20 134/63 (86) 95 05/15/19 16:00 47 Intake and Output 05/15/19 05/16/19 19:00 07:00 Intake Total 1345 ml Output Total 700 ml 100 ml Balance 645 ml -100 ml Intake Free Water 110 ml IV Total 825 ml Tube Feeding 410 ml Output Urine Total 700 ml 100 ml # Voids 1 2 # Bowel Movements 3 2 Laboratory Tests 05/16/19 06:05: Sodium Level 141, Potassium Level 4.1, Chloride Level 109H, Carbon Dioxide Level 23, Anion Gap 9, Blood Urea Nitrogen 18, Creatinine 0.5L, Estimat Glomerular Filtration Rate > 60, Glucose Level 281H, Calcium Level 8.3L, Total Bilirubin 0.5, Aspartate Amino Transf (AST/SGOT) 30, Alanine Aminotransferase ( ALT/SGPT) 75, Alkaline Phosphatase 80, Total Protein 6.0L, Albumin 2.6L, Globulin 3.4, Albumin/Globulin Ratio 0.8L Height (Feet): 5 Height (Inches): 4.00 Weight (Pounds): 113 Objective General Appearance: WD/WN, alert, lethargic, confused EENT: PERRL/EOMI Neck: supple Cardiovascular: normal rate, regular rhythm Respiratory/Chest: chest wall non-tender, lungs clear, normal breath sounds, no respiratory distress, no accessory muscle use Abdomen: normal bowel sounds, non tender, soft, no organomegaly, no mass Edema: no edema noted Arm (L), no edema noted Arm (R), no edema noted Leg (L), no edema noted Leg (R), no edema noted Pedal (L), no edema noted Pedal (R), no edema noted Generalized Neurologic: disoriented Vince Rosario MD May 16, 2019 12:33
[2019-05-16 16:00] VITALS: BP 133/59
[2019-05-16 20:00] VITALS: BP 143/53
--- NOTE | 2019-05-16 20:00 | Consultation ---
DATE OF CONSULTATION: 05/13/2019 CARDIOLOGY CONSULTATION CONSULTING PHYSICIAN: Benjie Quiñones M.D. REFERRING PHYSICIAN: Vince Rosario M.D. REASON FOR CONSULTATION: Altered mentation in the setting of abnormal EKG. HISTORY OF PRESENT ILLNESS: This is an 89-year-old female. [facility]. She has had gradually increasing altered mentation over the past two days. She has been described as more confused than baseline, although she does have an underlying dementia. She has had decreased oral intake, but no other constitutional symptoms noted. PAST MEDICAL HISTORY: Coronary artery disease, hypertensive heart disease, conduction system disease with bundle-branch block, hyperlipidemia, type 2 diabetes mellitus, and cerebrovascular disease with dementia. ALLERGIES: None. MEDICATIONS: Prior to admission, reviewed and reconciled. FAMILY HISTORY: Noncontributory. SOCIAL HISTORY: No record of smoking, alcohol, or substance abuse. REVIEW OF SYSTEMS: Not obtainable from the patient. Records reviewed include a prior hospital chart, current group home chart. 25 minutes time spent, pertinent data outlined above. PHYSICAL EXAMINATION: VITAL SIGNS: Afebrile. Blood pressure 150/83, pulse 60, and respirations 18. GENERAL: An ill-appearing, in no acute distress, withdrawn and lethargic. Temporal wasting. HEENT: Pale conjunctivae. Anicteric sclerae. Oropharynx clear. Mucous membranes dry. NECK: Supple. Jugular venous pressure normal. LUNGS: Clear. CARDIAC: Regular rhythm and rate. Normal S1, increased splitting S2. 1/6 systolic apical murmur. ABDOMEN: Soft and nontender. EXTREMITIES: No edema. NEUROLOGIC: Global sensorium depression, but no focal deficits. LABORATORY DATA: White count 8.2, hemoglobin 15.2. BUN 33, creatinine 0.6, sodium 153, potassium 4.0, chloride 116, bicarb 26. Glucose 181. Lactic acid 1. Troponin negative. CK 41. ABG - 7.37, 41, 72. EKG, sinus bradycardia with right bundle-branch block, old inferior infarct of indeterminate age. Review of prior EKG from 2018 reveals similar findings other than the bradycardia. IMPRESSION: 1. Altered mental status. 2. Metabolic encephalopathy. 3. Dehydration. 4. Hypernatremia. 5. Hyperchloremia. 6. Sinus bradycardia. 7. Conduction system disease with right bundle-branch block. 8. 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 9. Underlying dementia, cannot exclude an acute cerebrovascular insult. PLAN: 1. Cardiac monitoring. 2. Avoid all medications with negative chronotropic potential. 3. Hypotonic IV fluid hydration. 4. DVT and stress ulcer prophylaxes. 5. Monitor the electrolytes. 6. Check thyroid panel. 7. No immediate indication for pacemaker. Benjie Quiñones M.D. DR: SOBEIDA JOB#: [id number] CC:
[2019-05-16] MEDS: Atorvastatin 80mg tab GT SCH (20:28)
[2019-05-16] MEDS ORDERED: Vancomycin 500mg/D5W 110ml IVPB SCH ×2 (21:00)
[2019-05-17] VITALS: BP 100/60
[2019-05-17] MEDS: NovoLOG Insulin Flexpen SUBQ SCH ×5 (01:09→23:58)
[2019-05-17 04:00] VITALS: BP 121/70
[2019-05-17] MEDS: 1/2NS w/KCl 20mEq 1000ml 1,000 ML IV SCH ×2 (04:00→23:45)
--- NOTE | 2019-05-17 04:00 | Progress Note ---
DATE: 05/14/2019 CARDIOLOGY PROGRESS NOTE SUBJECTIVE: The patient remains withdrawn, lethargic. Intake minimal. OBJECTIVE: VITAL SIGNS: Blood pressure 129/68, heart rate 42, respiratory 16, afebrile. LUNGS: Bilateral breath sounds. No wheezing. CARDIAC: Regular rhythm. Slow rate. Normal S1 and S2. ABDOMEN: Soft. EXTREMITIES: No edema. LABORATORY DATA: White count 9.5 and hemoglobin 14.8. Sodium 150, potassium 3.6, chloride 114, bicarb 27, BUN 25, creatinine 0.5, and albumin 2.9. TSH 0.356. Urine culture is pending. IMPRESSION: 1. Metabolic encephalopathy. 2. Dehydration. 3. ____. 4. Acute kidney injury. 5. Hypovolemia. 6. Sinus bradycardia. 7. Conduction system disease of the heart. 8. Ischemic cardiomyopathy. PLAN: 1. Cardiac monitoring. 2. Atropine at bedside. 3. Continue hypotonic IV fluids. 4. Await culture results. 5. No indication for immediate pacemaker at this time. 6. Follow up laboratory studies. Benjie Quiñones M.D. DR: LENNY JOB#: [id number] CC:
--- NOTE | 2019-05-17 04:30 | Progress Note ---
DATE: 05/16/2019 CARDIOLOGY PROGRESS NOTE SUBJECTIVE: Monitor with sinus bradycardia. The patient is slightly more alert. No vomiting. OBJECTIVE: VITAL SIGNS: Blood pressure 129/53, pulse 51, respirations 20, afebrile. LUNGS: Clear. CARDIAC: Regular. Slow rate. Normal S1, S2. ABDOMEN: Soft. EXTREMITIES: No edema. LABORATORY DATA: Sodium 141, potassium 4.1, bicarb 23, BUN 18, creatinine 0.5. Troponin negative. Albumin 2.6. IMPRESSION: 1. Sinus node disease with sinus bradycardia, presently asymptomatic. 2. Metabolic encephalopathy. Improving. 3. Dehydration, hyponatremia. 4. Hyperchloremia, recovering. 5. Type 2 diabetes mellitus with hyperglycemia due to IV fluids. PLAN: 1. Follow up on metabolic profile. 2. Discontinue IV fluids. 3. Continue cardiac monitoring. 4. Presently, no indication for permanent pacemaker. 5. Discontinue dextrose in IV fluids. Benjie Quiñones M.D. DR: BRIJESH JOB#: [id number] CC:
[2019-05-17 07:32] LABS: CREATINE KINASE 45 U/L (26-308)
[2019-05-17] MEDS ORDERED: SYNTHROID50 MCG ORAL (07:43)
--- NOTE | 2019-05-17 07:47 | General Progress Note ---
Assessment/Plan Problem List: (1) Tachy-sandra syndrome ICD Codes: I49.5 - Sick sinus syndrome SNOMED: 24409330 (2) Failure to thrive in adult ICD Codes: R62.7 - Failure to thrive in adult SNOMED: 960552970 (3) Hypernatremia ICD Codes: E87.0 - Hyperosmolality and hypernatremia SNOMED: 429862921 (4) Altered level of consciousness ICD Codes: R40.4 - Transient alteration of awareness SNOMED: 3474197 (5) Episode of generalized weakness ICD Codes: R53.1 - Weakness SNOMED: 65501938 (6) Altered mental status ICD Codes: R41.82 - Altered mental status, unspecified SNOMED: 641647442 (7) Hypertensive urgency ICD Codes: I16.0 - Hypertensive urgency SNOMED: 295744532 (8) Toxic metabolic encephalopathy ICD Codes: G92 - Toxic encephalopathy SNOMED: 785206729 Status: stable, not improved Assessment/Plan: cont current rx cont hypotonic ivf await labs tube feeds monitor residuals thyroid replacement antiplt rx Subjective ROS Limited/Unobtainable: No Constitutional: Reports: malaise, weakness HEENT: Reports: no symptoms Cardiovascular: Reports: no symptoms Respiratory: Reports: cough Gastrointestinal/Abdominal: Reports: difficulty swallowing, poor appetite Genitourinary: Reports: no symptoms Neurologic/Psychiatric: Reports: pre-existing deficit Endocrine: Reports: no symptoms Hematologic/Lymphatic: Reports: anemia Allergies: Coded Allergies: No Known Allergies (Unverified , 02/09/14) All Systems: reviewed and negative except above Subjective no events. intermittent bradycardia as low as 40s. no fevers. awake but nonverbal. no fevers. tolerating feeds. Objective Last 24 Hour Vital Signs Date Time Temp Pulse Resp B/P (MAP) Pulse Ox O2 Delivery O2 Flow Rate FiO2 05/17/19 04:00 78 05/17/19 04:00 98.2 75 19 121/70 (87) 96 05/17/19 00:00 98.1 59 20 100/60 (73) 96 05/17/19 00:00 52 05/16/19 21:00 Room Air 05/16/19 20:00 97.7 50 20 143/53 (83) 97 05/16/19 20:00 49 05/16/19 16:00 97.9 62 20 133/59 (83) 97 05/16/19 12:00 51 05/16/19 12:00 97.3 52 20 129/53 (78) 97 05/16/19 09:06 43 119/45 05/16/19 09:05 119/45 05/16/19 09:00 Room Air 05/16/19 08:00 96.4 43 18 119/45 (69) 98 05/16/19 08:00 48 Intake and Output 05/16/19 05/17/19 19:00 07:00 Intake Total 1387.5 ml 1060 ml Output Total 200 ml 1400 ml Balance 1187.5 ml -340 ml IV Total 787.5 ml Tube Feeding 600 ml 1060 ml Output Urine Total 200 ml 1300 ml Stool Total 100 ml # Voids 4 # Bowel Movements 3 2 Laboratory Tests 05/16/19 21:00: Troponin I 0.024 05/17/19 06:15: Sodium Level [Pending], Potassium Level [Pending], Chloride Level [Pending], Carbon Dioxide Level [Pending], Blood Urea Nitrogen [Pending], Creatinine [ Pending], Estimat Glomerular Filtration Rate [Pending], Glucose Level [Pending] , Calcium Level [Pending], Magnesium Level 1.8, Total Bilirubin [Pending], Aspartate Amino Transf (AST/SGOT) [Pending], Alanine Aminotransferase (ALT/SGPT ) [Pending], Alkaline Phosphatase [Pending], Total Creatine Kinase 45, Pro-B- Type Natriuretic Peptide 289H, Total Protein [Pending], Albumin [Pending], Globulin [Pending], Triglycerides Level [Pending], Cholesterol Level [Pending], LDL Cholesterol [Pending], HDL Cholesterol [Pending], Cholesterol/HDL Ratio [ Pending] Height (Feet): 5 Height (Inches): 4.00 Weight (Pounds): 113 Objective General Appearance: WD/WN, alert, lethargic, confused EENT: PERRL/EOMI Neck: supple Cardiovascular: normal rate, regular rhythm Respiratory/Chest: chest wall non-tender, lungs clear, normal breath sounds, no respiratory distress, no accessory muscle use Abdomen: normal bowel sounds, non tender, soft, no organomegaly, no mass Edema: no edema noted Arm (L), no edema noted Arm (R), no edema noted Leg (L), no edema noted Leg (R), no edema noted Pedal (L), no edema noted Pedal (R), no edema noted Generalized Neurologic: disoriented Vince Rosario MD May 17, 2019 07:47
[2019-05-17 08:00] VITALS: BP 102/71
[2019-05-17 08:12] LABS: ALANINE AMINOTRANSFERASE 60 U/L (12-78); ALBUMIN 2.6 G/DL (3.4-5.0); ALBUMIN/GLOBULIN RATIO 0.7 (1.0-2.7); ALKALINE PHOSPHATASE 77 U/L (46-116); ANION GAP 9 mmol/L (5-15); ASPARTATE AMINO TRANSFERASE 24 U/L (15-37); BILIRUBIN,TOTAL 0.4 MG/DL (0.2-1.0); BLOOD UREA NITROGEN 17 mg/dL (7-18); CALCIUM 8.4 MG/DL (8.5-10.1); CARBON DIOXIDE 25 MMOL/L (21-32); CHLORIDE 112 MMOL/L (98-107); CHOLESTEROL 99 MG/DL (< 200); CREATININE 0.5 MG/DL (0.55-1.30); HDL CHOLESTEROL 33 MG/DL (40-60); POTASSIUM 4.1 MMOL/L (3.5-5.1); SODIUM 146 MMOL/L (136-145); TRIGLYCERIDES 137 MG/DL (30-150)
[2019-05-17] MEDS: Heparin 5000 units/ml inj SUBQ SCH ×2 (09:00→20:46)
[2019-05-17] MEDS: Aspirin Baby 81mg GT SCH (09:00)
[2019-05-17] MEDS: Lisinopril 20mg tab GT SCH (10:01)
[2019-05-17] MEDS: Memantine 10mg tab GT SCH (10:02)
[2019-05-17 12:00] VITALS: BP 105/57
[2019-05-17 16:00] VITALS: BP 106/64
[2019-05-17 20:00] VITALS: BP 130/80
[2019-05-17] MEDS: Atorvastatin 80mg tab GT SCH (20:45)
--- NOTE | 2019-05-17 23:15 | Progress Note ---
DATE: 05/17/2019 CARDIOLOGY PROGRESS NOTE SUBJECTIVE: The patient remains in sinus rhythm and sinus bradycardic episodes. No pauses. PHYSICAL EXAMINATION: VITAL SIGNS: Blood pressure 121/70, , respiratory rate 19, afebrile, heart rate 43 to 78. NECK: Supple. LUNGS: Clear. CARDIAC: Regular. Normal S1 and S2. ABDOMEN: Soft. EXTREMITIES: No edema. LABORATORY AND DIAGNOSTIC DATA: Sodium 146, potassium 4.1, bicarb 25, BUN 17, creatinine 0.5. Albumin 2.6. Pro-natriuretic peptide 289. LDL cholesterol 53. IMPRESSION: 1. Dehydration. 2. 3. Very low lipid parameters. 4. Sinus node disease with bradycardia. 5. Hypertensive heart disease with low range blood pressure. PLAN: 1. Continue cardiac monitoring. 2. Continue hypotonic IV fluid hydration. 3. Discontinue amlodipine. 4. Decrease dose of atorvastatin. Benjie Quiñones M.D. DR: Lilly JOB#: [id number] CC:
[2019-05-18] VITALS: BP 122/74
--- NOTE | 2019-05-18 | Progress Note ---
DATE: 05/15/2019 SUBJECTIVE: The patient is withdrawn and lethargic. Tolerating feedings by G-tube. Monitored rhythm is sinus and sinus bradycardia. No pauses. OBJECTIVE: VITAL SIGNS: Blood pressure 125/63, respiratory rate 17, heart rate ranging from 42 to 78. NECK: Supple. LUNGS: Clear. CARDIAC: Regular, normal S1, S2 with a fourth heart sound. ABDOMEN: Soft. EXTREMITIES: No edema. LABORATORY DATA: Labs reviewed. IMPRESSION: 1. Dehydration. 2. Hypernatremia. 3. Metabolic encephalopathy. 4. Sinus node disease with asymptomatic bradycardia. 5. Hypertension. 6. Hypertensive urgency, resolved. 7. Dysphagia with G-tube. 8. Hyperlipidemia, on statin drug. PLAN: 1. Check metabolic profile. 2. Reassess statin dose. 3. Avoid tight blood pressure control. 4. Hypotonic IV fluid hydration. 5. Continue cardiac monitoring. 6. No immediate indication for permanent pacemaker. We will need to address in conjunction with the patient's performance status. Benjie Quiñones M.D. DR: SOBEIDA JOB#: [id number] CC:
[2019-05-18 04:00] VITALS: BP 127/67
[2019-05-18] MEDS: NovoLOG Insulin Flexpen SUBQ SCH ×3 (05:13→17:19)
[2019-05-18 08:00] VITALS: BP 124/74
[2019-05-18] MEDS: Aspirin Baby 81mg GT SCH (08:44)
[2019-05-18] MEDS: Memantine 10mg tab GT SCH (08:44)
[2019-05-18] MEDS: Heparin 5000 units/ml inj SUBQ SCH ×2 (08:44→20:41)
[2019-05-18] MEDS: Lisinopril 20mg tab GT SCH (08:45)
--- NOTE | 2019-05-18 10:31 | General Progress Note ---
Assessment/Plan Problem List: (1) Tachy-sandra syndrome ICD Codes: I49.5 - Sick sinus syndrome SNOMED: 78794510 (2) Failure to thrive in adult ICD Codes: R62.7 - Failure to thrive in adult SNOMED: 090832741 (3) Hypernatremia ICD Codes: E87.0 - Hyperosmolality and hypernatremia SNOMED: 100378291 (4) Altered level of consciousness ICD Codes: R40.4 - Transient alteration of awareness SNOMED: 6876115 (5) Episode of generalized weakness ICD Codes: R53.1 - Weakness SNOMED: 58655780 (6) Altered mental status ICD Codes: R41.82 - Altered mental status, unspecified SNOMED: 098954246 (7) Hypertensive urgency ICD Codes: I16.0 - Hypertensive urgency SNOMED: 046851832 (8) Toxic metabolic encephalopathy ICD Codes: G92 - Toxic encephalopathy SNOMED: 021464938 Status: stable, not improved Assessment/Plan: cont current rx cont hypotonic ivf await labs tube feeds monitor residuals thyroid replacement antiplt rx dc planning Subjective ROS Limited/Unobtainable: Yes Constitutional: Reports: malaise, weakness HEENT: Reports: no symptoms Cardiovascular: Reports: no symptoms Respiratory: Reports: cough, shortness of breath Gastrointestinal/Abdominal: Reports: difficulty swallowing, poor appetite Genitourinary: Reports: no symptoms Neurologic/Psychiatric: Reports: no symptoms Endocrine: Reports: no symptoms Hematologic/Lymphatic: Reports: no symptoms Allergies: Coded Allergies: No Known Allergies (Unverified , 02/09/14) All Systems: reviewed and negative except above Subjective no events. hr better. family requesting different snf. tolerating feeds. no vomiting. labs pending Objective Last 24 Hour Vital Signs Date Time Temp Pulse Resp B/P (MAP) Pulse Ox O2 Delivery O2 Flow Rate FiO2 05/18/19 08:45 124/74 05/18/19 08:00 98.2 69 18 124/74 (91) 95 05/18/19 04:00 97.9 70 16 127/67 (87) 95 05/18/19 00:00 98.1 82 16 122/74 (90) 96 05/17/19 21:00 Room Air 05/17/19 20:00 98.2 87 16 130/80 (97) 96 05/17/19 16:00 44 05/17/19 16:00 98.6 63 18 106/64 (78) 99 05/17/19 12:00 73 05/17/19 12:00 98.7 78 19 105/57 (73) 100 Intake and Output 05/17/19 05/18/19 19:00 07:00 Intake Total 240 ml 650 ml Balance 240 ml 650 ml Intake Oral 140 ml Free Water 100 ml Tube Feeding 100 ml 550 ml # Voids 1 # Bowel Movements 1 Height (Feet): 5 Height (Inches): 4.00 Weight (Pounds): 113 Objective General Appearance: WD/WN, alert, lethargic, confused EENT: PERRL/EOMI Neck: supple Cardiovascular: normal rate, regular rhythm Respiratory/Chest: chest wall non-tender, lungs clear, normal breath sounds, no respiratory distress, no accessory muscle use Abdomen: normal bowel sounds, non tender, soft, no organomegaly, no mass Edema: no edema noted Arm (L), no edema noted Arm (R), no edema noted Leg (L), no edema noted Leg (R), no edema noted Pedal (L), no edema noted Pedal (R), no edema noted Generalized Neurologic: disoriented Vince Rosario MD May 18, 2019 10:31
[2019-05-18 12:00] VITALS: BP 150/63
[2019-05-18 16:00] VITALS: BP 147/66
[2019-05-18 20:19] VITALS: BP 149/77
[2019-05-18] MEDS: 1/2NS w/KCl 20mEq 1000ml 1,000 ML IV SCH (20:40)
--- NOTE | 2019-05-18 22:15 | Progress Note ---
DATE: 05/18/2019 CARDIOLOGY PROGRESS NOTE SUBJECTIVE: Bradycardia improved, no pauses, no hypotensive episodes. Mentation closer to baseline. PHYSICAL EXAMINATION: VITAL SIGNS: Blood pressure 124/74, pulse 69, respiratory rate 18, and afebrile. LUNGS: Clear. CARDIAC: Regular. Normal S1 and S2 with a fourth heart sound. ABDOMEN: Soft. EXTREMITIES: No edema. IMPRESSION: 1. Sinus node disease presently with no indication for permanent pacemaker and stable cardiac rhythm. 2. Metabolic encephalopathy, improved. 3. Hypertensive urgency resolved. 4. Hypernatremia and dehydration corrected. 5. Hyperlipidemia on high-dose statin now with low LDL level. PLAN: 1. Statin dose decreased. 2. Maintain current antihypertensive regimen. 3. 4. Avoiding beta-blockers. 5. Discharge planning in progress. 6. No role for pacemaker at this time. Benjie Quiñones M.D. DR: Lilly JOB#: [id number] CC:
[2019-05-19] VITALS: BP 122/72
[2019-05-19 04:00] VITALS: BP 127/58
[2019-05-19] MEDS: NovoLOG Insulin Flexpen SUBQ SCH ×3 (06:15→12:39)
[2019-05-19 08:00] VITALS: BP 111/54
[2019-05-19] MEDS: Memantine 10mg tab GT SCH (09:07)
[2019-05-19] MEDS: Lisinopril 20mg tab GT SCH (09:07)
[2019-05-19] MEDS: Aspirin Baby 81mg GT SCH (09:07)
[2019-05-19] MEDS: Heparin 5000 units/ml inj SUBQ SCH (09:10)
--- NOTE | 2019-05-19 09:47 | General Progress Note ---
Assessment/Plan Problem List: (1) Tachy-sandra syndrome ICD Codes: I49.5 - Sick sinus syndrome SNOMED: 83938532 (2) Failure to thrive in adult ICD Codes: R62.7 - Failure to thrive in adult SNOMED: 075000502 (3) Hypernatremia ICD Codes: E87.0 - Hyperosmolality and hypernatremia SNOMED: 379233004 (4) Altered level of consciousness ICD Codes: R40.4 - Transient alteration of awareness SNOMED: 2816549 (5) Episode of generalized weakness ICD Codes: R53.1 - Weakness SNOMED: 47941582 (6) Altered mental status ICD Codes: R41.82 - Altered mental status, unspecified SNOMED: 347128812 (7) Hypertensive urgency ICD Codes: I16.0 - Hypertensive urgency SNOMED: 500727791 (8) Toxic metabolic encephalopathy ICD Codes: G92 - Toxic encephalopathy SNOMED: 193432894 Status: stable, not improved Assessment/Plan: cont current rx cont hypotonic ivf await labs tube feeds monitor residuals thyroid replacement antiplt rx dc planning to snf or home on hospice Subjective ROS Limited/Unobtainable: No Constitutional: Reports: malaise, weakness HEENT: Reports: no symptoms Cardiovascular: Reports: no symptoms Respiratory: Reports: cough Gastrointestinal/Abdominal: Reports: difficulty swallowing, poor appetite, poor fluid intake Genitourinary: Reports: no symptoms Neurologic/Psychiatric: Reports: depressed, pre-existing deficit Endocrine: Reports: no symptoms Hematologic/Lymphatic: Reports: anemia Allergies: Coded Allergies: No Known Allergies (Unverified , 02/09/14) All Systems: reviewed and negative except above Subjective no events. hr better. family requesting different snf and/or hospice. unable to pay share of cost. pt remains withdrawn. poorly responsive. Objective Last 24 Hour Vital Signs Date Time Temp Pulse Resp B/P (MAP) Pulse Ox O2 Delivery O2 Flow Rate FiO2 05/19/19 09:07 111/54 05/19/19 08:24 Room Air 05/19/19 08:00 97.3 80 18 111/54 (73) 98 05/19/19 04:00 97.7 80 18 127/58 (81) 97 05/19/19 00:00 98.4 100 20 122/72 (89) 95 05/18/19 20:19 99.1 70 18 149/77 (101) 95 05/18/19 20:18 Room Air 05/18/19 16:00 97.7 75 18 147/66 (93) 95 05/18/19 12:00 97.9 61 18 150/63 (92) 96 Intake and Output 05/18/19 05/19/19 19:00 07:00 Intake Total 650 ml 950 ml Output Total 200 ml 650 ml Balance 450 ml 300 ml Free Water 50 ml 400 ml Tube Feeding 600 ml 550 ml Output Urine Total 200 ml 650 ml # Voids 1 Height (Feet): 5 Height (Inches): 4.00 Weight (Pounds): 136 Objective General Appearance: WD/WN, alert, lethargic, confused EENT: PERRL/EOMI Neck: supple Cardiovascular: normal rate, regular rhythm Respiratory/Chest: chest wall non-tender, lungs clear, normal breath sounds, no respiratory distress, no accessory muscle use Abdomen: normal bowel sounds, non tender, soft, no organomegaly, no mass Edema: no edema noted Arm (L), no edema noted Arm (R), no edema noted Leg (L), no edema noted Leg (R), no edema noted Pedal (L), no edema noted Pedal (R), no edema noted Generalized Neurologic: disoriented Vince Rosario MD May 19, 2019 09:47
[2019-05-19 12:00] VITALS: BP 131/59
[2019-05-19] MEDS ORDERED: Atorvastatin 20mg tab GT SCH (21:00)
--- NOTE | 2019-05-20 01:30 | Progress Note ---
DATE: 05/19/2019 CARDIOLOGY PROGRESS NOTE SUBJECTIVE: The patient's condition has improved. Her mentation is at baseline. OBJECTIVE: VITAL SIGNS: Blood pressure 111/54, heart rate 80, respiratory rate 18, and afebrile. LUNGS: Clear. CARDIAC: Regular. Normal S1 and S2. Monitored sinus and sinus bradycardia with no pauses. First-degree AV block noted. ABDOMEN: Soft. EXTREMITIES: No edema. IMPRESSION: 1. Sinus bradycardia with underlying sinus node disease. No indication for pacemaker at this time. 2. Advanced age. 3. Recovered sepsis. 4. Rehydrated. 5. Hypertensive urgency, resolved. PLAN: 1. Stable for discharge home. 2. Conservative management plan. 3. Possible hospice enrollment. 4. Encourage oral intake. 5. No indication for pacemaker. Benjie Quiñones M.D. DR: JORGE A JOB#: [id number] CC:
--- NOTE | 2019-05-20 12:43 | Discharge Summary ---
Discharge Summary Discharge Summary _ DATE OF ADMISSION: 05/13/2019 DATE OF DISCHARGE: 05/19/2019 DISCHARGED BY: Dr. Rosario REASON FOR ADMISSION: 89 years old female, resident of care home facility, with past medical history of hypertension, diabetes mellitus, hyperlipidemia, dementia, was sent from the care home facility due to altered mental status. On evaluation, patient was bradycardic. Sodium 153. BUN 33, creatinine 0.6. Lactic acid 1.0 . AST 47, ALT 132. Troponin 0.001 EKG reveals sinus bradycardia with right bundle branch block, no acute ischemic changes . ABG was stable on room air. Albumin 3 Chest x-ray revealed no acute cardiopulmonary pathology. CT of the head revealed no acute intracranial bleeding, mass-effect or edema. Multiple old lacunar infarcts. Moderate atrophy of the brain. Evidence of chronic small vessel disease, involving white matter tracts. Patient started on the IV fluids and admitted for further management. CONSULTANTS: workers compensation administrator HOSPITAL COURSE: Patient admitted to telemetry floor and started on IV hydration with hypotonic solution. Renal parameters and electrolytes were closely monitored. Elevator Builder consulted regarding evaluation of the bradycardia and blood pressure management. EEG was abnormal, with findings consistent with encephalopathy of a moderate degree. Elevator Builder recommended to avoid all medications with negative chronotropic potential due to bradycardia. Repeated troponin was negative. Echocardiogram demonstrated preserved ejection fraction of 65% with no evidence of wall motion abnormality to the extent visualized. Mild left ventricular hypertrophy. Lipid panel revealed low levels, and statin dose decreased . Heart rate stabilized. No indication for pacemaker. Blood pressure was managed with AMARILYS inhibitor. Platelet therapy with aspirin continued. DVT and GI prophylaxis provided. Elevator Builder recommended conservative management, given advanced age and multiply comorbidities. Renal parameters and electrolytes were closely monitored. Electrolytes corrected as needed , and nephrotoxins were avoided. Prior to discharge , sodium 146 Blood sugar was managed with sliding scale of insulin. Hospice evaluation was done. Patient was accepted to hospice services. 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 DISCHARGE INSTRUCTIONS: Patient was discharged to nursing facility with hospice services via ambulance. I have been assigned to dictate discharge summary for this account. I was not involved in the patient's management. Marisol Alvarez NP May 20, 2019 12:43
--- NOTE | 2019-05-23 11:17 | Coder Physician Query ---
PLEASE COMPLETE DOCUMENT BEFORE SIGNING Dear Dr. Rosario Date: 05/23/19 Production Engineer/CDS Name: NaomiSuDanish, AJAY Exercise your independent professional judgment when responding to query. Question asked do not imply a particular answer is desired/expected. Clinical Documentation States: "Altered Mental Status CT of the head revealed no acute intracranial bleeding, mass-effect or edema. Multiple old lacunar infarcts. Moderate atrophy of the brain. Associate Professor Of History recommended to avoid all medications with negative chronotropic potential due to bradycardia. Repeated troponin was negative. Patient admitted to telemetry floor and started on IV hydration with hypotonic solution. Renal parameters and electrolytes were closely monitored. 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 Date & Time [facility]
== END 2019-05-19 13:59 | disposition hospice, home (50) | DRG 640 ==
LOC: EDBD 19:27 → EDSEX 19:27 → EMR 19:45 → 2E 21:06 → EDBEDREQ 22:31
DX: E87.0 Hyperosmolality and hypernatremia (principal); G93.41 Metabolic encephalopathy; Z68.1 Body mass index [BMI] 19.9 or less, adult; N17.9 Acute kidney failure, unspecified; G93.40 Encephalopathy, unspecified; I49.5 Sick sinus syndrome; I16.0 Hypertensive urgency; R62.7 Adult failure to thrive; E86.0 Dehydration; E86.1 Hypovolemia; F03.90 Unspecified dementia, unspecified severity, without behavioral disturbance, psychotic disturbance, mood disturbance, and anxiety; I69.391 Dysphagia following cerebral infarction; R13.10 Dysphagia, unspecified; I11.9 Hypertensive heart disease without heart failure; E11.65 Type 2 diabetes mellitus with hyperglycemia; I45.10 Unspecified right bundle-branch block; I25.2 Old myocardial infarction; I25.9 Chronic ischemic heart disease, unspecified; E78.5 Hyperlipidemia, unspecified
CPT/HCPCS: 36415; 36600; 70450; 71045; 80053; 80061; 81003; 82140; 82550; 82553; 82607; 82803; 82962; 83605; 83735; 83880; 84439; 84443; 84481; 84484; 85025; 86710; 86850; 86900; 86901; 87040; 87081; 87086; 93005; 93306; 95819; 96360; 96361; 99285; J1815; J7030